=== PATIENT | male | born 1965 | race Two or more races ===

== ENCOUNTER 2024-08-07 13:26 | Outpatient (AMB) | payer MEDICAID, SELFPAY ==
--- NOTE | 2024-08-07 14:16 | A.OFFVIS_ITS ---
Intake Visit Reasons: kidney stone Allergies No Known Allergies Allergy (Verified 08/07/24 14:54) Medication List - Last Reconciled 08/07/24 by ALIZA Miles albuterol sulfate 90 mcg/actuation (Ventolin HFA) 2 puffs inhalation Q4-6H PRN albuterol sulfate mg inhalation Q4-6H PRN cetirizine 10 mg PO DAILY clonazepam 0.5 mg PO BID gabapentin 600 mg PO TID ipratropium-albuterol 0.5 mg-3 mg(2.5 mg base)/3 mL mL inhalation BID multivitamin (One Daily Multivitamin tablet) 1 tab PO DAILY naloxone 4 mg/actuation intranasal DAILY PRN pantoprazole 20 mg PO BID quetiapine 50 mg PO BEDTIME tramadol 50 mg PO QID PRN valsartan 160 mg PO DAILY HPI Comments Details: Osiel is a 58-year-old Swedish-speaking male patient of . He has a past medical history of primary insomnia, osteoarthritis, obesity, hyperlipidemia, depression, GERD, hypertension, chronic back pain, anxiety, and asthma. Presents to the office today as a new patient for nephrolithiasis. In discussion with the patient today he reports having seeked emergency room care at [facility] 3 months ago for left-sided flank pain he had been experiencing at which time he was diagnosed with nephrolithiasis. In review of patient's medical records that he brings with him today records state 3 mm stone however does not indicate on which side and or obstructing verses nonobstructing. In discussion with the patient today he continues to report left-sided flank pain as well as dysuria. He denies any previous history of nephrolithiasis and or surgical intervention for nephrolithiasis. He denies urinary urgency, urinary frequency, incontinence, nocturia, hematuria, foul smelling urine, changes to urinary stream, flank pain, fever, and or chills. We discussed at length potential causes of nephrolithiasis as well as dysuria. We discussed obtaining CT KUB for further assessment evaluation. In office urinalysis results reviewed with the patient today negative leukocytes negative nitrates negative microscopic hematuria. DUANE offered however deferred. He otherwise offers no other issues or concerns at this time. [facility] Medical History Sacral nerve root compression Primary insomnia Persistent severe somatic symptom disorder Osteoarthritis Obesity, Class I, BMI 30-34.9 Mixed hyperlipidemia Major depressive disorder Lumbosacral disc herniation Low back pain GERD (gastroesophageal reflux disease) Failed back syndrome of lumbar spine Essential hypertension Class 1 obesity with body mass index (BMI) of 33.0 to 33.9 in adult Chronic pain of right knee Anxiety Asthma Review of Systems Const Reports no additional complaints Eyes Reports no additional complaints ENT Reports no additional complaints Card Reports as per HPI Resp Reports as per HPI GI Reports as per HPI Reports as per HPI Musc Reports as per HPI Neuro Reports as per HPI Psych Reports as per HPI Endo Reports no additional complaints Jey/Lymph Reports no additional complaints Aller/Immun Reports no additional complaints Physical Exam Const General: cooperative, healthy appearing, comfortable, no acute distress, well developed, alert and awake Orientation/consciousness: patient oriented x3 Limitations: no limitations HEENT Head: Yes normal to inspection, Yes normocephalic and Yes atraumatic Ears: hearing grossly normal bilaterally Eyes General: appearance normal, both eyes and all related structures Neck Neck: Yes normal visual inspection and Yes trachea midline Chest Chest palpation & inspection: normal inspection of the chest Resp Effort & Inspection: normal respiratory effort and able to speak in complete sentences Cardio Rate: regular rate GI Inspection: Yes normal to inspection General: Yes no CVA tenderness Back/Spine/Pelvis Back: no CVA tenderness Skin General skin exam: no rashes or lesions noted Neuro General: patient oriented x3 Extrem General: Yes normal to inspection Psych Appearance: grossly normal and well kempt Mental Status: mental status grossly normal Speech and movement: Normal speech and movement present and Clear speech present Affect: normal affect Attitude: cooperative Thought process: Normal thought process present Thought content: Normal thought content present Insight: Fair insight present (Psych) Judgement: Fair judgement present (Psych) Results AMB Urinalysis, Automated UA Leukoctes 0 Karla/uL Last Edit by JA Rebolledo on 08/07/24 14:47 UA Nitrite Negative Last Edit by AJ Rebolledo on 08/07/24 14:47 UA Urobilinogen 0.2 mg/dL Last Edit by AJ Rebolledo on 08/07/24 14:4 7 UA Protein 0 mg/dL Last Edit by AJ Rebolledo on 08/07/24 14:47 UA pH 6.5 Last Edit by Marleny Garcia, RMA on 08/07/24 14:47 UA Blood 0 Daniel/uL Last Edit by Marleny Garcia, RMA on 08/07/24 14:47 UA Specific [place] 1.015 Last Edit by Marleny Garcia, RMA on 08/07/24 14: 47 UA Ketone Negative Last Edit by Marleny Garcia, RMA on 08/07/24 14:47 UA Bilirubin 0 mg/dL Last Edit by Marleny Garcia, RMA on 08/07/24 14:47 UA Glucose 0 mg/dL Last Edit by Marleny Garcia, A on 08/07/24 14:47 Results Reviewed Results Reviewed: Laboratory Last Values Urine pH (Auto) 6.5 08/07/24 14:47 Specific [place] (Auto) 1.015 08/07/24 14:47 Urine Protein (Auto) 0 mg/dL 08/07/24 14:47 Glucose (UA)(Auto) 0 mg/dL 08/07/24 14:47 Urine Ketones (Auto) Negative 08/07/24 14:47 Urine Blood (Auto) 0 Daniel/uL 08/07/24 14:47 Urine Nitrite (Auto) Negative 08/07/24 14:47 Urine Bilirubin (Auto) 0 mg/dL 08/07/24 14:47 Urine Urobilinogen (Auto) 0.2 mg/dL 08/07/24 14:47 Leukocyte Esterase (Auto) 0 Karla/uL 08/07/24 14:47 Assessment & Plan Assessment & Plan (1) Dysuria: Code(s): R30.0 - Dysuria Category: Medical (2) Flank pain: Code(s): R10.9 - Unspecified abdominal pain Category: Medical (3) Nephrolithiasis: Code(s): N20.0 - Calculus of kidney Category: Medical Plan In office urinalysis results reviewed with the patient today; as noted above; will send for urine culture. Will obtain CT KUB for further assessment evaluation. We discussed at length potential causes of nephrolithiasis as well as near future metabolic workup. We discussed importance of adequate hydration relation to nephrolithiasis as well as overall health and well-being. We discussed potential near future in office cystoscopy for further assessment evaluation. Will obtain PSA for further assessment evaluation. Follow-up in 1-4 weeks with imaging and labs to be completed prior; or sooner with any issues, concerns, and or questions. Orders: Orders AMB Urinalysis Automated Today Z13.9 - Encounter for screening, unspecified CT kidney stone Today N20.0 - Calculus of kidney, R10.9 - Unspecified abdominal pain, R30.0 - Dysuria Prostate Specific Antigen Today N40.0 - Benign prostatic hyperplasia without lower urinary tract symptoms, R30.0 - Dysuria Urine Culture Today R30.0 - Dysuria Patient Instructions: The patient had an opportunity to ask questions regarding the treatment plan. All questions were answered. Physical exam, labs, and imaging were discussed and reviewed in detail. As well as risks, benefits, and discussion of treatment choices. No major barriers to understanding were identified. The patient expressed understanding and agreement with the above treatment plan. The patient was made aware they should contact our office by phone for worsening of their current condition, the appearance of new symptoms, or with any questions or concerns. Compliance is encouraged with any medications and follow up testing that is ordered. It is a privilege to be allowed the opportunity to participate in? your urological care.? Again, if you have any questions or concerns If you have any questions or concerns please do not hesitate to contact me. The office is [phone]. This note is constructed using voice recognition software. While every effort has been made to ensure accuracy estimation manager errors may have been included. Yours sincerely, ALIZA Miles Coding Level of Care Code New Pt Level 3 (20740) Diagnoses Dysuria R30.0 Flank pain R10.9 Nephrolithiasis N20.0
--- OUTSIDE RECORDS SUMMARY | 2024-08-07 15:34 | XMS_ITS | Encounter Summary ---
Author Organization [facility] Address [address] [place] [address] Care Team Providers Care Publications Writer Name Role Phone Cricket Wills Primary Care Provider [phone] Reason for Visit * Reason Comments Care Coordination Patient asked to shelly t with this CHW today. Encounter Details Date Type Department Care Team (Late Contact Info) Description 01/26/[address] [facility] [address] [place] [phone] Sierra Ware, Community Health Worker [address] [place] [address] Social History Tobacco Use Types Packs/Day Years Used Date Smoking Tobacco: Former Smokeless Tobacco: Never Alcohol Use Standard Drinks/Week Comments No 0 (1 standard drink = 0.6 oz pur e alcohol) Sex and Gender Information Value Date Recorded Sex Assigned at Male 07/20/2017 9:10 AM PST Legal Sex Male 8:10 AM PST Gender Identity Male 07/20/2017 9:10 AM PST Sexual Orientation Don't know 07/20/2017 9: 10 AM PST documented as of this encounter Plan of Treatment Upcoming Encounters Date Type Department Care Team (Late Contact Info) Description 08/14/2024 9:40 AM EST Telemedicine Visit [facility] [address] [place] [phone] Brenton Mcfadden, RD [address] [place] [address] 10/25/2024 10:00 AM EDT Office Visit [facility] [address] [place] [phone] Ihsan Gibbs, PharmD [address] [place] [address] 10/30/2024 1:00 PM EDT Office Visit [facility] Dental [address] [place] [phone] Margarito Leger [address] [place] [address] documented as of this encounter Visit Diagnoses Not on filedocumented in this encounter Additional Health Concerns Infection Onset Date Last Indicated Resolved Time COVID-19 Comment:Patient tested negative for Covid-19 05/03/22 05/03/2022 05/03/2022 05/03/2022 7:32 AM P DT documented as of this encounter Care Teams Publications Writer Relationship Specialty Start Date End Date Cricket Wills PA [address] [place] [address] PCP - General Internal Medicine 07/08/17 documented as of this encounter
--- OUTSIDE RECORDS SUMMARY | 2024-08-07 15:34 | XMS_ITS | Encounter Summary ---
Author Organization [facility] Address [address] [place] [address] Care Team Providers Care Cyber Defense Analyst Name Role Phone Cricket Wills Primary Care Provider Encounter Details Date Type Department Care Team (Latest Contact Info) Description 07/24/2024 Travel Social History Tobacco Use Types Packs/Day Years Used Date Smoking Tobacco: Former Passive Smoke Exposure: Never Smokeless Tobacco: Never Alcohol Use Standard Drinks/Week Comments No 0 (1 standard drink = 0.6 oz pur e alcohol) Social Connections Answer Date Recorded Connectedness 1 06/12/2024 Financial Resource Strain Answer Date R ecorded Financial Resource Strain 1 2023 Stress Answer Date Recorded Stress 1 06/12/2024 Physical Activity Answer Date Recorded Physical Activity 0 11/12/2020 Food Insecurity Answer Date Recorded Food 1 06/12/2024 Transportation Needs Answer Date Record ed Transportation 1 06/12/2024 Housing Stability Answer Date Recorded Housing 1 06/12/2024 Safety and Environment Answer Date Hoang rded Safety 1 09/29/2023 Utilities Answer Date Recorded Utilities 1 06/12/2024 Employment Answer Date Recorded Stress 0 11/12/2020 Sex and Gender Information Value Date Recorded Sex Assigned at Male 07/20/2017 9:10 AM PST Legal Sex Male 8:10 AM PST Gender Identity Male 07/20/2017 9:10 AM PST Sexual Orientation Don't know 07/20/2017 9: 10 AM PST COVID-19 Exposure Response Date Recorded In the last 10 days, have yo u been in contact with someone who was confirmed or suspected to have Coronavirus/COVID-19? No / Unsure 07/24/2024 1:09 PM EST documented as of this encounter Plan of Treatment Upcoming Encounters Date Type Department Care Team (Late st Contact Info) Description 08/14/2024 9:40 AM EST Telemedicine Visit [facility] [address] [place] [phone] Bogdan Brenton, RD [address] [place] [address] 10/25/2024 10:00 AM EDT Office Visit [facility] [address] [place] [phone] Ihsan Gibbs, PharmD [address] [place] [address] 10/30/2024 1:00 PM EDT Office Visit [facility] St Dental [address] [place] [phone] Margarito Leger [address] [place] [address] documented as of this encounter Goals Goal Patient Goal Type Associated Problems Recent Progress Patient-Stated? Author Blood Pressure < 140/90 Blood Pressure Essential hypertension 100/70(2024 9:36 AM EST) No Mary Maxwell, PharmD documented as of this encounter Visit Diagnoses Not on filedocumented in this encounter Additional Health Concerns Assessment Noted Time PHQ-9 Depression Total Score: 1 06/12/20 24 4:05 PM PST documented as of this encounter Care Teams Cyber Defense Analyst Relationship Specialty Start Date End Date Cricket Wills PA [address] [place] [address] PCP - General Internal Medicine 07/08/17 documented as of this encounter
--- OUTSIDE RECORDS SUMMARY | 2024-08-07 15:34 | XMS_ITS | Encounter Summary ---
Author Organization [facility] Address [address] [place] [address] Care Team Providers Care Joint Filler Name Role Phone Cricket Wills Primary Care Provider [phone] Encounter Details Date Type Department Care Team (Late st Contact Info) Description 02/07/2022 Dental Interim Note [facility] Main Dental [address] [place] [phone] Mellissa Hernandez DDS [address] [place] [address] Social History Tobacco Use Types Packs/Day Years Used Date Smoking Tobacco: Former Smokeless Tobacco: Never Alcohol Use Standard Drinks/Week Comments No 0 (1 standard drink = 0.6 oz pur e alcohol) Social Connections Answer Date Recorded Social Connections and Isolation 2 11/12/2020 Financial Resource Strain Answer Date R ecorded Financial Resource Strain 2 2020 Stress Answer Date Recorded Stress 2 11/12/2020 Physical Activity Answer Date Recorded Physical Activity 0 11/12/2020 Food Insecurity Answer Date Recorded Food 2 11/12/2020 Transportation Needs Answer Date Record ed Transportation 2 11/12/2020 Housing Stability Answer Date Recorded Housing 2 11/12/2020 Safety and Environment Answer Date Hoang rded Safety 1 11/12/2020 Utilities Answer Date Recorded Utilities 2 11/12/2020 Employment Answer Date Recorded Stress 0 11/12/2020 Sex and Gender Information Value Date Recorded Sex Assigned at Male 07/20/2017 9:10 AM PST Legal Sex Male 8:10 AM PST Gender Identity Male 07/20/2017 9:10 AM PST Sexual Orientation Don't know 07/20/2017 9: 10 AM PST COVID-19 Exposure Response Date Recorded In the last 10 days, have joon parham been in contact with someone who was confirmed or suspected to have Coronavirus/COVID-19? No / Unsure 02/08/2022 1:54 PM EDT documented as of this encounter Plan of Treatment Upcoming Encounters Date Type Department Care Team (Late st Contact Info) Description 08/14/2024 9:40 AM EST Telemedicine Visit [facility] [address] [place] [phone] Brenton Mcfadden, RD [address] [place] [address] 10/25/2024 10:00 AM EDT Office Visit [facility] [address] [place] [phone] Ihsan Gibbs, PharmD [address] [place] [address] 10/30/2024 1:00 PM EDT Office Visit [facility] [address] Dental [address] [place] [phone] Margarito Leger [address] [place] [address] documented as of this encounter Goals Goal [...] 05/03/2022 05/03/2022 05/03/2022 7:32 AM P DT Assessment Noted Time PHQ-9 Depression Total Score: 0 08/16/19 22 1:24 PM PST documented as of this encounter Care Teams Joint Filler Relationship Specialty Start Date End Date Cricket Wills PA [address] [place] [address] PCP - General Internal Medicine 07/08/17 documented as of this encounter
--- OUTSIDE RECORDS SUMMARY | 2024-08-07 15:34 | XMS_ITS | Encounter Summary ---
Author Organization [facility] Address [address] [place] [address] Care Team Providers Care Mortgage Counselor Name Role Phone Cricket Wills Primary Care Provider [phone] Encounter Details Date Type Department Care Team (Late st Contact Info) Description 02/07/2022 Dental Interim Note [facility] Main Dental [address] [place] [phone] Mellissa Hernandez DDS [address] [place] [address] Social History Tobacco Use Types Packs/Day Years [...] Description 08/14/2024 9:40 AM EST Telemedicine Visit [facility] [address] [place] [phone] Brenton Mcfadden, RD [address] [place] [address] 10/25/2024 10:00 AM EDT [facility] [address] [place] [address] Ihsan Gibbs, PharmD [address] [place] [address] 10/30/2024 1:00 PM EDT Office Visit [facility] Dental [address] [place] [phone] Margarito Leger [address] [place] [address] documented as of this encounter Goals Goal [...] documented as of this encounter Care Teams Mortgage Counselor Relationship Specialty Start Date End Date Cricket Wills PA [address] [place] [address] PCP - General Internal Medicine 07/08/17 documented as of this encounter
--- OUTSIDE RECORDS SUMMARY | 2024-08-07 15:34 | XMS_ITS | Clinical Summary ---
Author Organization [facility] Address [address] [place] [address] Care Team Providers Care Resident Services Supervisor Name Role Phone Cricket Wills Primary Care Provider [phone] Source Comments PLEASE NOTE, if this patient is a minor, it may be UNLAWFUL to discuss sensitive information that is contained in these records (such as FAMILY PLANNING, MENTAL HEALTH or SUBSTANCE ABUSE) with the minor patient's parent or other person without the patient's specific authorization.[facility] Allergies No known active allergies Medications sertraline (ZOLOFT) 100 mg tablet Take 100 mg by mouth every morning 03/26/20 20 Active ipratropium-alb uteroL (DUONEB) 0.5 mg-3 mg(2.5 mg base)/3 mL nebulizer solutionIndicat ions:Mild intermittent asthma, unspecified whether complicated Take 3 mL by nebulization 4 (four) times daily 90 mL 07/08/20 20 Active inhalational spacing deviceIndicatio ns:Mild persistent asthma with acute exacerbation Use as instructed 1 Each 1 04/22/20 22 Active nebulizer and compressorIndic ations:Mild persistent asthma with acute exacerbation Use every 4- hours as needed for sob 1 Each 04/22/20 22 Active walkerIndicatio ns:Muscle strain,Lumbosac ral disc herniation,Lumb ar spine pain,Obesity, Class I, BMI 30-34.9,Mild persistent asthma with acute exacerbation,Fa iled back syndrome of lumbar spine,Sacral nerve root compression,Chr onic pain of right knee,Low back pain, unspecified back pain laterality, unspecified chronicity, unspecified whether sciatica present,Chronic bilateral low back pain, unspecified whether sciatica present Please dispense one Rolator walker for patient with mobility issues. 1 Each 03/20/20 23 Active pantoprazole (PROTONIX) 20 mg EC tablet TAKE 1 TABLET BY MOUTH two (2) times a day 60 Tablet 5 07/18/19 24 Active VENTOLIN HFA 90 mcg/actuation inhalerIndicati ons:Cough,Bronc hitis,Moderate persistent asthma with acute exacerbation INHALE 2 PUFF BY MOUTH EVERY 4 TO 6 HOURS NEEDED FOR SHORTNESS OF BREATH OR FOR WHEEZING 18 g 2 08/22/19 24 Active clonazePAM (KLONOPIN) 1 mg tablet TAKE 1/2 TAB BY MOUTH two (2) times a day Authorized by: REYMUNDO ARAGON 10/02/19 24 Active cetirizine (ZYRTEC) 10 mg tabletIndicatio ns:Asthma due to seasonal allergies TAKE 1 TABLET BY MOUTH ONCE DAILY 30 Tablet 11 01/09/20 24 2024 Active naloxone (NARCAN) 4 mg/actuation nasal sprayIndication s:Chronic pain of right knee Place 1 [place] into the nostril(s) as needed for opioid reversal (Overdose) 2 Each 02/12/20 24 Active traMADoL (ULTRAM) 50 mg tabletIndicatio ns:Chronic pain of right knee Take 1 Tablet by mouth 4 (four) times daily as needed for pain 30 Tablet 02/12/20 24 Active gabapentin (NEURONTIN) 600 mg tabletIndicatio ns:Low back pain TAKE 1 TABLET BY MOUTH 3 (THREE) TIMES A DAY 90 Tablet 2 04/10/20 24 Active albuterol (PROVENTIL) 2.5 mg /3 mL (0.083 %) nebulizer solutionIndicat ions:Mild persistent asthma with acute exacerbation INHALE THE CONTENT OF 1 VIAL (3mls) VIA NEBULIZER EVERY 6 HOURS NEEDED FOR WHEEZING 75 mL 1 04/15/20 24 Active valsartan (DIOVAN) 160 mg tabletIndicatio ns:Primary hypertension Take 1 Tablet by mouth once daily 90 Tablet 1 05/06/20 24 Active QUEtiapine (SEROQUEL) 50 mg tabletIndicatio ns:Dysthymia TAKE 1 TABLET BY MOUTH ONCE DAILY AT BEDTIME 30 Tablet 1 05/15/20 24 Active naproxen (NAPROSYN) 500 mg tabletIndicatio ns:Kidney stone Take 1 Tablet by mouth 2 (two) times daily with a meal 30 Tablet 06/12/20 24 Active tamsulosin (FLOMAX) 0.4 mg 24 hr capsuleIndicati ons:Kidney stone Take 1 Capsule by mouth once daily for 30 days 30 Capsule 06/12/20 24 Active ONE DAILY MULTIVITAMIN tabletIndicatio ns:Malnutrition , unspecified type (HCC-CMS) TAKE 1 TABLET BY MOUTH ONCE DAILY 30 Tablet 11 07/15/19 25 Active ONE DAILY MULTIVITAMIN tabletIndicatio ns:Malnutrition , unspecified type (HCC-CMS) TAKE 1 TABLET BY MOUTH ONCE DAILY 30 Tablet 07/25/19 24 2024 Discontinued Active Problems Patient Care Coordination No te Formatting of this note migh t be different from the original. Pre Visit Plan, 04/16/19, for Cricket George PA-C patient in for 3 month med management. Jose Whitt. HM items due: Diabetes and Lipid Screenings; Diet and Exercise for CVD Risk, Zoster, Flu - did patient have (R) knee arthroscopy 02/16/2019? (See below report) 02/12/19, Fecal Occult BLD stool test: Negative. 03/15/19, MR Knee RT WO, [facility], Jaret Ball MD, Findings: Normal appearance of the quadriceps and patellar tendons, anterior and posterior cruciate ligaments, and medial and lateral collateral ligament complexes. No significant joint effusion. Normal articular cartilage. Normal bone marrow signal. Normal appearance of the lateral meniscus. Normal appearance of the medial meniscus. Impression: No MR evidence of internal derangement. 04/05/19, [facility] consult note (Summarized), Richa Whitfield MD: patient is status post a (R) L4-5 decompression in 02/2018 with subsequent reexploration with microdiscectomy at that level on 06/25/2018, both by Dr. Ken at [facility]. Presented to consult office for c/o worsening (R) buttock thigh and calf pain. Seen by pain managment who recommended a TENS unit, which he was not covered under his insurance. Further ROS notable for trouble with balance, anxiety and asthma. Seated straight leg raise is (+) on the (R) at 75 degrees and crossed from the left at 90 degrees. Strength at 5/5 to resistance testing, with mildly antalgic gait. 02/19/19, MRI L-spine showed the L4-5 laminectomy defect with improved postop changes when compared to 06/06/18 study. There is no stenosis at this level, there is mild enhancing granulation tissue w/o evidence of recurrent disc herniation. There is a small (R) L5-S1 disc herniation impinging on the descending S1 root. Discussed findings with Patient, who was symptomatic from the new disc herniation on the (R) at L5-S1. It is small and may resolve on its own. At this point, he is scheduled for (R) knee arthroscopy 02/16/2019;Suggested to proceed with procedure as planned and then f/u to reassess other Sx's after. Problem Noted Date Diagnosed Date Class 1 obesity due to exces s calories with serious comorbidity and body mass index (BMI) of 33.0 to 33.9 in adult 10/16/2023 Failed back syndrome of lumbar spine 06/14/2022 Obesity, Class I, BMI 30-34.9 06/14/2022 Persistent severe somatic sy mptom disorder with predominant pain 06/14/2022 Asthma 06/14/2022 Osteoarthritis 06/14/2022 Lumbosacral disc herniation 04/16/2019 Overview (04/16/2019): 02/19/19, MRI L-spine showed the L4-5 laminectomy defect with improved postop changes when compared to 06/06/18 study. There is no stenosis at this level, there is mild enhancing granulation tissue w/o evidence of recurrent disc herniation. There is a small (R) L5-S1 disc herniation impinging on the descending S1 root. Sacral nerve root compression 04/16/2019 Overview (04/16/2019): 02/19/19, MRI L-spine showed the L4-5 laminectomy defect with improved postop changes when compared to 06/06/18 study. There is no stenosis at this level, there is mild enhancing granulation tissue w/o evidence of recurrent disc herniation. There is a small (R) L5-S1 disc herniation impinging on the descending S1 root. 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 Posterior disc protrusions at L2-L3 and L3-L4 prominent on right with impingement on exiting and extra foraminal right L2 and L3 nerve roots. Moderate central stenosis at these levels. Narrowing of subarticular recessed and moderate to severe central stenosis. Posterior disc protrusion which slightly more prominent impingement on traversing right S1 nerve root. Mixed hyperlipidemia 07/26/2017 Major depressive disorder 07/26/2017 GERD (gastroesophageal reflux disease) 8 Anxiety 07/26/2017 Resolved Problems Problem Noted Date Diagnosed Date Resolved Date Spinal stenosis at L4-L5 level 02/19/2018 04/16/2019 Overview (04/16/2019): 04/16/19, per below report 02/19/19, stenosis resolved from PL and added to patient history by scribe. 02/19/19, MRI L-spine showed the L4-5 laminectomy defect with improved postop changes when compared to 06/06/18 study. There is no stenosis at this level, there is mild enhancing granulation tissue w/o evidence of recurrent disc herniation. There is a small (R) L5-S1 disc herniation impinging on the descending S1 root. 02/19/18, per Cricket Wills PA-C: Seen by [facility] Neurosurgery. Dr. James Dent will attempt to decompress after PCP pre-op clearance. Right L4-L5 METRx (6cm) bilateral decompression. Surgeon Dr. Dent - 02/14/18. Encounters Date Type Department Care Team Description 07/26/2024 10:00 AM EST Office Visit [address] [phone] Ihsan Gibbs, PharmD Essential hypertension (Primary Dx); Class 1 obesity due to excess calories with serious comorbidity and body mass index (BMI) of 33.0 to 33.9 in adult; Medication management 07/26/2024 Travel 07/24/2024 2:20 PM EST Telemedicine Visit [address] [phone] Class 1 obesity due to excess calories with serious comorbidity and body mass index (BMI) of 33.0 to 33.9 in adult (Primary Dx) 07/24/2024 Travel 06/28/2024 10:00 AM EST Telemedicine Visit [address] [phone] Class 1 obesity due to excess calories with serious comorbidity and body mass index (BMI) of 32.0 to 32.9 in adult (Primary Dx) 06/12/2024 4:20 PM EST Office Visit [address] [phone] Cricket Wills PA Rodriguez, Anabel Essential hypertension (Primary Dx); Kidney stone; Class 1 obesity due to excess calories with serious comorbidity and body mass index (BMI) of 33.0 to 33.9 in adult 06/12/2024 Travel 05/23/2024 10:20 AM EST Telemedicine Visit [address] [phone] Primary hypertension (Primary Dx) 05/23/2024 Travel from Last 3 Months Immunizations Name Administration Dates Next Due Flu, Preservative Free 09/13/2022,2020,04/13/2020,04/16,05/03/2018,08/22/2017 Hep B,adult,adjuvanted (HEPLISAV) 09/23/2022,12/2021 Influenza (FLUBLOK),recombinant,injectable,prese rvative Free 05/03/2024 MODERNA COVID-19 VACCINE BIV ALENT, BLUE CAP, 6M+ 09/13/2022 Moderna COVID-19 Vaccine, re d cap blue label, 12+ Primary Series 11/16/2020,10/17/2020 PFIZER COVID VACCINE, PURPLE CAP, 12+ 06/16/2021 PNEUMOCOCCAL CONJUGATE PCV 2 0 (Prevnar) 09/13/2022 PNEUMOCOCCAL POLYSACCHARIDE PPV23 08/16/2021,11/2018 TDAP 08/22/2017 ZOSTER VACCINE, RECOMBINANT (SHINGRIX) ,08/16/2021 Social History Tobacco Use Types Packs/Day Years [...] AM PST Sexual Orientation Don't know 07/20/2017 9 :10 AM PST COVID-19 Exposure Response Date Recorded In the last 10 days, have yo u been in contact with someone who was confirmed or suspected to have Coronavirus/COVID-19? No / Unsure 07/26/2024 9:23 AM EST Last Filed Vital Signs Vital Sign Reading Time Taken Comments Blood Pressure 100/70 07/26/2024 9:36 AM EST Pulse 75 07/26/2024 9:36 AM EST Temperature 37.1 ??C (98.7 ??F) 07/26/2024 9:36 AM ES T Respiratory Rate 16 07/26/2024 9:36 AM EST Oxygen Saturation 99% 07/26/2024 9:36 AM EST Inhaled Oxygen Concentration - - Weight 105.7 kg (233 lb) 07/26/2024 9:36 AM EST Height 177.8 cm (5' 10 ) 07/26/2024 9:36 AM EST Body Mass Index 33.43 07/26/2024 9:36 AM EST Plan of Treatment Upcoming Encounters Date Type Department Care Team (Late st Contact Info) Description 08/14/2024 9:40 AM EST Telemedicine Visit [facility] [address] [place] [phone] Brenton Mcfadden, RD [address] [place] [address] 10/25/2024 10:00 AM EDT Office Visit [facility] [address] [place] [phone] Sai Ihsan, PharmD [address] [place] [address] 10/30/2024 1:00 PM EDT Office Visit [facility] [address] [place] [phone] Margarito Leger [address] [place] [address] Health Maintenance Due Date Last Done Comments Dental FMX/Pano [address] CT Colonography 12/01/2011 Fecal DNA 12/01/2011 Flexible Sigmoidoscopy 12/01/2011 FIT/gFOBT 04/24/2021 04/24/2020, 04/09, 04/24/2020, Additional history exists Annual Preventive Care Visit 08/16/202201/2022, 01/30/2019, 08/22/2017 Lipid Screening 12/01/2023 2022, 11/08, 08/17/2021 [id number] ( season) 2024 09/13/2022, 06/16/2021, 11/16/2020, Additional history exists Depression Monitoring 09/10/2024 06/12/2024 , 01/12/2024, 05/11/2023, Additional history exists Tobacco Screening 10/15/2024 10/16/2023, , 08/16/2021 Diabetes Screening 03/08/2025 03/08/2024, 0 2022, 2022, Additional history exists Dental BW 05/02/2025 04/30/2024, 08/11, 08/22/2022 Dental Examination 05/02/2025 04/30/2024, 0 09/04/2023, 08/22/2022, Additional history exists Dental Perio Charting 05/02/2025 04/30/2024 , 09/04/2023, 02/08/2022 Dental Prophy 05/02/2025 04/30/2024, 08/11, 08/22/2022, Additional history exists Imm-DTaP/Tdap/Td (2 - Td or Tdap) 08/22/2027 018 Colonoscopy 10/30/2030 11/04/2020, 10/30/2020 Colorectal Cancer Screening 10/30/2030 HIV Screening Completed 08/25/2017 Hepatitis C Screening Completed 08/25/2017 Imm-Zoster, Recombinant Completed 06/14/2022, 08/16 Imm-Pneumococcal Completed 09/13/2022, 01/2022, 06/13/2019 Imm-Hepatitis B Completed 09/23/2022, 06/14/2022 Imm-Influenza Discontinued 05/03/2024, 0301/2023, 05/13/2021, Additional history exists Alcohol and Drug Screen Completed 07/26/19, 06/12/2024, 10/16/2023, Additional history exists Goals Goal Patient Goal Type Associated Problems Recent Progress Patient-Stated? Author Blood Pressure < 140/90 Blood Pressure Essential hypertension 100/70(2024 9:36 AM EST) Mary Roy, PharmD Procedures Procedure Name Priority Date/Time Associated Diagnosis Comments IMAGING SCANNED DOCUMENT 07/26/2024 3:00 AM EST IMAGING SCANNED DOCUMENT 06/07/2024 3:00 AM EST BITEWINGS - FOUR RADIOGRAPHIC IMAGES Routine 04/30/2024 1:00 PM EDT Encounter for dental examination and cleaning without abnormal findings PROPHYLAXIS - ADULT Routine 04/30/2024 1 :00 PM EDT Encounter for dental examination and cleaning without abnormal findings PERIODIC ORAL EVALUATION ESTABLISHED PATIENT Routine 04/30/2024 1:00 PM EDT Encounter for dental examination and cleaning without abnormal findings COMPREHENSIVE METABOLIC PANEL Routine 03/08/2024 10:10 AM EDT Mixed hyperlipidemia Essential hypertension Class 1 obesity due to excess calories with serious comorbidity and body mass index (BMI) of 33.0 to 33.9 in adult COMP PERIODONTAL EVALUATION - NEW/EST PATIENT Routine 09/04/2023 1:00 PM EST Caries LIPIDS W RFLX TO DIRECT LDL Routine 2022 10:45 AM EDT Routine adult health maintenance REFERRAL FOR COLONOSCOPY Routine 10/30/2020 12:54 PM EDT Diverticulitis OCCULT BLOOD, STOOL (X1) Routine 04/24/2020 12:00 AM EDT ANTIBODY HIV-1&HIV-2 SINGLE RESULT Routine 08/25/2017 8:35 AM EST Routine adult health maintenance HEPATITIS A,B,C PANEL Routine 08/25/2017 8:35 AM EST Routine adult health maintenance from Last 3 Months or Most Recently Relevant to Health Maintenance Results * IMAGING SCANNED DOCUMENT (07/26/2024 3:00 AM EST) Only the most recent of2 resultswithin the time period is included. 07/26/2024 3:00 AM EST Cricket [facility] SCAN IMAGING Final Result * COMPREHENSIVE METABOLIC PANEL (03/08/2024 10:10 AM EDT) GLUCOSE 97 65 - 99 mg/dL [facility] Comment: ?Fasting reference interval UREA NITROGEN (BUN) 22 7 - 25 mg/dL [facility] CREATININE (blood) 1.11 0.70 - 1.30 mg/dL [facility] EGFR 77 > OR = 60 mL/min/1. 73m2 [facility] BUN/CREATININE RATIO SEE NOTE: 6 [facility] Comment: ?? Not Reported: BUN and Creatinine are within ?? reference range. ? SODIUM 138 135 - 146 mmol/L [facility] POTASSIUM 4.2 3.5 - 5.3 mmol/L [facility] CHLORIDE 101 98 - 110 mmol/L [facility] CARBON DIOXIDE 24 20 - 32 mmol/L [facility] CALCIUM 9.1 8.6 - 10.3 mg/dL [facility] PROTEIN, TOTAL 6.5 6.1 - 8.1 g/dL [facility] ALBUMIN 3.8 3.6 - 5.1 g/dL [employer] [place] [employer] GLOBULIN 2.7 1.9 - 3.7 g/dL (calc) [employer] [place] [employer] ALBUMIN/GLOBULI N RATIO 1.4 1.0 - 2.5 (calc) [facility] BILIRUBIN, TOTAL 0.6 0.2 - 1.2 mg/dL [employer] [facility] ALKALINE PHOSPHATASE 76 35 - 144 U/L [employer] [facility] AST 18 10 - 35 U/L [employer] [place] [employer] ALT 35 9 - 46 U/L [employer] [place] [employer] Blood Blood / Unknown 03/08/2024 1 0:10 AM EDT 03/08/2024 10:10 AM EDT [facility] - BLOOD DRAW Final Result [employer] [address] [address], [employer] [address] [address] * (ABNORMAL) LIPIDS W RFLX TO DIRECT LDL (2022 10:45 AM EDT) CHOLESTEROL, TOTAL 273(H) <200 mg/dL [employer] [facility] HDL CHOLESTEROL 46 > OR = 40 mg/dL [employer] [facility] TRIGLYCERIDES 310(H) <150 mg/dL [employer] [facility] Comment: If a non-fasting specimen was collected, consider repeat triglyceride testing on a fasting specimen if clinically indicated. Arelis et al. J. of Clin. Lipidol. 2015;9:129-169. LDL-CHOLESTEROL 174(H) 99 mg/dL (calc) [facility] Comment: Reference range: <100 Desirable range <100 mg/dL for primary prevention; ?? <70 mg/dL for patients with CHD or diabetic patients with > or = 2 CHD risk factors. LDL-C is now calculated using the Darius calculation, which is a validated novel method providing better accuracy than the Friedewald equation in the estimation of LDL-C. Charbel VIDAL et al. ANI. 2013;310(19): 8995-0253 (http://education.[employer].Altammune/faq/QLR759) CHOL/HDLC RATIO 5.9(H) <5.0 (calc) [facility] NON-HDL CHOLESTEROL 227(H) <130 mg/dL (calc) [facility] Comment: Non-HDL level > or = 220 is very high and may indicate genetic familial hypercholesterolemia (FH). Clinical assessment and measurement of blood lipid levels should be considered for all first-degree relatives of patients with an FH diagnosis. For patients with diabetes plus 1 major ASCVD risk factor, treating to a non-HDL-C goal of <100 mg/dL (LDL-C of <70 mg/dL) is considered a therapeutic option. Blood Blood / Unknown 2022 1 0:45 AM EDT 2022 10:45 AM EDT us [facility] - BLOOD DRAW Final Result [employer] [address] [address], [employer] [address] [address] * REFERRAL FOR COLONOSCOPY (10/30/2020 12:54 PM EDT) us [facility] REFERRAL Edited Result - Final * OCCULT BLOOD, STOOL (X1) (04/24/2020 12:00 AM EDT) STOOL OCCULT, SCREENING (ICT) PLEASE NOTE: SPECIMEN COLLECTION DATES WERE NOT SPECIFIED ON THE SAMPLES SUBMITTED. IT IS RECOMMENDED THAT STOOL SAMPLES BE COLLECTED AT A MINIMUM OF 3 CONSECUTIVE DAYS TO IMPROVE DETECTION OF OCCULT BLOOD. RESULT SPEC 1 NEGATIVE CARD NEHEMIAH DATE: NO DATE SPECIFIED RESULT SPEC 2 NEGATIVE CARD [place]HEMIAH DATE: NO DATE SPECIFIED RESULT SPEC 3 NEGATIVE CARD [place]HE[place]IAH DATE: NO DATE SPECIFIED [employer] [facility] 04/24/2020 04/24/2020 6:5 5 PM EDT Narrative [facility] - 04/27/2020 11:22 AM EDT [employer], [place] [address] Wildlife Protector - Ella Guevara MD PT ID [id number] ORD# [id number] SOURCE: STOOL; [facility] - NO BLOOD DRAW Final Resu lt Performing Organization Address [facility] Co de Phone Number [facility] [address] [place] [address], [place] [phone] * HEPATITIS A,B,C PANEL (08/25/2017 8:35 AM EST) HEPATITIS B SURFACE ANTIBODY NEGATIVE NEGATIVE [facility] HEPATITIS B SURFACE ANTIGEN NEGATIVE NEGATIVE [facility] Comment: Over the counter supplements containing high doses of biotin may interfere with this assay. ??If interference is suspected, patients shoud be retested after refraining from biotin supplements for 72 hours. HEPATITIS C VIRUS DIAGNOSTIC NEGATIVE NEGATIVE [facility] HEPATITIS B CORE ANTIBODY NEGATIVE NEGATIVE [facility] HEPATITIS A ANTIBODY TOTAL NEGATIVE NEGATIVE [facility] Comment: Over the counter supplements containing high doses of biotin may interfere with this assay. ??If interference is suspected, patients shoud be retested after refraining from biotin supplements for 72 hours. Blood specimen (specimen) Blood / Unknown 08/25/2017 8:35 AM EST 08/25/2017 8:46 AM EST Narrative [facility] - 08/25/2017 2:18 PM EST [facility] [employer] [address] [place] [address] PT ID [id number] ORD# [id number] [facility] - BLOOD DRAW Edited Result - Final Performing Organization Address City/[facility]/ZIP Co de Phone Number [address] [address], [place] [phone] * HIV-1 & HIV-2 ANTIBODIES (08/25/2017 8:35 AM EST) HIV 1 AND 2 ANTIBODY SCREEN NEGATIVE NEGATIVE [facility] Comment: This assay is a 4th generation assay allowing for earlier detection of HIV infection by detecting the presence of the HIV-1 p24 antigen as well as the traditional antibodies to HIV type 1 (including group O) and type 2. ??Use of a 4th generation assay is the current CDC recommendation for HIV screening. Blood specimen (specimen) Blood / Unknown 08/25/2017 8:35 AM EST 08/25/2017 8:46 AM EST Narrative [employer] - 08/25/2017 2:47 PM EST [employer] [address] [place] [address] PT ID [id number] ORD# [id number] [facility] - BLOOD DRAW Final Result [facility] [address] [place] [address], from Last 3 Months or Most Recently Relevant to Health Maintenance Insurance [place] MEDICA[place] D[place]AL [address] [employer] Care Teams Resident Services Supervisor Relationship Specialty Start Date End Date Cricket Wills PA [address] [place] [address] PCP - General Internal Medicine 07/08/17
--- OUTSIDE RECORDS SUMMARY | 2024-08-07 15:34 | XMS_ITS | Encounter Summary ---
Author Organization [facility] Address [address] [place] [address] Care Team Providers Care Crate Builder Name Role Phone Cricket Wills Primary Care Provider [phone] Encounter Details Date Type Department Care Team (Latest Contact Info) Description 07/24/2024 2:20 PM EST Telemedicine Visit [facility] [address] [place] [phone] Brenton Mcfadden, RD [address] [place] [address] Class 1 obesity due to excess calories with serious comorbidity and body mass index (BMI) of 33.0 to 33.9 in adult (Primary Dx) Social History Tobacco Use Types Packs/Day Years [...] No / Unsure 07/26/2024 9:23 AM EST documented as of this encounter Progress Notes * Brenton Mcfadden RD - 07/24/2024 1:50 PM EST The following visit was conducted via Audio only. I educated the patient/guardian on the terms of telehealth and the patient verbally consented to this telemedicine visit. The patient was identified using their Name, and [facility] ID. I identified myself as Brenton Mcfadden RD from [facility]. It was conducted in a private space to protect HIPPA sensitive information. Precautions weretaken to provide confidentiality and security and patient was made aware of privacy considerations.The patients location was obtained and is [facility] home The patient/guardian was notified that the services were being provided from [facility]). The patient/guardian was notified how they can see a clinician in-person in the event of an emergency or if otherwise needed. Visit START TIME 1:50 END TIME 1:57 Brass Finisher used during visit? No SUBJECTIVE: Osiel is a 58 year old male here for follow up treatment of obesity. Problems since last visit: Pain in his back but otherwise feeling well. Adherence to treatment plan: good Water intake: good Prescribed treatment plan: Patient is eating smaller portions. Food logs: patient is not logging foods Exercise: times per week: daily movement around the house and outside Type of exercise: walking Weight loss pharmacotherapy: No Current Outpatient Medications Medication Sig Dispense Refill ONE DAILY MULTIVITAMIN tablet TAKE 1 TABLET BY MOUTH ONCE DAILY 30 Tablet 11 naproxen (NAPROSYN) 500 mg tablet Take 1 Tablet by mouth 2 (two) times daily with a meal 30 Tablet 0 tamsulosin (FLOMAX) 0.4 mg 24 hr capsule Take 1 Capsule by mouth once daily for 30 days 30 Capsule 0 QUEtiapine (SEROQUEL) 50 mg tablet TAKE 1 TABLET BY MOUTH ONCE DAILY AT BEDTIME 30 Tablet 1 valsartan (DIOVAN) 160 mg tablet Take 1 Tablet by mouth once daily 90 Tablet 1 albuterol (PROVENTIL) 2.5 mg /3 mL (0.083 %) nebulizer solution INHALE THE CONTENT OF 1 VIAL (3mls)VIA NEBULIZER EVERY 6 HOURS NEEDED FOR WHEEZING 75 mL 1 gabapentin (NEURONTIN) 600 mg tablet TAKE 1 TABLET BY MOUTH 3 (THREE) TIMES A DAY 90 Tablet 2 naloxone (NARCAN) 4 mg/actuation nasal spray Place 1 Cameron into the nostril(s) as needed for opioidreversal (Overdose) 2 Each 99 traMADoL (ULTRAM) 50 mg tablet Take 1 Tablet by mouth 4 (four) times daily as needed for pain 30 Tablet 0 cetirizine (ZYRTEC) 10 mg tablet TAKE 1 TABLET BY MOUTH ONCE DAILY 30 Tablet 11 clonazePAM (KLONOPIN) 1 mg tablet TAKE 1/2 TAB BY MOUTH two (2) times a day Authorized by: REYMUNDO BAUTISTA VENTALBERT HFA 90 mcg/actuation inhaler INHALE 2 PUFF BY MOUTH EVERY 4 TO 6 HOURS NEEDED FOR SHORTNESS OF BREATH OR FOR WHEEZING 18 g 2 pantoprazole (PROTONIX) 20 mg EC tablet TAKE 1 TABLET BY MOUTH two (2) times a day 60 Tablet 5 walker Please dispense one Rolator walker for patient with mobility issues. 1 Each 0 inhalational spacing device Use as instructed 1 Each 1 nebulizer and compressor Use every 4- hours as needed for sob 1 Each 0 ipratropium-albuteroL (DUONEB) 0.5 mg-3 mg(2.5 mg base)/3 mL nebulizer solution Take 3 mL by nebulization 4 (four) times daily 90 mL 0 sertraline (ZOLOFT) 100 mg tablet Take 100 mg by mouth every morning No current facility-administered medications for this visit. OBJECTIVE: Smoking Status Former There is no height or weight on file to calculate BMI. Wt Readings from Last 4 Encounters: 06/12/24 229 lb (103.9 kg) 05/03/24 232 lb 9.6 oz (105.5 kg) 03/08/24 232 lb 9.6 oz (105.5 kg) 02/12/24 228 lb (103.4 kg) Total weight change: no current weight Goal weight: <10% General: alert, no apparent distress ASSESSMENT/PLAN: 24 hour recall: coffee Green banana, name and meat,water,salad Small donut Discussed limiting processed sugary foods and eating piece of fruit instead. Keeping meals consistent encouraged as well as continuing to add more vegetables to meal plan by using my portion plate aspreferred method of meal planning. Patient/guardian understands and agrees with the plan of care. documented in this encounter Plan of Treatment Upcoming Encounters Date Type Department Care Team (Late st Contact Info) Description 08/14/2024 9:40 AM EST Telemedicine Visit [facility] [address] [place] [phone] [place] [address] 10/25/2024 10:00 AM EDT Office Visit [facility] [address] [place] [phone] Ihsan Gibbs, PharmD [facility] [place] [address] 10/30/2024 1:00 PM EDT Office Visit [facility] Dental [address] [place] [phone] Margarito Leger [address] [place] [address] documented as of this encounter Goals Goal Patient Goal Type Associated Problems Recent Progress Patient-Stated? Author Blood Pressure < 140/90 Blood Pressure Essential hypertension 100/70(2024 9:36 AM EST) No Mary Maxwell, PharmD documented as of this encounter Visit Diagnoses Diagnosis Class 1 obesity due to excess calories with serious comorbidity and body mass index (BMI) of 33.0 to 33.9 in adult- Primary documented in this encounter Additional Health Concerns Assessment Noted Time PHQ-9 Depression Total Score: 1 06/12/20 24 4:05 PM PST documented as of this encounter Care Teams Crate Builder Relationship Specialty Start Date End Date Cricket Wills PA [address] [place] [address] PCP - General Internal Medicine 07/08/17 documented as of this encounter
--- OUTSIDE RECORDS SUMMARY | 2024-08-07 15:34 | XMS_ITS | Encounter Summary ---
Author Organization [facility] Address [address] [place] [address] Care Team Providers Care Human Services Care Specialist Name Role Phone Cricket Wills Primary Care Provider Reason for Visit * Reason Comments Hypertension Encounter Details Date Type Department Care Team ([facility] Contact Info) Description 07/26/2024 10:00 AM EST Office Visit [facility] [address] [place] [phone] Ihsan Gibbs, PharmD [address] [place], [place] [phone] Essential hypertension (Primary Dx); Class 1 obesity due to excess calories with serious comorbidity and body mass index (BMI) of 33.0 to 33.9 in adult; Medication management Social History Tobacco Use Types Packs/Day Years [...] AM EST documented as of this encounter Last Filed Vital Signs Vital Sign Reading [...] Mass Index 33.43 07/26/2024 9:36 AM EST documented in this encounter Functional Status * Is the patient deaf or have serious difficulty hearing? Answer Date of Assessment Author No 07/26/2024 9:00 AM Hima Lee CMA * Is the patient blind, or have serious difficulty seeing, even when wearing glasses? Answer Date of Assessment Author No 07/26/2024 9:00 AM Hima Lee CMA * Does the patient have difficulty dressing or bathing? Answer Date of Assessment Author No 07/26/2024 9:00 AM Hima Lee CMA * Because of a physical, mental, or emotional condition, does the patient have difficulty doing errands alone such as visiting a doctor???s office or shopping? Answer Date of Assessment Author No 07/26/2024 9:00 AM Hima Lee CMA documented as of this encounter Mental Status * Because of a physical, mental, or emotional condition, does the patient have serious difficulty concentrating, remembering, or making decisions? Answer Entry Date Author Yes 07/26/2024 9:00 AM Hima Lee CMA documented in this encounter Progress Notes * Ihsan Gibbs PharmD - 07/26/2024 10:00 AM EST Osiel Gamino is a 58 year old, Kosovan-speaking male who presents today for a follow-up visit in Hypertension Clinic with Ihsan Gibbs PharmD. Referred by CLIFF Lara. No wrong address clerk needed for today's visit as patient speaks Palestinian. Accompanied by: None HPI: Patient reports: Patient reports doing well, endorses proper use of medications, and denies any issues today. Patient is SMBP when they feel off , sometimes before medications and sometimes after medications. Patient continues to be mindful of diet denies caffeine and limits salt, limited on activity due weather and right knee issue. States weight always stays between 228-232lbs no matter what they do. Has appt with nephrology 08/07/24 for renal calculus, and has F/U with orthopedics for right knee pain. New concerns: None Specialists managing HTN: None ASCVD Patient has the following risk factors/co-morbidities for hypertension: Dyslipidemia, Obesity, and pain. Hx of stroke/NM/HF/CAD? No Family cardiac hx: Father had heart problems and mother of heart problems. Tobacco Use: Never Smoker Tobacco Intervention:provided smoking cessation counseling Alcohol Use: No alcohol use Pharmacotherapy: Current anti-hypertensive pharmacological regimen: Valsartan 160mg once daily Patient reported medication NON-adherence: No missed doses Did you take your medication today? Yes Previous anti-hypertensives and reason for discontinuation: N/A Additional OTC medications or supplements: None Patient reports the following medication side effects: None. Home BP monitoring: Patient reports checking blood pressure at home Weekly BP readings: 07/20/24 139/69mmHg 80BPM 07/16/24 130/70mmHg 72BPM 07/13/24 120/87mmHg 91BPM 07/11/24 126/69mmHg 90BPM 07/05/24 135/80mmHg 80BPM 07/02/24 129/74mmHG 72BPM Lifestyle: Diet: Patient denies adding salt to meals. Patient eats mostly vegetables, fresh made meals, and drinks a lot of water. Patient following with [facility] manager applied. Caffeine: One coffee daily, denies soda, tea, and energy drinks. Exercise: minimal exercise: walking daily however, limited by leg and back pain. OBJECTIVE Last 3 BP Readings: Date: BP: 07/26/2024 100/70 06/12/2024 136/70 05/03/2024 124/62 Wt Readings from Last 3 Encounters: 07/26/24 233 lb (105.7 kg) 06/12/24 229 lb (103.9 kg) 05/03/24 232 lb 9.6 oz (105.5 kg) Allergies reviewed: No Known Allergies Estimated Creatinine Clearance: 89.3 mL/min (by C-G formula based on SCr of 1.11 mg/dL). Lab Results Component Value Date NA 138 03/08/2024 K 4.2 03/08/2024 BUN 22 03/08/2024 BUNCREAT SEE NOTE: 03/08/2024 CREATININE 1.11 03/08/2024 EGFR 77 03/08/2024 No results found for: METANEPHRINE , ALDOSTERONE , NORMETNEPH , RENIN , ALDOPRA , TSH , CORTISOLAM , [id number] , [id number] Lab Results Component Value Date TRIGLYC 310 (H) 2022 CHOL 273 (H) 2022 HDL 46 2022 LDL 174 (H) 2022 CHOLHDL 5.9 (H) 2022 NONHDL 227 (H) 2022 The 10-year ASCVD risk score (Azul MADRIGAL, et al., 2019) is: 7.5% ASSESSMENT BP target: Per ACC/AHA guidelines, for adults with confirmed hypertension and known CVD or 10-year ASCVD event risk of 10% or higher, a BP target of less than 130/80 mmHg is recommended. Hypertension - controlled No medication therapy problems identified Na, K, Ca, Scr, eGFR: WNL as of 03/08/24 BP monitoring: Weekly PLAN I10 Essential hypertension (primary encounter diagnosis) Hypertension - controlled. Pharmacologic RX: Valsartan 160mg once daily No med changes, continue current medications for now: Valsartan. Counseled patient on importance of lifestyle modifications to improve BP control (Increase physicalactivity, weight loss, and limit salt and caffeine intake) Patient agreed to SMBP weekly and to bring readings to future appointments. E66.811,E66.09,Z68.33 Class 1 obesity due to excess calories with serious comorbidity and body massindex (BMI) of 33.0 to 33.9 in adult Lifestyle measures:BMI follow up plan: The patient was counseled regarding nutrition and physical activity. Counseled patient on importance of diet and lifestyle (weight loss, low-sodium (CR) diet,decrease carbohydrates such as rice, bread, pasta and corn meal, and increase physical activity with at least 150 minutes of moderate physical activity per week). Z79.899 Medication management Medications reviewed and medlist updated. Follow-up appt scheduled on 10/25/24 @10AM. EDUCATION PROVIDED: Counseled patient to continue lifestyle modifications: weight reduction, diet, exercise/physical activity, and caffeine intake. Proper conditions for taking blood pressure. Factors to also consider that may affect BP include, smoking, caffeine, alcohol use, pain, and exercise. Seeking emergency treatment if persistent chest pain, blurry vision, and/or palpitations and BP >180/110 mmHg. Medication(s): (indication, dosage, administration, storage, side effects, missing dose) Starter Mechanic Complications of Uncontrolled Hypertension REFERENCES: Nevin PK, Johana RM, Dania WS, Jose D TORRES Jr, Wood KJ, Susie Bang C, Srinivasan SM, Promise S, Heladio KA, Boom DW, Esdras EJ, Lloyd P, Heladio B, See WILLETT Jr, Tone CC, Romero RS, Analilia SJ, Shaheen RJ, Hans RODRÍGUEZ Sr, Darrell CunninghamD, El CunninghamT Jr. 2017 ACC/AHA/AAPA/ABC/ACPM/AG S/APhA/CLARISSA/ASPC/NMA/PCNA Guideline for the Prevention, Detection, Evaluation, and Management of High Blood Pressure in Adults: Executive Summary: A Report of the [place] [employer]/[place] Heart Association Task Force on Clinical Practice Guidelines. Hypertension. 2018 Dec;71(6):3956-4005. doi: 10.1161/HYP.[id number]. Epub 2016May 22. Erratum in: Hypertension. 2018 Dec;71(6):z916-i596. Erratum in: Hypertension. 2018 Mar;72(3):e33. PMID: [id number]. Ihsan Gibbs PharmD, [facility] documented in this encounter Miscellaneous Notes * Patient Instructions - Ihsan Gibbs PharmD - 07/26/2024 10:02 AM EST Instructions: Normal blood pressure: less than 130/80 mmHg (should not be lower than 100/60 mmHg) 2. Normal Pulse: 60 - 100 beats per minute 3. Seek emergency care if your blood pressure is greater than 180/110 mmHg and you have symptoms such as chest pain, chest tightness, dizziness/lightheadedness, headaches, palpitations or other pertinent symptoms. Robles Gibbs PharmD, [facility] Clinical Pharmacist Press 1 for Palestinian Enter extension [phone] They will not ask you what extension you want to reach, so just enter extension. You may leave me a message if I do not answer. Please state your name, date of and call back number If you are not able to keep your appointment please call 24-48 hours before your appointment to cancel or reschedule. documented in this encounter Plan of Treatment Upcoming Encounters Date Type Department Care Team (Late st Contact Info) Description 08/14/2024 9:40 AM EST Telemedicine Visit [facility] [address] [place] [phone] Brenton Mcfadden, RD [address] [place] [address] 10/25/2024 10:00 AM EDT Office Visit [facility] [address] [place] [phone] Ihsan Gibbs PharmD [address] [place] [address] 10/30/2024 1:00 PM EDT Office Visit [facility] Dental [address] [place] [phone] Margarito Leger [address] [place] [address] documented as of this encounter Goals Goal Patient Goal Type Associated Problems Recent Progress Patient-Stated? Author Blood Pressure < 140/90 Blood Pressure Essential hypertension 100/70(2024 9:36 AM EST) Mary Roy, PharmD documented as of this encounter Visit Diagnoses Diagnosis Essential hypertension- Primary Class 1 obesity due to excess calories with serious comorbidity and body mass index (BMI) of 33.0 to 33.9 in adult Medication management Encounter for long-term (current) use of other medications documented in this encounter Additional Health Concerns Assessment Noted Time PHQ-9 Depression Total Score: 1 06/12/20 24 4:05 PM PST documented as of this encounter Care Teams Human Services Care Specialist Relationship Specialty Start Date End Date Cricket Wills PA [address] [place] [address] PCP - General Internal Medicine 07/08/17 documented as of this encounter
--- OUTSIDE RECORDS SUMMARY | 2024-08-07 15:34 | XMS_ITS | Encounter Summary ---
Author Organization [facility] Address [address] [place] [address] Care Team Providers Care Foreclosure Clerk Name Role Phone Cricket Wills Primary Care Provider [phone] Reason for Referral * Imaging (Routine) - Pending Review Specialty Diagnoses / Procedures Referred By Contac t Referred To Contact Radiology Procedures MR Lumbar Spine wo James Mack PA [address] [place] [address] [address] Referral ID Status Reason Start Date Expiration Date V isits Requested Visits Authorized [id number] Pending Review 07/30/2024 07/30/2025 1 1 Reason for Visit * Reason Comments Hip Pain Acute on chronic hip and low back pain worsening since Monday, no relief with naproxen Encounter Details Date Type Department Care Team (Late st Contact Info) Description 07/30/2024 2:53 PM EST - 07/30/2024 6:23 PM EST Emergency [facility] Emergency [address] [place] [address] Piriformis syndrome of right side (Primary Dx) Discharge Disposition: Home or Self Care Social History Tobacco Use Types Packs/Day Years Used Date Smoking Tobacco: Never Smokeless Tobacco: Never Alcohol Use Standard Drinks/Week Comments Never 0 (1 standard drink = 0.6 oz pur e alcohol) Sex and Gender Information Value Date Recorded Sex Assigned at Male 07/30/2024 3:55 PM EST Gender Identity Male 07/30/2024 3:55 PM EST Sexual Orientation Straight 07/30/2024 3: 55 PM EST Job Start Date Occupation Industry Not on file Not on file Not on file documented as of this encounter Last Filed Vital Signs Vital Sign Reading Time Taken Comments Blood Pressure 146/82 07/30/2024 6:11 PM EST Pulse 77 07/30/2024 6:11 PM EST Temperature 36.9 ??C (98.4 ??F) 07/30/2024 6:11 PM ES T Respiratory Rate 18 07/30/2024 6:11 PM EST Oxygen Saturation 100% 07/30/2024 6:11 PM EST Inhaled Oxygen Concentration - - Weight 106 kg (233 lb) 07/30/2024 1:38 PM EST Height 180 cm (5' 10.87 ) 07/30/2024 1:38 PM EST Body Mass Index 32.62 07/30/2024 1:38 PM EST documented in this encounter Functional Status Functional Status Response Date of Assess ment Are you deaf or do you have serious difficulty h earing? No 07/30/2024 Are you blind or do you have serious difficulty seeing, even when wearing glasses? No 07/30/2024 Do you have serious difficul ty walking or climbing stairs? No 07/30/2024 Do you have serious difficulty dressing or bathi ng? No 07/30/2024 Because of a physical, menta l, or emotional condition, do you have serious difficulty doing errands alone such as visiting the doctor? No 07/30/2024 Cognitive Status Response Date of Assessm ent Because of a physical, menta l, or emotional condition, do you have serious difficulty concentrating, remembering, or making decisions? (5 years old or older) No 07/30/2024 documented as of this encounter Discharge Instructions * Discharge Instructions* DIRK Marcos - 07/30/2024 6:03 PM EST Take Methocarbamol up to 4 times daily as needed for muscle spasms. This medication may make you drowsy, so it is important that you do not drive a car, drink alcohol, or operate any other heavy machinery while on this medication. Do not take with other muscle relaxers like tizanidine. Take prednisone 40 mg once daily for the next 5 days. You received your first dose here today, nextdose should be tomorrow. Plenty of rest. Perform stretches to the lower back and hip. Follow-up with your primary care provider regarding your symptoms and your visit with us today. Continue all previously-prescribed medications. I have put a referral in for outpatient MRI. Return to the emergency department with any new or worsening symptoms. * Attachments The following attachments cannot be sent through Care Everywhere. * Piriformis Syndrome (Danish) * Piriformis Syndrome: Exercises (Danish) documented in this encounter Medications at Time of Discharge Medication Sig Dispensed Refills Start Date End Date acetaminophen (TYLENOL) 500 mg tablet Take 500 mg by mouth as needed. albuterol 2.5 mg /3 mL (0.083 %) nebulizer solution INHALE THE CONTENT OF 1 VIAL (3mls) VIA NEBULIZER EVERY 6 HOURS NEEDED FOR WHEEZING 02/17/2023 benzonatate (TESSALON) 100 mg capsule Take 1 capsule (100 mg total) by mouth. 11/16/2022 betamethasone, augmented, (DIPROLENE-AF) 0.05 % cream Apply topically. 08/16/2021 bisacodyL (Dulcolax, bisacodyl,) 5 mg EC tablet 1 tablet (5 mg total). 10/04/2017 brimonidine (ALPHAGAN) 0.2 % ophthalmic solution INSTILL 1 DROP IN EACH EYE 3 (THREE) TIMES A DAY 08/30/2022 buPROPion SR (WELLBUTRIN SR) 150 mg 12 hr tablet TAKE ONE TABLET BY MOUTH 2 (two) times a day FOR 7 DAYS 04/16/2019 cetirizine (ZyrTEC) 10 mg tablet Take 1 tablet (10 mg total) by mouth daily. 2022 01/08/2025 clonazePAM (KlonoPIN) 0.5 mg tablet TAKE ONE TABLET BY MOUTH 2 (two) times a day 03/26/2020 dextromethorphan-guaiFEN esin (Tussin DM) 10-100 mg/5 mL syrup Take 10 mL by mouth. 11/16/2022 diazePAM (VALIUM) 5 mg tablet 1 tablet (5 mg total). 09/15/2017 gabapentin (NEURONTIN) 600 mg tablet Take 1 tablet (600 mg total) by mouth. 06/18/2018 ibuprofen (ADVIL,MOTRIN) 600 mg tablet Take 1 tablet (600 mg total) by mouth every 8 (eight) hours if needed for mild pain or moderate pain. 30 tablet 06/07/2024 inhalational spacing device (Jeferson Aerosol [place]asco Enhancer) inhaler Use as instructed 04/22/2022 ipratropium-albuteroL (DUONEB) 0.5-2.5 mg/3 mL nebulizer solution Inhale 3 mL into the lungs. 07/08/2020 methocarbamoL (ROBAXIN) 750 mg tablet Take 2 tablets (1,500 mg total) by mouth 4 (four) times a day if needed for muscle spasms for up to 10 days. 40 each 07/30/2024 08/09/2024 MULTIVITAMIN ORAL Take 1 tablet by mouth 1 (one) time each day. 09/02/2022 naloxone (NARCAN) 4 mg/0.1 mL nasal spray Administer 1 each (4 mg total) into affected nostril(s) if needed. naproxen (EC NAPROSYN) 500 mg EC tablet Take by mouth. omeprazole (PriLOSEC) [address] capsule Take 1 capsule (20 mg total) by mouth. 06/28/2021 omeprazole (PriLOSEC) [address] capsule Take one capsule by mouth in the morning before breakfast 08/25/2020 ondansetron ODT (ZOFRAN-ODT) 4 mg disintegrating tablet Take 1 tablet (4 mg total) by mouth. 06/28/2021 pantoprazole (PROTONIX) 20 mg EC tablet Take 1 tablet (20 mg total) by mouth 1 (one) time each day before breakfast. polyethylene glycol (MIRALAX) 17 gram packet Empty entire bottle into 64 oz Gatorade 2 or if diabetic in 64 oz Crystal Light. Starting at 4pm drink 8oz every 20mins drink entire 64oz. 10/04/2017 QUEtiapine (SEROquel) 50 mg tablet TAKE 1 TABLET BY MOUTH ONCE DAILY AT BEDTIME 02/20/2023 sertraline (ZOLOFT) 100 mg tablet Take 1 tablet (100 mg total) by mouth. 09/07/2017 tamsulosin (FLOMAX) 0.4 mg 24 hr capsule Take 1 capsule (0.4 mg total) by mouth daily. 06/12/2024 tiZANidine (ZANAFLEX) 4 mg tablet Take 1 tablet (4 mg total) by mouth. 01/23/2023 valsartan (DIOVAN) 80 mg tablet Take 1 tablet (80 mg total) by mouth 1 (one) time each day. 01/17/20[facility] Please [facility] one Rolator walker for patient with mobility issues. 03/20/2023 zolpidem (AMBIEN) 10 mg tablet TAKE ONE TABLET BY MOUTH AT BEDTIME FOR SLEEP 01/18/2020 predniSONE (DELTASONE) 20 mg tablet Take 2 tablets (40 mg total) by mouth 1 (one) time each day for 5 days. 10 each 07/31/2024 08/05/2024 documented as of this encounter Ordered Prescriptions Prescription Sig Dispensed Refills Start Date End Da te methocarbamoL (ROBAXIN) 750 mg tablet Take 2 tablets (1,500 mg total) by mouth 4 (four) times a day if needed for muscle spasms for up to 10 days. 40 each 07/30/2024 08/09/2024 predniSONE (DELTASONE) 20 mg tablet Take 2 tablets (40 mg total) by mouth 1 (one) time each day for 5 days. 10 each 07/31/2024 08/05/2024 documented in this encounter Discharge Disposition Disposition Code Departure Means Destination Comment s Home or Self Care documented in this encounter Progress Notes * DIRK Marcos - 07/30/2024 6:01 PM EST Care of this patient was assumed at change of shift at approximately 5:00 PM. Prior documentation reviewed. Care of this patient was signed out to me pending urinalysis, this is ultimately negative, no hematuria. On my independent assessment and history taking, condition is most consistent with sciatica versus piriformis syndrome. He has no neurovascular compromise. No red flag signs or symptoms of or predisposing risk factors for cauda equina syndrome or spinal epidural abscess/hematoma. Certainly could benefit from MRI in the outpatient setting, however no indication for to be done emergently here today. His last dose of take NSAID was over 24 hours ago, will dose with Toradol as he is driving home. Discharged with prednisone burst, methocarbamol. Discharge 1. Piriformis syndrome of right side * DIRK Linn - 07/30/2024 1:11 PM EST Emergency Medicine Note Patient Name: Osiel Gamino Initial Evaluation: 07/30/2024 : 1965 Patient's PCP: DIRK Renteria Emergency Physician: DIRK Linn History of Present Illness Chief Complaint: Chief Complaint Patient presents with Hip Pain Acute on chronic hip and low back pain worsening since Monday, no relief with naproxen HPI: 58-year-old male with history of prior back surgeries and history of right knee arthritis presents with acute on chronic low back pain. He says he has had flareups of this pain in the past but this episode has been going on over the past couple of weeks. Pain is increased with walking. He denies any recent fall/trauma. -He says he has a history of kidney stones and has had pain in his back with that before as well. -He denies fevers, chills, nausea, vomiting, urine/fecal incontinence, saddle paresthesias, new extremity weakness ROS: I have performed a ROS with the pertinent positives and negatives documented in the history ofpresent illness. Previous History Past Medical History: Diagnosis Date Anxiety 07/26/2017 DX:Anxiety Asthma DX:Asthma Essential hypertension 07/02/2018 DX:Essential hypertension GERD (gastroesophageal reflux disease) 07/26/2017 DX:GERD (gastroesophageal reflux disease) Major depressive disorder 07/26/2017 DX:Major depressive disorder Mixed hyperlipidemia 07/26/2017 DX:Mixed hyperlipidemia Past Surgical History: Procedure Laterality Date BACK SURGERY 08/02/2019 PROCEDURE: HISTORICAL BACK SURGERY; COMMENT: Right L5-S1 minimally invasive discectomy, Dr. Whitfield BACK SURGERY 2017 PROCEDURE: HISTORICAL BACK SURGERY; COMMENT: Right L4-5 decompression February 2018, reexploration with discectomy 06/25/2018, Dr. Ken [facility] OTHER SURGICAL HISTORY 10/2021 PROCEDURE: HISTORY OTHER; COMMENT: Spinal cord stimulator placed, [facility] pain management TOTAL KNEE ARTHROPLASTY PROCEDURE: TX ARTHRP KNE CONDYLE&PLATU MEDIAL&LAT COMPARTMENTS; COMMENT: Right knee surgery, Dr. Joy Social History Tobacco Use Smoking status: Never Smokeless tobacco: Never Substance Use Topics Alcohol use: Never Drug use: Never No family history on file. has No Known Allergies. No current facility-administered medications on file prior to encounter. Current Outpatient Medications on File Prior to Encounter Medication Sig Dispense Refill acetaminophen (TYLENOL) 500 mg tablet Take 500 mg by mouth as needed. albuterol 2.5 mg /3 mL (0.083 %) nebulizer solution INHALE THE CONTENT OF 1 VIAL (3mls) VIA NEBULIZER EVERY 6 HOURS NEEDED FOR WHEEZING benzonatate (TESSALON) 100 mg capsule Take 1 capsule (100 mg total) by mouth. betamethasone, augmented, (DIPROLENE-AF) 0.05 % cream Apply topically. bisacodyL (Dulcolax, bisacodyl,) 5 mg EC tablet 1 tablet (5 mg total). brimonidine (ALPHAGAN) 0.2 % ophthalmic solution INSTILL 1 DROP IN EACH EYE 3 (THREE) TIMES A DAY (Patient not taking: Reported on 07/26/2024) buPROPion SR (WELLBUTRIN SR) 150 mg 12 hr tablet TAKE ONE TABLET BY MOUTH 2 (two) times a day FOR 7DAYS cetirizine (ZyrTEC) 10 mg tablet Take 1 tablet (10 mg total) by mouth daily. clonazePAM (KlonoPIN) 0.5 mg tablet TAKE ONE TABLET BY MOUTH 2 (two) times a day dextromethorphan-guaiFENesin (Tussin DM) 10-100 mg/5 mL syrup Take 10 mL by mouth. diazePAM (VALIUM) 5 mg tablet 1 tablet (5 mg total). gabapentin (NEURONTIN) 600 mg tablet Take 1 tablet (600 mg total) by mouth. ibuprofen (ADVIL,MOTRIN) 600 mg tablet Take 1 tablet (600 mg total) by mouth every 8 (eight) hours if needed for mild pain or moderate pain. 30 tablet 0 inhalational spacing device (Jeferson Aerosol [place]co Enhancer) inhaler Use as instructed ipratropium-albuteroL (DUONEB) 0.5-2.5 mg/3 mL nebulizer solution Inhale 3 mL into the lungs. MULTIVITAMIN ORAL Take 1 tablet by mouth 1 (one) time each day. naloxone (NARCAN) 4 mg/0.1 mL nasal spray Administer 1 each (4 mg total) into affected nostril(s) if needed. naproxen (EC NAPROSYN) 500 mg EC tablet Take by mouth. omeprazole (PriLOSEC) [address] capsule Take 1 capsule (20 mg total) by mouth. (Patient not taking: Reported on 07/26/2024) omeprazole (PriLOSEC) [address] capsule Take one capsule by mouth in the morning before breakfast ondansetron ODT (ZOFRAN-ODT) 4 mg disintegrating tablet Take 1 tablet (4 mg total) by mouth. (Patient not taking: Reported on 07/26/2024) pantoprazole (PROTONIX) 20 mg EC tablet Take 1 tablet (20 mg total) by mouth 1 (one) time each day before breakfast. polyethylene glycol (MIRALAX) 17 gram packet Empty entire bottle into 64 oz Gatorade 2 or if diabetic in 64 oz Crystal Light. Starting at 4pm drink 8oz every 20mins drink entire 64oz. QUEtiapine (SEROquel) 50 mg tablet TAKE 1 TABLET BY MOUTH ONCE DAILY AT BEDTIME sertraline (ZOLOFT) 100 mg tablet Take 1 tablet (100 mg total) by mouth. tamsulosin (FLOMAX) 0.4 mg 24 hr capsule Take 1 capsule (0.4 mg total) by mouth daily. tiZANidine (ZANAFLEX) 4 mg tablet Take 1 tablet (4 mg total) by mouth. valsartan (DIOVAN) 80 mg tablet Take 1 tablet (80 mg total) by mouth 1 (one) time each day. walker [facility] Please dispense one Rolator walker for patient with mobility issues. zolpidem (AMBIEN) 10 mg tablet TAKE ONE TABLET BY MOUTH AT BEDTIME FOR SLEEP Physical Exam ED Triage Vitals [07/30/24 1338] Temp Heart Rate Resp BP 36.9 ??C (98.4 ??F) 70 16 134/76 SpO2 Temp src Heart Rate Source Patient Position 97 % -- -- -- BP Location FiO2 (%) -- -- General: awake, calm, cooperative, No apparent distress Skin: warm, dry, No diaphoresis Eyes: PERRLA, EOMI Neck: soft/supple, full range of motion, no nuchal rigidity Respiratory: clear to auscultation Cardiovascular: regular rate and rhythm, no peripheral edema Gastrointestinal: soft nontender, normal active bowel sounds, no hepatomegaly Musculoskeletal: no calf tenderness, no pedal edema, appropriate range of motion in upper and lowerextremities. Mild tenderness to right low back. No specific midline spinal tenderness throughout Neurological: alert and oriented X3, appropriate light touch station throughout bilateral lower extremities, strength 5/5 bilateral hands, 5/5 strength upper and lower extremities Psychiatric: stable mood and affect Results Labs Reviewed URINALYSIS WITH REFLEX MICROSCOPIC AND CULTURE - Normal Result Value Specific [place] Urine 1.020 pH, Urine 7.5 Leukocytes, Urine Negative Nitrite, Urine Negative Protein, Urine Negative Glucose, Urine Negative Ketones, Urine Negative Urobilinogen, Urine 0.2 Bilirubin, Urine Negative Blood, Urine Negative URINALYSIS WITH REFLEX MICROSCOPIC AND CULTURE Narrative: The following orders were created for panel order Urinalysis with reflex microscopic and culture. Procedure Abnormality Status --------- ------ Urinalysis with reflex ...[[id number]] Normal Final result Collins urine culture tube[[id number]] Final result Please view results for these tests on the individual orders. Abnormal Labs Reviewed - No abnormal labs to display MR Lumbar Spine wo Contrast (Results Pending) I have discussed the incidental/abnormal imaging and/or lab abnormalities with the patient and haveinstructed them the need for further evaluation and workup with their primary care doctor. The laboratory results, imaging results and other diagnostic exam results were reviewed in the EMR. EKG Interpretation Critical Care Time None ? Medical Decision Making MDM as described in ED course below Medications ketorolac (TORADOL) injection 30 mg (30 mg intramuscular Given 07/30/241812) predniSONE (DELTASONE) tablet 60 mg (60 mg oral Given 07/30/241812) ED Course as of 08/03/242226Jul 30, 2024 1558 Patient seen and evaluated. History and physical exam performed. Vitals reviewed. He is concerned that he has had a kidney stone before and wants to make sure it is not related to this pain. Will proceed with UA for further risk stratification. If benign discussed musculoskeletal etiology and treatment plan with importance of outpatient follow-up for further management. He may benefit from further MRI since he has had several surgeries in the past. No Fevers, signs or symptoms of cord compression. Low suspicion for infectious or emergent etiology at this time. [AT] ED Course User Index [AT] DIRK Linn Clinical Impressions as of 08/03/242226 Piriformis syndrome of right side Procedures Procedures Differential Diagnosis Muscle strain/spasm Degenerative joint disease Fracture Lumbar radiculopathy Diagnosis 1. Piriformis syndrome of right side Disposition Discharge Condition: Stable ED Prescriptions Medication Sig Dispense Start Date End Date Auth. Provider methocarbamoL (ROBAXIN) 750 mg tablet Take 2 tablets (1,500 mg total) by mouth 4 (four) times a dayif needed for muscle spasms for up to 10 days. 40 each 07/30/2024 08/09/2024 DIRK Marcos predniSONE (DELTASONE) 20 mg tablet Take 2 tablets (40 mg total) by mouth 1 (one) time each day for5 days. 10 each 07/31/2024 08/05/2024 DIRK Marcos Physician Attestation DIRK Linn 07/30/24 1605 DIRK Linn 08/03/242226 documented in this encounter Plan of Treatment Upcoming Encounters Date Type Department Care Team (Late st Contact Info) Description 08/08/2024 12:00 PM EST Appointment [facility] MRI [address] [place] [id number] 08/13/2024 11:00 AM EST Evaluation [facility] Out[facility] [address] [phone] Leanna De Santiago PT 09/06/2024 1:00 PM EST Office Visit Orthopedics - [place] [address] [place] [address] Akhil Phillips PA [address] [place] [address] Scheduled Orders Name Type Priority Associated Diagnoses Orde r Schedule MR Lumbar Spine wo Contrast Imaging Routine Expected: 2024, Expires: 07/30/2025 documented as of this encounter Procedures Procedure Name Priority Date/Time Associated Diagnosis Comments URINALYSIS WITH REFLEX MICROSCOPIC AND CULTURE STAT 07/30/2024 5:01 PM EST COLLINS URINE CULTURE TUBE STAT 07/30/2024 5:01 PM EST URINALYSIS WITH REFLEX MICROSCOPIC AND CULTURE STAT 07/30/2024 5:01 PM EST documented in this encounter Results * Collins urine culture tube (07/30/2024 5:01 PM EST) Extra Tube Hold for add-ons. 07/30/2024 7:01 PM [facility] Comment:Auto resulted. Urine Urine specimen obtained by clean catch procedure / Unknown Non-blood Collection / Unknown 07/30/2024 5:01 PM EST 07/30/2024 5:17 PM EST Marilyn CAVAZ[facility] URINE ORDERA DENZELS [facility] [address] [place] [address], [place] [phone] * Urinalysis with reflex microscopic and culture (07/30/2024 5:01 PM EST) [facility] Specific [place] Urine 1.020 1.003 - 1.030 LAB URINALYSIS - AUTOMATED METHOD 07/30/2024 5:28 PM [facility] pH, Urine 7.5 5.0 - 8.0 pH LAB URINALYSIS - AUTOMATED METHOD 07/30/2024 5:28 PM [facility] Leukocytes, Urine Negative Negative LAB URINALYSIS - AUTOMATED METHOD 07/30/2024 5:28 PM [facility] Nitrite, Urine Negative Negative LAB URINALYSIS - AUTOMATED METHOD 07/30/2024 5:28 PM [facility] Protein, Urine Negative <=Trace mg/dL LAB URINALYSIS - AUTOMATED METHOD 07/30/2024 5:28 PM [facility] Glucose, Urine Negative Negative mg/dL LAB URINALYSIS - AUTOMATED METHOD 07/30/2024 5:28 PM [facility] Ketones, Urine Negative Negative mg/dL LAB URINALYSIS - AUTOMATED METHOD 07/30/2024 5:28 PM [facility] Urobilinogen, Urine 0.2 0.2 - 1.0 mg/dL LAB URINALYSIS - AUTOMATED METHOD 07/30/2024 5:28 PM [facility] Bilirubin, Urine Negative Negative LAB URINALYSIS - AUTOMATED METHOD 07/30/2024 5:28 PM [facility] Blood, Urine Negative Negative LAB URINALYSIS - AUTOMATED METHOD 07/30/2024 5:28 PM [facility] Urine Urine specimen obtained by clean catch procedure / Unknown Non-blood Collection / Unknown 07/30/2024 5:01 PM EST 07/30/2024 5:18 PM EST Marilyn CAVAZOS [facility] URINE ORDERA [facility] Organization Address City/State/ZIP Co de Phone Number [facility] [address] [place] [address], documented in this encounter Visit Diagnoses Diagnosis Piriformis syndrome of right side- Primary documented in this encounter Administered Medications Inactive Administered Medications - up to 3 most recent administrations Medication Order MAR Action Action Date Dose Rate Site ketorolac (TORADOL) injection 30 mg 30 mg, intramuscular, Once, On Mon07/30/24 at 1802, For 1 dose Given 07/30/2024 6:13 PM EST 30 mg Left Deltoid predniSONE (DELTASONE) tablet 60 mg 60 mg, oral, Once, On Mon07/30/24 at 1802, For 1 dose Given 07/30/2024 6:13 PM EST 60 mg documented in this encounter Active and Recently Administered Medications Times are shown in EST. Scheduled Medication Order 07/28/2024 07/29/2024 07/30/2024 ketorolac (TORADOL) injection 30 mg (COMPLETED) 30 mg, intramuscular, Once, On Mon07/30/24 at 1802, For 1 dose 1813 (Given - Provid er: Irasema Jamison RN) predniSONE (DELTASONE) tablet 60 mg (COMPLETED) 60 mg, oral, Once, On Mon07/30/24 at 1802, For 1 dose 1813 (Given - Provid er: Irasema Jamison RN) documented in this encounter Care Teams Foreclosure Clerk Relationship Specialty Start Date End Date Cricket Wills PA [address] [place] [address] PCP - General Physician Oil Lease Buyer 08/14/19 documented as of this encounter
--- OUTSIDE RECORDS SUMMARY | 2024-08-07 15:34 | XMS_ITS | Encounter Summary ---
Author Organization [facility] Address [address] [place] [address] Care Team Providers Care Spare Hand Carding Name Role Phone Cricket Wills Primary Care Provider [phone] Reason for Referral * Orthopedic (Routine) - Pending Review Specialty Diagnoses / Procedures Referred By Contac t Referred To Contact Orthopedic Surgery / Orthopaedic Surgery Diagnoses Chronic pain of right knee Procedures L Inj/Asp: R knee Akhil Phillips PA [address] [place] [address] Referral ID Status Reason Start Date Expiration Date V isits Requested Visits Authorized [id number] Pending Review 07/26/2024 07/26/2025 1 1 * Consultation (Routine) - Authorized Specialty Diagnoses / Procedures Referred By Contac t Referred To Contact Physical Therapy Diagnoses Chronic pain of right knee Akhil Phillips PA [address] [place] [address] Referral ID Status Reason Start Date Expiration Date Visits Requested Visits Authorized [id number] Authorized Consult and Treat 07/26/2024 07/26/2025 1 1 Reason for Visit * Reason Comments Pain Consult * Consultation (Routine) - Closed Specialty Diagnoses / Procedures Referred By Contac t Referred To Contact Orthopaedic Surgery Diagnoses Chronic pain of right knee Cricket Wills PA [facility] [place] [address] Akhil Phillips PA [address] [place] [address] Referral ID Status Reason Start Date Expiration Date V isits Requested Visits Authorized [id number] Closed Specialty Services Required 05/03/2024 05/03/2025 1 1 Encounter Details Date Type Department Care Team (Late Contact Info) Description 07/26/2024 12:30 PM EST Consult [facility] [place] [address] [place] [address] Akhil Phillips PA [address] [place] [address] Chronic pain of right knee Social History Tobacco Use Types Packs/Day Years Used Date Smoking Tobacco: Never Smokeless Tobacco: Never Tobacco Cessation:Counseling Given: Not Answered Alcohol Use Standard Drinks/Week Comments Never 0 [...] Sign Reading Time Taken Comments Blood Pressure - - Pulse - - Temperature - - Respiratory Rate 16 07/26/2024 12:28 PM EST Oxygen Saturation - - Inhaled Oxygen Concentration - - Weight 103 kg (228 lb) 07/26/2024 12:28 PM EST Height 177.8 cm (5' 10 ) 07/26/2024 12:28 PM EST Body Mass Index 32.71 07/26/2024 12:28 PM EST documented in this encounter Plan of Treatment Upcoming Encounters Date Type Department Care Team (Late Contact Info) Description 08/08/2024 12:00 PM EST Appointment [facility] MRI [address] [place] [id number] 08/13/2024 11:00 AM EST Evaluation [facility] [address] [address] Leanna De Santiago PT 09/06/2024 1:00 PM EST Office Visit Orthoped[facility] - [place] [address] [place], [place] [phone] Akhil Phillips PA [address] [place] [address] Pending Results Name Type Priority Associated Diagnoses Date /Time L Inj/Asp: R knee Procedures Routine Chronic pain of right knee 07/26/2024 12:30 PM EST Scheduled Referrals Name Type Priority Associated Diagnoses Order Schedule Ambulatory referral to Physical Therapy and Athletic Training Outpatient Referral Routine Chronic pain of right knee 1 Occurrences starting 07/26/2024 until 07/26/2025 documented as of this encounter Procedures Procedure Name Priority Date/Time Associated Diagnosis Comments LARGE JOINT ARTHROCENTESIS Routine 07/26 12:30 PM EST Chronic pain of right knee documented in this encounter Visit Diagnoses Diagnosis Chronic pain of right knee documented in this encounter Administered Medications Inactive Administered Medications - up to 3 most recent administrations Medication Order MAR Action Action Date Dose Rate Site lidocaine (XYLOCAINE) 1 % injection 4 mL 4 mL, injection, Once PRN Procedure, Starting on Mon07/26/24 at 1230, For 1 dose Given 07/26/2024 12:30 PM EST 4 mL methylPREDNISolone acetate (DEPO-Medrol) injection 80 mg 80 mg, intra-articular, Once PRN Procedure, Starting on Mon07/26/24 at 1230, For 1 dose Given 07/26/2024 12:30 PM EST 80 mg documented in this encounter Historical Medications * This list may reflect changes made after this encounter. Medication Sig Dispensed Refills Start Date End Date tamsulosin (FLOMAX) 0.4 mg 24 hr capsule Take 1 capsule (0.4 mg total) by mouth daily. 06/12/2024 pantoprazole (PROTONIX) 20 mg EC tablet Take 1 tablet (20 mg total) by mouth 1 (one) time each day before breakfast. naloxone (NARCAN) 4 mg/0.1 mL nasal spray Administer 1 each (4 mg total) into affected nostril(s) if needed. cetirizine (ZyrTEC) 10 mg tablet Take 1 tablet (10 mg total) by mouth daily. 2022 5 added in this encounter Orders Outpatient Referral Count Last Ordered Date Fir st Ordered Date AMB REFERRAL TO ORTHOPEDIC 1 07/26/2024 documented in this encounter Care Teams Spare Hand Carding Relationship Specialty Start Date End Date Cricket Wills PA [address] [place] [phone] PCP - General Physician Sawmill Equipment Operator 08/14/19 documented as of this encounter
--- OUTSIDE RECORDS SUMMARY | 2024-08-07 15:34 | XMS_ITS | Encounter Summary ---
Author Organization [facility] Address [address] [place] [address] Care Team Providers Care Frame Stripper Name Role Phone Cricket Wills Primary Care Provider [phone] Encounter Details Date Type Department Care Team (Latest Contact Info) Description 07/26/2024 11:47 AM EST - 07/26/2024 11:59 PM EST Hospital Encounter [facility] [address] [place] [address] Chronic pain of right knee Discharge Disposition: Home or Self Care Social [...] on file documented as of this encounter Medications at Time of Discharge [...] tablet 06/07/2024 inhalational spacing device (Jeferson Aerosol Burnett Enhancer) inhaler Use as instructed 04/22/2022 ipratropium-albuteroL (DUONEB) 0.5-2.5 mg/3 mL nebulizer solution Inhale 3 mL into the lungs. 07/08/2020 MULTIVITAMIN ORAL Take 1 tablet by mouth [...] 1 (one) time each day. 01/17/2023 walker misc Please dispense one Rolator walker for patient with mobility issues. 03/20/2023 zolpidem (AMBIEN) 10 mg tablet TAKE ONE TABLET BY MOUTH AT BEDTIME FOR SLEEP 01/18/2020 documented as of this encounter Discharge Disposition Disposition Code Departure Means Destination Home or Self Care documented in this encounter Plan of Treatment Upcoming Encounters Date Type Department Care Team (Late st Contact Info) Description 08/08/2024 12:00 PM EST Appointment [facility] MRI [address] [place] [phone] 08/13/2024 11:00 AM EST Evaluation [facility] Outpatient Rehabilitation [facility] [address] [phone] Leanna De Santiago PT 09/06/2024 1:00 PM EST Office Visit Orthopedics [facility] [address] [place] [address] Akhil Phillips PA [address] [place] [address] documented as of this encounter Procedures Procedure Name Priority Date/Time Associated Diagnosis Comments XR KNEE 4+ VIEWS RIGHT Routine 07/26/2024 12:02 PM EST Chronic pain of right knee documented in this encounter Results * XR Knee 4+ Views Right (07/26/2024 12:02 PM EST) Anatomical Region Laterality Modality Lower Extremities, Knee Right [facility] 07/26/2024 4:25 PM EST Impressions 07/26/2024 4:27 PM EST No acute fracture or dislocation of the right knee. ?? -------- FINAL REPORT -------- Dictated By: Luisa Guerrero Dictated Date: 07/26/2024 16:25 ET Assigned Physician: Luisa Guerrero Reviewed and Electronically Signed By: Luisa Guerrero Signed Date: 07/26/2024 16:27 ET Workstation ID: [id number] Transcribed By: Self Edit Transcribed Date: 07/26/2024 16:25 ET Narrative 07/26/2024 4:27 PM EST HISTORY: Knee pain, chronic, no prior imaging (Age >= 5y) TECHNIQUE: 5 views of the right knee COMPARISON: None FINDINGS: ?? No acute fracture or dislocation is seen. ??There is no joint effusion present. ??The medial and lateral joint spaces appear normal. Soft tissues are unremarkable. Procedure Note Luisa Guerrero MD - 07/26/2024 HISTORY: Knee pain, chronic, no prior imaging (Age >= 5y) TECHNIQUE: 5 views of the right knee COMPARISON: None FINDINGS: No acute fracture or dislocation is seen. There is no joint effusionpresent. The medial and lateral joint spaces appear normal. Soft tissuesare unremarkable. IMPRESSION: No acute fracture or dislocation of the right knee. -------- FINAL REPORT -------- Dictated By: Luisa Guererro Dictated Date: 07/26/2024 16:25 ET Assigned Physician: Luisa Guerrero Reviewed and Electronically Signed By: Luisa Guerrero Signed Date: 07/26/2024 16:27 ET Workstation ID: [id number] Transcribed By: Self Edit Transcribed Date: 07/26/2024 16:25 ET Akhil CAV[facility]OS [facility] X[facility] PROCEDURES documented in this encounter Visit Diagnoses Diagnosis Chronic pain of right knee documented in this encounter Care Teams Frame Stripper Relationship Specialty Start Date End Date Cricket Wills PA [address] [place] [phone] PCP - General Physician Emergency Vehicle Operator 08/14/19 documented as of this encounter
--- OUTSIDE RECORDS SUMMARY | 2024-08-07 15:34 | XMS_ITS | Encounter Summary ---
Author Organization [facility] Address [address] [place] [address] Care Team Providers Care Inside Sales Account Manager Name Role Phone Cricket Wills Primary Care Provider [phone] Encounter Details Date Type Department Care Team (Latest Contact Info) Description 07/26/2024 Travel Social History Tobacco Use Types Packs/Day [...] AM EST documented as of this encounter Functional Status * Is the [...] Hima Lee CMA documented in this encounter Plan of Treatment Upcoming Encounters Date Type Department Care Team (Late st Contact Info) Description 08/14/2024 9:40 AM EST Telemedicine Visit [facility] [address] [place] [phone] Brenton Mcfadden, RD [address] [place] [address] 10/25/2024 10:00 AM EDT Office Visit [facility] [address] [place] [phone] Ihsan Gibbs PharmD [address] [place] [address] 10/30/2024 1:00 PM EDT Office Visit [facility] [address] [place] [phone] Margarito Leger [address] [place] [address] documented as of this encounter Goals Goal [...] documented as of this encounter Care Teams Inside Sales Account Manager Relationship Specialty Start Date End Date Cricket Wills PA [address] [place] [address] PCP - General Internal Medicine 07/08/17 documented as of this encounter
--- OUTSIDE RECORDS SUMMARY | 2024-08-07 15:34 | XMS_ITS | Clinical Summary ---
Author Organization [facility] Address [address] [place] [address] Phone Care Team Providers Care Weigh Boss Name Role Phone Cricket Wills Primary Care Provider [phone] Allergies No known active allergies Medications Medication Sig Dispensed Refills Start Date End Date Status ibuprofen (ADVIL,MOTRIN) 600 mg tablet Take 1 tablet (600 mg total) by mouth every 8 (eight) hours if needed for mild pain or moderate pain. 30 tablet 06/07/2024 Active albuterol 2.5 mg /3 mL (0.083 %) nebulizer solution INHALE THE CONTENT OF 1 VIAL (3mls) VIA NEBULIZER EVERY 6 HOURS NEEDED FOR WHEEZING 02/17/2023 Active benzonatate (TESSALON) 100 mg capsule Take 1 capsule (100 mg total) by mouth. 11/16/2022 Active betamethasone, augmented, (DIPROLENE-AF) 0.05 % cream Apply topically. 08/16/2021 Active brimonidine (ALPHAGAN) 0.2 % ophthalmic solution INSTILL 1 DROP IN EACH EYE 3 (THREE) TIMES A DAY 08/30/2022 Active buPROPion SR (WELLBUTRIN SR) 150 mg 12 hr tablet TAKE ONE TABLET BY MOUTH 2 (two) times a day FOR 7 DAYS 04/16/2019 Active clonazePAM (KlonoPIN) 0.5 mg tablet TAKE ONE TABLET BY MOUTH 2 (two) times a day 03/26/2020 Active dextromethorphan-gua iFENesin (Tussin DM) 10-100 mg/5 mL syrup Take 10 mL by mouth. 11/16/2022 Active gabapentin (NEURONTIN) 600 mg tablet Take 1 tablet (600 mg total) by mouth. 06/18/2018 Active ipratropium-albutero L (DUONEB) 0.5-2.5 mg/3 mL nebulizer solution Inhale 3 mL into the lungs. 07/08/2020 Active MULTIVITAMIN ORAL Take 1 tablet by mouth 1 (one) time each day. 09/02/2022 Active walker misc Please dispense one Rolator walker for patient with mobility issues. 03/20/2023 Active omeprazole (PriLOSEC) [address] capsule Take 1 capsule (20 mg total) by mouth. 06/28/2021 Active omeprazole (PriLOSEC) [address] capsule Take one capsule by mouth in the morning before breakfast 08/25/2020 Active ondansetron ODT (ZOFRAN-ODT) 4 mg disintegrating tablet Take 1 tablet (4 mg total) by mouth. 06/28/2021 Active QUEtiapine (SEROquel) 50 mg tablet TAKE 1 TABLET BY MOUTH ONCE DAILY AT BEDTIME 02/20/2023 Active inhalational spacing device (Jeferson Aerosol Miner Enhancer) inhaler Use as instructed 04/22/2022 Active sertraline (ZOLOFT) 100 mg tablet Take 1 tablet (100 mg total) by mouth. 09/07/2017 Active tiZANidine (ZANAFLEX) 4 mg tablet Take 1 tablet (4 mg total) by mouth. 01/23/2023 Active valsartan (DIOVAN) 80 mg tablet Take 1 tablet (80 mg total) by mouth 1 (one) time each day. 01/17/2023 Active zolpidem (AMBIEN) 10 mg tablet TAKE ONE TABLET BY MOUTH AT BEDTIME FOR SLEEP 01/18/2020 Active bisacodyL (Dulcolax, bisacodyl,) 5 mg EC tablet 1 tablet (5 mg total). 10/04/2017 Active diazePAM (VALIUM) 5 mg tablet 1 tablet (5 mg total). 09/15/2017 Active polyethylene glycol (MIRALAX) 17 gram packet Empty entire bottle into 64 oz Gatorade 2 or if diabetic in 64 oz Crystal Light. Starting at 4pm drink 8oz every 20mins drink entire 64oz. 10/04/2017 Active naproxen (EC NAPROSYN) 500 mg EC tablet Take by mouth. Active acetaminophen (TYLENOL) 500 mg tablet Take 500 mg by mouth as needed. Active cetirizine (ZyrTEC) 10 mg tablet Take 1 tablet (10 mg total) by mouth daily. 2022 01/08/2025 Active naloxone (NARCAN) 4 mg/0.1 mL nasal spray Administer 1 each (4 mg total) into affected nostril(s) if needed. Active pantoprazole (PROTONIX) 20 mg EC tablet Take 1 tablet (20 mg total) by mouth 1 (one) time each day before breakfast. Active tamsulosin (FLOMAX) 0.4 mg 24 hr capsule Take 1 capsule (0.4 mg total) by mouth daily. 06/12/2024 Active methocarbamoL (ROBAXIN) 750 mg tablet Take 2 tablets (1,500 mg total) by mouth 4 (four) times a day if needed for muscle spasms for up to 10 days. 40 each 07/30/2024 08/09/2024 Active predniSONE (DELTASONE) 20 mg tablet Take 2 tablets (40 mg total) by mouth 1 (one) time each day for 5 days. 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 Whitfield, s/p right L4-5 decompression February 2018, reexploration with microdiscectomy 06/25/[address] Ken at [facility]. He was last seen in the office 02/08/2021 for low back pain, that radiates into the right leg, complicated by right knee issues status post surgery 2018. At that time his MRI lumbar spine 01/25/2021 showed postop changes on the right L4-5 and L5-S1, new annular tear right L5-S1, no disc herniation. Patient was referred to pain management. He had a spinal cord stimulator placed October 2021 at [facility] pain management. He comes in today describing pain in the right hip and lateral thigh to the knee, which he rates 01/16. He was not clear on whether he has new pain or this is his chronic pain, he went back and forth on the symptoms a bit. However in the end he states the pain in the right hip is newer x 1 month. No recent falls or trauma. He states he has difficulty driving >40 minutes, walking or standing for any length of time, for example at the post office he has to wait for the line to go down and bring his cane. He states he has been using the cane 1-3 years. If he is standing for a long time the pain tends to be in the low back, sometimes goes to the hip. He also has seen orthopedics in the past for his right knee osteoarthritis, no longer wants injections in the knee. He states the spinal cord stimulator placed last year does seem to help some of his low back pain, has not seen any change in symptoms/coverage, does not seem to be having any issues with the stimulator. He has an appointment next month with GI for diverticulitis, recent ED visits at [facility]. Patient had CAT scan of the abdomen while in the ED for his diverticulitis February 2023, I reviewed the sagittal spine imaging, does not appear to be any significant neuroforaminal narrowing, degenerative disc disease. He has superior anterior vertebral body spurring L4, calcification of the ligament anteriorly at L3-4 disc space level, overall mild degenerative changes noted. He also had a lumbar spine x-ray at [facility] 01/30/2023 that shows straightening of the normal lumbar lordosis, mild osteophytic spurring T11 and 12, L3, 4. No spondylolysis or spondylolisthesis. No acute process noted. Spinal cord stimulator present, I did not see any disruption of the leads/wiring, appears intact. I reviewed the lumbar spine x-rays with patient and Dr. Whitfield today. No significant degenerative changes noted, + straightening of the lumbar lordosis. I gave patient a prescription to start physical therapy, ordered right hip x-ray. I will call [employer] to see if he can have an MRI lumbar spine if he is not improving with time. (Card states his spinal cord stimulator is MRI conditional). All questions answered on today's visit. I asked him to call with any worsening symptoms, concerns or questions. Asthma 06/14/2022 Failed back syndrome of lumbar spine 06/14/2022 Obesity, Class I, BMI 30-34.9 06/14/2022 Osteoarthrosis 06/14/2022 Lumbosacral disc herniation 04/16/2019 Overview (06/17/2024): 02/19/19, MRI L-spine showed the L4-5 laminectomy defect with improved postop changes when compared to 06/06/18 study. There is no stenosis at this level, there is mild enhancing granulation tissue w/o evidence of recurrent disc herniation. There is a small (R) L5-S1 disc herniation impinging on the descending S1 root. Primary insomnia 04/16/2019 Sacral nerve root compression 04/16/2019 Overview (06/17/2024): 02/19/19, MRI L-spine showed the L4-5 laminectomy defect with improved postop changes when compared to 06/06/18 study. There is no stenosis at this level, there is mild enhancing granulation tissue w/o evidence of recurrent disc herniation. There is a small (R) L5-S1 disc herniation impinging on the descending S1 root. 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 Posterior disc protrusions at L2-L3 and L3-L4 prominent on right with impingement on exiting and extra foraminal right L2 and L3 nerve roots. Moderate central stenosis at these levels. Narrowing of subarticular recessed and moderate to severe central stenosis. Posterior disc protrusion which slightly more prominent impingement on traversing right S1 nerve root. Major depressive disorder 07/26/2017 Mixed hyperlipidemia 07/26/2017 Encounters Date Type Department Care Team Description 07/30/2024 2:53 PM EST - 07/30/2024 6:[address] [facility] Emergency [address] [place] [phone] Piriformis syndrome of right side (Primary Dx) Discharge Disposition: Home or Self Care 07/26/2024 12:30 PM EST Consult Orthopedics - [place] [address] [place] [address] Akhil Phillips PA Chronic pain of right knee 07/26/2024 11:47 AM EST - 07/26/2024 11:59 PM EST Hospital Encounter XRAY - [place] [address] [place] [address] Chronic pain of right knee Discharge Disposition: Home or Self Care 06/07/2024 2:57 AM EST - 06/07/2024 6:14 AM [facility] Emergency [address] [place] [phone] Kidney stone on left side (Primary Dx) Discharge Disposition: Home or Self Care from Last 3 Months Immunizations Name Administration Dates Next Due HepB-CpG (Heplisav-B) 18yo and older 09/23/2022, 06/14/2022 Influenza Quadrivalent, 0.5m l, preservative free (Fluarix; FluLaval; Fluzone) ages 6mo and older (Afluria) 3yo and older 09/13/2022,05/13/2021,04/13/2020,04/16,05/03/2018,08/22/2017 Influenza trivalent, recombi nant, 0.5mL, preservative free (Flublok) 18yo and older 05/03/2024 Moderna SARS-CoV-2 COVID-19, mRNA, LNP-S, preservative free 11/16/2020,10/17/2020 Pneumococcal conjugate 20 va lent (Prevnar 20, PCV 20) 2mo and older 09/13/2022 Pneumococcal polysaccharide 23 valent (Pneumovax 23) 2yo and older 08/16/2021,06/13/2019 Pneumococcal, Unspecified 09/13/2022 Tdap Tetanus diptheria acell ular pertussis (Boostrix; Adacel) 7yo and older 08/22/2017 Zoster recombinant (Shingrix ) 19yo and older 06/14/2022,08/16/2021 Surgical History Surgery Date Site/Laterality Comments BACK SURGERY 08/02/2019 PROCEDURE: HISTORICAL BACK SURGERY; COMMENT: Right L5-S1 minimally invasive discectomy, Dr. Whitfield BACK SURGERY 2017 PROCEDURE: HISTORICAL BACK SURGERY; COMMENT: Right L4-5 decompression February 2018, reexploration with discectomy 06/25/2018, Dr. Ken [facility] OTHER SURGICAL HISTORY 10/2021 PROCEDURE: HISTORY OTHER; COMMENT: Spinal cord stimulator placed, [facility] pain management TOTAL KNEE ARTHROPLASTY PROCEDURE: NM ARTHRP KNE CONDYLE&PLATU MEDIAL&LAT COMPARTMENTS; COMMENT: Right knee surgery, Dr. Joy Medical History Medical History Date Comments Asthma DX:Asthma Mixed hyperlipidemia 07/26/2017 DX:Mixed hy perlipidemia Major depressive disorder 07/26/2017 DX:Fernie or depressive disorder GERD (gastroesophageal reflu x disease) 07/26/2017 DX:GERD (gastroesophageal re flux disease) Essential hypertension 07/02/2018 DX:Essent ial hypertension Anxiety 07/26/2017 DX:Anxiety Social History Tobacco Use Types Packs/Day Years [...] file Not on file Not on file Obstetrics History Last Filed Vital Signs Vital Sign Reading [...] Mass Index 32.62 07/30/2024 1:38 PM EST Plan of Treatment Upcoming Encounters Date Type Department Care Team (Late st Contact Info) Description 08/08/2024 12:00 PM EST Appointment [facility] MRI [address] [place] [phone] 08/13/2024 11:00 AM EST Evaluation [facility] [address] [phone] Leanna De Santiago, YUE 09/06/2024 1:00 PM EST Office Visit Orthopedics - [place] [address] [place] [address] Akhil Phillips PA [address] [place] [phone] Health Maintenance Due Date Last Done Comments Colorectal Cancer Screening: Colonoscopy 06/11/2022 Hepatitis C Screening 06/11/2022 Social Influencers of Health Screening 06/11/2022 COVID-19 Vaccine ( season) 2024 09/13/2022, 06/16/2021, 11/16/2020, Additional history exists Hypertension/CHF/CAD Annual BMP Blood Test 06/07/2025 06/07/2024, 03/08/2024, 08/17/2021 Depression Screening 06/12/2025 06/12/2024 DTaP,Tdap,and Td Vaccines (2 - Td or Tdap) 08/22/2027 08/22/2017 Cholesterol Screening (Lipid Panel) 12/01/2027 2022, 2022, 08/17/2021 HIV Screening Completed 08/25/2017 Zoster Vaccines Completed 06/14/2022, 08/16/2021 Pneumococcal Vaccine: Pediatrics (0 to 5 Years) and At-Risk Patients (6 to 64 Years) Completed 09/13/2022, 09/13/2022, 08/16/2021, Additional history exists Hepatitis B Vaccines Completed 09/23/2022, 06/14/20 Influenza Vaccine Completed 05/03/2024, , 05/13/2021, Additional history exists HIB Vaccines Aged Out No longer eligi ble based on patient's age to complete this topic HPV Vaccines Aged Out No longer eligi ble based on patient's age to complete this topic Hepatitis A Vaccines Aged Out No long er eligible based on patient's age to complete this topic IPV Vaccines Aged Out No longer eligi ble based on patient's age to complete this topic MMR Vaccines Aged Out No longer eligi ble based on patient's age to complete this topic Meningococcal ACWY Vaccine Aged Out N o longer eligible based on patient's age to complete this topic RSV Immunization Patients Under 20 months Aged Out No longer eligible based on patient's age to complete this topic Varicella Vaccines Aged Out No longer eligible based on patient's age to complete this topic Procedures Procedure Name Priority Date/Time Associated Diagnosis Comments COLLINS URINE CULTURE TUBE STAT 07/30/19 5:01 PM EST URINALYSIS WITH REFLEX MICROSCOPIC AND CULTURE STAT 07/30/2024 5:01 PM EST URINALYSIS WITH REFLEX MICROSCOPIC AND CULTURE STAT 07/30/2024 5:01 PM EST LARGE JOINT ARTHROCENTESIS Routine 07/26/2024 12:30 PM EST Chronic pain of right knee XR KNEE 4+ VIEWS RIGHT Routine 12:02 PM EST Chronic pain of right knee CT ABDOMEN PELVIS W CONTRAST STAT 06/07/2024 4:52 AM EST URINALYSIS WITH REFLEX MICROSCOPIC STAT 06/07/2024 4:20 AM EST URINALYSIS WITH REFLEX MICROSCOPIC STAT 06/07/2024 4:20 AM EST CBC WITH AUTO DIFFERENTIAL STAT 06/07/2024 1:17 AM EST LIPASE STAT 06/07/2024 1:17 AM EST COMPREHENSIVE METABOLIC PANEL STAT 06/07/2024 1:17 AM EST CBC AND DIFFERENTIAL STAT 06/07/2024 1:17 AM EST LIPID PANEL Routine 2022 from Last 3 Months or Most Recently Relevant to Health Maintenance Results * Urinalysis with reflex microscopic and culture (07/30/2024 5:01 PM EST) Specific [place] Urine 1.020 1.003 - 1.030 LAB URINALYSIS - AUTOMATED METHOD 07/30/2024 5:[address] [facility] pH, Urine 7.5 5.0 - 8.0 pH LAB URINALYSIS - AUTOMATED METHOD 07/30/2024 5:[address] [facility] Leukocytes, Urine Negative Negative LAB URINALYSIS - AUTOMATED METHOD 07/30/2024 5:[address] [facility] Nitrite, Urine Negative Negative LAB URINALYSIS - AUTOMATED METHOD 07/30/2024 5:[address] [facility] Protein, Urine Negative <=Trace mg/dL LAB URINALYSIS - AUTOMATED METHOD 07/30/2024 5:[address] [facility] Glucose, Urine Negative Negative mg/dL LAB URINALYSIS - AUTOMATED METHOD 07/30/2024 5:[address] [facility] Ketones, Urine Negative Negative mg/dL LAB URINALYSIS - AUTOMATED METHOD 07/30/2024 5:[address] [facility] Urobilinogen, Urine 0.2 0.2 - 1.0 mg/dL LAB URINALYSIS - AUTOMATED METHOD 07/30/2024 5:[address] [facility] Bilirubin, Urine Negative Negative LAB URINALYSIS - AUTOMATED METHOD 07/30/2024 5:28 PM EST [facility] Blood, Urine Negative Negative LAB URINALYSIS - AUTOMATED METHOD 07/30/2024 5:28 PM EST [facility] Urine Urine specimen obtained by clean catch procedure / Unknown Non-blood Collection / Unknown 07/30/2024 5:01 PM EST 07/30/2024 5:18 PM EST Marilyn CAVAZOS LAB URINE ORDERA BLES Performing Organization Address [facility]/ZIP Co de Phone Number [facility] [address] [place] [address], [place] [phone] * [place] urine culture tube (07/30/2024 5:01 PM EST) Extra Tube Hold for add-ons. 07/30/2024 7:01 PM EST [facility] Comment:Auto resulted. Urine Urine specimen obtained by clean catch procedure / Unknown Non-blood Collection / Unknown 07/30/2024 5:01 PM EST 07/30/2024 5:17 PM EST Marilyn Marks [place] LAB URINE ORDERA BLES Performing Organization Address City/[facility]/ZIP Co de Phone Number [facility] [address] [place] [address], [place] [phone] * XR Knee 4+ Views Right (07/26/2024 12:02 PM EST) Anatomical Region Laterality Modality Lower Extremities, Knee Right Radiogra phic Imaging 07/26/2024 4:25 PM EST Impressions 07/26/2024 4:27 PM EST No acute fracture or dislocation of the right knee. ?? -------- FINAL REPORT -------- Dictated By: Luisa Guerrero Dictated Date: 07/26/2024 16:25 ET Assigned Physician: Luisa Guerrero Reviewed and Electronically Signed By: Luisa Guerrero Signed Date: 07/26/2024 16:27 ET Workstation ID: [id number] Transcribed By: Self Edit Transcribed Date: 07/26/2024 [...] Signed Date: 07/26/2024 16:27 ET Workstation ID: [id number] Transcribed By: Self Edit Transcribed Date: 07/26/2024 16:25 ET Akhil CAVAZOS IMG XR PROCEDURES * CT Abdomen Pelvis w Contrast (06/07/2024 4:52 AM EST) Anatomical Region Laterality Modality Body Computed Tomogra phy 06/07/2024 5:43 AM EST Impressions 06/07/2024 5:43 AM EST Obstructing proximal left ureteral stone. Nonobstructing left renal stone. Fatty liver infiltration. Small hiatal hernia. Indeterminate sclerotic lesion L4 vertebral body. This document has been electronically signed by: Karla Ashraf MD on 06/07/2024 05:43:44 Narrative 06/07/2024 5:43 AM EST Exam: CT abdomen and pelvis with IV contrast. Comparison: None Findings: No free air. Small hiatal hernia. No solid liver mass. Fatty infiltration. No calcified gallstones. No clinically significant biliary ductal dilation. No splenomegaly or suspicious splenic lesions. No solid or cystic pancreatic mass. No pancreatic ductal dilation. No acute inflammatory changes. Adrenal glands without nodule. No suspicious renal mass. Mild left hydronephrosis due to 3 mm proximal ureteral stone. Nonobstructing 4 mm left lower pole renal stone. No right hydronephrosis. Bladder without acute pathology. No bowel obstruction. No mucosal thickening. Sigmoid diverticulosis without diverticulitis. No evidence for acute appendicitis. No adenopathy. No abdominal aortic aneurysm. No suspicious pelvic masses. No acute soft tissue pathology. Intrathecal catheters enter the thecal sac at the lower thoracic level. No acute fracture. Degenerative changes. Indeterminate sclerotic 17 x 12 mm lesion left posterolateral aspect of the L4 vertebral body. Procedure Note Karla Ashraf MD - 06/07/2024 Exam: CT abdomen and pelvis with IV contrast. Comparison: None Findings: No free air. Small hiatal hernia. No solid liver mass. Fatty infiltration. No calcified gallstones. No clinically significant biliary ductal dilation. No splenomegaly or suspicious splenic lesions. No solid or cystic pancreatic mass. No pancreatic ductal dilation. No acute inflammatory changes. Adrenal glands without nodule. No suspicious renal mass. Mild left hydronephrosis due to 3 mm proximal ureteral stone. Nonobstructing 4 mm left lower pole renal stone. Noright hydronephrosis. Bladder without acute pathology. No bowel obstruction. No mucosal thickening. Sigmoid diverticulosis without diverticulitis. No evidence for acute appendicitis. No adenopathy. No abdominal aortic aneurysm. No suspicious pelvic masses. No acute soft tissue pathology. Intrathecal catheters enter the thecalsac at the lower thoracic level. No acute fracture. Degenerative changes. Indeterminate sclerotic 17 x 12 mm lesion left posterolateral aspect of the L4 vertebral body. IMPRESSION: Obstructing proximal left ureteral stone. Nonobstructing left renal stone. Fatty liver infiltration. Small hiatal hernia. Indeterminate sclerotic lesion L4 vertebral body. This document has been electronically signed by: Karla Ashraf MD on 06/07/2024 05:43:44 Moise CAVAZOS [facility] CT PROCEDURES * (ABNORMAL) Urinalysis with reflex microscopic (06/07/2024 4:20 AM EST) Specific [place] Urine 1.015 1.003 - 1.030 LAB URINALYSIS - AUTOMATED METHOD 06/07/2024 5:[address] [facility] pH, Urine 5.5 5.0 - 8.0 pH LAB URINALYSIS - AUTOMATED METHOD 06/07/2024 5:[address] [facility] Leukocytes, Urine Negative Negative LAB URINALYSIS - AUTOMATED METHOD 06/07/2024 5:[address] [facility] Nitrite, Urine Negative Negative LAB URINALYSIS - AUTOMATED METHOD 06/07/2024 5:[address] [facility] Protein, Urine Negative <=Trace mg/dL LAB URINALYSIS - AUTOMATED METHOD 06/07/2024 5:[address] [facility] Glucose, Urine Negative Negative mg/dL LAB URINALYSIS - AUTOMATED METHOD 06/07/2024 5:[address] [facility] Ketones, Urine Negative Negative mg/dL LAB URINALYSIS - AUTOMATED METHOD 06/07/2024 5:[address] [facility] Urobilinogen, Urine 0.2 0.2 - 1.0 mg/dL LAB URINALYSIS - AUTOMATED METHOD 06/07/2024 5:[address] [facility] Bilirubin, Urine Negative Negative LAB URINALYSIS - AUTOMATED METHOD 06/07/2024 5:[address] [facility] Blood, Urine Small(A) Negative LAB URINALYSIS - AUTOMATED METHOD 06/07/2024 5:[address] [facility] RBC, Urine 2.0 0 - 4 /HPF LAB URINALYSIS - AUTOMATED METHOD 06/07/2024 5:[address] [facility] WBC, Urine 1.4 0 - 4 /HPF LAB URINALYSIS - AUTOMATED METHOD 06/07/2024 5:[address] [facility] Squamous Epithelial, Urine 4 0 - 60 /LPF LAB URINALYSIS - AUTOMATED METHOD 06/07/2024 5:[address] [facility] Bacteria, Urine Negative Negative /HPF LAB URINALYSIS - AUTOMATED METHOD 06/07/2024 5:[address] [facility] Hyaline Casts, Urine 1.7 0 - 3 /LPF LAB URINALYSIS - AUTOMATED METHOD 06/07/2024 5:[address] [facility] Urine Urine specimen obtained by clean catch procedure / Unknown Non-blood Collection / Unknown 06/07/2024 4:20 AM EST 06/07/2024 4:27 AM EST Moise CAVAZOS LAB URINE ORDERABLES [facility] [address] [place] [address], * (ABNORMAL) CBC auto differential (06/07/2024 1:17 AM EST) WBC 7.1 4.8 - 10.8 K/mcL LAB HEMETOLOGY METHOD 06/07/2024 1:[address] [facility] RBC 4.70 4.50 - 5.50 M/mcL LAB HEMETOLOGY METHOD 06/07/2024 1:[address] [facility] Hemoglobin 14.6 13.5 - 17.5 g/dL LAB HEMETOLOGY METHOD 06/07/2024 1:[address] [facility] Hematocrit 43.9 42.0 - 54.0 % LAB HEMETOLOGY METHOD 06/07/2024 1:[address] [facility] MCV 93.0 79.0 - 98.0 FL LAB HEMETOLOGY METHOD 06/07/2024 1:[address] [facility] MCH 30.9 27.0 - 32.0 pcg LAB HEMETOLOGY METHOD 06/07/2024 1:[address] [facility] MCHC 33.3 32.0 - 37.0 g/dL LAB HEMETOLOGY METHOD 06/07/2024 1:[address] [facility] RDW 13.4 11.0 - 15.0 % LAB HEMETOLOGY METHOD 06/07/2024 1:[address] [facility] Platelets 163 130 - 400 K/mcL LAB HEMETOLOGY METHOD 06/07/2024 1:[address] [facility] MPV 11.8(H) 7.0 - 11.0 FL LAB HEMETOLOGY METHOD 06/07/2024 1:[address] [facility] NRBC 0.0 <1.0 % LAB HEMETOLOGY METHOD 06/07/2024 1:[address] [facility] NRBC Absolute 0.00 <0.10 K/mcL LAB HEMETOLOGY METHOD 06/07/2024 1:[address] [facility] Neutrophils Relative 44.7 % LAB HEMETOLOGY METHOD 06/07/2024 1:[address] [facility] Lymphocytes Relative 37.1 % LAB HEMETOLOGY METHOD 06/07/2024 1:[address] [facility] Monocytes Relative 11.2 % LAB HEMETOLOGY METHOD 06/07/2024 1:[address] [facility] Eosinophils Relative 5.7 % LAB HEMETOLOGY METHOD 06/07/2024 1:[address] [facility] Basophils Relative 1.0 % LAB HEMETOLOGY METHOD 06/07/2024 1:[address] [facility] Immature Granulocytes Relative 0.3 % LAB HEMETOLOGY METHOD 06/07/2024 1:[address] [facility] Neutrophils Absolute 3.16 1.50 - 7.00 K/mcL LAB HEMETOLOGY METHOD 06/07/2024 1:55 AM EST [facility] Lymphocytes Absolute 2.62 1.00 - 5.00 K/mcL LAB HEMETOLOGY METHOD 06/07/2024 1:55 AM EST [facility] Monocytes Absolute 0.79 0.20 - 1.00 K/mcL LAB HEMETOLOGY METHOD 06/07/2024 1:55 AM EST [facility] Eosinophils Absolute 0.40 0.00 - 0.50 K/mcL LAB HEMETOLOGY METHOD 06/07/2024 1:55 AM EST [facility] Basophils Absolute 0.07 0.00 - 0.20 K/mcL LAB HEMETOLOGY METHOD 06/07/2024 1:55 AM EST [facility] Immature Granulocytes Absolute 0.02 0.00 - 0.03 K/mcL LAB HEMETOLOGY METHOD 06/07/2024 1:55 AM EST [facility] Blood Venous blood specimen / Unknown Venipuncture / Unknown 06/07/2024 1:17 AM EST 06/07/2024 1:51 AM EST Nury Guevara MD LAB BLOOD ORDERA BLES [facility] [address] [place] [address], [place] [phone] * Lipase (06/07/2024 1:17 AM EST) Lipase 43 13 - 75 unit/L LAB CHEMISTRY METHOD 06/07/2024 2:17 AM EST [facility] Blood Venous blood specimen / Unknown Venipuncture / Unknown 06/07/2024 1:17 AM EST 06/07/2024 1:51 AM EST Nury Guevara MD LAB BLOOD ORDERA BLES [facility] [address] [place] [address], [place] [phone] * (ABNORMAL) Comprehensive metabolic panel (06/07/2024 1:17 AM EST) [facility] Signature Sodium 141 133 - 145 mmol/L LAB CHEMISTRY METHOD 06/07/2024 2:[address] [facility] Potassium 4.0 3.5 - 5.5 mmol/L LAB CHEMISTRY METHOD 06/07/2024 2:[address] [facility] Chloride 106 96 - 110 mmol/L LAB CHEMISTRY METHOD 06/07/2024 2:[address] [facility] CO2 29 21 - 32 mmol/L LAB CHEMISTRY METHOD 06/07/2024 2:[address] [facility] Anion Gap 6 3 - 11 LAB CHEMISTRY METHOD 06/07/2024 2:[address] [facility] Glucose 123(H) 70 - 100 mg/dL LAB CHEMISTRY METHOD 06/07/2024 2:[address] [facility] BUN 24 5 - 25 mg/dL LAB CHEMISTRY METHOD 06/07/2024 2:[address] [facility] Creatinine 1.83(H) 0.70 - 1.30 mg/dL LAB CHEMISTRY METHOD 06/07/2024 2:[address] [facility] eGFR 43(L) >=60 mL/min/1. 73m2 LAB CHEMISTRY METHOD 06/07/2024 2:[address] [facility] Comment:Calculation based on the??Chronic Kidney Disease Epidemiology Collaboration (CKD-EPI) equation refit??without adjustment for race. BUN/Creatinine Ratio 13.1 LAB CHEMISTRY METHOD 06/07/2024 2:[address] [facility] Calcium 9.2 8.5 - 10.5 mg/dL LAB CHEMISTRY METHOD 06/07/2024 2:[address] [facility] AST (SGOT) 30 10 - 42 unit/L LAB CHEMISTRY METHOD 06/07/2024 2:[address] [facility] ALT (SGPT) 46 10 - 60 unit/L LAB CHEMISTRY METHOD 06/07/2024 2:17 AM EST [facility] Alkaline Phosphatase 85 42 - 121 unit/L LAB CHEMISTRY METHOD 06/07/2024 2:[address] [facility] Total Protein 7.0 6.0 - 8.0 g/dL LAB CHEMISTRY METHOD 06/07/2024 2:17 AM EST [facility] Albumin 3.8 3.2 - 5.0 g/dL LAB CHEMISTRY METHOD 06/07/2024 2:[address] [facility] Total Bilirubin 0.6 0.0 - 1.4 mg/dL LAB CHEMISTRY METHOD 06/07/2024 2:[address] [facility] Blood Venous blood specimen / Unknown Venipuncture / Unknown 06/07/2024 1:17 AM EST 06/07/2024 1:51 AM EST Nury Guevara MD LAB BLOOD ORDERA BLES [facility] [address] [place] [address], * Lipid panel (2022) LDL/HDL Ratio 0 Comment:abstracted, no inter pretation Triglycerides 0 mg/dL Comment:abstracted, no inter pretation Cholesterol 0 mg/dL Comment:abstracted, no inter pretation HDL 0 mg/dL Comment:abstracted, no inter pretation LDL Cholesterol 0 mg/dL Comment:abstracted, no inter pretation Blood Venous blood specimen / Unknown Historical Provider LAB BLOOD ORDERAB LES from Last 3 Months or Most Recently Relevant to Health Maintenance Care Teams Weigh Boss Relationship Specialty Start Date End Date Cricket Wills PA [address] [place] [phone] PCP - General Physician Steward/Stewardess Third Class 08/14/19
--- OUTSIDE RECORDS SUMMARY | 2024-08-07 15:36 | XMS_ITS | Encounter Summary ---
Author Organization [facility] Address [address] [place] [address] Care Team Providers Care Auto Fleet Manager Name Role Phone Cricket Wills Primary Care Provider [phone] Encounter Details Date Type Department Care Team (Late st Contact Info) Description 02/07/2022 Dental Interim Note Caring [facility] Main Dental [address] [place] [phone] Mellissa Hernandez DDS [address] [place] [address] Social History Tobacco Use Types Packs/Day Years [...] Description 08/14/2024 9:40 AM EST Telemedicine Visit [facility] [address] [place] [address] Brenton Mcfadden, RD [address] - [address] [place] [address] 10/25/2024 10:00 AM EDT Office Visit [facility] [address] [place] [address] Ihsan Gibbs, PharmD [address] [place] [address] 10/30/2024 1:00 PM EDT Office Visit [facility] St Dental [address] [place] [phone] Margarito Leger [address] [place] [address] documented as of this encounter Goals Goal [...] documented as of this encounter Care Teams Auto Fleet Manager Relationship Specialty Start Date End Date Cricket Wills PA [address] [place] [address] PCP - General Internal Medicine 07/08/17 documented as of this encounter
--- OUTSIDE RECORDS SUMMARY | 2024-08-07 15:36 | XMS_ITS | Encounter Summary ---
Author Organization [facility] Address [address] [place] [address] Care Team Providers Care Scarfer Operator Name Role Phone Cricket Wills Primary Care Provider [phone] Encounter Details Date Type Department Care Team (Late st Contact Info) Description 02/07/2022 Dental Interim Note Caring [facility] Main Dental [address] [place] [phone] Mellissa Hernandez DDS [address] [place] [address] Social History Tobacco Use Types Packs/Day Years [...] Description 08/14/2024 9:40 AM EST Telemedicine Visit [facility] [address] [place] [address] Brenton Mcfadden, RD [address] - [address] [place] [address] 10/25/2024 10:00 AM EDT Office Visit [facility] [address] [place] [address] Ihsan Gibbs, PharmD [address] [place] [address] 10/30/2024 1:00 PM EDT Office Visit [facility] St Dental [address] [place] [phone] Margarito Leger [address] [place] [address] documented as of this encounter Goals Goal [...] documented as of this encounter Care Teams Scarfer Operator Relationship Specialty Start Date End Date Cricket Wills PA [address] [place] [address] PCP - General Internal Medicine 07/08/17 documented as of this encounter
--- OUTSIDE RECORDS SUMMARY | 2024-08-07 15:36 | XMS_ITS | Encounter Summary ---
Author Organization [facility] Address [address] [place] [address] Care Team Providers Care Wildlife Policy Professional Name Role Phone Cricket Wills Primary Care Provider [phone] Encounter Details Date Type Department Care Team (Late st Contact Info) Description 02/07/2022 Dental Interim Note Caring [facility] Main Dental [address] [place] [phone] Mellissa Hernandez DDS [address] [place] [address] Social History Tobacco Use Types Packs/Day Years [...] Description 08/14/2024 9:40 AM EST Telemedicine Visit [facility] [address] [place] [address] Brenton Mcfadden, RD [address] - [address] [place] [address] 10/25/2024 10:00 AM EDT Office Visit [facility] RD [address] [place] [address] Ihsan Gibbs, PharmD [address] [place] [address] 10/30/2024 1:00 PM EDT Office Visit [facility] St Dental [address] [place] [phone] Margarito Leger [address] [place] [address] documented as of this encounter Goals Goal [...] documented as of this encounter Care Teams Wildlife Policy Professional Relationship Specialty Start Date End Date Cricket Wills PA [address] [place] [address] PCP - General Internal Medicine 07/08/17 documented as of this encounter
== END 2024-08-07 14:57 | disposition home or self-care (01) ==
PROVIDERS: PCP Physician Assistant; Visit Provider Nurse Practitioner Family
DX: R30.0 Dysuria (principal); R10.9 Unspecified abdominal pain; N20.0 Calculus of kidney; Z13.9 Encounter for screening, unspecified
CPT/HCPCS: 99203

== ENCOUNTER 2024-08-07 13:26 | Outpatient (REF) | payer MEDICAID, SELFPAY ==
--- OUTSIDE RECORDS SUMMARY | 2024-08-07 17:52 | XMS_ITS | Encounter Summary ---
Author Organization [facility] Address [address] [place] [address] Care Team Providers Care Refrigeration Engineering Teacher Name Role Phone Cricket Wills Primary Care Provider [phone] Encounter Details Date Type Department Care Team [...] Description 08/14/2024 9:40 AM EST Telemedicine Visit [facility] [address] [place] [phone] Brenton Mcfadden, RD [address] - [address] [place] [address] 10/25/2024 10:00 AM EDT Office Visit [facility] [address] [place] [phone] Ihsan Gibbs PharmD [address] [place] [address] 10/30/2024 1:00 PM EDT Office Visit [facility] Dental [address] [place] [phone] Margarito Leger [address] [place] [address] documented as of this encounter Goals Goal [...] documented as of this encounter Care Teams Refrigeration Engineering Teacher Relationship Specialty Start Date End Date Cricket Wills PA [address] [place] [address] PCP - General Internal Medicine 07/08/17 documented as of this encounter
--- OUTSIDE RECORDS SUMMARY | 2024-08-07 17:53 | XMS_ITS | Encounter Summary ---
Author Organization [facility] Address [address] [place] [address] Care Team Providers Care Blackener Name Role Phone Cricket Wills Primary Care Provider [phone] Reason for Visit * Reason Comments Hypertension Encounter Details Date Type Department Care Team ([facility] Contact Info) Description 07/26/2024 10:00 AM EST Office Visit [facility] Main [address] [place] [phone] Ihsan Gibbs, PharmD [address] [place], [place] [phone] Essential hypertension (Primary Dx); Class 1 obesity [...] Osiel Gamino is a 58 year old, Gambian-speaking male who presents today for a follow-up visit in Hypertension Clinic with Ihsan Gibbs PharmD. Referred by CLIFF Lara. No character actor needed for today's visit as patient speaks Estonian. Accompanied by: None HPI: Patient reports: Patient [...] hypertension: Dyslipidemia, Obesity, and pain. Hx of stroke/CA/HF/CAD? No Family cardiac hx: Father had heart [...] a lot of water. Patient following with [facility] casino assistant manager. Caffeine: One coffee daily, denies soda, tea, [...] , ALDOPRA , TSH , CORTISOLAM , [id number] , [id number] Lab Results Component Value Date TRIGLYC 310 [...] dosage, administration, storage, side effects, missing dose) Warehouse Person Complications of Uncontrolled Hypertension REFERENCES: Nevin PK, [...] Adults: Executive Summary: A Report of the [place] College [employer]/[place] [employer] Association Task Force on Clinical Practice Guidelines. Hypertension. 2018 Dec;71(6):5608-4707. doi: 10.1161/HYP.[id number]. Epub 2016May 22. Erratum in: Hypertension. 2018 Dec;71(6):m906-t541. Erratum in: Hypertension. 2018 Mar;72(3):e33. PMID: [id number]. Ihsan Gibbs PharmD, [facility] documented in this encounter Miscellaneous [...] pertinent symptoms. Robles Gibbs PharmD, [facility] Clinical Pharmacist Press 1 for Estonian Enter extension [phone] They will not ask you what extension [...] [facility] [address] [place] [phone] Brenton Mcfadden, RD [address] - [address] [place] [address] 10/25/2024 10:00 AM EDT Office Visit [facility] [address] [place] [phone] Ihsan Gibbs PharmD [address] [place] [address] 10/30/2024 1:00 PM EDT Office Visit [facility] St Dental [address] [place] [phone] Margarito Leger [address] [place] [address] documented as of this encounter Goals Goal [...] documented as of this encounter Care Teams Blackener Relationship Specialty Start Date End Date Cricket Wills PA [address] [place] [address] PCP - General Internal Medicine 07/08/17 documented as of this encounter
--- OUTSIDE RECORDS SUMMARY | 2024-08-07 17:53 | XMS_ITS | Encounter Summary ---
Author Organization [facility] Address [address] [place] [address] Care Team Providers Care Zyglo Inspector Name Role Phone Cricket Wills Primary Care Provider [phone] Encounter Details Date Type Department Care Team (Late st Contact Info) Description 02/07/2022 Dental Interim Note [facility] Main Dental [address] [place] [phone] Mellissa Hernandez DDS [address] [place] [address] Social History Tobacco Use Types Packs/Day Years [...] Description 08/14/2024 9:40 AM EST Telemedicine Visit [facility] [address] [place] [address] Brenton Mcfadden, RD [address] - [address] [place] [address] 10/25/2024 10:00 AM EDT Office Visit [facility] [address] [place] [address] Ihsan Gibbs, PharmD [address] [place] [address] 10/30/2024 1:00 PM EDT Office Visit [facility] St Dental [address] [place] [phone] Margarito Leger [address] [place] [address] documented as of this encounter Goals Goal [...] documented as of this encounter Care Teams Zyglo Inspector Relationship Specialty Start Date End Date Cricket Wills PA [address] [place] [address] PCP - General Internal Medicine 07/08/17 documented as of this encounter
--- OUTSIDE RECORDS SUMMARY | 2024-08-07 17:53 | XMS_ITS | Encounter Summary ---
Author Organization [facility] Address [address] [place] [address] Care Team Providers Care Medical Research Associate Name Role Phone Cricket Wills Primary Care Provider [phone] Encounter Details Date Type Department Care Team [...] Description 08/14/2024 9:40 AM EST Telemedicine Visit [facility] [address] [place] [address] Bogdan Brenton, RD [address] - [address] [place] [address] 10/25/2024 10:00 AM EDT [facility] [address] [place] [phone] Ihsan Gibbs, PharmD [address] [place] [address] 10/30/2024 1:00 PM EDT Office Visit [facility] St Dental [address] [place] [phone] Margarito Leger [address] [place] [address] documented as of this encounter Goals Goal [...] documented as of this encounter Care Teams Medical Research Associate Relationship Specialty Start Date End Date Cricket Wills PA [address] [place] [address] PCP - General Internal Medicine 07/08/17 documented as of this encounter
--- OUTSIDE RECORDS SUMMARY | 2024-08-07 17:53 | XMS_ITS | Clinical Summary ---
Author Organization [facility] Address [address] [place] [address] Care Team Providers Care Waste Specialist Name Role Phone Cricket Wills Primary [...] s:Chronic pain of right knee Place 1 [place] into the nostril(s) as needed for opioid [...] in for 3 month med management. Jose hWitt. HM items due: Diabetes and Lipid Screenings; [...] on 06/25/2018, both by Dr. Ken at [facility]. Presented to consult office for c/o [...] 02/19/18, per Cricket Wills PA-C: Seen by [facility] Neurosurgery. Dr. James Dent will attempt to decompress after PCP pre-op clearance. Right L4-L5 METRx (6cm) bilateral decompression. Surgeon Dr. Dent - 02/14/18. Encounters Date Type Department Care Team Description 07/26/2024 10:00 AM EST Office Visit [address] [address] Ihsan Gibbs, PharmD Essential hypertension (Primary Dx); Class 1 obesity due to excess calories with serious comorbidity and body mass index (BMI) of 33.0 to 33.9 in adult; Medication management 07/26/2024 Travel 07/24/2024 2:20 PM EST Telemedicine Visit [address] [address] Class 1 obesity due to excess calories with serious comorbidity and body mass index (BMI) of 33.0 to 33.9 in adult (Primary Dx) 07/24/2024 Travel 06/28/2024 10:00 AM EST Telemedicine Visit [address] [phone] Class 1 obesity due to excess calories with serious comorbidity and body mass index (BMI) of 32.0 to 32.9 in adult (Primary Dx) 06/12/2024 4:20 PM EST Office Visit [address] [phone] Cricket Wills PA Rodriguez, Anabel Essential hypertension (Primary Dx); Kidney stone; Class 1 obesity due to excess calories with serious comorbidity and body mass index (BMI) of 33.0 to 33.9 in adult 06/12/2024 Travel 05/23/2024 10:20 AM EST Telemedicine Visit [address] [phone] Primary hypertension (Primary Dx) [...] Description 08/14/2024 9:40 AM EST Telemedicine Visit [facility] [address] [place] [phone] Brenton Mcfadden, RD 1040 - 1059 [place] [address] 10/25/2024 10:00 AM EDT Office Visit Replaced By [facility] [address] [place] [phone] Sai Ihsan, PharmD 1049 [place] [address] 10/30/2024 1:00 PM EDT Office Visit [facility] St Dental 10[address] [place] [phone] Margarito Leger 1049 [place] [address] Health Maintenance Due Date Last Done Comments Dental FMX/Pano 1966 CT Colonography 12/01/2011 Fecal DNA 12/01/2011 Flexible Sigmoidoscopy 12/01/2011 FIT/gFOBT 04/24/2021 04/24/2020, 04/09, 04/24/2020, Additional history exists Annual Preventive Care Visit 08/16/202201/2022, 01/30/2019, 08/22/2017 Lipid Screening 12/01/2023 2022, 11/08, 08/17/2021 [id number] ( season) 2024 09/13/2022, 06/16/2021, 11/16/2020, Additional [...] EDT) GLUCOSE 97 65 - 99 mg/dL [facility] Comment: ?Fasting reference interval UREA NITROGEN (BUN) 22 7 - 25 mg/dL [facility] CREATININE (blood) 1.11 0.70 - 1.30 mg/dL [facility] EGFR 77 > OR = 60 mL/min/1. 73m2 [facility] BUN/CREATININE RATIO SEE NOTE: 6 [facility] Comment: ?? Not Reported: BUN and Creatinine are within ?? reference range. ? SODIUM 138 135 - 146 mmol/L [facility] POTASSIUM 4.2 3.5 - 5.3 mmol/L [facility] CHLORIDE 101 98 - 110 mmol/L [facility] CARBON DIOXIDE 24 20 - 32 mmol/L [facility] CALCIUM 9.1 8.6 - 10.3 mg/dL [facility] PROTEIN, TOTAL 6.5 6.1 - 8.1 g/dL [facility] ALBUMIN 3.8 3.6 - 5.1 g/dL [facility] [facility] GLOBULIN 2.7 1.9 - 3.7 g/dL (calc) [facility] [place] [facility] ALBUMIN/GLOBULI N RATIO 1.4 1.0 - 2.5 (calc) [facility] BILIRUBIN, TOTAL 0.6 0.2 - 1.2 mg/dL [facility] ALKALINE PHOSPHATASE 76 35 - 144 U/L [facility] AST 18 10 - 35 U/L [facility] [place] [facility] ALT 35 9 - 46 U/L [facility] [facility] Blood Blood / Unknown 03/08/2024 1 0:10 AM EDT 03/08/2024 10:10 AM EDT [facility] - BLOOD DRAW Final Result [facility] [address] [address], [facility] [address] [address] * (ABNORMAL) LIPIDS W RFLX TO DIRECT LDL (2022 10:45 AM EDT) CHOLESTEROL, TOTAL 273(H) <200 mg/dL [facility] HDL CHOLESTEROL 46 > OR = 40 mg/dL [facility] TRIGLYCERIDES 310(H) <150 mg/dL [facility] Comment: If a non-fasting specimen was collected, consider repeat triglyceride testing on a fasting specimen if clinically indicated. Arelis et al. J. of Clin. Lipidol. 2015;9:129-169. LDL-CHOLESTEROL 174(H) 99 mg/dL (calc) [facility] Comment: Reference range: <100 Desirable range <100 mg/dL for primary prevention; ?? <70 mg/dL for patients with CHD or diabetic patients with > or = 2 CHD risk factors. LDL-C is now calculated using the Darius calculation, which is a validated novel method providing better accuracy than the Friedewald equation in the estimation of LDL-C. Charbel VIDAL et al. ANI. 2013;310(19): 9755-3979 (http://education.Matchbin.Munchery/faq/WYJ461) CHOL/HDLC RATIO 5.9(H) <5.0 (calc) [facility] NON-HDL CHOLESTEROL 227(H) <130 mg/dL (calc) [facility] Comment: Non-HDL level > or = 220 [...] [facility] - BLOOD DRAW Final Result [facility] [address] [address], [facility] [address] [address] * REFERRAL FOR COLONOSCOPY (10/30/2020 12:54 PM [...] NEGATIVE CARD NEHEMIAH DATE: NO DATE SPECIFIED [facility] 04/24/2020 04/24/2020 6:5 5 PM EDT Narrative [facility] - 04/27/2020 11:22 AM EDT [employer] [address] Room Service Supervisor - Ella Guevara MD PT ID [id number] ORD# [id number] SOURCE: STOOL; [facility] - NO BLOOD DRAW Final Resu lt Performing Organization Address [facility] Co de Phone Number [facility] [address] [place] [address], [place] [phone] * HEPATITIS A,B,C PANEL (08/25/2017 8:35 AM EST) HEPATITIS B SURFACE ANTIBODY NEGATIVE NEGATIVE [facility] HEPATITIS B SURFACE ANTIGEN NEGATIVE NEGATIVE [facility] Comment: Over the counter supplements containing high doses of biotin may interfere with this assay. ??If interference is suspected, patients shoud be retested after refraining from biotin supplements for 72 hours. HEPATITIS C VIRUS DIAGNOSTIC NEGATIVE NEGATIVE [facility] HEPATITIS B CORE ANTIBODY NEGATIVE NEGATIVE [facility] HEPATITIS A ANTIBODY TOTAL NEGATIVE NEGATIVE [facility] Comment: Over the counter supplements containing high doses of biotin may interfere with this assay. ??If interference is suspected, patients shoud be retested after refraining from biotin supplements for 72 hours. Blood specimen (specimen) Blood / Unknown 08/25/2017 8:35 AM EST 08/25/2017 8:46 AM EST Narrative [facility] - 08/25/2017 2:18 PM EST [facility] [address] [place] [address] PT ID [id number] ORD# [id number] [facility] - BLOOD DRAW Edited Result - Final Performing Organization Address City/[facility]/ZIP Co de Phone Number [address] [address], [place] [phone] * HIV-1 & HIV-2 ANTIBODIES (08/25/2017 8:35 AM EST) HIV 1 AND 2 ANTIBODY SCREEN NEGATIVE NEGATIVE [facility] Comment: This assay is a 4th generation [...] AM EST 08/25/2017 8:46 AM EST Narrative [facility] - 08/25/2017 2:47 PM EST [facility] [address] [place] [address] PT ID [id number] ORD# [id number] [facility] - BLOOD DRAW Final Result [facility] [address] [place] [address], from Last 3 Months or Most Recently Relevant to Health Maintenance Insurance [place] MEDICAID DENTAL [address] [employer] Care Teams Waste Specialist Relationship Specialty Start Date End Date Cricket Wills PA [address] [place] [address] PCP - General Internal Medicine 07/08/17
--- OUTSIDE RECORDS SUMMARY | 2024-08-07 17:53 | XMS_ITS | Encounter Summary ---
Author Organization [facility] Address [address] [place] [address] Care Team Providers Care Senior Facilities Manager Name Role Phone Cricket Wills Primary Care Provider [phone] Encounter Details Date Type Department Care Team (Late st Contact Info) Description 02/07/2022 Dental Interim Note [facility] Main Dental [address] [place] [phone] Mellissa Hernandez DDS [address] [place] [address] Social History Tobacco Use Types Packs/Day Years [...] Description 08/14/2024 9:40 AM EST Telemedicine Visit [facility] [address] [place] [address] Brenton Mcfadden, RD 1040 - 1050 [place] [address] 10/25/2024 10:00 AM EDT Office Visit [facility] RD [address] [place] [address] Ihsan Gibbs, PharmD [address] [place] [address] 10/30/2024 1:00 PM EDT Office Visit [facility] St Dental [address] [place] [phone] Margarito Leger [address] [place] [address] documented as of this encounter Goals Goal [...] documented as of this encounter Care Teams Senior Facilities Manager Relationship Specialty Start Date End Date Cricket Wills PA [address] [place] [address] PCP - General Internal Medicine 07/08/17 documented as of this encounter
--- OUTSIDE RECORDS SUMMARY | 2024-08-07 17:53 | XMS_ITS | Encounter Summary ---
Author Organization [facility] Address [address] [place] [address] Care Team Providers Care Clay Processing Factory Worker Name Role Phone Cricket Wills Primary Care Provider [phone] Encounter Details Date Type Department Care Team (Late st Contact Info) Description 02/07/2022 Dental Interim Note [facility]aring [facility] Main St Dental [address] [place] [phone] Marleny Cormier [address] [place], [place] [phone] Social History Tobacco Use Types Packs/Day Years [...] Description 08/14/2024 9:40 AM EST Telemedicine Visit [facility] [address] [place] [address] Brenton Mcfadden, RD 1040 - 1050 [place] [address] 10/25/2024 10:00 AM EDT Office Visit [facility] [address] [place] [phone] Ihsan Gibbs, PharmD [address] [place] [address] 10/30/2024 1:00 PM EDT Office Visit [facility] St Dental [address] [place] [phone] Margarito Leger [address] [place] [address] documented as of this encounter Goals Goal [...] documented as of this encounter Care Teams Clay Processing Factory Worker Relationship Specialty Start Date End Date Cricket Wills PA [address] [place] [address] PCP - General Internal Medicine 07/08/17 documented as of this encounter
--- OUTSIDE RECORDS SUMMARY | 2024-08-07 17:53 | XMS_ITS | Encounter Summary ---
Author Organization [facility] Address [address] [place] [address] Care Team Providers Care Sales Program Coordinator Name Role Phone Cricket Wills Primary Care Provider [phone] Reason for Visit * Reason Comments Care Coordination Patient asked to shelly t with this CHW today. Encounter Details Date Type Department Care Team (Late Contact Info) Description 01/26/2018 Interim Notes [facility] [address] [place] [phone] Sierra Ware, Community Health Worker [address] [place] [address] Social History Tobacco Use Types Packs/Day Years [...] Description 08/14/2024 9:40 AM EST Telemedicine Visit [facility] [address] [place] [phone] Brenton Mcfadden, RD [address] [place] [address] 10/25/2024 10:00 AM EDT [facility] Visit [facility] RD [address] [place] [phone] Ihsan Gibbs, PharmD [address] [place] [address] 10/30/2024 1:00 PM EDT Office Visit [facility] Dental [address] [place] [phone] Margarito Leger [address] [place] [address] documented as of this encounter Visit Diagnoses Not on filedocumented in this encounter Additional Health Concerns Infection Onset Date Last Indicated Resolved Time COVID-19 Comment:Patient tested negative for Covid-19 05/03/22 05/03/2022 05/03/2022 05/03/2022 7:32 AM P DT documented as of this encounter Care Teams Sales Program Coordinator Relationship Specialty Start Date End Date Cricket Wills PA [address] [place] [address] PCP - General Internal Medicine 07/08/17 documented as of this encounter
--- OUTSIDE RECORDS SUMMARY | 2024-08-07 17:53 | XMS_ITS | Encounter Summary ---
Author Organization [facility] Address [address] [place] [address] Care Team Providers Care Manager Mountain Name Role Phone Cricket Wills Primary Care Provider [phone] Encounter Details Date Type Department Care Team (Latest Contact Info) Description 07/24/2024 2:20 PM EST Telemedicine Visit [facility] [address] [place] [phone] Brenton Mcfadden, RD 1040 - [address] [place] [address] Class 1 obesity due to excess calories [...] identified myself as Brenton Mcfadden RD from [facility]. It was conducted in a private space to protect HIPPA sensitive information. Precautions weretaken to provide confidentiality and security and patient was made aware of privacy considerations.The patients location was obtained and is [facility] The patient/guardian was notified that the services were being provided from [facility]). The patient/guardian was notified how they can see a clinician in-person in the event of an emergency or if otherwise needed. Visit START TIME 1:50 END TIME 1:57 Manager Internship used during visit? No SUBJECTIVE: Osiel is [...] (NARCAN) 4 mg/actuation nasal spray Place 1 [place] into the nostril(s) as needed for opioidreversal [...] Description 08/14/2024 9:40 AM EST Telemedicine Visit [facility] [address] [place] [phone] - 1050 [place] [address] 10/25/2024 10:00 AM EDT Office [facility] 12[address] [place] [phone] Ihsan Gibbs, PharmD [facility]9 [place] [address] 10/30/2024 1:00 PM EDT Office Visit [facility] Dental [address] [place] [phone] Margarito Leger [address] [place] [address] documented as of this encounter Goals Goal [...] as of this encounter Care Teams Manager Mountain Relationship Specialty Start Date End Date Cricket Wills PA [address] [place] [address] PCP - General Internal Medicine 07/08/17 documented as of this encounter
--- OUTSIDE RECORDS SUMMARY | 2024-08-07 17:53 | XMS_ITS | Encounter Summary ---
Author Organization [facility] Address [address] [place] [address] Care Team Providers Care Neuro Urologist Name Role Phone Cricket Wills Primary Care Provider [phone] Encounter Details Date Type Department Care Team (Latest Contact Info) Description 07/26/2024 11:47 AM EST - 07/26/2024 11:59 PM EST Hospital Encounter [facility] [address] [place] [address] Chronic pain of right knee Discharge Disposition: [...] tablet 06/07/2024 inhalational spacing device (Jeferson Aerosol [place] Enhancer) inhaler Use as instructed 04/22/2022 ipratropium-albuteroL [...] Info) Description 08/08/2024 12:00 PM EST Appointment [facility] MRI [address] [place] [phone] 08/13/2024 11:00 AM EST Evaluation [facility] Outpatient Rehabilitation [facility] [address] [phone] Leanna De Santiago PT 09/06/2024 1:00 PM EST Office Visit [facility] [address] [place] [address] Akhil Phillips PA [address] [place] [address] documented as of this encounter Procedures Procedure Name Priority Date/Time Associated Diagnosis Comments XR KNEE 4+ VIEWS RIGHT Routine 07/26/2024 12:02 PM EST Chronic pain of right knee documented in this encounter Results * XR Knee 4+ Views Right (07/26/2024 12:02 PM EST) Anatomical Region Laterality Modality Lower Extremities, Knee Right [facility] 07/26/2024 4:25 PM EST Impressions 07/26/2024 4:27 PM EST No acute fracture or dislocation of the right knee. ?? -------- FINAL REPORT -------- Dictated By: Luisa Guerrero Dictated Date: 07/26/2024 16:25 ET Assigned Physician: Luisa Guerrero Reviewed and Electronically Signed By: Luisa Guerrero Signed Date: 07/26/2024 16:27 ET Workstation ID: [id number] Transcribed By: Self Edit Transcribed Date: 07/26/2024 [...] Signed Date: 07/26/2024 16:27 ET Workstation ID: [id number] Transcribed By: Self Edit Transcribed Date: 07/26/2024 16:25 ET Akhil [facility] XR PROCEDURES documented in this encounter Visit Diagnoses Diagnosis Chronic pain of right knee documented in this encounter Care Teams Neuro Urologist Relationship Specialty Start Date End Date Cricket Wills PA [address] [place] [address] PCP - General Physician Assistant Tennis Professional 08/14/19 documented as of this encounter
--- OUTSIDE RECORDS SUMMARY | 2024-08-07 17:53 | XMS_ITS | Encounter Summary ---
Author Organization [facility] Address [address] [place] [address] Care Team Providers Care Claims Auditor Name Role Phone Cricket Wills Primary Care Provider [phone] Encounter Details Date Type Department Care Team (Late st Contact Info) Description 02/07/2022 Dental Interim Note [facility]aring [facility] Main Dental [address] [place] [phone] Mellissa Hernandez DDS [address] [place] [address] Social History Tobacco Use Types Packs/Day Years [...] Description 08/14/2024 9:40 AM EST Telemedicine Visit [facility] St [address] [place] [address] Brenton Mcfadden, RD 1040 - 10[address] [place] [address] 10/25/2024 10:00 AM EDT Office Visit [facility] RD [address] [place] [address] Ihsan Gibbs, PharmD [address] [place] [address] 10/30/2024 1:00 PM EDT Office Visit [facility] St Dental [address] [place] [phone] Margarito Leger [address] [place] [address] documented as of this encounter Goals Goal [...] documented as of this encounter Care Teams Claims Auditor Relationship Specialty Start Date End Date Cricket Wills PA [address] [place] [address] PCP - General Internal Medicine 07/08/17 documented as of this encounter
--- OUTSIDE RECORDS SUMMARY | 2024-08-07 17:53 | XMS_ITS | Encounter Summary ---
Author Organization [facility] Address [address] [place] [address] Care Team Providers Care Laborer Road Name Role Phone Cricket Wills Primary Care Provider [phone] Encounter Details Date Type Department Care Team (Late st Contact Info) Description 02/07/2022 Dental Interim Note [facility]aring [facility] Main Dental [address] [place] [phone] Mellissa Hernandez DDS [address] [place] [address] Social History Tobacco Use Types Packs/Day Years [...] 08/14/2024 9:40 AM EST Telemedicine Visit [facility] [address] [place] [address] Brenton Mcfadden, RD 1040 - [address] [place] [address] 10/25/2024 10:00 AM EDT Office Visit [facility] [address] [place] [address] Ihsan Gibbs, PharmD [address] [place] [address] 10/30/2024 1:00 PM EDT Office Visit [facility] [address] Dental [address] [place] [phone] Margarito Leger [address] [place] [address] documented as of this encounter Goals Goal [...] documented as of this encounter Care Teams Laborer Road Relationship Specialty Start Date End Date Cricket Wills PA [address] [place] [address] PCP - General Internal Medicine 07/08/17 documented as of this encounter
--- OUTSIDE RECORDS SUMMARY | 2024-08-07 17:53 | XMS_ITS | Encounter Summary ---
Author Organization [facility] Address [address] [place] [address] Care Team Providers Care Strap Buckler Name Role Phone Cricket Wills Primary Care Provider [phone] Reason for Referral * Orthopedic (Routine) - Pending Review Specialty Diagnoses / Procedures Referred By Contac t Referred To Contact Orthopedic Surgery / Orthopaedic Surgery Diagnoses Chronic pain of right knee Procedures L Inj/Asp: R knee Akhil Phillips PA [address] [place] [address] Referral ID Status Reason Start Date Expiration Date V isits Requested Visits Authorized [id number] Pending Review 07/26/2024 07/26/2025 1 1 * Consultation (Routine) - Authorized Specialty Diagnoses / Procedures Referred By Contac t Referred To Contact Physical Therapy Diagnoses Chronic pain of right knee Akhil Phillips PA [address] [place] [address] Referral ID Status Reason Start Date Expiration Date Visits Requested Visits Authorized [id number] Authorized Consult and Treat 07/26/2024 07/26/2025 1 1 Reason for Visit * Reason Comments Pain Consult * Consultation (Routine) - Closed Specialty Diagnoses / Procedures Referred By Contac t Referred To Contact Orthopaedic Surgery Diagnoses Chronic pain of right knee Cricket Wills PA [facility] [place] [address] Akhil Phillips PA [address] [place] [address] Referral ID Status Reason Start Date Expiration Date V isits Requested Visits Authorized [id number] Closed Specialty Services Required 05/03/2024 05/03/2025 1 1 Encounter Details Date Type Department Care Team (Late Contact Info) Description 07/26/2024 12:30 PM EST Consult [facility] [place] [address] [place] [address] Akhil Phillips PA [address] [place] [address] Chronic pain of right knee Social History [...] Info) Description 08/08/2024 12:00 PM EST Appointment [facility] MRI [address] [place] [phone] 08/13/2024 11:00 AM EST Evaluation [facility] [address] [address] Leanna De Santiago PT 09/06/2024 1:00 PM EST Office Visit [facility] [place] [address] [place], [place] [phone] Akhil Phillips PA [address] [place] [address] Pending Results Name Type Priority Associated Diagnoses [...] 07/26/2024 documented in this encounter Care Teams Strap Buckler Relationship Specialty Start Date End Date Cricket Wills PA [address] [place] [address] PCP - General Physician Credit Analyst 08/14/19 documented as of this encounter
--- OUTSIDE RECORDS SUMMARY | 2024-08-07 17:53 | XMS_ITS | Encounter Summary ---
Author Organization [facility] Address [address] [place] [address] Care Team Providers Care Supervisor Toy Parts Former Name Role Phone Cricket Wills Primary Care Provider [phone] Encounter Details Date Type Department Care Team (Late st Contact Info) Description 02/07/2022 Dental Interim Note [facility]aring [facility] Main Dental [address] [place] [phone] Mellissa Hernandez DDS [address] [place] [address] Social History Tobacco Use Types Packs/Day Years [...] Description 08/14/2024 9:40 AM EST Telemedicine Visit [facility] St [address] [place] [address] Brenton Mcfadden, RD [address] - [address] [place] [address] 10/25/2024 10:00 AM EDT Office Visit [facility] RD [address] [place] [address] Ihsan Gibbs, PharmD [address] [place] [address] 10/30/2024 1:00 PM EDT Office Visit [facility] St Dental [address] [place] [phone] Margarito Leger [address] [place] [address] documented as of this encounter Goals Goal [...] documented as of this encounter Care Teams Supervisor Toy Parts Former Relationship Specialty Start Date End Date Cricket Wills PA [address] [place] [address] PCP - General Internal Medicine 07/08/17 documented as of this encounter
--- OUTSIDE RECORDS SUMMARY | 2024-08-07 17:53 | XMS_ITS | Clinical Summary ---
Author Organization [facility] Address [address] [place] [address] Phone Care Team Providers Care Activities Director Scouting Name Role Phone Cricket Wills Primary Care Provider [phone] Allergies No known active allergies Medications Medication [...] 02/20/2023 Active inhalational spacing device (Jeferson Aerosol [place] Enhancer) inhaler Use as instructed 04/22/2022 Active [...] with microdiscectomy 06/25/[address] Ken at [facility]. He was last seen in the [...] spinal cord stimulator placed October 2021 at [facility] pain management. He comes in today describing [...] GI for diverticulitis, recent ED visits at [facility]. Patient had CAT scan of the abdomen [...] also had a lumbar spine x-ray at [facility] 01/30/2023 that shows straightening of the normal [...] ordered right hip x-ray. I will call [employer] to see if he can have an [...] PM EST - 07/30/2024 6:23 PM EST [facility] Emergency [address] [place] [phone] Piriformis syndrome of right side (Primary Dx) Discharge Disposition: Home or Self Care 07/26/2024 12:30 PM EST Consult Orthopedics - [id number] [place] [address] Akhil Phillips PA Chronic pain of right knee 07/26/2024 11:47 AM EST - 07/26/2024 11:59 PM EST Hospital Encounter XRAY - [id number] [place] [address] Chronic pain of right knee Discharge Disposition: Home or Self Care 06/07/2024 2:57 AM EST - 06/07/2024 6:[address] [facility] Emergency [address] [place] [phone] Kidney stone on left side (Primary Dx) [...] 2018, reexploration with discectomy 06/25/2018, Dr. Ken [facility] OTHER SURGICAL HISTORY 10/2021 PROCEDURE: HISTORY OTHER; COMMENT: Spinal cord stimulator placed, [facility] pain management TOTAL KNEE ARTHROPLASTY PROCEDURE: [place] ARTHRP KNE CONDYLE&PLATU MEDIAL&LAT COMPARTMENTS; COMMENT: Right [...] [facility] MRI [address] [place] [phone] 08/13/2024 11:[address] [facility] [address] [phone] Leanna De Santiago, YUE 09/06/2024 1:00 PM EST Office Visit Orthopedics - [place] [address] [place] [address] Akhil Phillips PA [address] [place] [address] Health Maintenance Due Date Last Done Comments [...] and culture (07/30/2024 5:01 PM EST) Specific [place] Urine 1.020 1.003 - 1.030 LAB URINALYSIS - AUTOMATED METHOD 07/30/2024 5:28 PM [facility] pH, Urine 7.5 5.0 - 8.0 pH LAB URINALYSIS - AUTOMATED METHOD 07/30/2024 5:28 PM [facility] Leukocytes, Urine Negative Negative LAB URINALYSIS - AUTOMATED METHOD 07/30/2024 5:28 PM [facility] Nitrite, Urine Negative Negative LAB URINALYSIS - AUTOMATED METHOD 07/30/2024 5:28 PM [facility] Protein, Urine Negative <=Trace mg/dL LAB URINALYSIS - AUTOMATED METHOD 07/30/2024 5:28 PM [facility] Glucose, Urine Negative Negative mg/dL LAB URINALYSIS - AUTOMATED METHOD 07/30/2024 5:28 PM [facility] Ketones, Urine Negative Negative mg/dL LAB URINALYSIS - AUTOMATED METHOD 07/30/2024 5:28 PM [facility] Urobilinogen, Urine 0.2 0.2 - 1.0 mg/dL LAB URINALYSIS - AUTOMATED METHOD 07/30/2024 5:28 PM [facility] Bilirubin, Urine Negative Negative LAB URINALYSIS - AUTOMATED METHOD 07/30/2024 5:28 PM EST [facility] Blood, Urine Negative Negative LAB URINALYSIS - AUTOMATED METHOD 07/30/2024 5:28 PM EST [facility] Urine Urine specimen obtained by clean catch procedure / Unknown Non-blood Collection / Unknown 07/30/2024 5:01 PM EST 07/30/2024 5:18 PM EST Marilyn CAVAZOS LAB URINE ORDERA BLES Performing Organization Address [facility]/ZIP Co de Phone Number [facility] [address] [place] [address], [place] [phone] * Collins urine culture tube (07/30/2024 5:01 PM EST) Extra Tube Hold for add-ons. 07/30/2024 7:01 PM EST [facility] Comment:Auto resulted. Urine Urine specimen obtained by clean catch procedure / Unknown Non-blood Collection / Unknown 07/30/2024 5:01 PM EST 07/30/2024 5:17 PM EST Marilyn Marks [place] LAB URINE ORDERA BLES Performing Organization Address City/[facility]/ZIP Co de Phone Number [facility] [address] [place] [address], [place] [phone] * XR Knee 4+ Views Right (07/26/2024 [...] Signed Date: 07/26/2024 16:27 ET Workstation ID: [id number] Transcribed By: Self Edit Transcribed Date: 07/26/2024 [...] Signed Date: 07/26/2024 16:27 ET Workstation ID: [id number] Transcribed By: Self Edit Transcribed Date: 07/26/2024 [...] Ashraf MD on 06/07/2024 05:43:44 Moise CAVAZOS [facility] CT PROCEDURES * (ABNORMAL) Urinalysis with reflex microscopic (06/07/2024 4:20 AM EST) Specific [place] Urine 1.015 1.003 - 1.030 LAB URINALYSIS - AUTOMATED METHOD 06/07/2024 5:01 AM [facility] pH, Urine 5.5 5.0 - 8.0 pH LAB URINALYSIS - AUTOMATED METHOD 06/07/2024 5:01 AM [facility] Leukocytes, Urine Negative Negative LAB URINALYSIS - AUTOMATED METHOD 06/07/2024 5:01 AM [facility] Nitrite, Urine Negative Negative LAB URINALYSIS - AUTOMATED METHOD 06/07/2024 5:01 AM [facility] Protein, Urine Negative <=Trace mg/dL LAB URINALYSIS - AUTOMATED METHOD 06/07/2024 5:01 AM [facility] Glucose, Urine Negative Negative mg/dL LAB URINALYSIS - AUTOMATED METHOD 06/07/2024 5:01 AM [facility] Ketones, Urine Negative Negative mg/dL LAB URINALYSIS - AUTOMATED METHOD 06/07/2024 5:01 AM [facility] Urobilinogen, Urine 0.2 0.2 - 1.0 mg/dL LAB URINALYSIS - AUTOMATED METHOD 06/07/2024 5:01 AM [facility] Bilirubin, Urine Negative Negative LAB URINALYSIS - AUTOMATED METHOD 06/07/2024 5:01 AM [facility] Blood, Urine Small(A) Negative LAB URINALYSIS - AUTOMATED METHOD 06/07/2024 5:01 AM [facility] RBC, Urine 2.0 0 - 4 /HPF LAB URINALYSIS - AUTOMATED METHOD 06/07/2024 5:01 AM [facility] WBC, Urine 1.4 0 - 4 /HPF LAB URINALYSIS - AUTOMATED METHOD 06/07/2024 5:01 AM [facility] Squamous Epithelial, Urine 4 0 - 60 /LPF LAB URINALYSIS - AUTOMATED METHOD 06/07/2024 5:01 AM [facility] Bacteria, Urine Negative Negative /HPF LAB URINALYSIS - AUTOMATED METHOD 06/07/2024 5:01 AM [facility] Hyaline Casts, Urine 1.7 0 - 3 /LPF LAB URINALYSIS - AUTOMATED METHOD 06/07/2024 5:01 AM [facility] Urine Urine specimen obtained by clean catch procedure / Unknown Non-blood Collection / Unknown 06/07/2024 4:20 AM EST 06/07/2024 4:27 AM EST Moise CAVAZOS LAB URINE ORDERABLES [facility] [address] [place] [address], * (ABNORMAL) CBC auto differential (06/07/2024 1:17 AM EST) WBC 7.1 4.8 - 10.8 K/mcL LAB HEMETOLOGY METHOD 06/07/2024 1:55 AM [facility] RBC 4.70 4.50 - 5.50 M/mcL LAB HEMETOLOGY METHOD 06/07/2024 1:55 AM [facility] Hemoglobin 14.6 13.5 - 17.5 g/dL LAB HEMETOLOGY METHOD 06/07/2024 1:55 AM [facility] Hematocrit 43.9 42.0 - 54.0 % LAB HEMETOLOGY METHOD 06/07/2024 1:55 AM [facility] MCV 93.0 79.0 - 98.0 FL LAB HEMETOLOGY METHOD 06/07/2024 1:55 AM [facility] MCH 30.9 27.0 - 32.0 pcg LAB HEMETOLOGY METHOD 06/07/2024 1:55 AM [facility] MCHC 33.3 32.0 - 37.0 g/dL LAB HEMETOLOGY METHOD 06/07/2024 1:55 AM [facility] RDW 13.4 11.0 - 15.0 % LAB HEMETOLOGY METHOD 06/07/2024 1:55 AM [facility] Platelets 163 130 - 400 K/mcL LAB HEMETOLOGY METHOD 06/07/2024 1:55 AM [facility] MPV 11.8(H) 7.0 - 11.0 FL LAB HEMETOLOGY METHOD 06/07/2024 1:55 AM [facility] NRBC 0.0 <1.0 % LAB HEMETOLOGY METHOD 06/07/2024 1:55 AM [facility] NRBC Absolute 0.00 <0.10 K/mcL LAB HEMETOLOGY METHOD 06/07/2024 1:55 AM [facility] Neutrophils Relative 44.7 % LAB HEMETOLOGY METHOD 06/07/2024 1:55 AM [facility] Lymphocytes Relative 37.1 % LAB HEMETOLOGY METHOD 06/07/2024 1:55 AM [facility] Monocytes Relative 11.2 % LAB HEMETOLOGY METHOD 06/07/2024 1:55 AM [facility] Eosinophils Relative 5.7 % LAB HEMETOLOGY METHOD 06/07/2024 1:55 AM [facility] Basophils Relative 1.0 % LAB HEMETOLOGY METHOD 06/07/2024 1:55 AM [facility] Immature Granulocytes Relative 0.3 % LAB HEMETOLOGY METHOD 06/07/2024 1:55 AM [facility] Neutrophils Absolute 3.16 1.50 - 7.00 K/mcL LAB HEMETOLOGY METHOD 06/07/2024 1:55 AM EST [facility] Lymphocytes Absolute 2.62 1.00 - 5.00 K/mcL LAB HEMETOLOGY METHOD 06/07/2024 1:55 AM EST [facility] Monocytes Absolute 0.79 0.20 - 1.00 K/mcL LAB HEMETOLOGY METHOD 06/07/2024 1:55 AM EST [facility] Eosinophils Absolute 0.40 0.00 - 0.50 K/mcL LAB HEMETOLOGY METHOD 06/07/2024 1:55 AM EST [facility] Basophils Absolute 0.07 0.00 - 0.20 K/mcL LAB HEMETOLOGY METHOD 06/07/2024 1:55 AM EST [facility] Immature Granulocytes Absolute 0.02 0.00 - 0.03 K/mcL LAB HEMETOLOGY METHOD 06/07/2024 1:55 AM EST [facility] Blood Venous blood specimen / Unknown Venipuncture / Unknown 06/07/2024 1:17 AM EST 06/07/2024 1:51 AM EST Nury Guevara MD LAB BLOOD ORDERA BLES [facility] [address] [place] [address], [place] [phone] * Lipase (06/07/2024 1:17 AM EST) Lipase 43 13 - 75 unit/L LAB CHEMISTRY METHOD 06/07/2024 2:17 AM EST [facility] Blood Venous blood specimen / Unknown Venipuncture / Unknown 06/07/2024 1:17 AM EST 06/07/2024 1:51 AM EST Nury Guevara MD LAB BLOOD ORDERA BLES [facility] [address] [place] [address], [place] [phone] * (ABNORMAL) Comprehensive metabolic panel (06/07/2024 1:17 AM EST) [facility] Signature Sodium 141 133 - 145 mmol/L LAB CHEMISTRY METHOD 06/07/2024 2:17 AM [facility] Potassium 4.0 3.5 - 5.5 mmol/L LAB CHEMISTRY METHOD 06/07/2024 2:17 AM [facility] Chloride 106 96 - 110 mmol/L LAB CHEMISTRY METHOD 06/07/2024 2:17 AM [facility] CO2 29 21 - 32 mmol/L LAB CHEMISTRY METHOD 06/07/2024 2:17 AM [facility] Anion Gap 6 3 - 11 LAB CHEMISTRY METHOD 06/07/2024 2:17 AM [facility] Glucose 123(H) 70 - 100 mg/dL LAB CHEMISTRY METHOD 06/07/2024 2:17 AM [facility] BUN 24 5 - 25 mg/dL LAB CHEMISTRY METHOD 06/07/2024 2:17 AM [facility] Creatinine 1.83(H) 0.70 - 1.30 mg/dL LAB CHEMISTRY METHOD 06/07/2024 2:17 AM [facility] eGFR 43(L) >=60 mL/min/1. 73m2 LAB CHEMISTRY METHOD 06/07/2024 2:17 AM [facility] Comment:Calculation based on the??Chronic Kidney Disease Epidemiology Collaboration (CKD-EPI) equation refit??without adjustment for race. BUN/Creatinine Ratio 13.1 LAB CHEMISTRY METHOD 06/07/2024 2:17 AM [facility] Calcium 9.2 8.5 - 10.5 mg/dL LAB CHEMISTRY METHOD 06/07/2024 2:17 AM [facility] AST (SGOT) 30 10 - 42 unit/L LAB CHEMISTRY METHOD 06/07/2024 2:17 AM [facility] ALT (SGPT) 46 10 - 60 unit/L LAB CHEMISTRY METHOD 06/07/2024 2:17 AM EST [facility] Alkaline Phosphatase 85 42 - 121 unit/L LAB CHEMISTRY METHOD 06/07/2024 2:17 AM [facility] Total Protein 7.0 6.0 - 8.0 g/dL LAB CHEMISTRY METHOD 06/07/2024 2:17 AM EST [facility] Albumin 3.8 3.2 - 5.0 g/dL LAB CHEMISTRY METHOD 06/07/2024 2:17 AM [facility] Total Bilirubin 0.6 0.0 - 1.4 mg/dL LAB CHEMISTRY METHOD 06/07/2024 2:17 AM [facility] Blood Venous blood specimen / Unknown Venipuncture / Unknown 06/07/2024 1:17 AM EST 06/07/2024 1:51 AM EST Nury Guevara MD LAB BLOOD ORDERA BLES [facility] [address] [place] [address], * Lipid panel (2022) LDL/HDL Ratio 0 [...] Recently Relevant to Health Maintenance Care Teams Activities Director Scouting Relationship Specialty Start Date End Date Cricket Wills PA [address] [place] [phone] PCP - General Physician Music Education Adjunct Professor 08/14/19
--- OUTSIDE RECORDS SUMMARY | 2024-08-07 17:53 | XMS_ITS | Encounter Summary ---
Author Organization [facility] Address [address] [place] [address] Care Team Providers Care Distilling Department Supervisor Name Role Phone Cricket Wills Primary Care Provider [phone] Reason for Referral * Imaging (Routine) - Pending Review Specialty Diagnoses / Procedures Referred By Contac t Referred To Contact Radiology Procedures MR Lumbar Spine wo James Mack PA [address] [place] [address] [address] Referral ID Status Reason Start Date Expiration Date V isits Requested Visits Authorized [id number] Pending Review 07/30/2024 07/30/2025 1 1 Reason for Visit * Reason Comments Hip Pain Acute on chronic hip and low back pain worsening since Monday, no relief with naproxen Encounter Details Date Type Department Care Team (Late st Contact Info) Description 07/30/2024 2:53 PM EST - 07/30/2024 6:23 PM EST Emergency [facility] Emergency [address] [place] [address] Piriformis syndrome of right side [...] sent through Care Everywhere. * Piriformis Syndrome (Welsh) * Piriformis Syndrome: Exercises (Welsh) documented in this encounter Medications at Time [...] tablet 06/07/2024 inhalational spacing device (Jeferson Aerosol [place] Enhancer) inhaler Use as instructed 04/22/2022 ipratropium-albuteroL [...] 1 (one) time each day. 01/17/2023 [facility] one Rolator walker for patient [...] 2018, reexploration with discectomy 06/25/2018, Dr. Ken [facility] OTHER SURGICAL HISTORY 10/2021 PROCEDURE: HISTORY OTHER; COMMENT: Spinal cord stimulator placed, [facility] pain management TOTAL KNEE ARTHROPLASTY PROCEDURE: [place] ARTHRP KNE CONDYLE&PLATU MEDIAL&LAT COMPARTMENTS; COMMENT: Right [...] tablet 0 inhalational spacing device (Jeferson Aerosol [place] Enhancer) inhaler Use as instructed ipratropium-albuteroL (DUONEB) [...] mouth 1 (one) time each day. [facility] Please dispense one Rolator walker for patient [...] AND CULTURE - Normal Result Value Specific [place] Urine 1.020 pH, Urine 7.5 Leukocytes, Urine Negative Nitrite, Urine Negative Protein, Urine Negative Glucose, Urine Negative Ketones, Urine Negative Urobilinogen, Urine 0.2 Bilirubin, Urine Negative Blood, Urine Negative URINALYSIS WITH REFLEX MICROSCOPIC AND CULTURE Narrative: The following orders were created for panel order Urinalysis with reflex microscopic and culture. Procedure Abnormality Status --------- ------ Urinalysis with reflex ...[[id number]] Normal Final result Collins urine culture tube[[id number]] Final result Please view results for these [...] Info) Description 08/08/2024 12:00 PM EST Appointment [facility] MRI [address] [place] [phone] 08/13/2024 11:00 AM EST Evaluation [facility] [address] [phone] Leanna De Santiago PT 09/06/2024 1:00 PM EST Office Visit Orthopedics - [place] [address] [place] [address] Akhil Phillips PA [address] [place] [address] Scheduled Orders Name Type Priority Associated Diagnoses [...] Tube Hold for add-ons. 07/30/2024 7:01 PM [facility] Comment:Auto resulted. Urine Urine specimen obtained by clean catch procedure / Unknown Non-blood Collection / Unknown 07/30/2024 5:01 PM EST 07/30/2024 5:17 PM EST Marilyn CAVAZOS LAB URINE ORDERA DENZELS [facility] [address] [place] [address], [place] [phone] * Urinalysis with reflex microscopic and culture (07/30/2024 5:01 PM EST) [facility] Specific [place] Urine 1.020 1.003 - 1.030 LAB URINALYSIS - AUTOMATED METHOD 07/30/2024 5:28 PM [facility] pH, Urine 7.5 5.0 - 8.0 pH LAB URINALYSIS - AUTOMATED METHOD 07/30/2024 5:28 PM [facility] Leukocytes, Urine Negative Negative LAB URINALYSIS - AUTOMATED METHOD 07/30/2024 5:28 PM [facility] Nitrite, Urine Negative Negative LAB URINALYSIS - AUTOMATED METHOD 07/30/2024 5:28 PM [facility] Protein, Urine Negative <=Trace mg/dL LAB URINALYSIS - AUTOMATED METHOD 07/30/2024 5:28 PM [facility] Glucose, Urine Negative Negative mg/dL LAB URINALYSIS - AUTOMATED METHOD 07/30/2024 5:28 PM [facility] Ketones, Urine Negative Negative mg/dL LAB URINALYSIS - AUTOMATED METHOD 07/30/2024 5:28 PM [facility] Urobilinogen, Urine 0.2 0.2 - 1.0 mg/dL LAB URINALYSIS - AUTOMATED METHOD 07/30/2024 5:28 PM [facility] Bilirubin, Urine Negative Negative LAB URINALYSIS - AUTOMATED METHOD 07/30/2024 5:28 PM [facility] Blood, Urine Negative Negative LAB URINALYSIS - AUTOMATED METHOD 07/30/2024 5:28 PM [facility] Urine Urine specimen obtained by clean catch procedure / Unknown Non-blood Collection / Unknown 07/30/2024 5:01 PM EST 07/30/2024 5:18 PM EST Marilyn CAVAZOS LAB URINE ORDERA [facility] Organization Address City/State/ZIP Co de Phone Number [facility] [address] [place] [address], documented in this encounter Visit Diagnoses Diagnosis [...] RN) documented in this encounter Care Teams Distilling Department Supervisor Relationship Specialty Start Date End Date Cricket Wills PA [address] [place] [address] PCP - General Physician Log Yard Derrick Operator 08/14/19 documented as of this encounter
== END 2024-08-07 13:27 | disposition home or self-care (01) ==
LOC: HO.LNP 13:26
PROVIDERS: Visit Provider Nurse Practitioner Family
DX: R30.0 Dysuria (principal)
CPT/HCPCS: 87086

== ENCOUNTER 2024-08-07 13:26 | Outpatient (REF) | payer MEDICAID, SELFPAY ==
--- OUTSIDE RECORDS SUMMARY | 2024-08-07 17:02 | XMS_ITS | Encounter Summary ---
Author Organization [facility] Address [address] [place] [address] Care Team Providers Care Salesforce Specialist Name Role Phone Cricket Wills Primary Care Provider [phone] Encounter Details Date Type Department Care Team [...] Description 08/14/2024 9:40 AM EST Telemedicine Visit [facility] [address] [place] [phone] Brenton Mcfadden, RD [address] - [address] [place] [address] 10/25/2024 10:00 AM EDT Office Visit [facility] [address] [place] [phone] Ihsan Gibbs PharmD [address] [place] [address] 10/30/2024 1:00 PM EDT Office Visit [facility] St Dental [address] [place] [phone] Margarito Leger [address] [place] [address] documented as of this encounter Goals Goal [...] documented as of this encounter Care Teams Salesforce Specialist Relationship Specialty Start Date End Date Cricket Wills PA [address] [place] [address] PCP - General Internal Medicine 07/08/17 documented as of this encounter
--- OUTSIDE RECORDS SUMMARY | 2024-08-07 17:03 | XMS_ITS | Encounter Summary ---
Author Organization [facility] Address [address] [place] [address] Care Team Providers Care Meter Tester Name Role Phone Cricket Wills Primary Care Provider Encounter Details Date Type Department Care Team (Latest Contact Info) Description 07/26/2024 11:47 AM EST - 07/26/2024 11:59 PM EST Hospital Encounter [facility] Rivera [address] [place] [address] Chronic pain of right knee Discharge Disposition: [...] tablet 06/07/2024 inhalational spacing device ([employer] Aerosol [place] Enhancer) inhaler Use as instructed 04/22/2022 ipratropium-albuteroL [...] Description 08/08/2024 12:00 PM EST Appointment [facility] MRI [address] [place] [phone] 08/13/2024 11:00 AM EST Evaluation [facility] [address] [phone] Leanna De Santiago PT 09/06/2024 1:00 PM EST Office Visit [facility] [address] [place] [address] Akhil Phillips PA [address] [place] [address] documented as of this encounter Procedures Procedure Name Priority Date/Time Associated Diagnosis Comments XR KNEE 4+ VIEWS RIGHT Routine 07/26/2024 12:02 PM EST Chronic pain of right knee documented in this encounter Results * XR Knee 4+ Views Right (07/26/2024 12:02 PM EST) Anatomical Region Laterality Modality Lower Extremities, Knee Right [facility] 07/26/2024 4:25 PM EST Impressions 07/26/2024 4:27 PM EST No acute fracture or dislocation of the right knee. ?? -------- FINAL REPORT -------- Dictated By: Luisa Guerrero Dictated Date: 07/26/2024 16:25 ET Assigned Physician: Luisa Guerrero Reviewed and Electronically Signed By: Luisa Guerrero Signed Date: 07/26/2024 16:27 ET Workstation ID: [id number] Transcribed By: Self Edit Transcribed Date: 07/26/2024 [...] Signed Date: 07/26/2024 16:27 ET Workstation ID: [id number] Transcribed By: Self Edit Transcribed Date: 07/26/2024 16:25 ET Akhil CAVAZOS [facility] XR PROCEDURES documented in this encounter Visit Diagnoses Diagnosis Chronic pain of right knee documented in this encounter Care Teams Meter Tester Relationship Specialty Start Date End Date Cricket Wills PA [address] [place] [address] PCP - General Physician Recreational Programs Director 08/14/19 documented as of this encounter
--- OUTSIDE RECORDS SUMMARY | 2024-08-07 17:03 | XMS_ITS | Encounter Summary ---
Author Organization [facility] Address [address] [place] [address] Care Team Providers Care Valet Parker Name Role Phone Cricket Wills Primary Care Provider [phone] Reason for Visit * Reason Comments Care Coordination Patient asked to shelly t with this CHW today. Encounter Details Date Type Department Care Team (Late Contact Info) Description 01/26/2018 Interim Notes [facility] [address] [place] [phone] Sierra Ware, Community Health Worker [address] [place] [address] Social History Tobacco Use Types Packs/Day Years [...] 9:40 AM EST Telemedicine Visit [facility] [address] [place] [phone] Brenton Mcfadden, RD [address] [place] [address] 10/25/2024 10:00 AM EDT Office Visit [facility] [address] [place] [phone] Ihsan Gibbs, PharmD [address] [place] [address] 10/30/2024 1:00 PM EDT Office Visit [facility] Dental [address] [place] [phone] Margarito Leger [address] [place] [address] documented as of this encounter Visit Diagnoses Not on filedocumented in this encounter Additional Health Concerns Infection Onset Date Last Indicated Resolved Time COVID-19 Comment:Patient tested negative for Covid-19 05/03/22 05/03/2022 05/03/2022 05/03/2022 7:32 AM P DT documented as of this encounter Care Teams Valet Parker Relationship Specialty Start Date End Date Cricket Wills PA [address] [place] [address] PCP - General Internal Medicine 07/08/17 documented as of this encounter
--- OUTSIDE RECORDS SUMMARY | 2024-08-07 17:03 | XMS_ITS | Encounter Summary ---
Author Organization [facility] Address [address] [place] [address] Care Team Providers Care Sunglass Clip Attacher Name Role Phone Cricket Wills Primary Care Provider [phone] Encounter Details Date Type Department Care Team (Late st Contact Info) Description 02/07/2022 Dental Interim Note Caring [facility] Main Dental [address] [place] [phone] Mellissa Hernandez DDS [address] [place] [address] Social History Tobacco Use Types Packs/Day Years [...] Description 08/14/2024 9:40 AM EST Telemedicine Visit [facility] St [address] [place] [address] Brenton Mcfadden, RD [address] - [address] [place] [address] 10/25/2024 10:00 AM EDT Office Visit [facility] [address] [place] [address] Ihsan Gibbs, PharmD [address] [place] [address] 10/30/2024 1:00 PM EDT Office Visit [facility] St Dental [address] [place] [phone] Margarito Leegr [address] [place] [address] documented as of this encounter Goals Goal [...] documented as of this encounter Care Teams Sunglass Clip Attacher Relationship Specialty Start Date End Date Cricket Wills PA [address] [place] [address] PCP - General Internal Medicine 07/08/17 documented as of this encounter
--- OUTSIDE RECORDS SUMMARY | 2024-08-07 17:03 | XMS_ITS | Encounter Summary ---
Author Organization [facility] Address [address] [place] [address] Care Team Providers Care Shrimp Picker Name Role Phone Cricket Wills Primary Care Provider [phone] Reason for Referral * Orthopedic (Routine) - Pending Review Specialty Diagnoses / Procedures Referred By Contac t Referred To Contact Orthopedic Surgery / Orthopaedic Surgery Diagnoses Chronic pain of right knee Procedures L Inj/Asp: R knee Akhil Phillips PA [address] [place] [address] Referral ID Status Reason Start Date Expiration Date V isits Requested Visits Authorized [id number] Pending Review 07/26/2024 07/26/2025 1 1 * Consultation (Routine) - Authorized Specialty Diagnoses / Procedures Referred By Contac t Referred To Contact Physical Therapy Diagnoses Chronic pain of right knee Akhil Phillips PA [address] [place] [address] Referral ID Status Reason Start Date Expiration Date Visits Requested Visits Authorized [id number] Authorized Consult and Treat 07/26/2024 07/26/2025 1 1 Reason for Visit * Reason Comments Pain Consult * Consultation (Routine) - Closed Specialty Diagnoses / Procedures Referred By Contac t Referred To Contact Orthopaedic Surgery Diagnoses Chronic pain of right knee Cricket Wills PA [facility] [place] [address] Akhil Phillips PA [address] [place] [address] Referral ID Status Reason Start Date Expiration Date V isits Requested Visits Authorized [id number] Closed Specialty Services Required 05/03/2024 05/03/2025 1 1 Encounter Details Date Type Department Care Team (Late Contact Info) Description 07/26/2024 12:30 PM EST Consult [facility] [place] [address] [place] [address] Akhil Phillips PA [address] [place] [address] Chronic pain of right knee Social History [...] Info) Description 08/08/2024 12:00 PM EST Appointment [facility] MRI [address] [place] [phone] 08/13/2024 11:00 AM EST Evaluation [facility] [address] [address] Leanna De Santiago PT 09/06/2024 1:00 PM EST Office Visit [facility] [place] [address] [place], [place] [phone] Akhil Phillips PA [address] [place] [address] Pending Results Name Type Priority Associated Diagnoses [...] 07/26/2024 documented in this encounter Care Teams Shrimp Picker Relationship Specialty Start Date End Date Cricket Wills PA [address] [place] [address] PCP - General Physician Interstate Bus Dispatcher 08/14/19 documented as of this encounter
--- OUTSIDE RECORDS SUMMARY | 2024-08-07 17:03 | XMS_ITS | Encounter Summary ---
Author Organization [facility] Address [address] [place] [address] Care Team Providers Care Cargo Mate Name Role Phone Cricket Wills Primary Care Provider [phone] Encounter Details Date Type Department Care Team (Late st Contact Info) Description 02/07/2022 Dental Interim Note Caring [facility] Main Dental [address] [place] [phone] Mellissa Hernandez DDS [address] [place] [address] Social History Tobacco Use Types Packs/Day Years [...] Description 08/14/2024 9:40 AM EST Telemedicine Visit [facility] [address] [place] [address] Brenton Mcfadden, RD [address] - [address] [place] [address] 10/25/2024 10:00 AM EDT Office Visit [facility] [address] [place] [address] Ihsan Gibbs, PharmD [address] [place] [address] 10/30/2024 1:00 PM EDT Office Visit [facility] St Dental [address] [place] [phone] Margarito Leger [address] [place] [address] documented as of this encounter Goals Goal [...] documented as of this encounter Care Teams Cargo Mate Relationship Specialty Start Date End Date Cricket Wills PA [address] [place] [address] PCP - General Internal Medicine 07/08/17 documented as of this encounter
--- OUTSIDE RECORDS SUMMARY | 2024-08-07 17:03 | XMS_ITS | Encounter Summary ---
Author Organization [facility] Address [address] [place] [address] Care Team Providers Care Hopper Feeder Name Role Phone Cricket Wills Primary Care Provider [phone] Reason for Visit * Reason Comments Hypertension Encounter Details Date Type Department Care Team ([facility] Contact Info) Description 07/26/2024 10:00 AM EST Office Visit [facility] Main [address] [place] [phone] Ihsan Gibbs, PharmD [address] [place], [place] [phone] Essential hypertension (Primary Dx); Class 1 obesity [...] of Assessment Author No 07/26/2024 9:00 AM Hiam Lee CMA * Is the patient blind, or have serious difficulty seeing, even when wearing glasses? Answer Date of Assessment Author No 07/26/2024 9:00 AM Hima Lee CMA * Does the patient have difficulty dressing or bathing? Answer Date of Assessment Author No 07/26/2024 9:00 AM Hiam Lee CMA * Because of a physical, [...] Osiel Gamino is a 58 year old, [place]ivian-speaking male who presents today for a follow-up visit in Hypertension Clinic with Ihsan Gibbs PharmD. Referred by CLIFF Lara. No spanish interpreter/translator needed for today's visit as patient speaks Moldovan. Accompanied by: None HPI: Patient reports: Patient [...] hypertension: Dyslipidemia, Obesity, and pain. Hx of stroke/CO/HF/CAD? No Family cardiac hx: Father had heart [...] a lot of water. Patient following with [facility] equine breeder. Caffeine: One coffee daily, denies soda, tea, [...] , ALDOPRA , TSH , CORTISOLAM , [id number] , [id number] Lab Results Component Value Date TRIGLYC 310 [...] dosage, administration, storage, side effects, missing dose) Admissions Specialist Complications of Uncontrolled Hypertension REFERENCES: Nevin PK, Johana RM, Dania WS, Jose D TORRES Jr, Wood KJ, Susie Bang C, Srinivasan SM, Promise S, Heladio KA, Boom DW, Esdras EJ, Lloyd P, Heladio B, See WILLETT Jr, Tone CC, Romero RS, Analilia SJ, Shaheen RJ, Hans RODRÍGUEZ Sr, Darrell CunninghamD, lE CunninghamT Jr. 2017 ACC/AHA/AAPA/ABC/ACPM/AG S/APhA/CLARISSA/ASPC/NMA/PCNA Guideline for the Prevention, Detection, Evaluation, and Management of High Blood Pressure in Adults: Executive Summary: A Report of the [place] College [employer]/[place] Heart Association Task Force on Clinical Practice Guidelines. Hypertension. 2018 Dec;71(6):2466-8816. doi: 10.1161/HYP.5596045658920040. Epub 2016May 22. Erratum in: Hypertension. 2018 Dec;71(6):j038-s183. Erratum in: Hypertension. 2018 Mar;72(3):e33. PMID: [id number]. Ihsan Gibbs PharmD, [facility] documented in this encounter Miscellaneous Notes [...] or other pertinent symptoms. Robles Gibbs PharmD, [facility] Clinical Pharmacist Press 1 for Moldovan Enter extension [phone] They will not ask you what extension [...] Description 08/14/2024 9:40 AM EST Telemedicine Visit [facility] [address] [place] [phone] Brenton Mcfadden, RD [address] - [address] [place] [address] 10/25/2024 10:00 AM EDT Office Visit [facility] [address] [place] [phone] Ihsan Gibbs PharmD [address] [place] [address] 10/30/2024 1:00 PM EDT Office Visit [facility] St Dental [address] [place] [phone] Margarito Leger [address] [place] [address] documented as of this encounter Goals Goal [...] documented as of this encounter Care Teams Hopper Feeder Relationship Specialty Start Date End Date Cricket Wills PA [address] [place] [address] PCP - General Internal Medicine 07/08/17 documented as of this encounter
--- OUTSIDE RECORDS SUMMARY | 2024-08-07 17:03 | XMS_ITS | Encounter Summary ---
Author Organization [facility] Address [address] [place] [address] Care Team Providers Care Garden Consultant Name Role Phone Cricket Wills Primary Care Provider [phone] Encounter Details Date Type Department Care Team [...] AM EST Telemedicine Visit [facility] [address] [place] [address] Bogdan Brenton, RD [address] - [address] [place] [address] 10/25/2024 10:00 AM EDT Office Visit [facility] [address] [place] [phone] Ihsan Gibbs, PharmD [address] [place] [address] 10/30/2024 1:00 PM EDT Office Visit [facility] Dental [address] [place] [phone] Margarito Leger [address] [place] [address] documented as of this encounter Goals Goal [...] documented as of this encounter Care Teams Garden Consultant Relationship Specialty Start Date End Date Cricket Wills PA [address] [place] [address] PCP - General Internal Medicine 07/08/17 documented as of this encounter
--- OUTSIDE RECORDS SUMMARY | 2024-08-07 17:03 | XMS_ITS | Encounter Summary ---
Author Organization [facility] Address [address] [place] [address] Care Team Providers Care Manager Transport Name Role Phone Cricket Wills Primary Care Provider [phone] Encounter Details Date Type Department Care Team (Late st Contact Info) Description 02/07/2022 Dental Interim Note Caring [facility] [address] Dental [address] [place] [phone] Marleny Cormier [address] [place], [place] [id number] Social History Tobacco Use Types Packs/Day Years [...] 08/14/2024 9:40 AM EST Telemedicine Visit [facility] [address] [place] [address] Brenton Mcfadden, RD [address] [place] [address] 10/25/2024 10:00 AM EDT Office Visit Counts Include [address] [facility] [address] [place] [phone] Ihsan Gibbs, PharmD [address] [place] [address] 10/30/2024 1:00 PM EDT Office Visit [facility] St Dental [address] [place] [phone] Margarito Leger [address] [place] [address] documented as of this encounter Goals Goal [...] documented as of this encounter Care Teams Manager Transport Relationship Specialty Start Date End Date Cricket Wills PA [address] [place] [address] PCP - General Internal Medicine 07/08/17 documented as of this encounter
--- OUTSIDE RECORDS SUMMARY | 2024-08-07 17:03 | XMS_ITS | Encounter Summary ---
Author Organization [facility] Address [address] [place] [address] Care Team Providers Care Superintendent Of Schools Name Role Phone Cricket Wills Primary Care Provider Reason for Referral * Imaging (Routine) - Pending Review Specialty Diagnoses / Procedures Referred By Contac t Referred To Contact Radiology Procedures MR Lumbar Spine wo James Mack PA [address] [place] [address] [address] Referral ID Status Reason Start Date Expiration Date V isits Requested Visits Authorized [id number] Pending Review 07/30/2024 07/30/2025 1 1 Reason for Visit * Reason Comments Hip Pain Acute on chronic hip and low back pain worsening since Monday, no relief with naproxen Encounter Details Date Type Department Care Team (Late st Contact Info) Description 07/30/2024 2:53 PM EST - 07/30/2024 6:23 PM EST Emergency [facility] Emergency [address] [place] [address] Piriformis syndrome of right side [...] sent through Care Everywhere. * Piriformis Syndrome (Sinhala) * Piriformis Syndrome: Exercises (Sinhala) documented in this encounter Medications at Time [...] tablet 06/07/2024 inhalational spacing device (Jeferson Aerosol [place] Enhancer) inhaler Use as instructed 04/22/2022 ipratropium-albuteroL [...] 1 (one) time each day. 01/17/2023 [facility] Please [facility] one Rolator walker [...] 2018, reexploration with discectomy 06/25/2018, Dr. Ken [facility] OTHER SURGICAL HISTORY 10/2021 PROCEDURE: HISTORY OTHER; COMMENT: Spinal cord stimulator placed, [facility] pain management TOTAL KNEE ARTHROPLASTY PROCEDURE: [place] ARTHRP KNE CONDYLE&PLATU MEDIAL&LAT COMPARTMENTS; COMMENT: Right [...] tablet 0 inhalational spacing device (Jeferson Aerosol [place] Enhancer) inhaler Use as instructed ipratropium-albuteroL (DUONEB) [...] mouth 1 (one) time each day. walker [facility] Please dispense one Rolator walker for patient [...] AND CULTURE - Normal Result Value Specific [place] Urine 1.020 pH, Urine 7.5 Leukocytes, Urine Negative Nitrite, Urine Negative Protein, Urine Negative Glucose, Urine Negative Ketones, Urine Negative Urobilinogen, Urine 0.2 Bilirubin, Urine Negative Blood, Urine Negative URINALYSIS WITH REFLEX MICROSCOPIC AND CULTURE Narrative: The following orders were created for panel order Urinalysis with reflex microscopic and culture. Procedure Abnormality Status --------- ------ Urinalysis with reflex ...[[id number]] Normal Final result Collins urine culture tube[[id number]] Final result Please view results for these [...] Description 08/08/2024 12:00 PM EST Appointment [facility] MRI [address] [place] [phone] 08/13/2024 11:00 AM EST Evaluation [facility] Outpatient Rehabilitation [facility] [address] [phone] Leanna De Santiago PT 09/06/2024 1:00 PM EST Office Visit Orthoped[facility] - [place] [address] [place] [address] Akhil Phillips PA [address] [place] [address] Scheduled Orders Name Type Priority Associated Diagnoses [...] Tube Hold for add-ons. 07/30/2024 7:01 PM [facility] Comment:Auto resulted. Urine Urine specimen obtained by clean catch procedure / Unknown Non-blood Collection / Unknown 07/30/2024 5:01 PM EST 07/30/2024 5:17 PM EST Marilyn CAVAZOS LAB URINE ORDERA DENZELS [facility] [address] [place] [address], [place] [phone] * Urinalysis with reflex microscopic and culture (07/30/2024 5:01 PM EST) [facility] Specific [place] Urine 1.020 1.003 - 1.030 LAB URINALYSIS - AUTOMATED METHOD 07/30/2024 5:28 PM [facility] pH, Urine 7.5 5.0 - 8.0 pH LAB URINALYSIS - AUTOMATED METHOD 07/30/2024 5:28 PM [facility] Leukocytes, Urine Negative Negative LAB URINALYSIS - AUTOMATED METHOD 07/30/2024 5:28 PM [facility] Nitrite, Urine Negative Negative LAB URINALYSIS - AUTOMATED METHOD 07/30/2024 5:28 PM [facility] Protein, Urine Negative <=Trace mg/dL LAB URINALYSIS - AUTOMATED METHOD 07/30/2024 5:28 PM [facility] Glucose, Urine Negative Negative mg/dL LAB URINALYSIS - AUTOMATED METHOD 07/30/2024 5:28 PM [facility] Ketones, Urine Negative Negative mg/dL LAB URINALYSIS - AUTOMATED METHOD 07/30/2024 5:28 PM [facility] Urobilinogen, Urine 0.2 0.2 - 1.0 mg/dL LAB URINALYSIS - AUTOMATED METHOD 07/30/2024 5:28 PM [facility] Bilirubin, Urine Negative Negative LAB URINALYSIS - AUTOMATED METHOD 07/30/2024 5:28 PM [facility] Blood, Urine Negative Negative LAB URINALYSIS - AUTOMATED METHOD 07/30/2024 5:28 PM [facility] Urine Urine specimen obtained by clean catch procedure / Unknown Non-blood Collection / Unknown 07/30/2024 5:01 PM EST 07/30/2024 5:18 PM EST Marilyn CAVAZOS LAB URINE ORDERA [facility] Organization Address City/State/ZIP Co de Phone Number [facility] [address] [place] [address], documented in this encounter Visit Diagnoses Diagnosis [...] RN) documented in this encounter Care Teams Superintendent Of Schools Relationship Specialty Start Date End Date Cricket Wills PA [address] [place] [address] PCP - General Physician Final Inspector Motorcyles 08/14/19 documented as of this encounter
--- OUTSIDE RECORDS SUMMARY | 2024-08-07 17:03 | XMS_ITS | Encounter Summary ---
Author Organization [facility] Address [address] [place] [address] Care Team Providers Care Electrician Journeyman Wireman Name Role Phone Cricket Wills Primary Care Provider [phone] Encounter Details Date Type Department Care Team (Latest Contact Info) Description 07/24/2024 2:20 PM EST Telemedicine Visit [facility] [address] [place] [phone] Brenton Mcfadden, RD [address] [place] [address] Class 1 obesity due to excess calories [...] identified myself as Brenton Mcfadden RD from [facility]. It was conducted in a private space to protect HIPPA sensitive information. Precautions weretaken to provide confidentiality and security and patient was made aware of privacy considerations.The patients location was obtained and is [facility] home The patient/guardian was notified that the services were being provided from [facility]). The patient/guardian was notified how they can see a clinician in-person in the event of an emergency or if otherwise needed. Visit START TIME 1:50 END TIME 1:57 Dental Biller used during visit? No SUBJECTIVE: Osiel is [...] (NARCAN) 4 mg/actuation nasal spray Place 1 [place] into the nostril(s) as needed for opioidreversal [...] 08/14/2024 9:40 AM EST Telemedicine Visit [facility] [address] [place] [phone] [place] [address] 10/25/2024 10:00 AM EDT Office Visit [facility] [address] [place] [phone] Ihsan Gibbs, PharmD [facility] [place] [address] 10/30/2024 1:00 PM EDT Office Visit [facility] Dental [address] [place] [phone] Margarito Leger [address] [place] [address] documented as of this encounter Goals Goal [...] documented as of this encounter Care Teams Electrician Journeyman Wireman Relationship Specialty Start Date End Date Cricket Wills PA [address] [place] [address] PCP - General Internal Medicine 07/08/17 documented as of this encounter
--- OUTSIDE RECORDS SUMMARY | 2024-08-07 17:03 | XMS_ITS | Clinical Summary ---
Author Organization [facility] Address [address] [place] [address] Phone Care Team Providers Care Dealer Card Room Name Role Phone Cricket Wills Primary Care Provider [phone] Allergies No known active allergies Medications Medication [...] 02/20/2023 Active inhalational spacing device (Jeferson Aerosol [place] Enhancer) inhaler Use as instructed 04/22/2022 Active [...] with microdiscectomy 06/25/[address] Ken at [facility]. He was last seen in the [...] spinal cord stimulator placed October 2021 at [facility] pain management. He comes in today describing [...] GI for diverticulitis, recent ED visits at [facility]. Patient had CAT scan of the abdomen [...] also had a lumbar spine x-ray at [facility] 01/30/2023 that shows straightening of the normal [...] ordered right hip x-ray. I will call [email or web address] to see if he can have an [...] PM EST - 07/30/2024 6:23 PM EST [facility] Emergency [address] [place] [phone] Piriformis syndrome of right side (Primary Dx) Discharge Disposition: Home or Self Care 07/26/2024 12:30 PM EST Consult Orthopedics - [place] [id number] [place] [phone] Akhil Phillips PA Chronic pain of right knee 07/26/2024 11:47 AM EST - 07/26/2024 11:59 PM EST Hospital Encounter XRAY - [place] [id number] [place] [address] Chronic pain of right knee Discharge Disposition: Home or Self Care 06/07/2024 2:57 AM EST - 06/07/2024 6:14 AM [facility] Emergency [address] [place] [phone] Kidney stone on left side (Primary Dx) [...] 2018, reexploration with discectomy 06/25/2018, Dr. Ken [facility] OTHER SURGICAL HISTORY 10/2021 PROCEDURE: HISTORY OTHER; COMMENT: Spinal cord stimulator placed, [facility] pain management TOTAL KNEE ARTHROPLASTY PROCEDURE: [place] ARTHRP KNE CONDYLE&PLATU MEDIAL&LAT COMPARTMENTS; COMMENT: Right [...] Info) Description 08/08/2024 12:00 PM EST Appointment [facility] MRI [address] [place] [phone] 08/13/2024 11:00 AM EST Evaluation [facility] [address] [phone] Leanna De Santiago, YUE 09/06/2024 1:00 PM EST Office Visit Orthopedics - [place] [address] [place] [address] Akhil Phillips PA [address] [place] [address] Health Maintenance Due Date Last Done Comments [...] and culture (07/30/2024 5:01 PM EST) Specific [place] Urine 1.020 1.003 - 1.030 LAB URINALYSIS - AUTOMATED METHOD 07/30/2024 5:28 PM [facility] pH, Urine 7.5 5.0 - 8.0 pH LAB URINALYSIS - AUTOMATED METHOD 07/30/2024 5:28 PM [facility] Leukocytes, Urine Negative Negative LAB URINALYSIS - AUTOMATED METHOD 07/30/2024 5:28 PM [facility] Nitrite, Urine Negative Negative LAB URINALYSIS - AUTOMATED METHOD 07/30/2024 5:28 PM [facility] Protein, Urine Negative <=Trace mg/dL LAB URINALYSIS - AUTOMATED METHOD 07/30/2024 5:28 PM [facility] Glucose, Urine Negative Negative mg/dL LAB URINALYSIS - AUTOMATED METHOD 07/30/2024 5:28 PM [facility] Ketones, Urine Negative Negative mg/dL LAB URINALYSIS - AUTOMATED METHOD 07/30/2024 5:28 PM [facility] Urobilinogen, Urine 0.2 0.2 - 1.0 mg/dL LAB URINALYSIS - AUTOMATED METHOD 07/30/2024 5:28 PM [facility] Bilirubin, Urine Negative Negative LAB URINALYSIS - AUTOMATED METHOD 07/30/2024 5:28 PM EST [facility] Blood, Urine Negative Negative LAB URINALYSIS - AUTOMATED METHOD 07/30/2024 5:28 PM EST [facility] Urine Urine specimen obtained by clean catch procedure / Unknown Non-blood Collection / Unknown 07/30/2024 5:01 PM EST 07/30/2024 5:18 PM EST Marilyn CAVAZOS LAB URINE ORDERA BLES Performing Organization Address [facility]/ZIP Co de Phone Number [facility] [address] [place] [address], [place] [phone] * Collins urine culture tube (07/30/2024 5:01 PM EST) Extra Tube Hold for add-ons. 07/30/2024 7:01 PM EST [facility] Comment:Auto resulted. Urine Urine specimen obtained by clean catch procedure / Unknown Non-blood Collection / Unknown 07/30/2024 5:01 PM EST 07/30/2024 5:17 PM EST Marilyn Marks [facility] LAB URINE ORDERA BLES Performing Organization Address City/[facility]/ZIP Co de Phone Number [facility] [address] [place] [address], [place] [phone] * XR Knee 4+ Views Right (07/26/2024 [...] Signed Date: 07/26/2024 16:27 ET Workstation ID: [id number] Transcribed By: Self Edit Transcribed Date: 07/26/2024 [...] Signed Date: 07/26/2024 16:27 ET Workstation ID: [id number] Transcribed By: Self Edit Transcribed Date: 07/26/2024 [...] Ashraf MD on 06/07/2024 05:43:44 Moise CAVAZOS [facility] CT PROCEDURES * (ABNORMAL) Urinalysis with reflex microscopic (06/07/2024 4:20 AM EST) Specific [place] Urine 1.015 1.003 - 1.030 LAB URINALYSIS - AUTOMATED METHOD 06/07/2024 5:01 AM [facility] pH, Urine 5.5 5.0 - 8.0 pH LAB URINALYSIS - AUTOMATED METHOD 06/07/2024 5:01 AM [facility] Leukocytes, Urine Negative Negative LAB URINALYSIS - AUTOMATED METHOD 06/07/2024 5:01 AM [facility] Nitrite, Urine Negative Negative LAB URINALYSIS - AUTOMATED METHOD 06/07/2024 5:01 AM [facility] Protein, Urine Negative <=Trace mg/dL LAB URINALYSIS - AUTOMATED METHOD 06/07/2024 5:01 AM [facility] Glucose, Urine Negative Negative mg/dL LAB URINALYSIS - AUTOMATED METHOD 06/07/2024 5:01 AM [facility] Ketones, Urine Negative Negative mg/dL LAB URINALYSIS - AUTOMATED METHOD 06/07/2024 5:01 AM [facility] Urobilinogen, Urine 0.2 0.2 - 1.0 mg/dL LAB URINALYSIS - AUTOMATED METHOD 06/07/2024 5:01 AM [facility] Bilirubin, Urine Negative Negative LAB URINALYSIS - AUTOMATED METHOD 06/07/2024 5:01 AM [facility] Blood, Urine Small(A) Negative LAB URINALYSIS - AUTOMATED METHOD 06/07/2024 5:01 AM [facility] RBC, Urine 2.0 0 - 4 /HPF LAB URINALYSIS - AUTOMATED METHOD 06/07/2024 5:01 AM [facility] WBC, Urine 1.4 0 - 4 /HPF LAB URINALYSIS - AUTOMATED METHOD 06/07/2024 5:01 AM [facility] Squamous Epithelial, Urine 4 0 - 60 /LPF LAB URINALYSIS - AUTOMATED METHOD 06/07/2024 5:01 AM [facility] Bacteria, Urine Negative Negative /HPF LAB URINALYSIS - AUTOMATED METHOD 06/07/2024 5:01 AM [facility] Hyaline Casts, Urine 1.7 0 - 3 /LPF LAB URINALYSIS - AUTOMATED METHOD 06/07/2024 5:01 AM [facility] Urine Urine specimen obtained by clean catch procedure / Unknown Non-blood Collection / Unknown 06/07/2024 4:20 AM EST 06/07/2024 4:27 AM EST Mosie CAVAZOS LAB URINE ORDERABLES [facility] [address] [place] [address], * (ABNORMAL) CBC auto differential (06/07/2024 1:17 AM EST) WBC 7.1 4.8 - 10.8 K/mcL LAB HEMETOLOGY METHOD 06/07/2024 1:55 AM [facility] RBC 4.70 4.50 - 5.50 M/mcL LAB HEMETOLOGY METHOD 06/07/2024 1:55 AM [facility] Hemoglobin 14.6 13.5 - 17.5 g/dL LAB HEMETOLOGY METHOD 06/07/2024 1:55 AM [facility] Hematocrit 43.9 42.0 - 54.0 % LAB HEMETOLOGY METHOD 06/07/2024 1:55 AM [facility] MCV 93.0 79.0 - 98.0 FL LAB HEMETOLOGY METHOD 06/07/2024 1:55 AM [facility] MCH 30.9 27.0 - 32.0 pcg LAB HEMETOLOGY METHOD 06/07/2024 1:55 AM [facility] MCHC 33.3 32.0 - 37.0 g/dL LAB HEMETOLOGY METHOD 06/07/2024 1:55 AM [facility] RDW 13.4 11.0 - 15.0 % LAB HEMETOLOGY METHOD 06/07/2024 1:55 AM [facility] Platelets 163 130 - 400 K/mcL LAB HEMETOLOGY METHOD 06/07/2024 1:55 AM [facility] MPV 11.8(H) 7.0 - 11.0 FL LAB HEMETOLOGY METHOD 06/07/2024 1:55 AM [facility] NRBC 0.0 <1.0 % LAB HEMETOLOGY METHOD 06/07/2024 1:55 AM [facility] NRBC Absolute 0.00 <0.10 K/mcL LAB HEMETOLOGY METHOD 06/07/2024 1:55 AM [facility] Neutrophils Relative 44.7 % LAB HEMETOLOGY METHOD 06/07/2024 1:55 AM [facility] Lymphocytes Relative 37.1 % LAB HEMETOLOGY METHOD 06/07/2024 1:55 AM [facility] Monocytes Relative 11.2 % LAB HEMETOLOGY METHOD 06/07/2024 1:55 AM [facility] Eosinophils Relative 5.7 % LAB HEMETOLOGY METHOD 06/07/2024 1:55 AM [facility] Basophils Relative 1.0 % LAB HEMETOLOGY METHOD 06/07/2024 1:55 AM [facility] Immature Granulocytes Relative 0.3 % LAB HEMETOLOGY METHOD 06/07/2024 1:55 AM [facility] Neutrophils Absolute 3.16 1.50 - 7.00 K/mcL LAB HEMETOLOGY METHOD 06/07/2024 1:55 AM EST [facility] Lymphocytes Absolute 2.62 1.00 - 5.00 K/mcL LAB HEMETOLOGY METHOD 06/07/2024 1:55 AM EST [facility] Monocytes Absolute 0.79 0.20 - 1.00 K/mcL LAB HEMETOLOGY METHOD 06/07/2024 1:55 AM EST [facility] Eosinophils Absolute 0.40 0.00 - 0.50 K/mcL LAB HEMETOLOGY METHOD 06/07/2024 1:55 AM EST [facility] Basophils Absolute 0.07 0.00 - 0.20 K/mcL LAB HEMETOLOGY METHOD 06/07/2024 1:55 AM EST [facility] Immature Granulocytes Absolute 0.02 0.00 - 0.03 K/mcL LAB HEMETOLOGY METHOD 06/07/2024 1:55 AM EST [facility] Blood Venous blood specimen / Unknown Venipuncture / Unknown 06/07/2024 1:17 AM EST 06/07/2024 1:51 AM EST Nury Guevara MD LAB BLOOD ORDERA BLES [facility] [address] [place] [address], [place] [phone] * Lipase (06/07/2024 1:17 AM EST) Lipase 43 13 - 75 unit/L LAB CHEMISTRY METHOD 06/07/2024 2:17 AM EST [facility] Blood Venous blood specimen / Unknown Venipuncture / Unknown 06/07/2024 1:17 AM EST 06/07/2024 1:51 AM EST Nury Guevara MD LAB BLOOD ORDERA BLES [facility] [address] [place] [address], [place] [phone] * (ABNORMAL) Comprehensive metabolic panel (06/07/2024 1:17 AM EST) [facility] Signature Sodium 141 133 - 145 mmol/L LAB CHEMISTRY METHOD 06/07/2024 2:17 AM [facility] Potassium 4.0 3.5 - 5.5 mmol/L LAB CHEMISTRY METHOD 06/07/2024 2:17 AM [facility] Chloride 106 96 - 110 mmol/L LAB CHEMISTRY METHOD 06/07/2024 2:17 AM [facility] CO2 29 21 - 32 mmol/L LAB CHEMISTRY METHOD 06/07/2024 2:17 AM [facility] Anion Gap 6 3 - 11 LAB CHEMISTRY METHOD 06/07/2024 2:17 AM [facility] Glucose 123(H) 70 - 100 mg/dL LAB CHEMISTRY METHOD 06/07/2024 2:17 AM [facility] BUN 24 5 - 25 mg/dL LAB CHEMISTRY METHOD 06/07/2024 2:17 AM [facility] Creatinine 1.83(H) 0.70 - 1.30 mg/dL LAB CHEMISTRY METHOD 06/07/2024 2:17 AM [facility] eGFR 43(L) >=60 mL/min/1. 73m2 LAB CHEMISTRY METHOD 06/07/2024 2:17 AM [facility] Comment:Calculation based on the??Chronic Kidney Disease Epidemiology Collaboration (CKD-EPI) equation refit??without adjustment for race. BUN/Creatinine Ratio 13.1 LAB CHEMISTRY METHOD 06/07/2024 2:17 AM [facility] Calcium 9.2 8.5 - 10.5 mg/dL LAB CHEMISTRY METHOD 06/07/2024 2:17 AM [facility] AST (SGOT) 30 10 - 42 unit/L LAB CHEMISTRY METHOD 06/07/2024 2:17 AM [facility] ALT (SGPT) 46 10 - 60 unit/L LAB CHEMISTRY METHOD 06/07/2024 2:17 AM EST [facility] Alkaline Phosphatase 85 42 - 121 unit/L LAB CHEMISTRY METHOD 06/07/2024 2:17 AM [facility] Total Protein 7.0 6.0 - 8.0 g/dL LAB CHEMISTRY METHOD 06/07/2024 2:17 AM EST [facility] Albumin 3.8 3.2 - 5.0 g/dL LAB CHEMISTRY METHOD 06/07/2024 2:17 AM [facility] Total Bilirubin 0.6 0.0 - 1.4 mg/dL LAB CHEMISTRY METHOD 06/07/2024 2:17 AM [facility] Blood Venous blood specimen / Unknown Venipuncture / Unknown 06/07/2024 1:17 AM EST 06/07/2024 1:51 AM EST Nury Guevara MD LAB BLOOD ORDERA BLES [facility] [address] [place] [address], * Lipid panel (2022) LDL/HDL Ratio 0 [...] Recently Relevant to Health Maintenance Care Teams Dealer Card Room Relationship Specialty Start Date End Date Cricket Wills PA [address] [place] [phone] PCP - General Physician Automation Machine Builder 08/14/19
--- OUTSIDE RECORDS SUMMARY | 2024-08-07 17:03 | XMS_ITS | Clinical Summary ---
Author Organization [facility] Address [address] [place] [address] Care Team Providers Care Casino Gaming Inspector Name Role Phone Cricket Wills Primary Care Provider Source Comments PLEASE NOTE, if this patient [...] s:Chronic pain of right knee Place 1 [place] into the nostril(s) as needed for opioid [...] on 06/25/2018, both by Dr. Ken at [facility]. Presented to consult office for c/o [...] 02/19/18, per Cricket Wills PA-C: Seen by [facility] Neurosurgery. Dr. James Dent will attempt to decompress after PCP pre-op clearance. Right L4-L5 METRx (6cm) bilateral decompression. Surgeon Dr. Dent - 02/14/18. Encounters Date Type Department Care Team Description 07/26/2024 10:00 AM EST Office Visit [address] [address] Ihsan Gibbs, PharmD Essential hypertension (Primary Dx); Class 1 obesity due to excess calories with serious comorbidity and body mass index (BMI) of 33.0 to 33.9 in adult; Medication management 07/26/2024 Travel 07/24/2024 2:20 PM EST Telemedicine Visit [address] [address] Class 1 obesity due to excess calories with serious comorbidity and body mass index (BMI) of 33.0 to 33.9 in adult (Primary Dx) 07/24/2024 Travel 06/28/2024 10:00 AM EST Telemedicine Visit [address] [phone] Class 1 obesity due to excess calories with serious comorbidity and body mass index (BMI) of 32.0 to 32.9 in adult (Primary Dx) 06/12/2024 4:20 PM EST Office Visit [address] [phone] Cricket Wills PA Rodriguez, Anabel Essential hypertension (Primary Dx); Kidney stone; Class 1 obesity due to excess calories with serious comorbidity and body mass index (BMI) of 33.0 to 33.9 in adult 06/12/2024 Travel 05/23/2024 10:20 AM EST Telemedicine Visit [address] [phone] Primary hypertension (Primary Dx) [...] 9:40 AM EST Telemedicine Visit [facility] [address] [place] [phone] Brenton Mcfadden, RD [address]40 - [address] [place] [address] 10/25/2024 10:00 AM EDT Office Visit [facility] [address] [place] [phone] Sai Ihsan, PharmD [address] [place] [address] 10/30/2024 1:00 PM EDT Office Visit [facility] [address] Dental [address] [place] [phone] Margarito Leger [address] [place] [address] Health Maintenance Due Date Last Done Comments Dental FMX/Pano 1966 CT Colonography 12/01/2011 Fecal DNA 12/01/2011 Flexible Sigmoidoscopy 12/01/2011 FIT/gFOBT 04/24/2021 04/24/2020, 04/09, 04/24/2020, Additional history exists Annual Preventive Care Visit 08/16/202201/2022, 01/30/2019, 08/22/2017 Lipid Screening 12/01/2023 2022, 11/08, 08/17/2021 [id number] ( season) 2024 09/13/2022, 06/16/2021, 11/16/2020, Additional [...] EDT) GLUCOSE 97 65 - 99 mg/dL [facility] Comment: ?Fasting reference interval UREA NITROGEN (BUN) 22 7 - 25 mg/dL [facility] CREATININE (blood) 1.11 0.70 - 1.30 mg/dL [facility] EGFR 77 > OR = 60 mL/min/1. 73m2 [facility] BUN/CREATININE RATIO SEE NOTE: 6 [facility] Comment: ?? Not Reported: BUN and Creatinine are within ?? reference range. ? SODIUM 138 135 - 146 mmol/L [facility] POTASSIUM 4.2 3.5 - 5.3 mmol/L [facility] CHLORIDE 101 98 - 110 mmol/L [facility] CARBON DIOXIDE 24 20 - 32 mmol/L [facility] CALCIUM 9.1 8.6 - 10.3 mg/dL [facility] PROTEIN, TOTAL 6.5 6.1 - 8.1 g/dL [employer] [facility] ALBUMIN 3.8 3.6 - 5.1 g/dL [facility] [employer] [facility] GLOBULIN 2.7 1.9 - 3.7 g/dL (calc) [employer] [facility] ALBUMIN/GLOBULI N RATIO 1.4 1.0 - 2.5 (calc) [facility] BILIRUBIN, TOTAL 0.6 0.2 - 1.2 mg/dL [employer] [facility] ALKALINE PHOSPHATASE 76 35 - 144 U/L [employer] [facility] AST 18 10 - 35 U/L [employer] [facility] ALT 35 9 - 46 U/L [employer] [facility] Blood Blood / Unknown 03/08/2024 1 0:10 AM EDT 03/08/2024 10:10 AM EDT [facility] - BLOOD DRAW Final Result [employer] [address] [address], [employer] [address] [address] * (ABNORMAL) LIPIDS W RFLX TO DIRECT LDL (2022 10:45 AM EDT) CHOLESTEROL, TOTAL 273(H) <200 mg/dL [employer] [facility] HDL CHOLESTEROL 46 > OR = 40 mg/dL [facility] [facility] TRIGLYCERIDES 310(H) <150 mg/dL [employer] [facility] Comment: If a non-fasting specimen was collected, consider repeat triglyceride testing on a fasting specimen if clinically indicated. Arelis et al. J. of Clin. Lipidol. 2015;9:129-169. LDL-CHOLESTEROL 174(H) 99 mg/dL (calc) [employer] [facility] Comment: Reference range: <100 Desirable range <100 mg/dL for primary prevention; ?? <70 mg/dL for patients with CHD or diabetic patients with > or = 2 CHD risk factors. LDL-C is now calculated using the Darius calculation, which is a validated novel method providing better accuracy than the Friedewald equation in the estimation of LDL-C. Charbel VIDAL et al. ANI. 2013;310(19): 0598-6971 (http://education.Cloze.[employer]/faq/NYO845) CHOL/HDLC RATIO 5.9(H) <5.0 (calc) [employer] [facility] NON-HDL CHOLESTEROL 227(H) <130 mg/dL (calc) [facility] Comment: Non-HDL level > or = 220 [...] [facility] - BLOOD DRAW Final Result [employer] [address] [address], [employer] [address] [address] * REFERRAL FOR COLONOSCOPY (10/30/2020 12:54 PM [...] NEGATIVE CARD NEHEMIAH DATE: NO DATE SPECIFIED [employer] [facility] 04/24/2020 04/24/2020 6:5 5 PM EDT Narrative [facility] - 04/27/2020 11:22 AM EDT [employer], [place] [id number] Horse Racetrack Manager - Ella Guevara MD PT ID [id number] ORD# [id number] SOURCE: STOOL; [facility] - NO BLOOD DRAW Final Resu lt Performing Organization Address [facility] Co de Phone Number [facility] [address] [place] [address], [place] [phone] * HEPATITIS A,B,C PANEL (08/25/2017 8:35 AM EST) HEPATITIS B SURFACE ANTIBODY NEGATIVE NEGATIVE [facility] HEPATITIS B SURFACE ANTIGEN NEGATIVE NEGATIVE [facility] Comment: Over the counter supplements containing high doses of biotin may interfere with this assay. ??If interference is suspected, patients shoud be retested after refraining from biotin supplements for 72 hours. HEPATITIS C VIRUS DIAGNOSTIC NEGATIVE NEGATIVE [facility] HEPATITIS B CORE ANTIBODY NEGATIVE NEGATIVE [facility] HEPATITIS A ANTIBODY TOTAL NEGATIVE NEGATIVE [facility] Comment: Over the counter supplements containing high doses of biotin may interfere with this assay. ??If interference is suspected, patients shoud be retested after refraining from biotin supplements for 72 hours. Blood specimen (specimen) Blood / Unknown 08/25/2017 8:35 AM EST 08/25/2017 8:46 AM EST Narrative [facility] - 08/25/2017 2:18 PM EST [facility] [employer] [address] [place] [address] PT ID [id number] ORD# [id number] [facility] - BLOOD DRAW Edited Result - Final Performing Organization Address City/[facility]/ZIP Co de Phone Number [address] [address], [place] [phone] * HIV-1 & HIV-2 ANTIBODIES (08/25/2017 8:35 AM EST) HIV 1 AND 2 ANTIBODY SCREEN NEGATIVE NEGATIVE [facility] Comment: This assay is a 4th generation [...] AM EST 08/25/2017 8:46 AM EST Narrative [employer]-[facility] - 08/25/2017 2:47 PM EST [employer] [address] [place] [address] PT ID [id number] ORD# [id number] [facility] - BLOOD DRAW Final Result [facility] [address] [place] [address], from Last 3 Months or Most Recently Relevant to Health Maintenance Insurance [place] MEDICA[place] DENTAL [address] [employer] Care Teams Casino Gaming Inspector Relationship Specialty Start Date End Date Cricket Wills PA [address] [place] [address] PCP - General Internal Medicine 07/08/17
--- OUTSIDE RECORDS SUMMARY | 2024-08-07 17:03 | XMS_ITS | Encounter Summary ---
Author Organization [facility] Address [address] [place] [address] Care Team Providers Care Fuel System Maintenance Worker Name Role Phone Cricket Wills Primary Care Provider [phone] Encounter Details Date Type Department Care Team (Late st Contact Info) Description 02/07/2022 Dental Interim Note Caring [facility] Main Dental [address] [place] [phone] Mellissa Hernandez DDS [address] [place] [address] Social History Tobacco Use Types Packs/Day Years [...] Description 08/14/2024 9:40 AM EST Telemedicine Visit [facility] [address] [place] [address] Brenton Mcfadden, RD [address] [place] [address] 10/25/2024 10:00 AM EDT Office Visit [facility] [address] [place] [address] Ihsan Gibbs, PharmD [address] [place] [address] 10/30/2024 1:00 PM EDT Office Visit [facility] St Dental [address] [place] [phone] Margarito Leger [address] [place] [address] documented as of this encounter Goals Goal [...] documented as of this encounter Care Teams Fuel System Maintenance Worker Relationship Specialty Start Date End Date Cricket Wills PA [address] [place] [address] PCP - General Internal Medicine 07/08/17 documented as of this encounter
--- OUTSIDE RECORDS SUMMARY | 2024-08-07 17:04 | XMS_ITS | Encounter Summary ---
Author Organization [facility] Address [address] [place] [address] Care Team Providers Care Metal Dresser Name Role Phone Cricket Wills Primary Care Provider [phone] Encounter Details Date Type Department Care Team (Late st Contact Info) Description 02/07/2022 Dental Interim Note Caring [facility] Main Dental [address] [place] [phone] Mellissa Hernandez DDS [address] [place] [address] Social History Tobacco Use Types Packs/Day Years [...] Recorded In the last 10 days, have jono parham been in contact with someone who was confirmed or suspected to have Coronavirus/COVID-19? No / Unsure 02/08/2022 1:54 PM EDT documented as of this encounter Plan of Treatment Upcoming Encounters Date Type Department Care Team (Late st Contact Info) Description 08/14/2024 9:40 AM EST Telemedicine Visit [facility] [address] [place] [address] Brenton Mcfadden, RD [address] - [address] [place] [address] 10/25/2024 10:00 AM EDT Office Visit [facility] [address] [place] [address] Ihsan Gibbs, PharmD [address] [place] [address] 10/30/2024 1:00 PM EDT Office Visit [facility] St Dental [address] [place] [phone] Margariot Leger [address] [place] [address] documented as of this encounter Goals Goal [...] documented as of this encounter Care Teams Metal Dresser Relationship Specialty Start Date End Date Cricket Wills PA [address] [place] [address] PCP - General Internal Medicine 07/08/17 documented as of this encounter
--- OUTSIDE RECORDS SUMMARY | 2024-08-07 17:04 | XMS_ITS | Encounter Summary ---
Author Organization [facility] Address [address] [place] [address] Care Team Providers Care Operater Name Role Phone Cricket Wills Primary Care Provider [phone] Encounter Details Date Type Department Care Team (Late st Contact Info) Description 02/07/2022 Dental Interim Note Caring [facility] Main Dental [address] [place] [phone] Mellissa Hernandez DDS [address] [place] [address] Social History Tobacco Use Types Packs/Day Years [...] Description 08/14/2024 9:40 AM EST Telemedicine Visit [facility] [address] [place] [address] Brenton Mcfadden, RD [address] - [address] [place] [address] 10/25/2024 10:00 AM EDT Office Visit [facility] [address] [place] [address] Ihsan Gibbs, PharmD [address] [place] [address] 10/30/2024 1:00 PM EDT Office Visit [facility] [address] Dental [address] [place] [phone] Margarito Leger [address] [place] [address] documented as of this encounter Goals Goal [...] documented as of this encounter Care Teams Operater Relationship Specialty Start Date End Date Cricket Wills PA [address] [place] [address] PCP - General Internal Medicine 07/08/17 documented as of this encounter
== END 2024-08-07 13:27 | disposition home or self-care (01) ==
LOC: HO.LAB 13:26
PROVIDERS: PCP Physician Assistant; Visit Provider Nurse Practitioner Family
DX: N20.0 Calculus of kidney (principal); R30.0 Dysuria; R10.9 Unspecified abdominal pain
CPT/HCPCS: 81003; 99212

== ENCOUNTER 2024-08-19 13:49 | Outpatient (REF) | payer MEDICAID, SELFPAY | END 2024-08-19 13:50 | disposition home or self-care (01) | LOC: HO.HMGCX 13:49 | PROVIDERS: PCP Physician Assistant; Visit Provider Nurse Practitioner Family | DX: N20.0 Calculus of kidney (principal) | CPT/HCPCS: 76775 ==

== ENCOUNTER → 2024-08-19 14:13 | Outpatient (BNV) | payer MEDICAID, SELFPAY | PROVIDERS: PCP Physician Assistant; Visit Provider Radiology Diagnostic Radiology | DX: N20.0 Calculus of kidney (principal) | CPT/HCPCS: 76775 ==

== ENCOUNTER 2024-09-27 07:07 | Outpatient (REF) | payer MEDICAID, SELFPAY ==
[2024-09-27 08:48] LABS: Prostate Specific Antigen 1.52 ng/mL (<0.05-4.0)
== END 2024-09-27 07:08 | disposition home or self-care (01) ==
LOC: HO.CT 07:07
PROVIDERS: PCP Physician Assistant; Visit Provider Nurse Practitioner Family
DX: Z12.5 Encounter for screening for malignant neoplasm of prostate (principal); R30.0 Dysuria; N40.0 Benign prostatic hyperplasia without lower urinary tract symptoms
CPT/HCPCS: 36415; 84153

== ENCOUNTER 2024-10-16 06:42 | Outpatient (REF) | payer MEDICAID, SELFPAY ==
--- NOTE | ~2024-10-16 | CT_ITS ---
EXAMINATION: CT ABDOMEN PELVIS WITHOUT IV CONTRAST HISTORY: N20.0 - Calculus of kidney COMPARISON: Correlation is made with a renal ultrasound dated 08/19/2024. TECHNIQUE: CT scan of the abdomen and pelvis was performed without contrast using standard departmental protocol. Coronal and sagittal reformatted images were generated and reviewed. Oral contrast material was not administered per department protocol. This CT exam was performed with one or more of the following dose reduction techniques: automated exposure control, adjustment of the mA and/or kV according to patient size, use of iterative reconstruction technique. DLP: 612 mGy-cm FINDINGS: LOWER CHEST: The visualized lung bases are clear. There is no pleural effusion. CARDIOVASCULATURE: The heart is normal in size. There is no pericardial effusion. LIVER: The liver is normal in size and contour. The liver has an unremarkable unenhanced appearance. GALLBLADDER / BILE DUCTS: The gallbladder is unremarkable. There is no intra or extrahepatic biliary ductal dilatation. SPLEEN: The spleen is normal in size and has an unremarkable unenhanced appearance. PANCREAS: The pancreas has an unremarkable unenhanced appearance. ADRENAL GLANDS: Unremarkable. KIDNEYS/RETROPERITONEUM: There is a punctate nonobstructing calculus at the upper pole of the right kidney. There is a 3 mm nonobstructing calculus in the interpolar region of the left kidney. There is no hydronephrosis or hydroureter. No ureteral calculi are seen. LYMPH NODES: No retroperitoneal lymphadenopathy is identified in the abdomen or pelvis. VASCULATURE: The abdominal aorta is normal in caliber. MESENTERY/PERITONEUM: No free fluid. No masses. There is no free intraperitoneal gas. STOMACH: There is a small hiatal hernia. The remainder of the stomach is collapsed. SMALL BOWEL: The small bowel is normal in caliber. COLON: There is diverticulosis of the sigmoid colon, without evidence of diverticulitis. APPENDIX: Normal. URINARY BLADDER/PELVIC ORGANS: The urinary bladder is unremarkable. There are calcifications of the prostate. BONES / SOFT TISSUES: There is a sclerotic focus in the left half of L4 which may represent a bone island. A spinal electrode is seen in place. CT/CT kidney stone IMPRESSION: 1. Bilateral nephrolithiasis as described, without evidence of ureteral obstruction. 2. Small hiatal hernia. Sigmoid diverticulosis without evidence of diverticulitis. Electronically signed by: James Hudson MD 10/16/2024 07:52 AM EDT
--- OUTSIDE RECORDS SUMMARY | 2024-10-16 06:44 | XMS_ITS | Clinical Summary ---
Author Organization [facility] Address [address] [place] [address] Care Team Providers Care Insurance Account Specialist Name Role Phone Cricket Wills Primary Care Provider [phone] Source Comments PLEASE NOTE, if this patient [...] Take 100 mg by mouth every morning 0 Active ipratropium-albu teroL (DUONEB) 0.5 mg-3 mg(2.5 mg base)/3 mL nebulizer solutionIndicati ons:Mild intermittent asthma, unspecified whether complicated (HHS-HCC) Take 3 mL by nebulization 4 (four) times daily 90 mL 0 Active inhalational spacing deviceIndication s:Mild persistent asthma with acute exacerbation (HHS-HCC) Use as instructed 1 Each 1 2 Active nebulizer and compressorIndica tions:Mild persistent asthma with acute exacerbation (HHS-HCC) Use every 4- hours as needed for sob 1 Each 2 Active walkerIndication s:Muscle strain,Lumbosacr al disc herniation,Lumba r spine pain,Obesity, Class I, BMI 30-34.9,Mild persistent asthma with acute exacerbation (HHS-HCC),Failed back syndrome of lumbar spine,Sacral nerve root compression,Head Of Art darrin pain of right knee,Low back pain, unspecified back pain laterality, unspecified chronicity, unspecified whether sciatica present,Chronic bilateral low back pain, unspecified whether sciatica present Please dispense one Rolator walker for patient with mobility issues. 1 Each 3 Active pantoprazole (PROTONIX) 20 mg EC tablet TAKE 1 TABLET BY MOUTH two (2) times a day 60 Tablet 5 4 Active VENTOLIN HFA 90 mcg/actuation inhalerIndicatio ns:Cough,Bronchi tis,Moderate persistent asthma with acute exacerbation ([facility]) INHALE 2 PUFF BY MOUTH EVERY 4 TO 6 HOURS NEEDED FOR SHORTNESS OF BREATH OR FOR WHEEZING 18 g 2 4 Active clonazePAM (KLONOPIN) 1 mg tablet TAKE 1/2 TAB BY MOUTH two (2) times a day Authorized by: REYMUNDO BAUTISTA 4 Active cetirizine (ZYRTEC) 10 mg tabletIndication s:Asthma due to seasonal allergies ([facility]) TAKE 1 TABLET BY MOUTH ONCE DAILY 30 Tablet 11 4 025 Active naloxone (NARCAN) 4 mg/actuation nasal sprayIndications :Chronic pain of right knee Place 1 Blachly into the nostril(s) as needed for opioid reversal (Overdose) 2 Each 4 Active traMADoL (ULTRAM) 50 mg tabletIndication s:Chronic pain of right knee Take 1 Tablet by mouth 4 (four) times daily as needed for pain 30 Tablet 4 Active albuterol (PROVENTIL) 2.5 mg /3 mL (0.083 %) nebulizer solutionIndicati ons:Mild persistent asthma with acute exacerbation ([facility]-HCC) INHALE THE CONTENT OF 1 VIAL (3mls) VIA NEBULIZER EVERY 6 HOURS NEEDED FOR WHEEZING 75 mL 1 4 Active valsartan (DIOVAN) 160 mg tabletIndication s:Primary hypertension Take 1 Tablet by mouth once daily 90 Tablet 1 4 Active tamsulosin (FLOMAX) 0.4 mg 24 hr capsuleIndicatio ns:Kidney stone Take 1 Capsule by mouth once daily for 30 days 30 Capsule 4 Active ONE DAILY MULTIVITAMIN tabletIndication s:Malnutrition, unspecified type ([facility]) TAKE 1 TABLET BY MOUTH ONCE DAILY 30 Tablet 11 5 Active naproxen (NAPROSYN) 500 mg tabletIndication s:Kidney stone TAKE 1 TABLET BY MOUTH two (2) times a day WITH A MEAL 30 Tablet 5 Active gabapentin (NEURONTIN) 600 mg tabletIndication s:Low back pain TAKE 1 TABLET BY MOUTH 3 (THREE) TIMES A DAY 90 Tablet 2 5 Active QUEtiapine (SEROQUEL) 50 mg tabletIndication s:Dysthymia TAKE 1 TABLET BY MOUTH ONCE DAILY AT BEDTIME 30 Tablet 1 5 Active Active Problems Patient Care Coordination No te [...] on 06/25/2018, both by Dr. Ken at [facility]. Presented to consult office for c/o [...] mptom disorder with predominant pain 06/14/2022 Asthma (HHS-HCC) 06/14/2022 Osteoarthritis 06/14/2022 Lumbosacral disc herniation 04/16/2019 [...] 02/19/18, per Cricket Wills PA-C: Seen by [facility] Neurosurgery. Dr. James Dent will attempt to decompress after PCP pre-op clearance. Right L4-L5 METRx (6cm) bilateral decompression. Surgeon Dr. Dent - 02/14/18. Encounters Date Type Department Care Team Description 10/03/2024 Interim Notes [address] [phone] Rosie Louis RN 10/02/2024 Interim Notes [address] [phone] Hina Funes Community Health Worker 10/02/2024 Interim Notes [address] [phone] Callie Garcia 09/27/2024 10:00 AM EDT Telemedicine Visit [address] [phone] Class 1 obesity due to excess calories with serious comorbidity and body mass index (BMI) of 33.0 to 33.9 in adult (Primary Dx) 09/26/2024 9:40 AM EDT Telemedicine Visit [address] [phone] Low Mcfaddena, RD Class 1 obesity due to excess calories with serious comorbidity and body mass index (BMI) of 33.0 to 33.9 in adult (Primary Dx) 08/30/2024 10:00 AM EST Telemedicine Visit [address] [phone] [place]Lowa, RD Class 1 obesity due to excess calories with serious comorbidity and body mass index (BMI) of 33.0 to 33.9 in adult (Primary Dx) 08/16/2024 10:00 AM EST Office Visit [address] [phone] Low Mcfaddena, RD Class 1 obesity due to excess calories with serious comorbidity and body mass index (BMI) of 33.0 to 33.9 in adult (Primary Dx) 08/14/2024 9:40 AM EST Telemedicine Visit [address] [phone] Brenton Mcfadden, RD Hypercholesterolemia (Primary Dx); Class 1 obesity due to excess calories with serious comorbidity and body mass index (BMI) of 33.0 to 33.9 in adult 07/26/2024 10:00 AM EST Office Visit [address] [phone] Ihsan Gibbs, PharmD Essential hypertension (Primary Dx); Class 1 obesity due to excess calories with serious comorbidity and body mass index (BMI) of 33.0 to 33.9 in adult; Medication management 07/26/2024 Travel 07/24/2024 2:20 PM EST Telemedicine Visit [address] [phone] Low Mcfaddena, RD Class 1 obesity due to excess calories with serious comorbidity and body mass index (BMI) of 33.0 to 33.9 in adult (Primary Dx) 07/24/2024 Travel from Last 3 Months Immunizations Immunization Administration Dates Next Due Flu, Preservative Free [...] Don't know 07/20/2017 9: 10 AM PST Last Filed Vital Signs Vital Sign Reading [...] Care Team (Late st Contact Info) Description 10/25/2024 10:00 AM EDT Office Visit [facility] [address] [place] [phone] Ihsan Gibbs, PharmD [address] [place] [address] Cathy Ware [address] [place] [address] 10/30/2024 1:00 PM EDT Office Visit [facility] Dental [address] [place] [phone] Margarito Leger [address] [place] [address] 11/07/2024 9:40 AM EDT Telemedicine Visit [facility] [address] [place] [phone] Brenton Mcfadden, RD [address] [place] [address] Health Maintenance Due Date Last Done Comments Anxiety Screening 1966 Dental FMX/Pano 1966 CT Colonography 12/01/2011 Fecal DNA 12/01/2011 Flexible Sigmoidoscopy 12/01/2011 FIT/gFOBT 04/24/2021 04/24/2020, 04/09, 04/24/2020, Additional history exists Annual Preventive Care Visit 08/16/202201/2022, 01/30/2019, 08/22/2017 Lipid Screening 12/01/2023 2022, 11/08, 08/17/2021 [id number] ( season) 2024 09/13/2022, 06/16/2021, 11/16/2020, Additional history exists Depression Monitoring 09/10/2024 06/12/2024 , 01/12/2024, 05/11/2023, Additional history exists Dental BW 05/02/2025 04/30/2024, 08/11, 08/22/2022 Dental Examination 05/02/2025 04/30/2024, 0 09/04/2023, 08/22/2022, Additional history exists Dental Perio Charting 05/02/2025 04/30/2024 , 09/04/2023, 02/08/2022 Dental Prophy 05/02/2025 04/30/2024, 08/11, 08/22/2022, Additional history exists Diabetes Screening 06/06/2025 06/06/2024, 0 03/08/2024, 2022, Additional history exists Tobacco Screening 07/26/2025 07/26/2024, , 06/28/2022, Additional history exists Imm-DTaP/Tdap/Td (2 - Td or Tdap) 08/22/2027 018 Colonoscopy 10/30/2030 11/04/2020, 10/30/2020 Colorectal Cancer Screening 10/30/2030 HIV Screening Completed 08/25/2017 Hepatitis C Screening Completed 08/25/2017 Imm-Zoster, Recombinant Completed 06/14/2022, 08/16 Imm-Pneumococcal Completed 09/13/2022, 01/2022, 06/13/2019 Imm-Hepatitis B Completed 09/23/2022, 06/14/2022 Imm-Influenza Discontinued 05/03/2024, 03/0 01/2023, 05/13/2021, Additional history exists Alcohol and Drug Screen Completed 07/26/19, 06/12/2024, 10/16/2023, Additional history exists Goals Goal Patient Goal Type Associated Problems Recent Progress Patient-Stated? Author Blood Pressure < 140/90 Blood Pressure Essential hypertension 100/70(2024 9:36 AM EST) No Mary Maxwell, BryanD Procedures Procedure Name Priority Date/Time Associated Diagnosis Comments IMAGING SCANNED DOCUMENT 09/30/2024 3:00 AM EDT LAB SCANNED DOCUMENT 09/27/2024 3:00 AM EDT REFERRAL SCANNED DOCUMENT 09/18/2024 3:00 AM EDT REFERRAL SCANNED DOCUMENT 09/17/2024 3:00 AM EDT IMAGING SCANNED DOCUMENT 09/12/2024 3:00 AM EST HEALTH HISTORY SCANNED DOCUMENT 09/10/2024 3:00 AM EST REFERRAL TO ORTHOPEDICS Routine 09/05/2024 3:00 AM EST Chronic pain of right knee IMAGING SCANNED DOCUMENT 08/19/2024 3:00 AM EST IMAGING SCANNED DOCUMENT 08/19/2024 3:00 AM EST IMAGING SCANNED DOCUMENT 08/08/2024 3:00 AM EST REFERRAL TO UROLOGY Urgent 08/07/2024 3 :00 AM EST Kidney stone IMAGING SCANNED DOCUMENT 07/26/2024 3:00 AM EST BITEWINGS - FOUR RADIOGRAPHIC [...] Health Maintenance Results * IMAGING SCANNED DOCUMENT (09/30/2024 3:00 AM EDT) Only the most recent of6 resultswithin the time period is included. 09/30/2024 3:00 AM EDT us Cricket Johann PA SCAN IMAGING Final Result * LAB SCANNED DOCUMENT (09/27/2024 3:00 AM EDT) 09/27/2024 3:00 AM EDT Cricket Johann PA SCAN LAB Final Result * REFERRAL SCANNED DOCUMENT (09/18/2024 3:00 AM EDT) Only the most recent of2 resultswithin the time period is included. 09/18/2024 3:00 AM EDT us Cricket Johann PA SCAN REFERRAL Final Result * HEALTH HISTORY SCANNED DOCUMENT (09/10/2024 3:00 AM EST) 09/10/2024 3:00 AM EST Chma Provider Default SCAN OTHER ORDERS Final Re sult * REFERRAL TO ORTHOPEDICS (09/05/2024 3:00 AM EST) 09/05/2024 3:00 AM EST us Cricket Johann PA REFERRAL Final Result * REFERRAL TO UROLOGY (08/07/2024 3:00 AM EST) 08/07/2024 3:00 AM EST us Cricket CAVAZOS REFERRAL Final Result * COMPREHENSIVE METABOLIC PANEL (03/08/2024 10:10 AM EDT) GLUCOSE 97 65 - 99 mg/dL [employer] [facility] Comment: ?Fasting reference interval UREA NITROGEN (BUN) 22 7 - 25 mg/dL [employer] [facility] CREATININE (blood) 1.11 0.70 - 1.30 mg/dL [employer] EGFR 77 > OR = 60 mL/min/1. 73m2 [facility] [facility] BUN/CREATININE RATIO SEE NOTE: [employer] [facility] Comment: ?? Not Reported: BUN and Creatinine are within ?? reference range. ? SODIUM 138 135 - 146 mmol/L [employer] [facility] POTASSIUM 4.2 3.5 - 5.3 mmol/L [employer] [facility] CHLORIDE 101 98 - 110 mmol/L [employer] [facility] CARBON DIOXIDE 24 20 - 32 mmol/L [facility] CALCIUM 9.1 8.6 - 10.3 mg/dL [employer] [facility] PROTEIN, TOTAL 6.5 6.1 - 8.1 g/dL [employer] [facility] ALBUMIN 3.8 3.6 - 5.1 g/dL [facility] GLOBULIN 2.7 1.9 - 3.7 g/dL (calc) [employer] [facility] ALBUMIN/GLOBULI N RATIO 1.4 1.0 - 2.5 (calc) [employer] [facility] BILIRUBIN, TOTAL 0.6 0.2 - 1.2 mg/dL [employer] [facility] ALKALINE PHOSPHATASE 76 35 - 144 U/L [employer] [facility] AST 18 10 - 35 U/L [employer] [facility] ALT 35 9 - 46 U/L [employer] [facility] Blood Blood / Unknown 03/08/2024 1 0:10 AM EDT 03/08/2024 10:10 AM EDT us Cricket CAVAZOS LAB - BLOOD DRAW Final Result [employer] [facility] [address] [address], [employer] [facility] [address] [place] [address] * (ABNORMAL) LIPIDS W RFLX TO DIRECT LDL (2022 10:45 AM EDT) CHOLESTEROL, TOTAL 273(H) <200 mg/dL [employer] [facility] HDL CHOLESTEROL 46 > OR = 40 mg/dL [employer] [facility] TRIGLYCERIDES 310(H) <150 mg/dL [employer] [facility] Comment: If a non-fasting specimen was collected, consider repeat triglyceride testing on a fasting specimen if clinically indicated. Arelis et al. J. of Clin. Lipidol. 2015;9:129-169. LDL-CHOLESTEROL 174(H) 99 mg/dL (calc) [employer] [facility] Comment: Reference range: <100 Desirable range <100 mg/dL for primary prevention; ?? <70 mg/dL for patients with CHD or diabetic patients with > or = 2 CHD risk factors. LDL-C is now calculated using the Charbel-Akhil calculation, which is a validated novel method providing better accuracy than the Friedewald equation in the estimation of LDL-C. Chabrel SS et al. ANI. 2013;310(19): 3451-2939 (http://education.Cibando/faq/YAL118) CHOL/HDLC RATIO 5.9(H) <5.0 (calc) [employer] [facility] NON-HDL CHOLESTEROL 227(H) <130 mg/dL (calc) [employer] [facility] Comment: Non-HDL level > or = 220 [...] 0:45 AM EDT 2022 10:45 AM EDT Cricket [facility] - BLOOD DRAW Final Result [facility] [address] [address], [facility] [address] [place] [address] * REFERRAL FOR COLONOSCOPY (10/30/2020 12:54 PM [...] NEGATIVE CARD NEHEMIAH DATE: NO DATE SPECIFIED [facility] 04/24/2020 04/24/2020 6:5 5 PM EDT Narrative [facility] - 04/27/2020 11:22 AM EDT [employer], a member of [address] [address] Photographer Motion Picture - Ella Guevara MD PT ID [id number] ORD# [id number] SOURCE: STOOL; us Cricket [facility] LAB - NO BLOOD DRAW Final Resu lt [address] [address], * HEPATITIS A,B,C PANEL (08/25/2017 8:35 AM EST) HEPATITIS B SURFACE ANTIBODY NEGATIVE NEGATIVE [facility] HEPATITIS B SURFACE ANTIGEN NEGATIVE NEGATIVE [facility] Comment: Over the counter supplements containing high doses of biotin may interfere with this assay. ??If interference is suspected, patients shoud be retested after refraining from biotin supplements for 72 hours. HEPATITIS C VIRUS DIAGNOSTIC NEGATIVE NEGATIVE [facility] HEPATITIS B CORE ANTIBODY NEGATIVE NEGATIVE [facility] HEPATITIS A ANTIBODY TOTAL NEGATIVE NEGATIVE [facility] Comment: Over the counter supplements containing high doses of biotin may interfere with this assay. ??If interference is suspected, patients shoud be retested after refraining from biotin supplements for 72 hours. Blood specimen (specimen) Blood / Unknown 08/25/2017 8:35 AM EST 08/25/2017 8:46 AM EST Narrative [facility] - 08/25/2017 2:18 PM EST [employer] [address] [place] [address] PT ID [id number] ORD# [id number] Cricket [facility] - BLOOD DRAW Edited Result - Final Performing Organization Address [facility]/ZIP Co de Phone Number [address] [address], [place] [phone] * HIV-1 & HIV-2 ANTIBODIES (08/25/2017 8:35 AM EST) [facility] Signature HIV 1 AND 2 ANTIBODY SCREEN NEGATIVE NEGATIVE [facility] Comment: This assay is a [...] EST 08/25/2017 8:46 AM EST Narrative [facility] - 08/25/2017 2:47 PM EST [employer] [address] [place] [address] PT ID [id number] ORD# [id number] us Cricket [facility] - BLOOD DRAW Final Result Performing Organization Address [facility]/ZIP Co de Phone Number [address] [address], [place] [phone] from Last 3 Months or Most Recently Relevant to Health Maintenance [place] [address] [employer] Care Teams Insurance Account Specialist Relationship Specialty Start Date End Date Cricket Wills PA [address] [place] [address] PCP - General Internal Medicine 07/08/17
--- OUTSIDE RECORDS SUMMARY | 2024-10-16 06:44 | XMS_ITS | Encounter Summary ---
Author Organization [facility] Address [address] [place] [address] Care Team Providers Care Platform Builder Name Role Phone Cricket Wills Primary Care Provider [phone] Encounter Details Date Type Department Care Team (Late st Contact Info) Description 02/07/2022 Dental Interim Note Caring [facility] Main Dental [address] [place] [phone] Mellissa Hernandez DDS [address] [place] [address] Social History Tobacco Use Types Packs/Day Years [...] Description 10/25/2024 10:00 AM EDT Office Visit [facility] [address] [place] [address] Ihsan Gibbs, BryanD [address] [place] [address] Cathy Ware [address] [place] [address] 10/30/2024 1:00 PM EDT Office Visit [facility] Dental [address] [place] [phone] Margarito Leger [address] [place] [address] 11/07/2024 9:40 AM EDT Telemedicine Visit [facility] [address] [place] [phone] Brenton Mcfadden, RD [address] - [address] [place] [address] documented as of this encounter Goals Goal [...] Time PHQ-9 Depression Total Score: 0 08/16/19 1:24 PM PST documented as of this encounter Care Teams Platform Builder Relationship Specialty Start Date End Date Cricket Wills PA [address] [place] [address] PCP - General Internal Medicine 07/08/17 documented as of this encounter
--- OUTSIDE RECORDS SUMMARY | 2024-10-16 06:44 | XMS_ITS | Encounter Summary ---
Author Organization [facility] Address [address] [place] [address] Care Team Providers Care Intensive Care Nurse Name Role Phone Cricket Wills Primary Care Provider [phone] Encounter Details Date Type Department Care Team (Late st Contact Info) Description 02/07/2022 Dental Interim Note Caring [facility] Main Dental [address] [place] [phone] Mellissa Hernandez DDS [address] [place] [address] Social History Tobacco Use Types Packs/Day Years [...] Description 10/25/2024 10:00 AM EDT Office Visit [facility] [address] [place] [address] Ihsan Gibbs, BryanD [address] [place] [address] Cathy Ware [address] [place] [address] 10/30/2024 1:00 PM EDT Office Visit [facility] Dental [address] [place] [phone] Margarito Leger [address] [place] [address] 11/07/2024 9:40 AM EDT Telemedicine Visit [facility] [address] [place] [phone] Brenton Mcfadden, RD [address] [place] [address] documented as of this encounter Goals Goal [...] documented as of this encounter Care Teams Intensive Care Nurse Relationship Specialty Start Date End Date Cricket Wills PA [address] [place] [address] PCP - General Internal Medicine 07/08/17 documented as of this encounter
--- OUTSIDE RECORDS SUMMARY | 2024-10-16 06:44 | XMS_ITS | Encounter Summary ---
Author Organization [facility] Address [address] [place] [address] Care Team Providers Care Azure Developer Name Role Phone Cricket Wills Primary Care Provider [phone] Encounter Details Date Type Department Care Team (Late st Contact Info) Description 02/07/2022 Dental Interim Note Caring [facility] Main [address] Dental [address] [place] [phone] Marleny Cormier [address] [place], [place] [phone] Social History Tobacco Use Types Packs/Day Years [...] Description 10/25/2024 10:00 AM EDT Office Visit [facility] [address] [place] [address] Ihsan Gibbs, BryanD [address] [place] [address] Cathy Ware [address] [place] [address] 10/30/2024 1:00 PM EDT Office Visit [facility] St Dental [address] [place] [phone] Margarito Leger [address] [place] [address] 11/07/2024 9:40 AM EDT Telemedicine Visit [facility] [address] [place] [phone] Brenton Mcfadden, RD [address] - [address] [place] [address] documented as of this encounter Goals Goal [...] documented as of this encounter Care Teams Azure Developer Relationship Specialty Start Date End Date Cricket Wills PA [address] [place] [address] PCP - General Internal Medicine 07/08/17 documented as of this encounter
--- OUTSIDE RECORDS SUMMARY | 2024-10-16 06:44 | XMS_ITS | Encounter Summary ---
Author Organization [facility] Address [address] [place] [address] Care Team Providers Care [employer] Liaison Officer Name Role Phone Cricket Wills Primary Care Provider [phone] Encounter Details Date Type Department Care Team (Late st Contact Info) Description 02/07/2022 Dental Interim Note Caring [facility] Main Dental [address] [place] [phone] Mellissa Hernandez DDS [address] [place] [address] Social History Tobacco Use Types Packs/Day Years [...] Description 10/25/2024 10:00 AM EDT Office Visit [facility] [address] [place] [address] Ihsan Gibbs, BryanD [address] [place] [address] Cathy Ware [address] [place] [address] 10/30/2024 1:00 PM EDT Office Visit [facility] Dental [address] [place] [phone] Margarito Leger [address] [place] [address] 11/07/2024 9:40 AM EDT Telemedicine Visit [facility] [address] [place] [phone] Brenton Mcfadden, RD [address] - [address] [place] [address] documented as of this encounter Goals Goal [...] documented as of this encounter Care Teams [employer] Liaison Officer Relationship Specialty Start Date End Date Cricket Wills PA [address] [place] [address] PCP - General Internal Medicine 07/08/17 documented as of this encounter
--- OUTSIDE RECORDS SUMMARY | 2024-10-16 06:44 | XMS_ITS | Encounter Summary ---
Author Organization [facility] Address [address] [place] [address] Care Team Providers Care Communications Department Chair Name Role Phone Cricket Wills Primary Care Provider [phone] Encounter Details Date Type Department Care Team (Late st Contact Info) Description 02/07/2022 Dental Interim Note Caring [facility] Main Dental [address] [place] [phone] Mellissa Hernandez DDS [address] [place] [address] Social History Tobacco Use Types Packs/Day Years [...] 10:00 AM EDT Office Visit [facility] [address] [place] [address] Ihsan Gibbs, BryanD [address] [place] [address] Cathy Ware [address] [place] [address] 10/30/2024 1:00 PM EDT Office Visit [facility] Dental [address] [place] [phone] Margarito Leger [address] [place] [address] 11/07/2024 9:40 AM EDT Telemedicine Visit [facility] [address] [place] [phone] Brenton Mcfadden, RD [address] [place] [address] documented as of this encounter Goals Goal [...] documented as of this encounter Care Teams Communications Department Chair Relationship Specialty Start Date End Date Cricket Wills PA [address] [place] [address] PCP - General Internal Medicine 07/08/17 documented as of this encounter
--- OUTSIDE RECORDS SUMMARY | 2024-10-16 06:44 | XMS_ITS | Clinical Summary ---
Author Organization [facility] Address [address] [place] [phone] Phone Care Team Providers Care Dry Cell Tester Name Role Phone Cricket Wills Primary Care Provider Allergies No known active allergies Medications clonazePAM (KlonoPIN) 0.5 mg tablet TAKE ONE TABLET BY MOUTH 2 (two) times a day 03/26/20 20 Active gabapentin (NEURONTIN) 600 mg tablet Take 1 tablet (600 mg total) by mouth. 06/18/20 18 Active ipratropium-albut Jimmy (DUONEB) 0.5-2.5 mg/3 mL nebulizer solution Inhale 3 mL into the lungs. 07/08/20 20 Active MULTIVITAMIN ORAL Take 1 tablet by mouth 1 (one) time each day. 09/02/19 23 Active walker misc Please dispense one Rolator walker for patient with mobility issues. 03/20/20 23 Active omeprazole (PriLOSEC) [address] capsule Take 1 capsule (20 mg total) by mouth. 06/28/20 21 Active QUEtiapine (SEROquel) 50 mg tablet TAKE 1 TABLET BY MOUTH ONCE DAILY AT BEDTIME 02/21/20 23 Active sertraline (ZOLOFT) 100 mg tablet Take 1 tablet (100 mg total) by mouth. 09/08/19 18 Active tiZANidine (ZANAFLEX) 4 mg tablet Take 1 tablet (4 mg total) by mouth. 01/24/20 23 Active valsartan (DIOVAN) 80 mg tablet Take 1 tablet (80 mg total) by mouth 1 (one) time each day. 01/18/20 Active zolpidem (AMBIEN) 10 mg tablet TAKE ONE TABLET BY MOUTH AT BEDTIME FOR SLEEP 01/18/20 Active cetirizine (ZyrTEC) 10 mg tablet Take 1 tablet (10 mg total) by mouth daily. 12/01/192024 Active tamsulosin (FLOMAX) 0.4 mg 24 hr capsule Take 1 capsule (0.4 mg total) by mouth daily. 06/12/20 24 Active methocarbamoL (ROBAXIN) 750 mg tablet Take 2 tablets (1,500 mg total) by mouth 4 (four) times a day if needed for muscle spasms for up to 10 days. 40 each 07/30/19 25 Active ibuprofen (ADVIL,MOTRIN) 600 mg tablet Take 1 tablet (600 mg total) by mouth every 8 (eight) hours if needed for mild pain or moderate pain. 30 tablet 06/07/202024 Discontinued albuterol 2.5 mg /3 mL (0.083 %) nebulizer solution INHALE THE CONTENT OF 1 VIAL (3mls) VIA NEBULIZER EVERY 6 HOURS NEEDED FOR WHEEZING 02/18/202024 Discontinued benzonatate (TESSALON) 100 mg capsule Take 1 capsule (100 mg total) by mouth. 11/17/192024 Discontinued betamethasone, augmented, (DIPROLENE-AF) 0.05 % cream Apply topically. 08/16/192024 Discontinued brimonidine (ALPHAGAN) 0.2 % ophthalmic solution INSTILL 1 DROP IN EACH EYE 3 (THREE) TIMES A DAY 08/30/192024 Discontinued buPROPion SR (WELLBUTRIN SR) 150 mg 12 hr tablet TAKE ONE TABLET BY MOUTH 2 (two) times a day FOR 7 DAYS 04/16/20 19 2024 Discontinued dextromethorphan- guaiFENesin (Tussin DM) 10-100 mg/5 mL syrup Take 10 mL by mouth. 11/17/19 23 2024 Discontinued omeprazole (PriLOSEC) [address] capsule Take one capsule by mouth in the morning before breakfast 08/25/19 21 2024 Discontinued ondansetron ODT (ZOFRAN-ODT) 4 mg disintegrating tablet Take 1 tablet (4 mg total) by mouth. 06/28/20 21 2024 Discontinued inhalational spacing device (Jeferson Aerosol Johnson Enhancer) inhaler Use as instructed 04/22/20 22 2024 Discontinued bisacodyL (Dulcolax, bisacodyl,) 5 mg EC tablet 1 tablet (5 mg total). 10/05/19 18 2024 Discontinued diazePAM (VALIUM) 5 mg tablet 1 tablet (5 mg total). 09/16/19 18 2024 Discontinued polyethylene glycol (MIRALAX) 17 gram packet Empty entire bottle into 64 oz Gatorade 2 or if diabetic in 64 oz Crystal Light. Starting at 4pm drink 8oz every 20mins drink entire 64oz. 10/05/19 18 2024 Discontinued naproxen (EC NAPROSYN) 500 mg EC tablet Take by mouth. 2024 Discontinued acetaminophen (TYLENOL) 500 mg tablet Take 500 mg by mouth as needed. 2024 Discontinued naloxone (NARCAN) 4 mg/0.1 mL nasal spray Administer 1 each (4 mg total) into affected nostril(s) if needed. 2024 Discontinued pantoprazole (PROTONIX) 20 mg EC tablet Take 1 tablet (20 mg total) by mouth 1 (one) time each day before breakfast. 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 Whitfield, s/p right L4-5 decompression February 2018, reexploration with microdiscectomy 06/25/[address] Ken at [facility]. He was last seen in the office [...] spinal cord stimulator placed October [address] [facility] pain management. He comes in today describing pain in the right hip and lateral thigh to the knee, which he rates 7/10. He was not clear on whether he [...] GI for diverticulitis, recent ED visits at [facility]. Patient had CAT scan of the [...] also had a lumbar spine x-ray at [facility] 01/30/2023 that shows straightening of the normal [...] ordered right hip x-ray. I will call [employer] to see if he can have an MRI lumbar spine if he is not improving with time. (Card states his spinal cord stimulator is MRI conditional). All questions answered on today's visit. I asked him to call with any worsening symptoms, concerns or questions. Assessment & Plan (09/17/2024 10:11 AM EDT): I reviewed the new MRI information in detail with Mr. Gamino and though there are areas of right sided narrowing despite his previous surgeries, there is no visible left-sided nerve root compression. He is scribing a primarily S1 distribution. He has overall central stenosis at L2-3 but nothing on the left at any lower level. Given his tenderness, the positive compression test and his inability to sleep on the left side, I suspect this is left sacroiliitis. He believes the left-sided symptoms flared up to the change in gait from his right knee pain so this may all fit together. We discussed treatment options and he is willing to proceed with a left SI joint injection and [facility]. We will make that referral. Asthma 06/14/2022 Failed back syndrome of lumbar [...] Encounters Date Type Department Care Team Description 09/30/2024 6:56 AM EDT - 09/30/2024 11:59 PM EDT Hospital Encounter [facility] Interventional Radiology [address] [place] [phone] Lumbar spondylosis Discharge Disposition: Home or Self Care 09/18/2024 2:30 PM EDT Office Visit Orthopedics [address] [phone] Akhil Phillips PA Chronic pain of right knee (Primary Dx) 09/17/2024 9:30 AM EDT Office Visit Neurosurgery [place] [address] [phone] Richa Whitfield MD Lumbar spondylosis (Primary Dx) 09/16/2024 10:00 AM EDT Treatment [facility] [address] [phone] Cliff Wang PTA Chronic pain of right knee (Primary Dx) 09/12/2024 11:11 AM EST - 09/12/2024 11:59 PM EST Hospital Encounter [facility] MRI [address] [place] [phone] Chronic pain of right knee Discharge Disposition: Home or Self Care 09/12/2024 Telephone Orthopedics - [facility] [address] [place] [phone] Akhil Phillips PA 09/09/2024 10:00 AM EST Treatment [address] [phone] Leanna De Santiago, PT Chronic pain of right knee (Primary Dx) 09/05/2024 9:45 AM EST Office Visit Orthopedics - [address] [phone] Akhil Phillips PA Chronic pain of right knee (Primary Dx) 09/04/2024 10:00 AM EST Treatment [address] [phone] Cliff Wang, BRADDISHER Chronic pain of right knee (Primary Dx) 08/28/2024 10:30 AM EST Treatment [facility] [address] [phone] Leanna De Santiago, PT Chronic pain of right knee (Primary Dx) 08/26/2024 10:00 AM EST Treatment [facility] [address] [phone] Leanna De Santiago, PT Chronic pain of right knee (Primary Dx) 08/20/2024 10:00 AM EST Treatment [address] [phone] Ihsan Mckenzie, BRADDISHER Chronic pain of right knee (Primary Dx) 08/13/2024 11:00 AM EST Evaluation [address] [phone] Leanna De Santiago, PT Chronic pain of right knee 08/08/2024 11:16 AM EST - 08/08/2024 11:59 PM EST Hospital [facility] MRI [address] [place] [phone] Discharge Disposition: Home or Self Care 07/30/2024 2:53 PM EST - 07/30/2024 6:23 PM EST Emergency [facility] Emergency [address] [place] [address] Piriformis syndrome of right side (Primary Dx) Discharge Disposition: Home or Self Care 07/26/2024 12:30 PM EST Consult Orthopedics - [facility] [address], [place] [phone] Akhil Phillips PA Chronic pain of right knee 07/26/2024 11:47 AM EST - 07/26/2024 11:59 PM EST Hospital Encounter XRAY - [facility] [address], [place] [phone] Chronic pain of right knee Discharge Disposition: Home or Self Care from [...] 2018, reexploration with discectomy 06/25/2018, Dr. Ken [facility] OTHER SURGICAL HISTORY 10/2021 PROCEDURE: HISTORY OTHER; COMMENT: Spinal cord stimulator placed, [facility] pain management TOTAL KNEE ARTHROPLASTY PROCEDURE: NM [...] Assigned at Male 07/30/2024 3:55 PM EST Legal Sex Male 5:43 PM EST Gender Identity Male 07/30/2024 3:55 PM EST Sexual Orientation Straight 07/30/2024 3: 55 PM EST Obstetrics History Last Filed Vital Signs Vital Sign Reading Time Taken Comments Blood Pressure 121/69 09/30/2024 9:09 AM EDT Pulse 82 09/30/2024 9:09 AM EDT Temperature 36.1 ??C (97 ??F) 09/30/2024 7:11 AM EDT Respiratory Rate 16 09/30/2024 9:09 AM EDT Oxygen Saturation 97% 09/30/2024 9:09 AM EDT Inhaled Oxygen Concentration - - Weight 106 kg (233 lb) 09/18/2024 1:43 PM EDT Height 180.3 cm (5' 11 ) 09/18/2024 1:43 PM EDT Body Mass Index 32.5 09/18/2024 1:43 PM EDT Plan of Treatment Health Maintenance Due Date Last Done Comments [...] Zoster Vaccines Completed 06/14/2022, 08/16/2021 Pneumococcal Vaccine: 50+ Years Completed 09/13/2022, 09/13/2022, 08/16/2021, Additional history exists Pneumococcal Vaccine: Pediatrics (0 to 5 Years) and At-Risk Patients (6 to 64 Years) Completed 09/13/2022, 09/13/2022, 08/16/2021, Additional history exists Hepatitis B Vaccines Completed 09/23/2022, 06/14/20 22 Influenza Vaccine Completed 05/03/2024, , 05/13/2021, Additional [...] patient's age to complete this topic Meningococcal B Vaccine Aged Out No l onger eligible based on patient's age to complete this topic RSV Immunization Patients Under 20 months Aged Out No longer eligible based on patient's age to complete this topic Varicella Vaccines Aged Out No longer eligible based on patient's age to complete this topic Goals Goal Patient Goal Type Associated Problems Recent Progress Patient-Stated? Author STG (4 visits) General No Leanna De Santiago, PT Note: Pt will demonstrate compliance with HEP Pt will report decreased R knee pain to < 5/10 at worst Pt will increase hip IR PROM to 30 deg Pt will increase R hamstring length to < -35 deg Pt will ambulate without evidence of hip ABD on R and with increased R knee flexion during swing phase LTG (8 visits) General No Leanna De Santiago, PT Note: Pt will demonstrate independence with HEP Pt will report decreased R knee pain level to < 2/10 at worst Pt will increase hip MMT to 3/5 Pt will increase R knee MMT to 4+/5 Pt will demonstrate gait biomechanics WNL Procedures Procedure Name Priority Date/Time Associated Diagnosis Comments IR INJ ANES/STEROID NERVE SACROILIAC JOINT LEFT Routine 09/30/2024 9:10 AM EDT Lumbar spondylosis MR KNEE WO CONTRAST RIGHT Routine 09/12/2024 12:40 PM EST Chronic pain of right knee MR LUMBAR SPINE WO CONTRAST STAT 08/08/2024 12:33 PM EST COLLINS URINE CULTURE TUBE STAT 07/30/2024 5:01 PM EST URINALYSIS WITH REFLEX MICROSCOPIC AND CULTURE STAT 07/30/2024 5:01 PM EST URINALYSIS WITH REFLEX MICROSCOPIC AND CULTURE STAT 07/30/2024 5:01 PM EST NM ARTHROCENTESIS/ASPIRAT ION/INJECTION MAJOR JOINT/BURSA W/O U/S GUIDANCE Routine 07/26/2024 12:30 PM EST Chronic pain of right knee XR KNEE 4+ VIEWS RIGHT Routine 12:02 PM EST Chronic pain of right knee COMPREHENSIVE METABOLIC PANEL STAT 06/07/2024 1:17 AM EST LIPID PANEL Routine 2022 from Last 3 Months or Most Recently Relevant to Health Maintenance Results * IR Inj Anes/Steroid Nerve Sacroiliac Joint Left (09/30/2024 9:10 AM EDT) Anatomical Region Laterality Modality Left Interventional R adiology 10/01/2024 4:54 PM EDT Impressions 10/01/2024 4:54 PM EDT Left-sided CT-guided SI joint injection. -------- FINAL REPORT -------- Dictated By: Crystal Michele Dictated Date: 10/01/2024 16:54 ET Assigned Physician: Crystal Michele Reviewed and Electronically Signed By: Crystal Michele Signed Date: 10/01/2024 16:54 ET Workstation ID: [id number] Transcribed By: Self Edit Transcribed Date: 10/01/2024 16:54 ET Narrative 10/01/2024 4:54 PM EDT INDICATION: Sacroiliitis with left leg pain PROCEDURE: Left CT-guided SI joint injection under conscious sedation prior relevant studies: none MEDICATIONS: Local anesthesia: 5 cc of 1% buffered lidocaine administered subcutaneously. Sedation: Moderate intravenous sedation was initiated and maintained for 30 minutes while the patient was independently monitored by the radiology nurse under the supervision of the interventional radiologist. A total of 2 mg of Versed and 100 mcg of fentanyl administered during the procedure. Other: 80 mg of Depot Medrol mixed with 2 mL of bupivacaine Scanner: VividCortex speed 4 slice VCT Dose reduction technique: ASIR (Adaptive statistical iterative reconstruction) and/or AEC (automated exposure control) Dose: total exam DLP 175 mGY per cm ? TECHNIQUE: Informed consent obtained. Patient placed prone on the CAT scan table and multiple axial images obtained of the pelvis for localization. After localization the site was draped and prepped sterilely. Timeout performed followed by administration of local anesthetic. Under CT fluoroscopic guidance a 22-gauge needle was advanced into the posterior aspect of the inferior SI joint. FINDINGS: Initial axial images obtained for localization. CT fluoroscopic images confirm needle positioning within the posterior aspect of the localized joint. Procedure Note Crystal Michele MD - 10/01/2024 INDICATION: Sacroiliitis with left leg pain PROCEDURE: Left CT-guided SI joint injection under conscious sedation prior relevant studies: none MEDICATIONS: Local anesthesia: 5 cc of 1% buffered lidocaine administeredsubcutaneously. Sedation: Moderate intravenous sedation was initiated and maintained for30 minutes while the patient was independently monitored by the radiologynurse under the supervision of the interventional radiologist. A total of2 mg of Versed and 100 mcg of fentanyl administered during theprocedure. Other: 80 mg of Depot Medrol mixed with 2 mL of bupivacaine Scanner: VividCortex speed 4 slice VCT Dose reduction technique: ASIR (Adaptive statistical iterativereconstruction) and/or AEC (automated exposure control) Dose: total exam DLP 175 mGY per cm TECHNIQUE: Informed consent obtained. Patient placed prone on the CAT scantable and multiple axial images obtained of the pelvis for localization.After localization the site was draped and prepped sterilely. Timeoutperformed followed by administration of local anesthetic. Under CTfluoroscopic guidance a 22-gauge needle was advanced into the posterioraspect of the inferior SI joint. FINDINGS: Initial axial images obtained for localization. CT fluoroscopicimages confirm needle positioning within the posterior aspect of thelocalized joint. IMPRESSION: Left-sided CT-guided SI joint injection. -------- FINAL REPORT -------- Dictated By: Crystal Michele Dictated Date: 10/01/2024 16:54 ET Assigned Physician: Crystal Michele Reviewed and Electronically Signed By: Crystal Michele Signed Date: 10/01/2024 16:54 ET Workstation ID: [id number] Transcribed By: Self Edit Transcribed Date: 10/01/2024 16:54 ET us Richa Whitfield MD IMG IR PROCEDURES Final Result * MR Knee wo Contrast Right (09/12/2024 12:40 PM EST) Anatomical Region Laterality Modality Lower Extremities, Knee Right Magnetic Resonance 09/12/2024 12:5 8 PM EST Impressions 09/12/2024 1:08 PM EST No meniscal or ligamentous injury. Quadriceps and patellar tendinosis without tear. Minimal medial compartment predominant cartilage loss. -------- FINAL REPORT -------- Dictated By: PEDRO BECKWITH Dictated Date: 09/12/2024 12:58 ET Assigned Physician: PEDRO BECKWITH Reviewed and Electronically Signed By: PEDRO BECKWITH Signed Date: 09/12/2024 13:08 ET Workstation ID: [id number] Transcribed By: Self Edit Transcribed Date: 09/12/2024 12:58 ET Narrative 09/12/2024 1:08 PM EST PROCEDURE: Right knee MRI INDICATION: Pain TECHNIQUE: Multiplanar, multisequence MRI of the right knee Without contrast. COMPARISON: ??No priors available. FINDINGS: Medial meniscus is intact. ??Mild partial-thickness cartilage loss along the central portion of the medial femoral condyle.. Lateral meniscus is intact. ??No focal cartilage defects in the lateral compartment. Patellofemoral alignment is normal. ??No focal cartilage defects in the patellofemoral compartment. ??Patellar retinacular structures are intact. No fracture or suspicious marrow replacing lesion. Anterior cruciate ligament and posterior cruciate ligament are intact. Collateral ligaments are intact. Extensor mechanism is intact noting quadriceps and patellar tendinosis. Biceps femoris, iliotibial band, and popliteal tendon are intact. Medial tendons are intact. No significant joint effusion or Smith's cyst. Muscles are normal. ??No mass or fluid collection. Procedure Note Pedro Beckwith MD - 09/12/2024 PROCEDURE: Right knee MRI INDICATION: Pain TECHNIQUE: Multiplanar, multisequence MRI of the right knee Withoutcontrast. COMPARISON: No priors available. FINDINGS: Medial meniscus is intact. Mild partial-thickness cartilage loss alongthe central portion of the medial femoral condyle.. Lateral meniscus is intact. No focal cartilage defects in the lateralcompartment. Patellofemoral alignment is normal. No focal cartilage defects in thepatellofemoral compartment. Patellar retinacular structures are intact. No fracture or suspicious marrow replacing lesion. Anterior cruciate ligament and posterior cruciate ligament are intact. Collateral ligaments are intact. Extensor mechanism is intact noting quadriceps and patellar tendinosis. Biceps femoris, iliotibial band, and popliteal tendon are intact. Medial tendons are intact. No significant joint effusion or Smith's cyst. Muscles are normal. No mass or fluid collection. IMPRESSION: No meniscal or ligamentous injury. Quadriceps and patellar tendinosis without tear. Minimal medial compartment predominant cartilage loss. -------- FINAL REPORT -------- Dictated By: PEDRO BECKWITH Dictated Date: 09/12/2024 12:58 ET Assigned Physician: PEDRO BECKWITH Reviewed and Electronically Signed By: PEDRO BECKWITH Signed Date: 09/12/2024 13:08 ET Workstation ID: [id number] Transcribed By: Self Edit Transcribed Date: 09/12/2024 12:58 ET Akhil [facility] IM MRI PROCEDURES Final Result * MR Lumbar Spine wo Contrast (08/08/2024 12:33 PM EST) Anatomical Region Laterality Modality L-spine, Spine Magnetic Resonan ce 08/08/2024 1:21 PM EST Impressions 08/08/2024 1:34 PM EST 1. ??No acute fracture. ??Degenerative changes as above with spinal stenosis most significant at L2-3. -------- FINAL REPORT -------- Dictated By: Bonnie Louise Dictated Date: 08/08/2024 13:21 ET Assigned Physician: Bonnie Louise Reviewed and Electronically Signed By: Bonnie Louise Signed Date: 08/08/2024 13:34 ET Workstation ID: [id number] Transcribed By: Self Edit Transcribed Date: 08/08/2024 13:21 ET Narrative 08/08/2024 1:34 PM EST MRI LUMBAR SPINE W/O CONTRAST INDICATION: right low back/buttocks pain, acute/chronic COMPARISON: None. TECHNIQUE: Sagittal T1, T2, and STIR images through the entire lumbar spine, and axial dual-echo T2-weighted images at multiple levels were obtained. FINDINGS: Lumbar vertebral bodies are aligned without subluxation. Normal marrow signal is seen. Vertebral body height is preserved. No fracture is seen. No masses are noted. The conus medullary terminates at the L1-2 level and is of normal signal and morphology. T12-L1: ??there is no evidence of disc protrusion. The thecal sac is patent. The neural foramina are patent. There is no evidence of nerve root impingement. L1-2: there is no evidence of disc protrusion. The thecal sac is patent. The neural foramina are patent. There is no evidence of nerve root impingement. L2-3: There is a circumferential disc bulge and moderate facet arthropathy which results in moderate to severe spinal stenosis at this level. ??There is narrowing of the subarticular recess. ??No significant neural foraminal narrowing L3-4: Circumferential disc bulge and mild to moderate arthropathy results in mild to moderate spinal stenosis. ??There is no significant neural foraminal narrowing. L4-5: Circumferential disc bulge and facet arthropathy results in mild spinal stenosis. ??There is right greater than left facet arthropathy at this level. ??There is mild right greater than left bilateral neural foraminal narrowing. ??There is narrowing of the subarticular zone on the right which may contact the traversing nerve root. L5-S1: Mild circumferential disc bulge. ??There is right greater than left facet arthropathy which narrows the subarticular recess on the right and may contact the traversing root. Procedure Note Bonnie Louise MD - 08/08/2024 MRI LUMBAR SPINE W/O CONTRAST INDICATION: right low back/buttocks pain, acute/chronic COMPARISON: None. TECHNIQUE: Sagittal T1, T2, and STIR images through the entire lumbar spine, andaxial dual- echo T2-weighted images at multiple levels were obtained. FINDINGS: Lumbar vertebral bodies are aligned without subluxation. Normal marrowsignal is seen. Vertebral body height is preserved. No fracture is seen.No masses are noted. The conus medullary terminates at the L1-2 level andis of normal signal and morphology. T12-L1: there is no evidence of disc protrusion. The thecal sac ispatent. The neural foramina are patent. There is no evidence of nerve rootimpingement. L1-2: there is no evidence of disc protrusion. The thecal sac is patent.The neural foramina are patent. There is no evidence of nerve rootimpingement. L2-3: There is a circumferential disc bulge and moderate facet arthropathywhich results in moderate to severe spinal stenosis at this level. Thereis narrowing of the subarticular recess. No significant neural foraminalnarrowing L3-4: Circumferential disc bulge and mild to moderate arthropathy resultsin mild to moderate spinal stenosis. There is no significant neuralforaminal narrowing. L4-5: Circumferential disc bulge and facet arthropathy results in mildspinal stenosis. There is right greater than left facet arthropathy atthis level. There is mild right greater than left bilateral neuralforaminal narrowing. There is narrowing of the subarticular zone on theright which may contact the traversing nerve root. L5-S1: Mild circumferential disc bulge. There is right greater than leftfacet arthropathy which narrows the subarticular recess on the right andmay contact the traversing root. IMPRESSION: 1. No acute fracture. Degenerative changes as above with spinal stenosismost significant at L2-3. -------- FINAL REPORT -------- Dictated By: Bonnie Louise Dictated Date: 08/08/2024 13:21 ET Assigned Physician: Bonnie Louise Reviewed and Electronically Signed By: Bonnie Louise Signed Date: 08/08/2024 13:34 ET Workstation ID: [id number] Transcribed By: Self Edit Transcribed Date: 08/08/2024 13:21 ET James [facility] MRI PROCEDURES Final Result * Urinalysis with reflex microscopic and culture (07/30/2024 5:01 PM EST) Specific [place] Urine 1.020 1.003 - 1.030 LAB URINALYSIS - AUTOMATED METHOD 07/30/2024 5:28 PM [facility] pH, Urine 7.5 5.0 - 8.0 pH LAB URINALYSIS - AUTOMATED METHOD 07/30/2024 5:28 PM [facility] Leukocytes, Urine Negative Negative LAB URINALYSIS - AUTOMATED METHOD 07/30/2024 5:28 PM [facility] Nitrite, Urine Negative Negative LAB URINALYSIS - AUTOMATED METHOD 07/30/2024 5:28 PM [facility] Protein, Urine Negative <=Trace mg/dL LAB URINALYSIS - AUTOMATED METHOD 07/30/2024 5:28 PM [facility] Glucose, Urine Negative Negative mg/dL LAB URINALYSIS - AUTOMATED METHOD 07/30/2024 5:28 PM [facility] Ketones, Urine Negative Negative mg/dL LAB URINALYSIS - AUTOMATED METHOD 07/30/2024 5:28 PM [facility] Urobilinogen, Urine 0.2 0.2 - 1.0 mg/dL LAB URINALYSIS - AUTOMATED METHOD 07/30/2024 5:28 PM [facility] Bilirubin, Urine Negative Negative LAB URINALYSIS - AUTOMATED METHOD 07/30/2024 5:28 PM [facility] Blood, Urine Negative Negative LAB URINALYSIS - AUTOMATED METHOD 07/30/2024 5:28 PM [facility] Urine Urine specimen obtained by clean catch procedure / Unknown Non-blood Collection / Unknown 07/30/2024 5:01 PM EST 07/30/2024 5:18 PM EST Marilyn CAVAZOS LAB URINE ORDERABLES Fin al Result Performing Organization Address [facility]/ZIP Co de Phone Number [facility] [address] [place] [address], [place] [phone] * Collins urine culture tube (07/30/2024 5:01 PM EST) Extra Tube Hold for add-ons. 07/30/2024 7:01 PM EST [facility] Comment:Auto resulted. Urine Urine specimen obtained by clean catch procedure / Unknown Non-blood Collection / Unknown 07/30/2024 5:01 PM EST 07/30/2024 5:17 PM EST Marilyn CAVAZOS LAB URINE ORDERABLES Fin al Result [facility] [address] [place] [address], [place] [phone] * NM ARTHROCENTESIS/ASPIRATION/INJECTION MAJOR JOINT/BURSA W/O U/S GUIDANCE (07/26/2024 12:30 PM EST) Narrative Aung Samuel MD - 07/26/2024 12:30 PM EST DIRK Mac ? 07/26/2024 12:52 PM L Inj/Asp: R knee Indications: pain Details: 22 G needle, anterolateral approach Medications: 4 mL lidocaine 1 %; 80 mg methylPREDNISolone acetate 80 mg/mL Informed Consent: ??Site: ??Knee ??Laterality: ??Right ??Relevant images/test results available and reviewed: yes ?Health status cleared: ??Yes ??Procedure/treatment, purpose, treatment alternatives, risks/potential complications and benefits explained: yes ?Risk/complications/benefits details: ??Risks include but are not limited to: The treatment may not accomplish the desired results. ??Additionally bleeding, infection, damage to tendon, nerve, cartilage, muscle; thinning or lightening of the skin in the area of injection; flushing or redness of the face, elevated blood pressure or blood sugar, allergic reaction, rash, increased pain Benefits include relief of inflammation and pain ??Patient questions answered: yes ?Patient agrees, verbalizes understanding, and wants to proceed: yes ?Consent given by: ??Patient ??Informed consent discussion completed by Physician/HAYDEE with patient: ?? Verbal ??Pre-procedure timeout performed: yes ?? Akhil CAVAZOS IN CLINIC/BEDSIDE ORDERABLES Fin al Result * XR Knee 4+ Views Right (07/26/2024 [...] Signed Date: 07/26/2024 16:27 ET Workstation ID: [id number] Transcribed By: Self Edit Transcribed Date: 07/26/2024 [...] Signed Date: 07/26/2024 16:27 ET Workstation ID: [id number] Transcribed By: Self Edit Transcribed Date: 07/26/2024 16:25 ET Akhil CAVAZOS IMG XR PROCEDURES Final Result * (ABNORMAL) Comprehensive metabolic panel (06/07/2024 1:17 AM EST) Sodium 141 133 - 145 mmol/L LAB CHEMISTRY METHOD 06/07/2024 2:17 AM EST [facility] Potassium 4.0 3.5 - 5.5 mmol/L LAB CHEMISTRY METHOD 06/07/2024 2:17 AM EST [facility] Chloride 106 96 - 110 mmol/L LAB CHEMISTRY METHOD 06/07/2024 2:17 AM [facility] CO2 29 21 - 32 mmol/L LAB CHEMISTRY METHOD 06/07/2024 2:17 AM [facility] Anion Gap 6 3 - 11 LAB CHEMISTRY METHOD 06/07/2024 2:17 AM [facility] Glucose 123(H) 70 - 100 mg/dL LAB CHEMISTRY METHOD 06/07/2024 2:17 AM [facility] BUN 24 5 - 25 mg/dL LAB CHEMISTRY METHOD 06/07/2024 2:17 AM [facility] Creatinine 1.83(H) 0.70 - 1.30 mg/dL LAB CHEMISTRY METHOD 06/07/2024 2:17 AM [facility] eGFR 43(L) >=60 mL/min/1. 73m2 LAB CHEMISTRY METHOD 06/07/2024 2:17 AM [facility] Comment:Calculation based on the??Chronic Kidney Disease Epidemiology Collaboration (CKD-EPI) equation refit??without adjustment for race. BUN/Creatinine Ratio 13.1 LAB CHEMISTRY METHOD 06/07/2024 2:17 AM [facility] Calcium 9.2 8.5 - 10.5 mg/dL LAB CHEMISTRY METHOD 06/07/2024 2:17 AM [facility] AST (SGOT) 30 10 - 42 unit/L LAB CHEMISTRY METHOD 06/07/2024 2:17 AM [facility] ALT (SGPT) 46 10 - 60 unit/L LAB CHEMISTRY METHOD 06/07/2024 2:17 AM [facility] Alkaline Phosphatase 85 42 - 121 unit/L LAB CHEMISTRY METHOD 06/07/2024 2:17 AM [facility] Total Protein 7.0 6.0 - 8.0 g/dL LAB CHEMISTRY METHOD 06/07/2024 2:17 AM [facility] Albumin 3.8 3.2 - 5.0 g/dL LAB CHEMISTRY METHOD 06/07/2024 2:17 AM EST [facility] Total Bilirubin 0.6 0.0 - 1.4 mg/dL LAB CHEMISTRY METHOD 06/07/2024 2:17 AM EST [facility] Blood Venous blood specimen / Unknown Venipuncture / Unknown 06/07/2024 1:17 AM EST 06/07/2024 1:51 AM EST Nury Guevara MD LAB BLOOD ORDERABLES Fin al Result [facility] [address] [place] [address], * Lipid panel (2022) LDL/HDL Ratio 0 Comment:abstracted, no inter pretation Triglycerides 0 mg/dL Comment:abstracted, no inter pretation Cholesterol 0 mg/dL Comment:abstracted, no inter pretation HDL 0 mg/dL Comment:abstracted, no inter pretation LDL Cholesterol 0 mg/dL Comment:abstracted, no inter pretation Blood Venous blood specimen / Unknown Historical Provider LAB BLOOD ORDERABLES Anel l Result from Last 3 Months or Most Recently Relevant to Health Maintenance Insurance MEDICAID - [place] Care Teams Dry Cell Tester Relationship Specialty Start Date End Date Cricket Wills PA [address] [place] [address] PCP - General Physician Crystal Calibrator 08/14/19
--- OUTSIDE RECORDS SUMMARY | 2024-10-16 06:44 | XMS_ITS | Encounter Summary ---
Author Organization [facility] Address [address] [place] [address] Care Team Providers Care Steam Turbine Operator Name Role Phone Cricket Wills Primary Care Provider [phone] Reason for Visit * Reason Comments Care Coordination Patient asked to shelly t with this CHW today. Encounter Details Date Type Department Care Team (Late st Contact Info) Description 01/26/2018 Interim Notes [facility] [address] [place] [phone] Sierra Ware, Community Health Worker [address] [place] [address] Social History Tobacco Use Types Packs/Day Years [...] Description 10/25/2024 10:00 AM EDT Office Visit [facility] [address] [place] [phone] Ihsan Gibbs, PharmD [address] [place] [address] Cathy Ware [address] [place] [address] 10/30/2024 1:00 PM EDT Office Visit [facility] [address] [place] [address] Margarito Leger [address] [place] [address] 11/07/2024 9:40 AM EDT Telemedicine Visit [facility] [address] [place] [address] Brenton Mcfadden, RD [address] [place] [address] documented as of this encounter Visit Diagnoses Not on filedocumented in this encounter Additional Health Concerns Infection Onset Date Last Indicated Resolved Time COVID-19 Comment:Patient tested negative for Covid-19 05/03/22 05/03/2022 05/03/2022 05/03/2022 7:32 AM P DT documented as of this encounter Care Teams Steam Turbine Operator Relationship Specialty Start Date End Date Cricket Wills PA [address] [place] [address] PCP - General Internal Medicine 07/08/17 documented as of this encounter
--- OUTSIDE RECORDS SUMMARY | 2024-10-16 06:44 | XMS_ITS | Encounter Summary ---
Author Organization [facility] Address [address] [place] [address] Care Team Providers Care Warp Preparer Name Role Phone Cricket Wills Primary Care Provider [phone] Encounter Details Date Type Department Care Team (Late st Contact Info) Description 02/07/2022 Dental Interim Note [facility] Dental [address] [place] [phone] Mellissa Hernandez DDS [address] [place] [address] Social History Tobacco Use Types Packs/Day Years [...] 10/25/2024 10:00 AM EDT Office Visit [facility] [address] [place] [address] Ihsan Gibbs, BryanD [address] [place] [address] Cathy Ware [address] [place] [address] 10/30/2024 1:00 PM EDT Office Visit [facility] [address] [place] [phone] Margarito Leger [address] [place] [address] 11/07/2024 9:40 AM EDT Telemedicine Visit [facility] [address] [place] [phone] Brenton Mcfadden, RD [address] [place] [address] documented as of this encounter Goals Goal [...] documented as of this encounter Care Teams Warp Preparer Relationship Specialty Start Date End Date Cricket Wills PA [address] [place] [address] PCP - General Internal Medicine 07/08/17 documented as of this encounter
== END 2024-10-16 06:43 | disposition home or self-care (01) ==
LOC: HO.CT 06:42
PROVIDERS: PCP Physician Assistant; Visit Provider Nurse Practitioner Family
DX: N20.0 Calculus of kidney (principal); R10.9 Unspecified abdominal pain; R30.0 Dysuria
CPT/HCPCS: 74176

== ENCOUNTER → 2024-10-16 06:45 | Outpatient (BNV) | payer MEDICAID, SELFPAY | PROVIDERS: PCP Physician Assistant; Visit Provider Radiology Diagnostic Radiology | DX: N20.0 Calculus of kidney (principal); K44.9 Diaphragmatic hernia without obstruction or gangrene; K57.30 Diverticulosis of large intestine without perforation or abscess without bleeding | CPT/HCPCS: 74176 ==

== ENCOUNTER 2024-10-21 08:16 | Outpatient (AMB) | payer MEDICAID, SELFPAY ==
--- OUTSIDE RECORDS SUMMARY | 2024-10-21 08:35 | XMS_ITS | Clinical Summary ---
Author Organization [facility] Address [address] [place] [phone] Phone Care Team Providers Care Sewing Inspector Name Role Phone Cricket Wills Primary Care Provider [phone] Allergies No known active allergies Medications clonazePAM [...] 2024 Discontinued inhalational spacing device (Jeferson Aerosol Robertson Enhancer) inhaler Use as instructed 04/22/20 22 [...] with microdiscectomy 06/25/[address] Ken at [facility]. He was last seen in the [...] GI for diverticulitis, recent ED visits at [facility]. Patient had CAT scan of the [...] ordered right hip x-ray. I will call [employer] to see if he can have an [...] - 09/30/2024 11:59 PM EDT Hospital Encounter [facility] Interventional Radiology [address] [place] [phone] Lumbar spondylosis Discharge Disposition: Home or Self Care 09/18/2024 2:30 PM EDT Office Visit Orthopedics [address] [phone] Akhil Phillips PA Chronic pain of right knee (Primary Dx) 09/17/2024 9:30 AM EDT Office Visit Neurosurgery [facility] [address] [phone] Richa Whitfield MD Lumbar spondylosis (Primary Dx) 09/16/2024 10:00 AM EDT Treatment [facility] [address] [phone] Cliff Wang PTA Chronic pain of right knee (Primary Dx) 09/12/2024 11:11 AM EST - 09/12/2024 11:59 PM EST Hospital Encounter [facility] MRI [address] [place] [phone] Chronic pain of right knee Discharge Disposition: Home or Self Care 09/12/2024 Telephone Orthopedics - [place] [address] [place] [address] Akhil Phillips PA 09/09/2024 10:00 AM EST Treatment [address] [phone] Leanna De Santiago, PT Chronic pain of right knee (Primary Dx) 09/05/2024 9:45 AM EST Office Visit Orthopedics - [address] [phone] Akhil Phillips PA Chronic pain of right knee (Primary Dx) 09/04/2024 10:00 AM EST Treatment [address] [phone] Cliff Wang, CURBSTONE SETTER Chronic pain of right knee (Primary Dx) 08/28/2024 10:30 AM EST Treatment [facility] [address] [phone] Leanna De Santiago, PT Chronic pain of right knee (Primary Dx) 08/26/2024 10:00 AM EST Treatment [facility] [address] [phone] Leanna De Santiago, PT Chronic pain of right knee (Primary Dx) 08/20/2024 10:00 AM EST Treatment [address] [phone] Ihsan Mckenzie, CURBSTONE SETTER Chronic pain of right knee (Primary Dx) 08/13/2024 11:00 AM EST Evaluation [address] [phone] Leanna De Santiago, PT Chronic pain of right knee 08/08/2024 11:16 AM EST - 08/08/2024 11:59 PM EST Hospital [facility] MRI [address] [place] [phone] Discharge Disposition: Home or Self Care 07/30/2024 2:53 PM EST - 07/30/2024 6:23 PM EST Emergency [facility] Emergency [address] [place] [address] Piriformis syndrome of right side (Primary Dx) Discharge Disposition: Home or Self Care 07/26/2024 12:30 PM EST Consult Orthopedics - [place] [address] [place], [place] [phone] Akhil Phillips PA Chronic pain of right knee 07/26/2024 11:47 AM EST - 07/26/2024 11:59 PM EST Hospital Encounter XRAY - [place] [address] [place], [place] [phone] Chronic pain of right knee Discharge Disposition: [...] HISTORY OTHER; COMMENT: Spinal cord stimulator placed, [facility] pain management TOTAL KNEE ARTHROPLASTY PROCEDURE: ID ARTHRP KNE CONDYLE&PLATU MEDIAL&LAT COMPARTMENTS; COMMENT: Right [...] AND CULTURE STAT 07/30/2024 5:01 PM EST ID ARTHROCENTESIS/ASPIRAT ION/INJECTION MAJOR JOINT/BURSA W/O U/S GUIDANCE [...] Signed Date: 10/01/2024 16:54 ET Workstation ID: [id number] Transcribed By: Self Edit Transcribed Date: 10/01/2024 [...] mixed with 2 mL of bupivacaine Scanner: [employer] speed 4 slice VCT Dose reduction technique: [...] mixed with 2 mL of bupivacaine Scanner: [employer] speed 4 slice VCT Dose reduction technique: [...] Signed Date: 10/01/2024 16:54 ET Workstation ID: [id number] Transcribed By: Self Edit Transcribed Date: 10/01/2024 [...] Signed Date: 09/12/2024 13:08 ET Workstation ID: [id number] Transcribed By: Self Edit Transcribed Date: 09/12/2024 [...] Signed Date: 09/12/2024 13:08 ET Workstation ID: [id number] Transcribed By: Self Edit Transcribed Date: 09/12/2024 [...] Signed Date: 08/08/2024 13:34 ET Workstation ID: [id number] Transcribed By: Self Edit Transcribed Date: 08/08/2024 [...] Signed Date: 08/08/2024 13:34 ET Workstation ID: [id number] Transcribed By: Self Edit Transcribed Date: 08/08/2024 13:[address] [facility] MRI PROCEDURES Final Result * Urinalysis with reflex microscopic and culture (07/30/2024 5:01 PM EST) Specific [place] Urine 1.020 1.003 - 1.030 LAB URINALYSIS - AUTOMATED METHOD 07/30/2024 5:28 PM [facility] pH, Urine 7.5 5.0 - 8.0 pH LAB URINALYSIS - AUTOMATED METHOD 07/30/2024 5:28 PM [facility] Leukocytes, Urine Negative Negative LAB URINALYSIS - AUTOMATED METHOD 07/30/2024 5:28 PM [facility] Nitrite, Urine Negative Negative LAB URINALYSIS - AUTOMATED METHOD 07/30/2024 5:28 PM [facility] Protein, Urine Negative <=Trace mg/dL LAB URINALYSIS - AUTOMATED METHOD 07/30/2024 5:28 PM [facility] Glucose, Urine Negative Negative mg/dL LAB URINALYSIS - AUTOMATED METHOD 07/30/2024 5:28 PM [facility] Ketones, Urine Negative Negative mg/dL LAB URINALYSIS - AUTOMATED METHOD 07/30/2024 5:28 PM [facility] Urobilinogen, Urine 0.2 0.2 - 1.0 mg/dL LAB URINALYSIS - AUTOMATED METHOD 07/30/2024 5:28 PM [facility] Bilirubin, Urine Negative Negative LAB URINALYSIS - AUTOMATED METHOD 07/30/2024 5:28 PM [facility] Blood, Urine Negative Negative LAB URINALYSIS - AUTOMATED METHOD 07/30/2024 5:28 PM [facility] Urine Urine specimen obtained by clean catch procedure / Unknown Non-blood Collection / Unknown 07/30/2024 5:01 PM EST 07/30/2024 5:18 PM EST Marilyn CAVAZOS LAB URINE ORDERABLES Fin al Result Performing Organization Address [facility]/ZIP Co de Phone Number [facility] [address] [place] [address], [place] [phone] * Collins urine culture tube (07/30/2024 5:01 PM EST) Extra Tube Hold for add-ons. 07/30/2024 7:01 PM EST [facility] Comment:Auto resulted. Urine Urine specimen obtained by clean catch procedure / Unknown Non-blood Collection / Unknown 07/30/2024 5:01 PM EST 07/30/2024 5:17 PM EST Marilyn CAVAZOS LAB URINE ORDERABLES Fin al Result [facility] [address] [place] [address], [place] [phone] * ID ARTHROCENTESIS/ASPIRATION/INJECTION MAJOR JOINT/BURSA W/O U/S GUIDANCE (07/26/2024 [...] Signed Date: 07/26/2024 16:27 ET Workstation ID: [id number] Transcribed By: Self Edit Transcribed Date: 07/26/2024 [...] Signed Date: 07/26/2024 16:27 ET Workstation ID: [id number] Transcribed By: Self Edit Transcribed Date: 07/26/2024 16:25 ET Akhil CAVAZOS IMG XR PROCEDURES Final Result * (ABNORMAL) Comprehensive metabolic panel (06/07/2024 1:17 AM EST) Sodium 141 133 - 145 mmol/L LAB CHEMISTRY METHOD 06/07/2024 2:17 AM EST [facility] Potassium 4.0 3.5 - 5.5 mmol/L LAB CHEMISTRY METHOD 06/07/2024 2:17 AM EST [facility] Chloride 106 96 - 110 mmol/L LAB CHEMISTRY METHOD 06/07/2024 2:17 AM [facility] CO2 29 21 - 32 mmol/L LAB CHEMISTRY METHOD 06/07/2024 2:17 AM [facility] Anion Gap 6 3 - 11 LAB CHEMISTRY METHOD 06/07/2024 2:17 AM [facility] Glucose 123(H) 70 - 100 mg/dL LAB CHEMISTRY METHOD 06/07/2024 2:17 AM [facility] BUN 24 5 - 25 mg/dL LAB CHEMISTRY METHOD 06/07/2024 2:17 AM [facility] Creatinine 1.83(H) 0.70 - 1.30 mg/dL LAB CHEMISTRY METHOD 06/07/2024 2:17 AM [facility] eGFR 43(L) >=60 mL/min/1. 73m2 LAB CHEMISTRY METHOD 06/07/2024 2:17 AM [facility] Comment:Calculation based on the??Chronic Kidney Disease Epidemiology Collaboration (CKD-EPI) equation refit??without adjustment for race. BUN/Creatinine Ratio 13.1 LAB CHEMISTRY METHOD 06/07/2024 2:17 AM [facility] Calcium 9.2 8.5 - 10.5 mg/dL LAB CHEMISTRY METHOD 06/07/2024 2:17 AM [facility] AST (SGOT) 30 10 - 42 unit/L LAB CHEMISTRY METHOD 06/07/2024 2:17 AM [facility] ALT (SGPT) 46 10 - 60 unit/L LAB CHEMISTRY METHOD 06/07/2024 2:17 AM [facility] Alkaline Phosphatase 85 42 - 121 unit/L LAB CHEMISTRY METHOD 06/07/2024 2:17 AM [facility] Total Protein 7.0 6.0 - 8.0 g/dL LAB CHEMISTRY METHOD 06/07/2024 2:17 AM [facility] Albumin 3.8 3.2 - 5.0 g/dL LAB CHEMISTRY METHOD 06/07/2024 2:17 AM EST [facility] Total Bilirubin 0.6 0.0 - 1.4 mg/dL LAB CHEMISTRY METHOD 06/07/2024 2:17 AM EST [facility] Blood Venous blood specimen / Unknown Venipuncture / Unknown 06/07/2024 1:17 AM EST 06/07/2024 1:51 AM EST Nury Guevara MD LAB BLOOD ORDERABLES Fin al Result [facility] [address] [place] [address], * Lipid panel (2022) LDL/HDL Ratio 0 [...] Maintenance Insurance MEDICAID - [place] Care Teams Sewing Inspector Relationship Specialty Start Date End Date Cricket Wills PA [address] [place] [phone] PCP - General Physician Manager Of Broadcast Content 08/14/19
--- OUTSIDE RECORDS SUMMARY | 2024-10-21 08:35 | XMS_ITS | Encounter Summary ---
Author Organization [facility] Address [address] [place] [address] Care Team Providers Care Fur Vault Attendant Name Role Phone Cricket Wills Primary Care Provider [phone] Reason for Visit * Reason Comments Care Coordination Patient asked to shelly t with this CHW today. Encounter Details Date Type Department Care Team (Late Contact Info) Description 01/26/2018 Interim Notes [facility] [place] [address] [place] [phone] Sierra Ware, Community Health Worker [address] [place] [address] Social History Tobacco Use Types Packs/Day Years [...] Description 10/25/2024 10:00 AM EDT Office Visit [facility] [address] [place] [phone] Ihsan Gibbs, PharmD [address] [place] [address] Arnav Morales [address] [place], [place] [phone] 10/30/2024 1:00 PM EDT Office Visit [facility] [address] [place] [phone] Margarito Leger [address] [place] [address] 11/07/2024 9:40 AM EDT Telemedicine Visit [facility] [address] [place] [phone] Brenton Mcfadden, RD [address] [place] [address] documented as of this encounter Visit Diagnoses Not on filedocumented in this encounter Additional Health Concerns Infection Onset Date Last Indicated Resolved Time COVID-19 Comment:Patient tested negative for Covid-19 05/03/22 05/03/2022 05/03/2022 05/03/2022 7:32 AM P DT documented as of this encounter Care Teams Fur Vault Attendant Relationship Specialty Start Date End Date Cricket Wills PA [address] [place] [address] PCP - General Internal Medicine 07/08/17 documented as of this encounter
--- OUTSIDE RECORDS SUMMARY | 2024-10-21 08:36 | XMS_ITS | Encounter Summary ---
Author Organization [facility] Address [address] [place] [address] Care Team Providers Care Installer Soft Top Name Role Phone Cricket Wills Primary Care Provider [phone] Encounter Details Date Type Department Care Team (Late st Contact Info) Description 02/07/2022 Dental Interim Note [facility]aring [facility] Main [address] Dental [address] [place] [phone] Marleny Cormier 10[address] [place], [place] [phone] Social History Tobacco Use Types Packs/Day Years [...] Description 10/25/2024 10:00 AM EDT Office Visit [facility] [address] [place] [address] Ihsan Gibbs, BryanD 1049 [place] [address] rAnav Morales 1049 [place] [address] 10/30/2024 1:00 PM EDT Office Visit [facility] [address] Dental [address] [place] [phone] Margarito Leger 1049 [place] [address] 11/07/2024 9:40 AM EDT Telemedicine Visit [facility] [address] [place] [phone] Brenton Mcfadden, RD 1040 - 1050 [place] [address] documented as of this encounter Goals Goal [...] documented as of this encounter Care Teams Installer Soft Top Relationship Specialty Start Date End Date Cricket Wills PA [address] [place] [address] PCP - General Internal Medicine 07/08/17 documented as of this encounter
--- OUTSIDE RECORDS SUMMARY | 2024-10-21 08:36 | XMS_ITS | Clinical Summary ---
Author Organization [facility] Address [address] [place] [address] Care Team Providers Care Color Control Operator Name Role Phone Cricket Wills Primary Care Provider [phone] Source Comments PLEASE NOTE, if this patient [...] back syndrome of lumbar spine,Sacral nerve root compression,Software Quality Assurance Specialist darrin pain of right knee,Low back pain, [...] ns:Cough,Bronchi tis,Moderate persistent asthma with acute exacerbation ([facility]) INHALE 2 PUFF BY MOUTH EVERY 4 TO 6 HOURS NEEDED FOR SHORTNESS OF BREATH OR FOR WHEEZING 18 g 2 4 Active clonazePAM (KLONOPIN) 1 mg tablet TAKE 1/2 TAB BY MOUTH two (2) times a day Authorized by: REYMUNDO BAUTISTA 4 Active cetirizine (ZYRTEC) 10 mg tabletIndication s:Asthma due to seasonal allergies ([facility]) TAKE 1 TABLET BY MOUTH ONCE DAILY 30 Tablet 11 4 025 Active naloxone (NARCAN) 4 mg/actuation nasal sprayIndications :Chronic pain of right knee Place 1 [place] into the nostril(s) as needed for opioid reversal (Overdose) 2 Each 4 Active traMADoL (ULTRAM) 50 mg tabletIndication s:Chronic pain of right knee Take 1 Tablet by mouth 4 (four) times daily as needed for pain 30 Tablet 4 Active albuterol (PROVENTIL) 2.5 mg /3 mL (0.083 %) nebulizer solutionIndicati ons:Mild persistent asthma with acute exacerbation ([facility]) INHALE THE CONTENT OF 1 VIAL (3mls) [...] MULTIVITAMIN tabletIndication s:Malnutrition, unspecified type ([facility]) TAKE 1 TABLET BY MOUTH [...] on 06/25/2018, both by Dr. Ken at [facility]. Presented to consult office for c/o [...] 02/19/18, per Cricket Wills PA-C: Seen by [facility] Neurosurgery. Dr. James Dent will attempt to decompress after PCP pre-op clearance. Right L4-L5 METRx (6cm) bilateral decompression. Surgeon Dr. Dent - 02/14/18. Encounters Date Type Department Care Team Description 10/03/2024 Interim Notes [address] [phone] Rosie Louis RN 10/02/2024 Interim Notes [address] [phone] Hina Funes Community Health Worker 10/02/2024 Interim Notes [address] [phone] Callie Garcia 09/27/2024 10:00 AM EDT Telemedicine Visit [address] [phone] Class 1 obesity due to excess calories with serious comorbidity and body mass index (BMI) of 33.0 to 33.9 in adult (Primary Dx) 09/26/2024 9:40 AM EDT Telemedicine Visit [address] [phone] Low Mcfaddena, RD Class 1 obesity due to excess calories with serious comorbidity and body mass index (BMI) of 33.0 to 33.9 in adult (Primary Dx) 08/30/2024 10:00 AM EST Telemedicine Visit [address] [phone] A[place]seLowa, RD Class 1 obesity due to excess calories with serious comorbidity and body mass index (BMI) of 33.0 to 33.9 in adult (Primary Dx) 08/16/2024 10:00 AM EST Office Visit [address] [phone] Low Mcfaddena, RD Class 1 obesity due to excess calories with serious comorbidity and body mass index (BMI) of 33.0 to 33.9 in adult (Primary Dx) 08/14/2024 9:40 AM EST Telemedicine Visit [address] [phone] Brenton Mcfadden, RD Hypercholesterolemia (Primary Dx); Class 1 obesity due to excess calories with serious comorbidity and body mass index (BMI) of 33.0 to 33.9 in adult 07/26/2024 10:00 AM EST Office Visit [address] [phone] Ihsan Gibbs, PharmD Essential hypertension (Primary Dx); Class 1 obesity due to excess calories with serious comorbidity and body mass index (BMI) of 33.0 to 33.9 in adult; Medication management 07/26/2024 Travel 07/24/2024 2:20 PM EST Telemedicine Visit [address] [phone] Low Mcfaddena, RD Class 1 obesity due [...] 10/25/2024 10:00 AM EDT Office Visit [facility] [address] [place] [phone] Ihsan Gibbs, Tayler [address] [place] [address] Arnav Morales [address] [place] [address] 10/30/2024 1:00 PM EDT Office Visit [facility] Dental [address] [place] [phone] Margarito Leger 1049 [place] [address] 11/07/2024 9:40 AM EDT Telemedicine Visit [facility] [address] [place] [phone] Brenton Mcfadden, RD 1040 [address] [place] [address] Health Maintenance Due Date Last Done Comments Anxiety Screening 1966 Dental FMX/Pano 1966 CT Colonography 12/01/2011 Fecal DNA 12/01/2011 Flexible Sigmoidoscopy 12/01/2011 FIT/gFOBT 04/24/2021 04/24/2020, 04/09, 04/24/2020, Additional history exists Annual Preventive Care Visit 08/16/202201/2022, 01/30/2019, 08/22/2017 Lipid Screening 12/01/2023 2022, 11/08, 08/17/2021 [id number] ( season) 2024 09/13/2022, 06/16/2021, 11/16/2020, Additional [...] Date/Time Associated Diagnosis Comments IMAGING SCANNED DOCUMENT 10/16/2024 3:00 AM EDT IMAGING SCANNED DOCUMENT 10/16/2024 3:00 AM EDT IMAGING SCANNED DOCUMENT 09/30/2024 3:00 AM EDT [...] Health Maintenance Results * IMAGING SCANNED DOCUMENT (10/16/2024 3:00 AM EDT) Only the most recent of8 resultswithin the time period is included. 10/16/2024 3:00 AM EDT Cricket Dixonvais PA SCAN IMAGING Final Result * LAB SCANNED DOCUMENT (09/27/2024 3:00 AM EDT) 09/27/2024 3:00 AM EDT Cricket Johann PA SCAN LAB Final Result * REFERRAL SCANNED DOCUMENT (09/18/2024 3:00 AM EDT) Only the most recent of2 resultswithin the time period is included. 09/18/2024 3:00 AM EDT Cricket Johann PA SCAN REFERRAL Final Result * HEALTH HISTORY SCANNED DOCUMENT (09/10/2024 3:00 AM EST) 09/10/2024 3:00 AM EST [facility] Provider Default SCAN OTHER ORDERS Final Re sult * REFERRAL TO ORTHOPEDICS (09/05/2024 3:00 AM EST) 09/05/2024 3:00 AM EST Cricket Johann PA REFERRAL Final Result * REFERRAL TO UROLOGY (08/07/2024 3:00 AM EST) 08/07/2024 3:00 AM EST Result Jewell [facility] REFERRAL Final Result * COMPREHENSIVE METABOLIC PANEL (03/08/2024 10:10 AM EDT) GLUCOSE 97 65 - 99 mg/dL [employer] [facility] Comment: ?Fasting reference interval UREA NITROGEN (BUN) 22 7 - 25 mg/dL [employer] [facility] CREATININE (blood) 1.11 0.70 - 1.30 mg/dL [employer] [facility] EGFR 77 > OR = 60 mL/min/1. 73m2 [employer] BUN/CREATININE RATIO SEE NOTE: [employer] [facility] Comment: ?? Not Reported: BUN and Creatinine are within ?? reference range. ? SODIUM 138 135 - 146 mmol/L [employer] [facility] POTASSIUM 4.2 3.5 - 5.3 mmol/L [employer] [facility] CHLORIDE 101 98 - 110 mmol/L [employer] [facility] CARBON DIOXIDE 24 20 - 32 mmol/L [employer] [facility] CALCIUM 9.1 8.6 - 10.3 mg/dL [employer] [facility] PROTEIN, TOTAL 6.5 6.1 - 8.1 g/dL [employer] [facility] ALBUMIN 3.8 3.6 - 5.1 g/dL [employer] [facility] GLOBULIN 2.7 1.9 - 3.7 g/dL (calc) [employer] [facility] ALBUMIN/GLOBULI N RATIO 1.4 1.0 - 2.5 (calc) [employer] [facility] BILIRUBIN, TOTAL 0.6 0.2 - 1.2 mg/dL [employer] [facility] ALKALINE PHOSPHATASE 76 35 - 144 U/L [employer] [facility] AST 18 10 - 35 U/L [employer] [facility] ALT 35 9 - 46 U/L [employer] [facility] Blood Blood / Unknown 03/08/2024 1 0:10 AM EDT 03/08/2024 10:10 AM EDT Result Jewell [facility] - BLOOD DRAW Final Result [employer] [facility] [address] [address], [employer] [facility] [address] [place] [address] * (ABNORMAL) LIPIDS W RFLX TO DIRECT LDL (2022 10:45 AM EDT) CHOLESTEROL, TOTAL 273(H) <200 mg/dL [employer] [facility] HDL CHOLESTEROL 46 > OR = 40 mg/dL [employer] [facility] TRIGLYCERIDES 310(H) <150 mg/dL [employer] [facility] Comment: If a non-fasting specimen was collected, consider repeat triglyceride testing on a fasting specimen if clinically indicated. Arelis et al. J. of Clin. Lipidol. 2015;9:129-169. LDL-CHOLESTEROL 174(H) 99 mg/dL (calc) [employer] [facility] Comment: Reference range: <100 Desirable range <100 mg/dL for primary prevention; ?? <70 mg/dL for patients with CHD or diabetic patients with > or = 2 CHD risk factors. LDL-C is now calculated using the Charbel-Landaverde calculation, which is a validated novel method providing better accuracy than the Friedewald equation in the estimation of LDL-C. Charbel SS et al. ANI. 2013;310(19): 8376-6694 (http://education.Owlr/faq/WXG225) CHOL/HDLC RATIO 5.9(H) <5.0 (calc) [employer] [facility] NON-HDL CHOLESTEROL 227(H) <130 mg/dL (calc) [employer] Comment: Non-HDL level > or = 220 [...] BLOOD DRAW Final Result Performing Organization Address City/[facility]/ZIP Co de Phone Number [facility] [address] [address], [facility] [address] [place] [address] * REFERRAL FOR COLONOSCOPY (10/30/2020 12:54 PM [...] NEGATIVE CARD NEHEMIAH DATE: NO DATE SPECIFIED [facility] 04/24/2020 04/24/2020 6:5 5 PM EDT Narrative [facility] - 04/27/2020 11:22 AM EDT [employer] [place] [address] Extraction Machine Operator - Ella Guevara MD PT ID [id number] ORD# [id number] SOURCE: STOOL; [facility] - NO BLOOD DRAW Final Resu lt Performing Organization Address City/[facility]/ZIP Co de Phone Number [address] [address], * HEPATITIS A,B,C PANEL (08/25/2017 8:35 AM EST) Pathologist [facility] HEPATITIS B SURFACE ANTIBODY NEGATIVE NEGATIVE [facility] HEPATITIS B SURFACE ANTIGEN NEGATIVE NEGATIVE [facility] Comment: Over the counter supplements containing high doses of biotin may interfere with this assay. ??If interference is suspected, patients shoud be retested after refraining from biotin supplements for 72 hours. HEPATITIS C VIRUS DIAGNOSTIC NEGATIVE NEGATIVE [facility] HEPATITIS B CORE ANTIBODY NEGATIVE NEGATIVE [facility] HEPATITIS A ANTIBODY TOTAL NEGATIVE NEGATIVE [facility] Comment: Over the counter supplements containing high doses of biotin may interfere with this assay. ??If interference is suspected, patients shoud be retested after refraining from biotin supplements for 72 hours. Blood specimen (specimen) Blood / Unknown 08/25/2017 8:35 AM EST 08/25/2017 8:46 AM EST [facility] - 08/25/2017 2:18 PM EST [employer] [address] [place] [address] PT ID [id number] ORD# [id number] us [facility] - BLOOD DRAW Edited Result - Final Performing Organization Address [facility] de Phone Number [address] [address], * HIV-1 & HIV-2 ANTIBODIES (08/25/2017 8:35 AM EST) [facility] HIV 1 AND 2 ANTIBODY SCREEN NEGATIVE NEGATIVE [facility] Comment: This assay is a 4th [...] 8:35 AM EST 08/25/2017 8:46 AM EST [employer] [facility] - 08/25/2017 2:47 PM EST [employer] [address] [place] [address] PT ID [id number] ORD# [id number] us [facility] - BLOOD DRAW Final Result Performing Organization Address [facility] de Phone Number [address] [address], from Last 3 Months or Most Recently Relevant to Health Maintenance Insurance [place] DENTAL [address] [facility] Medicaid Address: [facility] [id number] [place] [address] Care Teams Color Control Operator Relationship Specialty Start Date End Date Cricket Wills PA [address] [place] [address] PCP - General Internal Medicine 07/08/17
--- OUTSIDE RECORDS SUMMARY | 2024-10-21 08:36 | XMS_ITS | Encounter Summary ---
Author Organization [facility] Address [address] [place] [address] Care Team Providers Care Religious Education Teacher Name Role Phone Cricket Wills Primary Care Provider [phone] Encounter Details Date Type Department Care Team (Late st Contact Info) Description 02/07/2022 Dental Interim Note Caring [facility] Main Dental [address] [place] [phone] Mellissa Hernandez DDS [address] [place] [address] Social History Tobacco Use Types Packs/Day Years [...] In the last 10 days, have joon u been in contact with someone who was confirmed or suspected to have Coronavirus/COVID-19? No / Unsure 02/08/2022 1:54 PM EDT documented as of this encounter Plan of Treatment Upcoming Encounters Date Type Department Care Team (Late st Contact Info) Description 10/25/2024 10:00 AM EDT Office Visit [facility] [address] [place] [address] Ihsan Gibbs, PharmD [address] [place] [address] Arnav Morales [address] [place] [address] 10/30/2024 1:00 PM EDT Office Visit [facility] Dental [address] [place] [phone] Margarito Leger [address] [place] [address] 11/07/2024 9:40 AM EDT Telemedicine Visit [facility] [address] [place] [phone] Brenton Mcfadden, RD 10[address] - 1050 [place] [address] documented as of this encounter Goals Goal [...] documented as of this encounter Care Teams Religious Education Teacher Relationship Specialty Start Date End Date Cricket Wills PA [address] [place] [address] PCP - General Internal Medicine 07/08/17 documented as of this encounter
--- OUTSIDE RECORDS SUMMARY | 2024-10-21 08:36 | XMS_ITS | Encounter Summary ---
Author Organization [facility] Address [address] [place] [address] Care Team Providers Care Senior Trial Attorney Name Role Phone Cricket Wills Primary Care Provider [phone] Encounter Details Date Type Department Care Team (Late st Contact Info) Description 02/07/2022 Dental Interim Note Caring [facility] Main Dental [address] [place] [phone] Mellissa Hernandez DDS [address] [place] [address] Social History Tobacco Use Types Packs/Day Years [...] 10/25/2024 10:00 AM EDT Office Visit [facility] [place] [address] Ihsan Gibbs, PharmD [address] [place] [address] Arnav Morales [address] [place] [address] 10/30/2024 1:00 PM EDT Office Visit [facility] Dental [address] [place] [phone] Margarito Leger [address] [place] [address] 11/07/2024 9:40 AM EDT Telemedicine Visit [facility] [address] [place] [phone] Brenton Mcfadden, RD 1040 - 1050 [place] [address] documented as of this encounter Goals Goal [...] as of this encounter Care Teams Senior Trial Attorney Relationship Specialty Start Date End Date Cricket Wills PA [address] [place] [address] PCP - General Internal Medicine 07/08/17 documented as of this encounter
--- OUTSIDE RECORDS SUMMARY | 2024-10-21 08:37 | XMS_ITS | Encounter Summary ---
Author Organization [facility] Address [address] [place] [address] Care Team Providers Care Veneer Gluer Name Role Phone Cricket Wills Primary Care Provider [phone] Encounter Details Date Type Department Care Team (Late st Contact Info) Description 02/07/2022 Dental Interim Note [facility]aring [facility] Main Dental [address] [place] [phone] Mellissa Hernandez DDS [address] [place] [address] Social History Tobacco Use Types Packs/Day Years [...] 10:00 AM EDT Office Visit [facility] [address] [place] [address] Ihsan Gibbs, PharmD [address] [place] [address] Arnav Morales [address] [place] [address] 10/30/2024 1:00 PM EDT Office Visit [facility] Dental [address] [place] [phone] Margarito Leger 10[address] [place] [address] 11/07/2024 9:40 AM EDT Telemedicine Visit [facility] [address] [place] [phone] Brenton Mcfadden, RD 1040 - 1050 [place] [address] documented as of this encounter Goals Goal [...] documented as of this encounter Care Teams Veneer Gluer Relationship Specialty Start Date End Date Cricket Wills PA [address] [place] [address] PCP - General Internal Medicine 07/08/17 documented as of this encounter
--- OUTSIDE RECORDS SUMMARY | 2024-10-21 08:37 | XMS_ITS | Encounter Summary ---
Author Organization [facility] Address [address] [place] [address] Care Team Providers Care Mix House Tender Name Role Phone Cricket Wills Primary Care Provider Encounter Details Date Type Department Care Team (Late st Contact Info) Description 02/07/2022 Dental Interim Note Caring [facility] Main Dental [address] [place] [phone] Mellissa Hernandez DDS [address] [place] [address] Social History Tobacco Use Types Packs/Day Years [...] Description 10/25/2024 10:00 AM EDT [facility] [address] [place] [address] Ihsan Gibbs, PharmD [address] [place] [address] Arnav Morales [address] [place] [address] 10/30/2024 1:00 PM EDT Office Visit [facility] Dental [address] [place] [phone] Margarito Leger [address] [place] [address] 11/07/2024 9:40 AM EDT Telemedicine Visit [facility] [address] [place] [phone] Brenton Mcfadden, RD 1040 - 1050 [place] [address] documented as of this encounter Goals Goal [...] documented as of this encounter Care Teams Mix House Tender Relationship Specialty Start Date End Date Cricket Wills PA [address] [place] [address] PCP - General Internal Medicine 07/08/17 documented as of this encounter
--- NOTE | 2024-10-21 08:56 | A.OFFVIS_ITS ---
Intake Visit Reasons: 1m/ultrasound, ct scan, and psa f/u(set) Intake Note: Patient presents today for follow up on: nephrolithiasis, ultrasound, ct scan, and psa lab results PSA: 1.52 CT Scan: 10/16/24; Ultrasound: 08/21/24 Urology Medications: none Blood Thinner: none Director Of Strategic Communications Required: Yes Director Of Strategic Communications Services: Director Of Strategic Communications Present Director Of Strategic Communications Name: Last set [id number] Accompanied by: Self / Same As Patient Allergies No Known Allergies Allergy (Verified 10/21/24 09:35) Medication List - Last Reconciled 10/21/24 by ALIZA Miles albuterol sulfate 90 mcg/actuation (Ventolin HFA) 2 puffs inhalation Q4-6H PRN albuterol sulfate mg inhalation Q4-6H PRN cetirizine 10 mg PO DAILY clonazepam 0.5 mg PO BID gabapentin 600 mg PO TID ipratropium-albuterol 0.5 mg-3 mg(2.5 mg base)/3 mL mL inhalation BID multivitamin (One Daily Multivitamin tablet) 1 tab PO DAILY naloxone 4 mg/actuation intranasal DAILY PRN pantoprazole 20 mg PO BID quetiapine 50 mg PO BEDTIME tramadol 50 mg PO QID PRN valsartan 160 mg PO DAILY HPI Comments Details: Osiel is a 58-year-old Danish-speaking male patient of . He has a past medical history of primary insomnia, osteoarthritis, obesity, hyperlipidemia, depression, GERD, hypertension, chronic back pain, anxiety, and asthma. He presents to the office today for follow-up of his nephrolithiasis. Recent CT KUB results were reviewed with the patient today 11/01 there is punctate nonobstructing calculus at the upper pole of the right kidney. There is a 3 mm nonobstructing calculus in the interpolar region of the left kidney there is no hydronephrosis or hydroureter noted. No ureteral calculi are seen. PSA 10/01 1.5. In discussion with the patient today he does report intermittent episodes of left-sided flank pain. We discussed treatment options and risks and benefits of these treatment options. When asked he does endorse to be drinking plenty of water daily. We discussed continuation of surveillance monitoring as well as metabolic workup. He otherwise denies any bothersome urinary issues. He denies urinary urgency, urinary frequency, incontinence, nocturia, hematuria, foul smelling urine, changes to urinary stream, flank pain, fever, and or chills. In office urinalysis results reviewed with the patient today. Plan For nephrolithiasis management, conservative treatment is recommended due to the size of the kidney stones. As no large obstructive stones or concerning findings were observed, the patient is advised to increase fluid intake to facilitate the passage of stones. I prescribed vitamin B6 to help decrease stone formation risk. Follow-up imaging and 24-hour urine collection have been scheduled to monitor progress and ensure adequate hydration. Surveillance will continue with further assessments in six months. Patient was informed and verbally consented to the use of an ambient scribe for clinic note documentation during this visit. Discussion Notes I discussed the current management approach for nephrolithiasis with the patient, highlighting the rationale for avoiding surgical intervention for decreased stone burden as well as current size of nephrolithiasis. The benefits of increased fluid intake and vitamin B6 supplementation in mitigating stone formation were explained. I emphasized that monitoring and lifestyle modifications will play a critical role in preventing future stone events. The patient expressed understanding of the plan and agreed with the outlined management strategy. We reviewed the instructions for collecting a 24-hour urine sample to provide us with additional evaluation metrics on hydration status. No additional questions were posed by the patient, who expressed satisfaction with the management approach and agreed upon the follow-up plan. [facility] Medical History Sacral nerve root compression Primary insomnia Persistent severe somatic symptom disorder Osteoarthritis Obesity, Class I, BMI 30-34.9 Mixed hyperlipidemia Major depressive disorder Lumbosacral disc herniation Low back pain GERD (gastroesophageal reflux disease) Failed back syndrome of lumbar spine Essential hypertension Class 1 obesity with body mass index (BMI) of 33.0 to 33.9 in adult Chronic pain of right knee Anxiety Asthma Review of Systems Const Reports no additional complaints Eyes Reports no additional complaints ENT Reports no additional complaints Card Reports as per [facility] Resp Reports as per [facility] GI Reports as per [facility] Reports as per [facility] Musc Reports as per [facility] Neuro Reports as per [facility] Psych Reports as per [facility] Endo Reports no additional complaints Jey/Lymph Reports no additional complaints Aller/Immun Reports no additional complaints Physical Exam Const General: cooperative, healthy appearing, comfortable, no acute distress, well developed, alert and awake Orientation/consciousness: patient oriented x3 Limitations: language barrier HEENT Head: Yes normal to inspection, Yes normocephalic and Yes atraumatic Ears: hearing grossly normal bilaterally Eyes General: appearance normal, both eyes and all related structures Neck Neck: Yes normal visual inspection and Yes trachea midline Chest Chest palpation & inspection: normal inspection of the chest Resp Effort & Inspection: normal respiratory effort and able to speak in complete sentences Cardio Rate: regular rate GI Inspection: Yes normal to inspection General: Yes no CVA tenderness Back/Spine/Pelvis Back: no CVA tenderness Skin General skin exam: no rashes or lesions noted Neuro General: patient oriented x3 Extrem General: Yes normal to inspection Psych Appearance: grossly normal and well kempt Mental Status: mental status grossly normal Speech and movement: Normal speech and movement present and Clear speech present Affect: normal affect Attitude: cooperative Thought process: Normal thought process present Thought content: Normal thought content present Insight: Fair insight present (Psych) Judgement: Fair judgement present (Psych) Results AMB Urinalysis, Automated UA Leukoctes 0 Karla/uL Last Edit by CharlieImagine K12 Denise on 10/21/24 09:23 UA Nitrite Last Edit by [employer] Denise on 10/21/24 09:23 UA Urobilinogen 0.2 mg/dL Last Edit by [employer] Denise on 10/21/24 09:23 UA Protein 0 mg/dL Last Edit by Quantitative Medicineroxanna on 10/21/24 09:23 UA pH 6.0 Last Edit by [employer] Medicineroxanna on 10/21/24 09:23 UA Blood 0 Daniel/uL Last Edit by [employer] Denise on 10/21/24 09:23 UA Specific [place] 1.010 Last Edit by e-Zassivladislav Walker on 10/21/24 09:23 UA Ketone Last Edit by [employer] Medicineroxanna on 10/21/24 09:23 UA Bilirubin 0 mg/dL Last Edit by Denisse Walker on 10/21/24 09:23 UA Glucose 0 mg/dL Last Edit by Denisse Walker on 10/21/24 09:23 Results Reviewed Results Reviewed: Date of Service: 10/16/24 Procedure(s): CT kidney stone FINDINGS: LOWER CHEST: The visualized lung bases are clear. There is no pleural effusion. CARDIOVASCULATURE: The heart is normal in size. There is no pericardial effusion. LIVER: The liver is normal in size and contour. The liver has an unremarkable unenhanced appearance. GALLBLADDER / BILE DUCTS: The gallbladder is unremarkable. There is no intra or extrahepatic biliary ductal dilatation. SPLEEN: The spleen is normal in size and has an unremarkable unenhanced appearance. PANCREAS: The pancreas has an unremarkable unenhanced appearance. ADRENAL GLANDS: Unremarkable. KIDNEYS/RETROPERITONEUM: There is a punctate nonobstructing calculus at the upper pole of the right kidney. There is a 3 mm nonobstructing calculus in the interpolar region of the left kidney. There is no hydronephrosis or hydroureter. No ureteral calculi are seen. LYMPH NODES: No retroperitoneal lymphadenopathy is identified in the abdomen or pelvis. VASCULATURE: The abdominal aorta is normal in caliber. MESENTERY/PERITONEUM: No free fluid. No masses. There is no free intraperitoneal gas. STOMACH: There is a small hiatal hernia. The remainder of the stomach is collapsed. SMALL BOWEL: The small bowel is normal in caliber. COLON: There is diverticulosis of the sigmoid colon, without evidence of diverticulitis. APPENDIX: Normal. URINARY BLADDER/PELVIC ORGANS: The urinary bladder is unremarkable. There are calcifications of the prostate. BONES / SOFT TISSUES: There is a sclerotic focus in the left half of L4 which may represent a bone island. A spinal electrode is seen in place. IMPRESSION: 1. Bilateral nephrolithiasis as described, without evidence of ureteral obstruction. 2. Small hiatal hernia. Sigmoid diverticulosis without evidence of diverticulitis. Assessment & Plan Assessment & Plan (1) Flank pain: Code(s): R10.9 - Unspecified abdominal pain Category: Medical (2) Nephrolithiasis: Code(s): N20.0 - Calculus of kidney Category: Medical Plan In office urinalysis results reviewed with the patient today; as noted above. Recent CT KUB results reviewed with the patient today; as noted above. We discussed potential causes of nephrolithiasis as well as further treatment options and risks and benefits of these treatment options. Will continue with surveillance monitoring. Will obtain [facility] for further assessment evaluation. Patient currently denies any bothersome urinary issues. He reports be happy with current voiding parameters. We discussed adding 1 oz of lemon juice to water daily. Start vitamin B6 as discussed and prescribed. Discussed, educated, and stressed the importance of adequate hydration daily in relation to nephrolithiasis as well as overall health and well-being. Will obtain renal ultrasound in 6 months. Follow-up in 6 months with Lithol[facility] and imaging to be completed prior; or sooner with any issues, concerns, and or questions. Orders: Orders AMB Urinalysis Automated Today Z13.9 - Encounter for screening, unspecified US renal BI 6 Months N20.0 - Calculus of kidney Medications: New pyridoxine (vitamin B6) 100 mg PO DAILY 90 days 90 tabs 1RF Patient Instructions: The patient had an opportunity to ask questions regarding the treatment plan. All questions were answered. Physical exam, labs, and imaging were discussed and reviewed in detail. As well as risks, benefits, and discussion of treatment choices. No major barriers to understanding were identified. The patient expressed understanding and agreement with the above treatment plan. The patient was made aware they should contact our office by phone for worsening of their current condition, the appearance of new symptoms, or with any questions or concerns. Compliance is encouraged with any medications and follow up testing that is ordered. It is a privilege to be allowed the opportunity to participate in? your urological care.? Again, if you have any questions or concerns If you have any questions or concerns please do not hesitate to contact me. The office is [phone]. This note is constructed using voice recognition software. While every effort has been made to ensure accuracy ladle puller errors may have been included. Yours sincerely, ALIZA Miles Coding Level of Care Code Est Pt Level 4 (47205) Diagnoses Flank pain R10.9 Nephrolithiasis N20.0
== END 2024-10-21 09:34 | disposition home or self-care (01) ==
LOC: HO.HUSH 08:16
PROVIDERS: PCP Physician Assistant; Visit Provider Nurse Practitioner Family
DX: R10.9 Unspecified abdominal pain (principal); N20.0 Calculus of kidney; Z13.9 Encounter for screening, unspecified
CPT/HCPCS: 99214

== ENCOUNTER → 2024-10-21 08:16 | Outpatient (BNVA) | payer MEDICAID, SELFPAY | PROVIDERS: PCP Physician Assistant; Visit Provider Nurse Practitioner Family | DX: R10.9 Unspecified abdominal pain (principal); N20.0 Calculus of kidney | CPT/HCPCS: 81003; 99212 ==

== ENCOUNTER 2025-04-09 11:06 | Outpatient (REF) | payer MEDICAID, SELFPAY ==
--- NOTE | ~2025-04-09 | US_ITS ---
CLINICAL HISTORY: N20.0 - Calculus of kidney US Renal Comparison: US - US RENAL BI - 08/19/24 14:22 EST Findings: Right kidney normal size and echotexture, 11.4 cm length. Left kidney normal size and echotexture, 10.8 cm length. Redemonstrated nonobstructive midpole 5 mm renal calculus. There is a midpole simple appearing renal cysts measuring 1.3 x 1.4 x 1 cm. No collecting system dilatation of either kidney. Normal color Doppler. IMPRESSION: Stable nonobstructive 5 mm left midpole renal calculus. This document has been electronically signed by: Ronald Shetty MD on 04/09/2025 18:53:24
--- OUTSIDE RECORDS SUMMARY | 2025-04-09 12:42 | XMS_ITS | Encounter Summary ---
Author Organization [facility] Address [address] [place] [address] Care Team Providers Care Clipper Machine Name Role Phone Cricket Wills Primary Care Provider [phone] Encounter Details Date Type Department Care Team (Late st Contact Info) Description 02/07/2022 Dental Interim Note [facility] [address] [place] [phone] Mellissa Hernandez, ALEXIS [address] [place] [address] Social History Tobacco Use Types Packs/Day Years [...] Care Team (Late st Contact Info) Description 04/18/2025 10:00 AM EDT Office Visit [facility] [address] [place] [address] Ihsan Gibbs, PharmD [address] [place] [address] 07/04/2025 2:20 PM EST Office Visit [facility] [address] [place] [phone] Margarito Leger [address] [place] [address] documented as of this encounter Goals Goal Patient Goal Type Associated Problems Recent Progress Patient-Stated? Author Blood Pressure < 140/90 Blood Pressure Essential hypertension 122/62(2024 9:44 AM EDT) No Mary Maxwell, PharmD documented as of this encounter Visit Diagnoses Not on filedocumented in this encounter Additional Health Concerns Infection Onset Date Last Indicated Resolved Time COVID-19 Comment:Patient tested negative for Covid-19 05/03/22 05/03/2022 05/03/2022 05/03/2022 7:32 AM P DT Assessment Noted Time PHQ-9 Depression Total Score: 0 08/16/19 22 1:24 PM PST documented as of this encounter Care Teams Clipper Machine Relationship Specialty Start Date End Date Cricket Wills PA [address] [place] [address] PCP - General Internal Medicine 07/08/17 documented as of this encounter
--- OUTSIDE RECORDS SUMMARY | 2025-04-09 12:42 | XMS_ITS | Encounter Summary ---
Author Organization [facility] Address [address] [place] [address] Care Team Providers Care Outdoor Guide Name Role Phone Cricket Wills Primary Care Provider [phone] Encounter Details Date Type Department Care Team (Late st Contact Info) Description 02/07/2022 Dental Interim Note [facility] [address] [place] [phone] Mellissa Hernandez, ALEXIS [address] [place] [address] Social History Tobacco Use Types Packs/Day Years [...] Description 04/18/2025 10:00 AM EDT Office Visit [facility] [address] [place] [address] Ihsan Gibbs, PharmD [address] [place] [address] 07/04/2025 2:20 PM EST Office Visit [facility] [address] [place] [phone] Margarito Leger [address] [place] [address] documented as of this encounter Goals Goal [...] documented as of this encounter Care Teams Outdoor Guide Relationship Specialty Start Date End Date Cricket Wills PA [address] [place] [address] PCP - General Internal Medicine 07/08/17 documented as of this encounter
--- OUTSIDE RECORDS SUMMARY | 2025-04-09 12:42 | XMS_ITS | Encounter Summary ---
Author Organization [facility] Address [address] [place] [address] Care Team Providers Care Jewel Grinder Name Role Phone Cricket Wills Primary Care Provider [phone] Encounter Details Date Type Department Care Team (Late st Contact Info) Description 02/07/2022 Dental Interim Note [facility] [address] [place] [phone] Mellissa Hernandez, ALEXIS [address] [place] [address] Social History Tobacco Use Types Packs/Day Years [...] Description 04/18/2025 10:00 AM EDT Office Visit [facility] [address] [place] [address] Ihsan Gibbs, PharmD [address] [place] [address] 07/04/2025 2:20 PM EST Office Visit [facility] [address] [place] [phone] Margarito Leger [address] [place] [address] documented as of this encounter Goals Goal [...] documented as of this encounter Care Teams Jewel Grinder Relationship Specialty Start Date End Date Cricket Wills PA [address] [place] [address] PCP - General Internal Medicine 07/08/17 documented as of this encounter
--- OUTSIDE RECORDS SUMMARY | 2025-04-09 12:42 | XMS_ITS | Clinical Summary ---
Author Organization [facility] Address [address] [place] [address] Phone Care Team Providers Care Scheduling Representative Name Role Phone Cricket Wills Primary Care Provider [phone] Allergies No known active allergies Medications clonazePAM (KlonoPIN) 0.5 mg tablet TAKE ONE TABLET BY MOUTH 2 (two) times a day 03/26/2020 Active gabapentin (NEURONTIN) 600 mg tablet Take 1 tablet (600 mg total) by mouth. 06/18/2018 Active ipratropium-alb uteroL (DUONEB) 0.5-2.5 mg/3 mL nebulizer solution Inhale 3 mL into the lungs. 07/08/2020 Active MULTIVITAMIN ORAL Take 1 tablet by mouth 1 (one) time each day. 09/02/2022 Active walker misc Please dispense one Rolator walker for patient with mobility issues. 03/20/2023 Active omeprazole (PriLOSEC) [address] capsule Take 1 capsule (20 mg total) by mouth. 06/28/2021 Active QUEtiapine (SEROquel) 50 mg tablet TAKE 1 TABLET BY MOUTH ONCE DAILY AT BEDTIME 02/20/2023 Active sertraline (ZOLOFT) 100 mg tablet Take [...] MOUTH AT BEDTIME FOR SLEEP 01/18/2020 Active cetirizine (ZyrTEC) 10 mg tablet Take 1 tablet (10 mg total) by mouth daily. 2022 Active tamsulosin (FLOMAX) 0.4 mg 24 hr capsule Take 1 capsule (0.4 mg total) by mouth daily. 06/12/2024 Active methocarbamoL (ROBAXIN) 750 mg tablet Take 2 tablets (1,500 mg total) by mouth 4 (four) times a day if needed for muscle spasms for up to 10 days. 40 each 07/30/2024 Active Active Problems Problem Noted Date Diagnosed Date Known medical problems 06/17/2024 Overview (06/17/2024): Persistent severe somatic symptom disorder with predominant pain Diverticulitis 04/18/2023 Lumbar spondylosis 04/18/2023 Overview (06/17/2024): Last Assessment & Plan: Patient has history of right L5-S1 minimally invasive discectomy 08/02/[address] Whitfield, s/p right L4-5 decompression February 2018, reexploration with microdiscectomy 06/25/[address] Ken at [facility]. He was last seen in the office [...] spinal cord stimulator placed October 2021 at [facility] [place] pain management. He comes in today describing [...] GI for diverticulitis, recent ED visits at [facility]. Patient had CAT scan of the abdomen [...] also had a lumbar spine x-ray at [facility] [place] 01/30/2023 that shows straightening of the normal [...] ordered right hip x-ray. I will call [employer] Pets to see if he can have an [...] Major depressive disorder 07/26/2017 Mixed hyperlipidemia 07/26/2017 Immunizations Immunization Administration Dates Next Due HepB-CpG (Heplisav-B) 18yo and older 09/23/2022, 06/14/2022 Influenza Quadrivalent, 0.5m l, preservative free (Fluarix; FluLaval; Fluzone) ages 6mo and older (Afluria) 3yo and older 09/13/2022,05/13/2021,04/13/2020,04/16,05/03/2018,08/22/2017 Influenza trivalent, recombi nant, 0.5mL, preservative free (Flublok) 9yo and older 05/03/2024 Moderna SARS-CoV-2 COVID-19, mRNA, [...] 2018, reexploration with discectomy 06/25/2018, Dr. Ken [facility] OTHER SURGICAL HISTORY 10/2021 PROCEDURE: HISTORY OTHER; COMMENT: Spinal cord stimulator placed, [facility] pain management TOTAL KNEE ARTHROPLASTY PROCEDURE: NM [...] 82 09/30/2024 9:09 AM EDT Temperature 36.1 C (97 F) 09/30/2024 7:11 AM EDT Respiratory Rate 16 [...] Last Done Comments Colorectal Cancer Screening: Colonoscopy 1965 Hepatitis C Screening 06/11/2022 Social Influencers of Health Screening 06/11/2022 Depression Screening 07/10/2024 COVID-19 Vaccine ( season) 2025 09/13/2022, 06/16/2021, 11/16/2020, Additional history exists Influenza Vaccine (#1) 2025 , 09/13/2022, 05/13/2021, Additional history exists Hypertension/CHF/CAD Annual BMP Blood Test 06/07/2025 06/07/2024, 03/08/2024, 08/17/2021 DTaP,Tdap,and Td Vaccines (2 - Td or Tdap) 08/22/2027 08/22/2017 Cholesterol Screening (Lipid Panel) 12/01/2027 2022, 2022, 08/17/2021 RSV Immunization Adult Patients (1 - 1-dose 75+ series) 2041 HIV Screening Completed 08/25/2017 Zoster Vaccines Completed 06/14/2022, 08/16/2021 Pneumococcal Vaccine: 50+ Years Completed 09/13/2022, 09/13/2022, 08/16/2021, Additional history exists Hepatitis B Vaccines Completed 09/23/2022, 06/14/20 22 HIB Vaccines Aged Out No longer eligi [...] Procedure Name Priority Date/Time Associated Diagnosis Comments COMPREHENSIVE METABOLIC PANEL STAT 06/07/2024 1:17 AM EST LIPID PANEL Routine 2022 from Last 3 Months or Most Recently Relevant to Health Maintenance Results * (ABNORMAL) Comprehensive metabolic panel (06/07/2024 1:17 AM EST) Sodium 141 133 - 145 mmol/L LAB CHEMISTRY METHOD 06/07/2024 2:17 AM [facility] Potassium 4.0 3.5 - 5.5 mmol/L LAB CHEMISTRY METHOD 06/07/2024 2:17 AM [facility] Chloride 106 96 - [...] [facility] Comment:Calculation based on the Chronic Kidney Disease Epidemiology Collaboration (CKD-EPI) equation refit without adjustment for race. BUN/Creatinine Ratio 13.1 LAB CHEMISTRY METHOD 06/07/2024 2:17 AM [facility] Calcium 9.2 8.5 - 10.5 mg/dL LAB CHEMISTRY METHOD 06/07/2024 2:17 AM EST [facility] AST (SGOT) 30 10 - [...] AM [facility] Total Bilirubin 0.6 0.0 - 1.4 mg/dL LAB CHEMISTRY METHOD 06/07/2024 2:17 AM [facility] Blood Venous blood specimen / Unknown Venipuncture / Unknown 06/07/2024 1:17 AM EST 06/07/2024 1:51 AM EST Nury Guevara MD LAB BLOOD ORDERABLES Fin al Result [facility] [address] [place] [address], * Lipid panel (2022) LDL/HDL Ratio 0 Comment:abstracted, no inter pretation Triglycerides 0 mg/dL Comment:abstracted, no inter pretation Cholesterol 0 mg/dL Comment:abstracted, no inter pretation HDL 0 mg/dL Comment:abstracted, no inter pretation LDL Cholesterol 0 mg/dL Comment:abstracted, no inter pretation Blood Venous blood specimen / Unknown Peace Provider LAB BLOOD ORDERABLES Anel l Result from Last 3 Months or Most Recently Relevant to Health Maintenance Insurance MEDICAID - [place] Care Teams Scheduling Representative Relationship Specialty Start Date End Date Cricket Wills PA [address] [place] [phone] PCP - General Physician Ceramic Tiler 08/14/19
--- OUTSIDE RECORDS SUMMARY | 2025-04-09 12:42 | XMS_ITS | Encounter Summary ---
Author Organization [facility] Address [address] [place] [address] Care Team Providers Care Technical Proposal Writer Name Role Phone Cricket Wills Primary Care Provider Encounter Details Date Type Department Care Team (Late st Contact Info) Description 02/07/2022 Dental Interim Note [facility] [address] [place] [phone] Mellissa Hernandez, ALEXIS [address] [place] [address] Social History Tobacco Use Types Packs/Day Years [...] Description 04/18/2025 10:00 AM EDT Office Visit [facility] [address] [place] [address] Ihsan Gibbs, PharmD [address] [place] [address] 07/04/2025 2:20 PM EST Office Visit [facility] [address] [place] [phone] Margarito Leger [address] [place] [address] documented as of this encounter Goals Goal [...] documented as of this encounter Care Teams Technical Proposal Writer Relationship Specialty Start Date End Date Cricket Wills PA [address] [place] [address] PCP - General Internal Medicine 07/08/17 documented as of this encounter
--- OUTSIDE RECORDS SUMMARY | 2025-04-09 12:42 | XMS_ITS | Encounter Summary ---
Author Organization [facility] Address [address] [place] [address] Care Team Providers Care Cert Pharmacy Tech Name Role Phone Cricket Wills Primary Care Provider [phone] Encounter Details Date Type Department Care Team (Late st Contact Info) Description 02/07/2022 Dental Interim Note [facility] [address] [place] [phone] Mellissa Hernandez, ALEXIS [address] [place] [address] Social History Tobacco Use Types Packs/Day Years [...] Description 04/18/2025 10:00 AM EDT Office Visit [facility] [address] [place] [address] Ihsan Gibbs, PharmD [address] [place] [address] 07/04/2025 2:20 PM EST Office Visit [facility] [address] [place] [phone] Margarito Leger [address] [place] [address] documented as of this encounter Goals Goal [...] documented as of this encounter Care Teams Cert Pharmacy Tech Relationship Specialty Start Date End Date Cricket Wills PA [address] [place] [address] PCP - General Internal Medicine 07/08/17 documented as of this encounter
--- OUTSIDE RECORDS SUMMARY | 2025-04-09 12:42 | XMS_ITS | Encounter Summary ---
Author Organization [facility] Address [address] [place] [address] Care Team Providers Care Observer Electrical Prospecting Name Role Phone Cricket Wills Primary Care Provider [phone] Encounter Details Date Type Department Care Team (Late st Contact Info) Description 02/07/2022 Dental Interim Note Caring [facility] [address] Dental [address] [place] [phone] Marleny Cormier [address] [place] [address] Social History Tobacco Use Types Packs/Day Years [...] EDT Office Visit [facility] [address] [place] [address] Ihsan Gibbs, PharmD [address] [place] [address] 07/04/2025 2:20 PM EST Office Visit [facility] [address] [place] [phone] Margarito Leger [address] [place] [address] documented as of this encounter Goals Goal [...] documented as of this encounter Care Teams Observer Electrical Prospecting Relationship Specialty Start Date End Date Cricket Wills PA [address] [place] [address] PCP - General Internal Medicine 07/08/17 documented as of this encounter
--- OUTSIDE RECORDS SUMMARY | 2025-04-09 12:42 | XMS_ITS | Clinical Summary ---
Author Organization [facility] Address [address] [facility] 7[address] [place] [address] Care Team Providers Care Lubricator Granulator Name Role Phone Unavailable Primary Care Provider Unavailabl e Encounters Date Type Department Care Team Description 01/28/2025 Population Health Risk Score [facility] (C3) Department [address] [facility] [address] [place] [phone] Provider, Population Health Generic from Last 3 Months Social History Tobacco Use Types Packs/Day Years Used Date Smoking Tobacco: Never Assessed Sex and Gender Information Value Date Recorded Sex Assigned at Not on file Legal Sex Male 9:25 PM EDT Gender Identity Not on file Sexual Orientation Not on file Plan of Treatment Health Maintenance Due Date Last Done Comments CT Colonography 1966 Colonoscopy 1966 Colorectal Cancer Screening 1966 Depression Screening 1966 FIT DNA/Cologuard 1966 FIT 1966 FOBT 1966 Lipid Panel 1966 SDOH Screening 1966 Sigmoidoscopy 1966 Disability Screening 1966 Alcohol/Substance Use Screening 1978 Tobacco Screening 1978 Hepatitis C Screening 1984 COVID-19 Vaccine ( season) 2025 09/13/2022, 06/16/2021, 11/16/2020, Additional history exists Influenza Vaccine (#1) 2025 , 09/13/2022, 05/13/2021, Additional history exists DTaP/Tdap/Td Vaccines (2 - Td or Tdap) 08/22/2027 08/22/2017 RSV Patients and Patients Aged 60 years or older (1 - 1-dose 75+ series) 2041 HIV Screening Completed 08/25/2017 Zoster Vaccines Completed 06/14/2022, 08/16/2021 Pneumococcal Vaccine: 50+ Years Completed 09/13/2022, 08/16/2021, 06/13/2019 Hepatitis B Vaccines Completed 09/23/2022, 06/14/20 22 [...] patient's age to complete this topic Meningococcal Vaccine Aged Out No lucien aure eligible based on patient's age to complete this topic RSV under 20 months Aged Out No longe r eligible based on patient's age to complete this topic Rotavirus Vaccines Aged Out No longer eligible based on patient's age to complete this topic
--- OUTSIDE RECORDS SUMMARY | 2025-04-09 12:42 | XMS_ITS | Encounter Summary ---
Author Organization [facility] Address [address] [place] [address] Care Team Providers Care Servicing Rep Name Role Phone Cricket Wills Primary Care Provider [phone] Reason for Visit * Reason Comments Care Coordination Patient asked to shelly t with this CHW today. Encounter Details Date Type Department Care Team (Late st Contact Info) Description 01/26/2018 Interim Notes [address] [phone] Sierra Ware, Community Health Worker [address] [place] [address] Social History Tobacco Use Types Packs/Day Years [...] Description 04/18/2025 10:00 AM EDT Office Visit [facility] [address] [place] [address] Ihsan Gibbs, PharmD [address] [place] [address] 07/04/2025 2:20 PM EST Office Visit [facility] [address] Dental [address] [place] [address] Margarito Leger [address] [place] [address] documented as of this encounter Visit Diagnoses Not on filedocumented in this encounter Additional Health Concerns Infection Onset Date Last Indicated Resolved Time COVID-19 Comment:Patient tested negative for Covid-19 05/03/22 05/03/2022 05/03/2022 05/03/2022 7:32 AM P DT documented as of this encounter Care Teams Servicing Rep Relationship Specialty Start Date End Date Cricket Wills PA [address] [place] [address] PCP - General Internal Medicine 07/08/17 documented as of this encounter
--- OUTSIDE RECORDS SUMMARY | 2025-04-09 12:42 | XMS_ITS | Clinical Summary ---
Author Organization [facility] Address [address] [place] [address] Care Team Providers Care Center Human Resources Manager Name Role Phone Cricket Wills Primary Care Provider [phone] Source Comments PLEASE NOTE, if this patient [...] day 60 Tablet 5 07/18/19 24 Active clonazePAM (KLONOPIN) 1 mg tablet TAKE 1/2 TAB BY MOUTH two (2) times a day Authorized by: REYMUNDO ARAGON 10/02/19 24 Active naloxone (NARCAN) 4 mg/actuation nasal sprayIndication s:Chronic pain of right knee Place 1 [place] into the nostril(s) as needed for opioid reversal (Overdose) 2 Each 02/12/20 24 Active traMADoL (ULTRAM) 50 mg tabletIndicatio ns:Chronic pain of right knee Take 1 Tablet by mouth 4 (four) times daily as needed for pain 30 Tablet 02/12/20 24 Active tamsulosin (FLOMAX) 0.4 mg 24 hr capsuleIndicati ons:Kidney stone Take 1 Capsule by mouth once daily for 30 days 30 Capsule 06/12/20 24 Active ONE DAILY MULTIVITAMIN tabletIndicatio ns:Malnutrition , unspecified type TAKE 1 TABLET BY MOUTH ONCE DAILY 30 Tablet 11 07/15/19 25 Active naproxen (NAPROSYN) 500 mg tabletIndicatio ns:Kidney stone TAKE 1 TABLET BY MOUTH two (2) times a day WITH A MEAL 30 Tablet 08/13/19 25 Active albuterol (PROVENTIL) 2.5 mg /3 mL (0.083 %) nebulizer solutionIndicat ions:Mild persistent asthma with acute exacerbation INHALE THE CONTENT OF 1 VIAL (3mls) VIA NEBULIZER EVERY 6 HOURS NEEDED FOR WHEEZING 75 mL 1 12/06/19 25 Active valsartan (DIOVAN) 160 mg tabletIndicatio ns:Primary hypertension Take 1 Tablet by mouth once daily. 90 Tablet 1 12/11/19 25 Active VENTOLIN HFA 90 mcg/actuation inhalerIndicati ons:Cough,Bronc hitis,Moderate persistent asthma with acute exacerbation Inhale 2 Puffs into the lungs every 6 (six) hours as needed for shortness of breath or wheezing. 18 g 2 12/11/19 25 Active ALLERGY RELIEF, CETIRIZINE, 10 mg tabletIndicatio ns:Asthma due to seasonal allergies TAKE 1 TABLET BY MOUTH ONCE DAILY 30 Tablet 11 02/04/20 25 Active gabapentin (NEURONTIN) 600 mg tabletIndicatio ns:Low back pain TAKE 1 TABLET BY MOUTH 3 (THREE) TIMES A DAY 90 Tablet 2 03/18/20 25 Active QUEtiapine (SEROQUEL) 50 mg tabletIndicatio ns:Dysthymia TAKE 1 TABLET BY MOUTH ONCE DAILY AT BEDTIME 30 Tablet 1 03/18/20 25 Active gabapentin (NEURONTIN) 600 mg tabletIndicatio ns:Low back pain TAKE 1 TABLET BY MOUTH 3 (THREE) TIMES A DAY 90 Tablet 2 12/11/19 25 2024 Discontinued QUEtiapine (SEROQUEL) 50 mg tabletIndicatio ns:Dysthymia TAKE 1 TABLET BY MOUTH ONCE DAILY AT BEDTIME 30 Tablet 1 01/14/20 25 2024 Discontinued Active Problems Patient Care Coordination [...] on 06/25/2018, both by Dr. Ken at [facility]. Presented to consult office for c/o worsening [...] Sx's after. Problem Noted Date Diagnosed Date Combined forms of age-related cataract of both e yes 12/10/2024 Class 1 obesity due to exces s calories with serious comorbidity and body mass index (BMI) of 33.0 to 33.9 in adult 10/16/2023 Diverticulitis 04/18/2023 Lumbar spondylosis 04/18/2023 Overview (12/10/2024): Last Assessment & Plan: Patient has history of right L5-S1 minimally invasive discectomy 08/02/[address] Whitfield, s/p right L4-5 decompression February 2018, reexploration with microdiscectomy 06/25/[address] Ken at [facility]. He was last seen in the office [...] spinal cord stimulator placed October 2021 at [facility] pain management. He comes in today describing [...] GI for diverticulitis, recent ED visits at [facility]. Patient had CAT scan of the abdomen [...] also had a lumbar spine x-ray at [facility] 01/30/2023 that shows straightening of the normal [...] ordered right hip x-ray. I will call [employer] to see if he can have an MRI lumbar spine if he is not improving with time. (Card states his spinal cord stimulator is MRI conditional). All questions answered on today's visit. I asked him to call with any worsening symptoms, concerns or questions. Failed back syndrome of lumbar spine 06/14/2022 [...] of right knee 03/13/2019 Essential hypertension 07/02/2018 Pruritus ani 09/18/2017 Low back pain 07/26/2017 Overview (07/27/2017): Multilevel [...] 02/19/18, per Cricket Wills PA-C: Seen by [facility] Neurosurgery. Dr. James Dent will attempt to decompress after PCP pre-op clearance. Right L4-L5 METRx (6cm) bilateral decompression. Surgeon Dr. Dent - 02/14/18. Encounters Date Type Department Care Team Description 03/28/2025 10:00 AM EDT Telemedicine Visit [address] [phone] Brenton Mcfadden, RD 02/21/2025 10:00 AM EDT Telemedicine Visit [address] [address] Brenton Mcfadden, RD 02/10/2025 10:00 AM EDT Office Visit [facility] [address] [place] [address] Ihsan Gibbs, PharmD 02/07/2025 10:00 AM EDT Office Visit [address] [address] Brenton Mcfadden, RD 01/24/2025 10:00 AM EDT Telemedicine Visit [address] [address] Brenton Mcfadden, RD from Last 3 Months Immunizations Immunization Administration Dates Next Due Flu, Preservative Free 09/13/2022,2020,04/13/2020,04/16,05/03/2018,08/22/2017 Hep B,adult,adjuvanted (HEPLISAV) 09/23/2022,12/2021 Influenza (FLUBLOK),recombinant,injectable,prese rvative Free 05/03/2024 MODERNA COVID-19 VACCINE BIV ALENT, BLUE CAP, 6M+ 09/13/2022 Moderna COVID-19 Vaccine, re d cap blue label, 12+ Primary Series 11/16/2020,10/17/2020 PFIZER COVID VACCINE, PURPLE CAP, 12+ 06/16/2021 PNEUMOCOCCAL CONJUGATE PCV 2 0 (Prevnar 20) 09/13/2022 PNEUMOCOCCAL POLYSACCHARIDE PPV23 (Pneumovax 23) 08/16/2021,06/13/2019 TDAP 08/22/2017 ZOSTER VACCINE, RECOMBINANT (SHINGRIX) 2,08/16/2021 Social History Tobacco Use Types Packs/Day Years Used Date Smoking Tobacco: Former Passive Smoke Exposure: Never Smokeless Tobacco: Never Alcohol Use Standard Drinks/Week Comments No 0 (1 standard drink = 0.6 oz pur e alcohol) Social Connections Answer Date Recorded How often do you feel lonely or isolated from th ose around you? 1 06/12/2024 Financial Resource Strain Answer Date R ecorded Hard to pay for: Food 1 06/12/2024 Stress Answer Date Recorded Do you feel these kinds of stress these days? 1 06/12/2024 Physical Activity Answer Date Recorded Physical Activity 0 11/12/2020 Food Insecurity Answer Date Recorded Hard to pay for: Food 1 06/12/2024 Transportation Needs Answer Date Record ed Hard to pay for: Transportation 1 06/12/2024 Housing Stability Answer Date Recorded Hard to pay for: Rent/Mortgage payment 1 06/12/2024 Safety and Environment Answer Date Hoang rded Safety 1 09/29/2023 Utilities Answer Date Recorded Hard to pay for: Utilities 1 06/12 Employment Answer Date Recorded Stress 0 11/12/2020 Sex and Gender Information Value Date Recorded Sex Assigned at Male 07/20/2017 9:10 AM PST Legal Sex Male 8:10 AM PST Gender Identity Male 07/20/2017 9:10 AM PST Sexual Orientation Don't know 07/20/2017 9: 10 AM PST Last Filed Vital Signs Vital Sign Reading Time Taken Comments Blood Pressure 122/62 02/10/2025 9:44 AM EDT Pulse 72 02/10/2025 9:44 AM EDT Temperature 36.8 C (98.3 F) 02/10/2025 9:44 AM EDT Respiratory Rate 17 02/10/2025 9:44 AM EDT Oxygen Saturation 98% 02/10/2025 9:44 AM EDT Inhaled Oxygen Concentration - - Weight 107 kg (236 lb) 02/10/2025 9:44 AM EDT Height 177.8 cm (5' 10 ) 12/10/2024 9:16 AM EDT Body Mass Index 33.86 12/10/2024 9:16 AM EDT Plan of Treatment Upcoming Encounters Date Type Department Care Team (Late st Contact Info) Description 04/18/2025 10:00 AM EDT Office Visit [facility] [address] [place] [phone] Ihsan Gibbs, PharmD [address] [place] [address] 07/04/2025 2:20 PM EST Office Visit [facility] [address] Dental [address] [place] [address] Margarito Leger [address] [place] [address] Health Maintenance Due Date Last Done Comments CT Colonography 12/01/2011 Fecal DNA 12/01/2011 Flexible Sigmoidoscopy 12/01/2011 FIT/gFOBT 04/24/2021 04/24/2020, 04/09, 04/24/2020, Additional history exists [id number] ( season) 2025 09/13/2022, 06/16/2021, 11/16/2020, Additional history exists Depression Monitoring 03/12/2025 12/10/2024 , 06/12/2024, 01/12/2024, Additional history exists Annual Wellness (Adult): Indicated (All Coverage) 12/10/2025 12/10/2024, 08/16/2021, 01/30/2019, Additional history exists Anxiety Screening 12/10/2025 12/10/2024 Diabetes Screening 12/10/2025 12/10/2024, 1 08/06/2023, 03/08/2024, Additional history exists Lipid Screening 12/10/2025 12/10/2024, 11/08, 2022, Additional history exists Tobacco Screening 12/10/2025 12/10/2024, , 06/28/2022, Additional history exists Dental BW 01/03/2026 01/01/2025, 04/10, 09/04/2023, Additional history exists Dental Examination 01/03/2026 01/01/2025, 1 , 09/04/2023, Additional history exists Dental Perio Charting 01/03/2026 01/01/2025 , 09/04/2023, 02/08/2022 Dental Prophy 01/03/2026 01/01/2025, 04/10, 09/04/2023, Additional history exists Imm-DTaP/Tdap/Td (2 - Td or Tdap) 08/22/2027 018 Dental FMX/Pano 01/03/2030 01/01/2025 Colonoscopy 10/30/2030 11/04/2020, 10/30/2020 Colorectal Cancer Screening 10/30/2030 HIV Screening Completed 08/25/2017 Hepatitis C Screening Completed 08/25/2017 Imm-Zoster, Recombinant Completed 06/14/2022, 08/16 Imm-Pneumococcal 50+ Completed 09/13/2022, 08/16/2021, 06/13/2019 Imm-Hepatitis B Completed 09/23/2022, 06/14/2022 Imm-Influenza Discontinued 05/03/2024, 01/2023, 05/13/2021, Additional history exists Alcohol and Drug Screen Completed 07/26/19, 06/12/2024, 10/16/2023, Additional history exists Goals Goal Patient Goal Type Associated Problems Recent Progress Patient-Stated? Author Blood Pressure < 140/90 Blood Pressure Essential hypertension 122/62(2024 9:44 AM EDT) No Mary Maxwell, PharmD Procedures Procedure Name Priority Date/Time Associated Diagnosis Comments COMP PERIODONTAL EVALUATION - NEW/EST PATIENT Routine 01/01/2025 1:00 PM EDT Caries of enamel (incipient) INTRAORAL - COMP SERIES OF RADIOGRAPHIC IMAGES Routine 01/01/2025 1:00 PM EDT Caries of enamel (incipient) PROPHYLAXIS - ADULT Routine 01/01/2025 1 :00 PM EDT Caries of enamel (incipient) PERIODIC ORAL EVALUATION ESTABLISHED PATIENT Routine 01/01/2025 1:00 PM EDT Caries of enamel (incipient) COMPREHENSIVE METABOLIC PANEL Routine 12/10/2024 9:44 AM EDT Mixed hyperlipidemia Low back pain, unspecified back pain laterality, unspecified chronicity, unspecified whether sciatica present Lumbosacral disc herniation Sacral nerve root compression Failed back syndrome of lumbar spine Primary hypertension Cough Bronchitis Moderate persistent asthma with acute exacerbation (HHS-HCC) Routine adult health maintenance LIPID PANEL Routine 12/10/2024 9:44 AM EDT Mixed hyperlipidemia REFERRAL FOR COLONOSCOPY Routine 10/30/2020 12:54 PM EDT Diverticulitis OCCULT BLOOD, STOOL (X1) Routine 04/24/2020 12:00 AM EDT ANTIBODY HIV-1&HIV-2 SINGLE RESULT Routine 08/25/2017 8:35 AM EST Routine adult health maintenance HEPATITIS A,B,C PANEL Routine 08/25/2017 8:35 AM EST Routine adult health maintenance from Last 3 Months or Most Recently Relevant to Health Maintenance Results * (ABNORMAL) LIPID PANEL Routine (12/10/2024 9:44 AM EDT) CHOLESTEROL, TOTAL 267(H) <200 mg/dL [facility] HDL CHOLESTEROL 46 > OR = 40 mg/dL [facility] TRIGLYCERIDES 231(H) <150 mg/dL [facility] Comment: If a non-fasting specimen was collected, consider repeat triglyceride testing on a fasting specimen if clinically indicated. Arelis et al. J. of Clin. Lipidol. 2015;9:129-169. LDL-CHOLESTEROL 178(H) 99 mg/dL (calc) [facility] Comment: Reference range: <100 Desirable range <100 mg/dL for primary prevention; <70 mg/dL for patients with CHD or diabetic patients with > or = 2 CHD risk factors. LDL-C is now calculated using the Darius calculation, which is a validated novel method providing better accuracy than the Friedewald equation in the estimation of LDL-C. Charbel VIDAL et al. ANI. 2013;310(19): 8846-3890 (http://education.[employer]/faq/FDX251) CHOL/HDLC RATIO 5.8(H) <5.0 (calc) [facility] NON-HDL CHOLESTEROL 221(H) <130 mg/dL (calc) [facility] Comment: Non-HDL level > or = 220 [...] a therapeutic option. Blood Blood / Unknown 12/10/2024 9 :44 AM EDT 12/10/2024 9:44 AM EDT [facility] - BLOOD DRAW Final Result [facility] [address] [address], [employer] [address] [address] * (ABNORMAL) COMPREHENSIVE METABOLIC PANEL Routine (12/10/2024 9:44 AM EDT) [facility] GLUCOSE 90 65 - 99 mg/dL [facility] Comment: Fasting reference interval UREA NITROGEN (BUN) 18 7 - 25 mg/dL [facility] CREATININE (blood) 1.03 0.70 - 1.30 mg/dL [facility] EGFR 84 > OR = 60 mL/min/1. 73m2 [facility] BUN/CREATININE RATIO SEE NOTE: [facility] Comment: Not Reported: BUN and Creatinine are within reference range. SODIUM 139 135 - 146 mmol/L [facility] POTASSIUM 4.2 3.5 - 5.3 mmol/L [facility] CHLORIDE 102 98 - 110 mmol/L [facility] CARBON DIOXIDE 29 20 - 32 mmol/L [facility] CALCIUM 8.9 8.6 - 10.3 mg/dL [facility] PROTEIN, TOTAL 6.3 6.1 - 8.1 g/dL [facility] ALBUMIN 3.7 3.6 - 5.1 g/dL [facility] GLOBULIN 2.6 1.9 - 3.7 g/dL (calc) [facility] ALBUMIN/GLOBULI N RATIO 1.4 1.0 - 2.5 (calc) [facility] BILIRUBIN, TOTAL 0.6 0.2 - 1.2 mg/dL [facility] ALKALINE PHOSPHATASE 65 35 - 144 U/L [facility] AST 23 10 - 35 U/L [facility] ALT 47(H) 9 - 46 U/L [facility] Blood Blood / Unknown 12/10/2024 9 :44 AM EDT 12/10/2024 9:44 AM EDT us [facility] - BLOOD DRAW Final Result [facility] [address] [address], [facility] [address] [address] * REFERRAL FOR COLONOSCOPY (10/30/2020 12:54 PM [...] NEGATIVE CARD NEHEMIAH DATE: NO DATE SPECIFIED [facility] 04/24/2020 04/24/2020 6:5 5 PM EDT Narrative [facility] - 04/27/2020 11:22 AM EDT [employer], a member of [address] [address] Telehealth Coordinator - Ella Guevara MD PT ID [id number] ORD# [id number] SOURCE: STOOL; us [facility] BODY FLUIDS AND STOOLS AMB ULATORY Final Result Performing Organization Address [facility]/ZIP Co de Phone Number [facility] [address] [place] [address], * HEPATITIS A,B,C PANEL (08/25/2017 8:35 AM EST) HEPATITIS B SURFACE ANTIBODY NEGATIVE NEGATIVE [facility] HEPATITIS B SURFACE ANTIGEN NEGATIVE NEGATIVE [facility] Comment: Over the counter supplements containing high doses of biotin may interfere with this assay. If interference is suspected, patients shoud be retested after refraining from biotin supplements for 72 hours. HEPATITIS C VIRUS DIAGNOSTIC NEGATIVE NEGATIVE [facility] HEPATITIS B CORE ANTIBODY NEGATIVE NEGATIVE [facility] HEPATITIS A ANTIBODY TOTAL NEGATIVE NEGATIVE [facility] Comment: Over the counter supplements containing high doses of biotin may interfere with this assay. If interference is suspected, patients shoud be retested after refraining from biotin supplements for 72 hours. Blood specimen (specimen) Blood / Unknown 08/25/2017 8:35 AM EST 08/25/2017 8:46 AM EST Narrative [facility] - 08/25/2017 2:18 PM EST [facility] [employer] [address] [place] [address] PT ID [id number] ORD# [id number] [facility] - BLOOD DRAW Edited Result - Final Performing Organization Address [facility]/ZIP Co de Phone Number [address] [address], * HIV-1 & HIV-2 ANTIBODIES (08/25/2017 8:35 AM EST) HIV 1 AND 2 ANTIBODY SCREEN NEGATIVE NEGATIVE [facility] Comment: This assay is a 4th generation assay allowing for earlier detection of HIV infection by detecting the presence of the HIV-1 p24 antigen as well as the traditional antibodies to HIV type 1 (including group O) and type 2. Use of a 4th generation assay is the current CDC recommendation for HIV screening. Blood specimen (specimen) Blood / Unknown 08/25/2017 8:35 AM EST 08/25/2017 8:46 AM EST Narrative [facility] - 08/25/2017 2:47 PM EST [facility] [address] [place] [address] PT ID [id number] ORD# [id number] [facility] - BLOOD DRAW Final Result [facility] [address] [place] [address], from Last 3 Months or Most Recently Relevant to Health Maintenance Insurance [place] D[place] [address] [employer] Care Teams Center Human Resources Manager Relationship Specialty Start Date End Date Cricket Wills PA [address] [place] [address] PCP - General Internal Medicine 07/08/17
== END 2025-04-09 11:07 | disposition home or self-care (01) ==
LOC: HO.HMGCX 11:06
PROVIDERS: PCP Physician Assistant; Visit Provider Nurse Practitioner Family
DX: N20.0 Calculus of kidney (principal)
CPT/HCPCS: 76775

== ENCOUNTER → 2025-04-09 11:24 | Outpatient (BNV) | payer MEDICAID, SELFPAY | PROVIDERS: PCP Physician Assistant; Visit Provider Radiology Diagnostic Radiology | DX: N20.0 Calculus of kidney (principal) | CPT/HCPCS: 76775 ==

== ENCOUNTER 2025-04-23 10:02 | Outpatient (AMB) | payer MEDICAID, SELFPAY ==
--- OUTSIDE RECORDS SUMMARY | 2025-04-18 10:00 | XMS_ITS | Encounter Summary ---
Author Organization [facility] Address [address] [place] [address] Care Team Providers Care Preschool Head Teacher Name Role Phone Cricket Wills Primary Care Provider [phone] Reason for Visit * Reason Comments Hypertension Follow Up Encounter Details Date Type Department Care Team ([facility] st Contact Info) Description 04/18/2025 10:00 AM EDT Office Visit [facility] [address] [place] [phone] Ihsan Gibbs, PharmD [address] [place] [address] Social History Tobacco Use Types Packs/Day Years Used Date Smoking Tobacco: Former Passive Smoke Exposure: Never Smokeless Tobacco: Never Tobacco Cessation:Counseling Given: Not Answered Alcohol Use Standard Drinks/Week Comments No 0 [...] AM PST documented as of this encounter Last Filed Vital Signs Vital Sign Reading Time Taken Comments Blood Pressure 122/58 04/18/2025 9:14 AM EDT Pulse 71 04/18/2025 9:14 AM EDT Temperature 37.1 C (98.8 F) 04/18/2025 9:14 AM EDT Respiratory Rate 18 04/18/2025 9:14 AM EDT Oxygen Saturation 99% 04/18/2025 9:14 AM EDT Inhaled Oxygen Concentration - - Weight 103.6 kg (228 lb 6.4 oz) 04/18/2025 9:14 AM EDT Height 177.8 cm (5' 10 ) 04/18/2025 9:14 AM EDT Body Mass Index 32.77 04/18/2025 9:14 AM EDT documented in this encounter Functional Status * Is the patient deaf or have serious difficulty hearing? Answer Date of Assessment Author No 12/10/2024 9:16 AM PDT Destinee Julio MA * Is the patient blind, or have serious difficulty seeing, even when wearing glasses? Answer Date of Assessment Author No 12/10/2024 9:16 AM PDT Destinee Julio MA * Does the patient have serious difficulty walking or climbing stairs? Answer Date of Assessment Author No 12/10/2024 9:16 AM PDT Destinee Julio MA * Does the patient have difficulty dressing or bathing? Answer Date of Assessment Author No 12/10/2024 9:16 AM PDT Destinee Julio MA * Because of a physical, mental, or emotional condition, does the patient have difficulty doing errands alone such as visiting a doctor???s office or shopping? Answer Date of Assessment Author No 12/10/2024 9:16 AM PDT Destinee Julio MA documented as of this encounter Mental Status * Because of a physical, mental, or emotional condition, does the patient have serious difficulty concentrating, remembering, or making decisions? Answer Entry Date Author No 12/10/2024 9:16 AM Destinee Ni MA documented in this encounter Progress Notes * Ihsan Gibbs PharmD - 04/18/2025 10:00 AM EDT Osiel Gamino is a 59 year old, Slovenian-speaking male who presents today for a follow-up visit in Hypertension Clinic with Ihsan Gibbs PharmD. Referred by CLIFF Lara. No full time staff interpreter needed for today's visit as patient speaks Arabic. Accompanied by: None HPI: Patient reports: Patient reports doing well, endorses proper use of medications, and denies any issues today. Patient tries to walk daily but limited by leg pain, does limit salt and caffeine intake. Patient reports being comfortable with SMBP process and SMBP an hour after medications. Patient has ongoing back pain which can increase BP at times, reports is following with specialist for pain and has pulsator. New concerns: None Specialists managing HTN: Reports following with nephrology for renal calculi. ASCVD Patient has the following risk factors/co-morbidities for hypertension: Dyslipidemia, Obesity, and pain. Hx of stroke/HI/HF/CAD? No Family cardiac hx: Father had heart [...] Patient reports the following medication side effects: polyuria. Home BP monitoring: Patient reports checking blood pressure at home Weekly BP readings: 04/17/25 139/74mmHg 04/14/25 119/73mmHg 04/06/25 113/74mmHg 03/02/25 123/76mmHg 02/19/25 136/74mmHg Lifestyle: Diet: Patient denies adding salt to meals. Patient eats mostly vegetables, fresh made meals, and drinks a lot of water. Patient following with [facility] pet stylist. Caffeine: One coffee daily, denies soda, tea, and energy drinks. Exercise: minimal exercise: walking daily however, limited by leg and back pain. OBJECTIVE BP 122/58 at 04/18/2025 9:14 AM BP 122/62 at 02/10/2025 9:44 AM BP 132/74 at 01/01/2025 1:08 PM Wt Readings from Last 3 Encounters: 04/18/25 228 lb 6.4 oz (103.6 kg) 02/10/25 236 lb (107 kg) 12/10/24 238 lb (108 kg) Allergies reviewed: No Known Allergies Estimated Creatinine Clearance: 94.1 mL/min (by C-G formula based on SCr of 1.03 mg/dL). Lab Results Component Value Date NA 139 12/10/2024 K 4.2 12/10/2024 BUN 18 12/10/2024 BUNCREAT SEE NOTE: 12/10/2024 CREATININE 1.03 12/10/2024 EGFR 84 12/10/2024 No results found for: METANEPHRINE , ALDOSTERONE , NORMETNEPH , RENIN , ALDOPRA , TSH , CORTISOLAM , [id number] , [id number] Lab Results Component Value Date TRIGLYC 231 (H) 12/10/2024 CHOL 267 (H) 12/10/2024 HDL 46 12/10/2024 LDL 178 (H) 12/10/2024 CHOLHDL 5.8 (H) 12/10/2024 NONHDL 221 (H) 12/10/2024 The 10-year ASCVD risk score (Azul DK, et al., 2019) is: 11.1% ASSESSMENT BP target: Per ACC/AHA guidelines, for adults with confirmed hypertension and known CVD or 10-year ASCVD event risk of 10% or higher, a BP target of less than 130/80 mmHg is recommended. Hypertension - controlled No medication therapy problems identified Na, K, Ca, Scr, eGFR: WNL as of 12/10/24 BP monitoring: Weekly PLAN I10 Essential hypertension (primary encounter diagnosis) Hypertension - controlled. Pharmacologic RX: Valsartan 160mg once daily No med changes, continue current medications for now: Valsartan. Counseled patient on importance of lifestyle modifications to improve BP control (Weight loss, increase physical activity as tolerated, and limit salt and caffeine intake) Patient agreed to SMBP weekly and to bring readings to future appointments. E66.811,E66.09,Z68.32 Class 1 obesity due to excess calories with serious comorbidity and body massindex (BMI) of 32.0 to 32.9 in adult Lifestyle measures:BMI follow up plan: The patient was counseled regarding nutrition and physical activity. Z79.899 Medication management Medications reviewed and medlist updated. Follow-up appt scheduled on July. EDUCATION PROVIDED: Counseled patient to continue lifestyle modifications: weight reduction, diet, exercise/physical activity, and caffeine intake. Proper conditions for taking blood pressure. Factors to also consider that may affect BP include, smoking, caffeine, alcohol use, pain, and exercise. Seeking emergency treatment if persistent chest pain, blurry vision, and/or palpitations and BP >180/110 mmHg. Medication(s): (indication, dosage, administration, storage, side effects, missing dose) Correction Complications of Uncontrolled Hypertension REFERENCES: Nevin PK, [...] Adults: Executive Summary: A Report of the [place] [employer]/[place] [employer] Task Force on Clinical Practice Guidelines. Hypertension. 2018 Dec;71(6):1007-8616. doi: 10.1161/HYP.[id number]. Epub 2016May 22. Erratum in: Hypertension. 2018 Dec;71(6):d246-c586. Erratum in: Hypertension. 2018 Mar;72(3):e33. PMID: [id number]. Ihsan Gibbs PharmD, [facility] documented in this encounter Miscellaneous Notes * Patient Instructions - Ihsan Gibbs PharmD - 04/18/2025 9:35 AM EDT Instructions: Normal blood pressure: less than 130/80 [...] [facility] Clinical [facility]ist Press 1 for Arabic Enter extension [phone] They will not ask you what extension [...] Care Team (Late st Contact Info) Description 07/04/2025 2:20 PM EST Office Visit [address] [phone] Margarito Leger [address] [place] [id number] documented as of this encounter Goals Goal Patient Goal Type Associated Problems Recent Progress Patient-Stated? Author Blood Pressure < 140/90 Blood Pressure Essential hypertension 122/58(2024 9:14 AM EDT) No Mary Maxwell, BryanD documented as of this encounter Visit Diagnoses Diagnosis Essential hypertension- Primary Class 1 obesity due to excess calories with serious comorbidity and body mass index (BMI) of 32.0 to 32.9 in adult Medication management Encounter for long-term (current) use of other medications documented in this encounter Additional Health Concerns Assessment Noted Time PHQ-9 Depression Total Score: 0 12/11/19 25 9:16 AM PDT documented as of this encounter Care Teams Preschool Head Teacher Relationship Specialty Start Date End Date Cricket Wills PA [address] [place] [address] PCP - General Internal Medicine 07/08/17 documented as of this encounter
--- NOTE | 2025-04-23 10:04 | A.OFFVIS_ITS ---
Intake Visit Reasons: 6m/US/Litholink Intake Note: patient presents today for: 6mo/US/litholink urology medications: vitB6 blood thinners: none US done: 04/09/25 litholink done: 11/20/24 Php Mysql Developer Required: Yes Php Mysql Developer Name: Eric [id number] Accompanied by: Self / Same As Patient Allergies No Known Allergies Allergy (Verified 04/23/25 10:46) Medication List - Last Reconciled 04/23/25 by CLIFF Miles-RASHAUN albuterol sulfate 90 mcg/actuation (Ventolin HFA) 2 puffs inhalation Q4-6H PRN albuterol sulfate mg inhalation Q4-6H PRN cetirizine 10 mg PO DAILY clonazepam 0.5 mg PO BID gabapentin 600 mg PO TID ipratropium-albuterol 0.5 mg-3 mg(2.5 mg base)/3 mL mL inhalation BID multivitamin (One Daily Multivitamin tablet) 1 tab PO DAILY naloxone 4 mg/actuation intranasal DAILY PRN pantoprazole 20 mg PO BID pyridoxine (vitamin B6) 100 mg PO DAILY 90 days quetiapine 50 mg PO BEDTIME tramadol 50 mg PO QID PRN valsartan 160 mg PO DAILY HPI Comments Details: Osiel is a 59-year-old Welsh-speaking male patient of . He has a past medical history of primary insomnia, osteoarthritis, obesity, hyperlipidemia, depression, GERD, hypertension, chronic back pain, anxiety, and asthma. He presents to the office today for follow-up of his nephrolithiasis. Recent renal imaging results reviewed with the patient today 05/03 echotexture. Redemonstration of nonobstructing 5 mm left renal calculus. There is a simple appearing left renal cysts measuring 1.3 cm. No collecting system dilatation of either kidney. Recent 24 hour Litholink results reviewed reviewed 12/01 low urine volume, borderline hyperoxaluria, low urine pH, and hyperuricosuria. We discussed increasing hydration as well as decreasing sodium intake. This was discussed at length. PSA 10/01 1.5. In discussion with the patient today he does report intermittent episodes of left-sided flank pain. We did discuss further treatment options and risks and benefits of these treatment options. When asked he does endorse to be drinking plenty of water daily. He also reports compliance with vitamin B6 as prescribed. He otherwise denies any bothersome urinary issues. He denies urinary urgency, urinary frequency, incontinence, nocturia, hematuria, foul smelling urine, changes to urinary stream, flank pain, fever, and or chills. [facility] Medical History Sacral nerve root compression Primary insomnia Persistent severe somatic symptom disorder Osteoarthritis Obesity, Class I, BMI 30-34.9 Mixed hyperlipidemia Major depressive disorder Lumbosacral disc herniation Low back pain GERD (gastroesophageal reflux disease) Failed back syndrome of lumbar spine Essential hypertension Class 1 obesity with body mass index (BMI) of 33.0 to 33.9 in adult Chronic pain of right knee Anxiety Asthma Review of Systems Const Reports no additional complaints Eyes Reports no additional complaints ENT Reports no additional complaints Card Reports as per HPI Resp Reports as per HPI GI Reports as per HPI Reports as per HPI Musc Reports as per HPI Neuro Reports as per HPI Psych Reports as per HPI Endo Reports no additional complaints Jey/Lymph Reports no additional complaints Aller/Immun Reports no additional complaints Physical Exam Const General: cooperative, healthy appearing, comfortable, no acute distress, well developed, alert and awake Orientation/consciousness: patient oriented x3 Limitations: language barrier HEENT Head: Yes normal to inspection, Yes normocephalic and Yes atraumatic Ears: hearing grossly normal bilaterally Eyes General: appearance normal, both eyes and all related structures Neck Neck: Yes normal visual inspection and Yes trachea midline Chest Chest palpation & inspection: normal inspection of the chest Resp Effort & Inspection: normal respiratory effort and able to speak in complete sentences Cardio Rate: regular rate GI Inspection: Yes normal to inspection General: Yes no CVA tenderness Back/Spine/Pelvis Back: no CVA tenderness Skin General skin exam: no rashes or lesions noted Neuro General: patient oriented x3 Extrem General: Yes normal to inspection Psych Appearance: grossly normal and well kempt Mental Status: mental status grossly normal Speech and movement: Normal speech and movement present and Clear speech present Affect: normal affect Attitude: cooperative Thought process: Normal thought process present Thought content: Normal thought content present Insight: Fair insight present (Psych) Judgement: Fair judgement present (Psych) Results AMB Urinalysis, Automated UA Leukoctes 0 Karla/uL Last Edit by REGGIE Fields on 04/23/25 10:14 UA Nitrite Last Edit by Marnie Castorena [facility] on 04/23/25 10:14 UA Urobilinogen 0.2 mg/dL Last Edit by Marnie Castorena [facility] on 04/23/25 10:1 4 UA Protein 0 mg/dL Last Edit by Marnie Castorena [facility] on 04/23/25 10:14 UA pH 6.0 Last Edit by Marnie Castorena [facility] on 04/23/25 10:14 UA Blood 0 Daniel/uL Last Edit by Marnie aCstorena [facility] on 04/23/25 10:14 UA Specific [place] 1.020 Last Edit by Marnie Castorena [facility] on 04/23/25 10: 14 UA Ketone Last Edit by Marnie Castorena [facility] on 04/23/25 10:14 UA Bilirubin 0 mg/dL Last Edit by Marnie Castorena [facility] on 04/23/25 10:14 UA Glucose 0 mg/dL Last Edit by Marnie Castorena [facility] on 04/23/25 10:14 Results Reviewed Results Reviewed: Laboratory Last Values Urine pH (Auto) 6.0 04/23/25 10:13 Specific [place] (Auto) 1.020 04/23/25 10:13 Urine Protein (Auto) 0 mg/dL 04/23/25 10:13 Glucose (UA)(Auto) 0 mg/dL 04/23/25 10:13 Urine Blood (Auto) 0 Daniel/uL 04/23/25 10:13 Urine Bilirubin (Auto) 0 mg/dL 04/23/25 10:13 Urine Urobilinogen (Auto) 0.2 mg/dL 04/23/25 10:13 Leukocyte Esterase (Auto) 0 Karla/uL 04/23/25 10:13 Date of Service: 04/09/25 Procedure(s): US renal BI Findings: Right kidney normal size and echotexture, 11.4 cm length. Left kidney normal size and echotexture, 10.8 cm length. Redemonstrated nonobstructive midpole 5 mm renal calculus. There is a midpole simple appearing renal cysts measuring 1.3 x 1.4 x 1 cm. No collecting system dilatation of either kidney. Normal color Doppler. IMPRESSION: Stable nonobstructive 5 mm left midpole renal calculus. Assessment & Plan Assessment & Plan (1) Nephrolithiasis: Code(s): N20.0 - Calculus of kidney Category: Medical (2) Flank pain: Code(s): R10.9 - Unspecified abdominal pain Category: Medical Plan Recent renal ultrasound results reviewed with the patient today; as noted above. Recent 24 hour urine/Litholink results were reviewed; as noted above We discussed potential causes of nephrolithiasis as well as further treatment options and risks and benefits of these treatment options. Will continue with surveillance monitoring. Will obtain repeat Litholink in 3 months for further assessment evaluation Patient currently denies any bothersome urinary issues. He reports be happy with current voiding parameters. We discussed adding 1 oz of lemon juice to water daily. Continue vitamin B6 as discussed and prescribed; refill provided Discussed, educated, and stressed the importance of adequate hydration daily in relation to nephrolithiasis as well as overall health and well-being. Will obtain KUB in 4-6 months. Follow-up in 4-6 months with Litholink and imaging to be completed prior; or sooner with any issues, concerns, and or questions. Orders: Orders URORISK Today N20.0 - Calculus of kidney AMB Urinalysis Automated Today Z13.9 - Encounter for screening, unspecified XR KUB 4 Months N20.0 - Calculus of kidney Medications: Refilled pyridoxine (vitamin B6) 100 mg PO DAILY 90 tabs 1RF 90 days Patient Instructions: The patient had an opportunity to ask questions regarding the treatment plan. All questions were answered. Physical exam, labs, and imaging were discussed and reviewed in detail. As well as risks, benefits, and discussion of treatment choices. No major barriers to understanding were identified. The patient expressed understanding and agreement with the above treatment plan. The patient was made aware they should contact our office by phone for worsening of their current condition, the appearance of new symptoms, or with any questions or concerns. Compliance is encouraged with any medications and follow up testing that is ordered. It is a privilege to be allowed the opportunity to participate in? your urological care.? Again, if you have any questions or concerns If you have any questions or concerns please do not hesitate to contact me. The office is [phone]. This note is constructed using voice recognition software. While every effort has been made to ensure accuracy oven operator errors may have been included. Yours sincerely, CLIFF Miles-BC Coding Level of Care Code Est Pt Level 4 (16166) Diagnoses Nephrolithiasis N20.0 Flank pain R10.9 Time Spent (min) 40
--- OUTSIDE RECORDS SUMMARY | 2025-04-23 11:46 | XMS_ITS | Clinical Summary ---
Author Organization [facility] Address [address] [place] [address] Care Team Providers Care Pediatrics Hospitalist Name Role Phone Unavailable Primary Care Provider Unavailabl e Encounters Date Type Department Care Team Description 01/28/2025 Population Health Risk Score [facility] (C3) Department [address] [facility] [address] [place] [id number] Provider, Population Health Generic from Last 3 [...]
--- OUTSIDE RECORDS SUMMARY | 2025-04-23 11:47 | XMS_ITS | Encounter Summary ---
Author Organization [facility] Address [address] [place] [address] Care Team Providers Care Eligibility Counselor Name Role Phone Cricket Wills Primary Care Provider Encounter Details Date Type Department Care Team (Late st Contact Info) Description 02/07/2022 Dental Interim Note [facility] [address] [place] [phone] Mellissa Hernandez, ALEXIS [address] [place] [address] Social History Tobacco Use Types Packs/Day Years [...] Description 07/04/2025 2:20 PM EST Office Visit [facility] [address] [place] [address] Margarito Leger [address] [place] [address] documented as of this encounter Goals Goal Patient Goal Type Associated Problems Recent Progress Patient-Stated? Author Blood Pressure < 140/90 Blood Pressure Essential hypertension 122/58(2024 9:14 AM EDT) No Mary Maxwell, PharmD documented as of this encounter Visit Diagnoses Not on filedocumented in this encounter Additional Health Concerns Infection Onset Date Last Indicated Resolved Time COVID-19 Comment:Patient tested negative for Covid-19 05/03/22 05/03/2022 05/03/2022 05/03/2022 7:32 AM P DT Assessment Noted Time PHQ-9 Depression Total Score: 0 08/16/19 22 1:24 PM PST documented as of this encounter Care Teams Eligibility Counselor Relationship Specialty Start Date End Date Cricket Wills PA [address] [place] [address] PCP - General Internal Medicine 07/08/17 documented as of this encounter
--- OUTSIDE RECORDS SUMMARY | 2025-04-23 11:47 | XMS_ITS | Encounter Summary ---
Author Organization [facility] Address [address] [place] [address] Care Team Providers Care Edge Cutting Machine Operator Name Role Phone Cricket Wills Primary Care Provider [phone] Encounter Details Date Type Department Care Team (Late st Contact Info) Description 02/07/2022 Dental Interim Note [facility] [address] [facility] [address] [place] [phone] Marleny Cormier [address] [place] [address] Social History Tobacco Use Types Packs/Day Years [...] Description 07/04/2025 2:20 PM EST Office Visit [facility] [address] [place] [address] ArsenMargarito [address] [place] [address] documented as of this encounter Goals Goal [...] documented as of this encounter Care Teams Edge Cutting Machine Operator Relationship Specialty Start Date End Date Cricket Wills PA [address] [place] [address] PCP - General Internal Medicine 07/08/17 documented as of this encounter
--- OUTSIDE RECORDS SUMMARY | 2025-04-23 11:47 | XMS_ITS | Encounter Summary ---
Author Organization [facility] Address [address] [place] [address] Care Team Providers Care Shellfish Sorter Name Role Phone Cricket Wills Primary Care Provider [phone] Encounter Details Date Type Department Care Team (Late st Contact Info) Description 02/07/2022 Dental Interim Note [facility] [address] [place] [phone] Mellissa Hernandez, ALEXIS [address] [place] [address] Social History Tobacco Use Types Packs/Day Years [...] Description 07/04/2025 2:20 PM EST Office Visit [facility] [address] [place] [address] Margarito Leger [address] [place] [address] documented as of this encounter Goals Goal [...] documented as of this encounter Care Teams Shellfish Sorter Relationship Specialty Start Date End Date Cricket Wills PA [address] [place] [address] PCP - General Internal Medicine 07/08/17 documented as of this encounter
--- OUTSIDE RECORDS SUMMARY | 2025-04-23 11:47 | XMS_ITS | Encounter Summary ---
Author Organization [facility] Address [address] [place] [address] Care Team Providers Care Tire Spotter Name Role Phone Cricket Wills Primary Care Provider [phone] Encounter Details Date Type Department Care Team (Late st Contact Info) Description 02/07/2022 Dental Interim Note [facility] [address] [place] [phone] Mellissa Hernandez, ALEXIS [address] [place] [address] Social History Tobacco Use Types Packs/Day Years [...] EST Office Visit [facility] [address] [place] [address] Margarito Leger [address] [place] [address] documented as of this encounter Goals Goal [...] documented as of this encounter Care Teams Tire Spotter Relationship Specialty Start Date End Date Cricket Wills PA [address] [place] [address] PCP - General Internal Medicine 07/08/17 documented as of this encounter
--- OUTSIDE RECORDS SUMMARY | 2025-04-23 11:47 | XMS_ITS | Encounter Summary ---
Author Organization [facility] Address [address] [place] [address] Care Team Providers Care Mechatronics Technician Name Role Phone Cricket Wills Primary Care Provider [phone] Reason for Visit * Reason Comments Care Coordination Patient asked to shelly t with this CHW today. Encounter Details Date Type Department Care Team (Late st Contact Info) Description 01/26/2018 Interim Notes [address] [phone] Sierra Ware, Community Health Worker [facility] [place] [address] Social History Tobacco Use Types Packs/Day Years [...] Description 07/04/2025 2:20 PM EST Office Visit [facility] [address] [place] [address] Margarito Leger [address] [place] [address] documented as of this encounter Visit Diagnoses Not on filedocumented in this encounter Additional Health Concerns Infection Onset Date Last Indicated Resolved Time COVID-19 Comment:Patient tested negative for Covid-19 05/03/2205/03/2022 05/03/2022 05/03/2022 7:32 AM P DT documented as of this encounter Care Teams Mechatronics Technician Relationship Specialty Start Date End Date Cricket Wills PA [address] [place] [address] PCP - General Internal Medicine 07/08/17 documented as of this encounter
--- OUTSIDE RECORDS SUMMARY | 2025-04-23 11:47 | XMS_ITS | Encounter Summary ---
Author Organization [facility] Address [address] [place] [address] Care Team Providers Care Director Blood Bank Name Role Phone Cricket Wills Primary Care Provider [phone] Encounter Details Date Type Department Care Team (Late st Contact Info) Description 02/07/2022 Dental Interim Note [facility] [address] [place] [phone] Mellissa Hernandez, ALEXIS [address] [place] [address] Social History Tobacco Use Types Packs/Day Years [...] Description 07/04/2025 2:20 PM EST Office Visit [facility] [address] [place] [address] Margarito Leger [address] [place] [address] documented as of this encounter Goals Goal Patient Goal Type Associated Problems Recent Progress Patient-Stated? Author Blood Pressure < 140/90 Blood Pressure Essential hypertension 122/58(2024 9:14 AM EDT) No Mayr Maxwell, PharmD documented as of this encounter Visit Diagnoses Not on filedocumented in this encounter Additional Health Concerns Infection Onset Date Last Indicated Resolved Time COVID-19 Comment:Patient tested negative for Covid-19 05/03/22 05/03/2022 05/03/2022 05/03/2022 7:32 AM P DT Assessment Noted Time PHQ-9 Depression Total Score: 0 08/16/19 22 1:24 PM PST documented as of this encounter Care Teams Director Blood Bank Relationship Specialty Start Date End Date Cricket Wills PA [address] [place] [address] PCP - General Internal Medicine 07/08/17 documented as of this encounter
--- OUTSIDE RECORDS SUMMARY | 2025-04-23 11:47 | XMS_ITS | Clinical Summary ---
Author Organization [facility] Address [address] [place] [address] Care Team Providers Care Merchandise Director Name Role Phone Cricket Wills Primary Care Provider [phone] Source Comments PLEASE NOTE, if this patient [...] solutionIndicati ons:Mild intermittent asthma, unspecified whether complicated Take 3 mL by nebulization 4 (four) times daily 90 mL 0 Active inhalational spacing deviceIndication s:Mild persistent asthma with acute exacerbation Use as instructed 1 Each 1 2 Active nebulizer and compressorIndica tions:Mild persistent asthma with acute exacerbation Use every 4- hours as needed for sob 1 Each 2 Active walkerIndication s:Muscle strain,Lumbosacr al disc herniation,Lumba r spine pain,Obesity, Class I, BMI 30-34.9,Mild persistent asthma with acute exacerbation,Ramiro led back syndrome of lumbar spine,Sacral nerve root compression,[employer] Field Data Collector darrin pain of right knee,Low back pain, unspecified back pain laterality, unspecified chronicity, unspecified whether sciatica present,Chronic bilateral low back pain, unspecified whether sciatica present Please dispense one Rolator walker for patient with mobility issues. 1 Each 3 Active pantoprazole (PROTONIX) 20 mg EC tablet TAKE 1 TABLET BY MOUTH two (2) times a day 60 Tablet 5 4 Active clonazePAM (KLONOPIN) 1 mg tablet TAKE 1/2 TAB BY MOUTH two (2) times a day Authorized by: REYMUNDO BAUTISTA 4 Active naloxone (NARCAN) 4 mg/actuation nasal sprayIndications :Chronic pain of right knee Place 1 [place] into the nostril(s) as needed for opioid reversal (Overdose) 2 Each 4 Active traMADoL (ULTRAM) 50 mg tabletIndication s:Chronic pain of right knee Take 1 Tablet by mouth 4 (four) times daily as needed for pain 30 Tablet 4 Active tamsulosin (FLOMAX) 0.4 mg 24 hr capsuleIndicatio ns:Kidney stone Take 1 Capsule by mouth once daily for 30 days 30 Capsule 4 Active ONE DAILY MULTIVITAMIN tabletIndication s:Malnutrition, unspecified type TAKE 1 TABLET BY MOUTH ONCE DAILY 30 Tablet 11 5 Active naproxen (NAPROSYN) 500 mg tabletIndication s:Kidney stone TAKE 1 TABLET BY MOUTH two (2) times a day WITH A MEAL 30 Tablet 5 Active albuterol (PROVENTIL) 2.5 mg /3 mL (0.083 %) nebulizer solutionIndicati ons:Mild persistent asthma with acute exacerbation INHALE THE CONTENT OF 1 VIAL (3mls) VIA NEBULIZER EVERY 6 HOURS NEEDED FOR WHEEZING 75 mL 1 5 Active valsartan (DIOVAN) 160 mg tabletIndication s:Primary hypertension Take 1 Tablet by mouth once daily. 90 Tablet 1 5 Active VENTOLIN HFA 90 mcg/actuation inhalerIndicatio ns:Cough,Bronchi tis,Moderate persistent asthma with acute exacerbation Inhale 2 Puffs into the lungs every 6 (six) hours as needed for shortness of breath or wheezing. 18 g 2 5 Active ALLERGY RELIEF, CETIRIZINE, 10 mg tabletIndication s:Asthma due to seasonal allergies TAKE 1 TABLET BY MOUTH ONCE DAILY 30 Tablet 11 5 Active gabapentin (NEURONTIN) 600 mg tabletIndication [...] on 06/25/2018, both by Dr. Ken at [facility]. Presented to consult office for c/o [...] (BMI) of 32.0 to 32.9 in adult 10/16/2023 Diverticulitis 04/18/2023 Lumbar spondylosis 04/18/2023 Overview (12/10/2024): Last Assessment & Plan: Patient has history of right L5-S1 minimally invasive discectomy 08/02/[address] Whitfield, s/p right L4-5 decompression February 2018, reexploration with microdiscectomy 06/25/[address] Ken at [facility]. He was last seen in the [...] spinal cord stimulator placed October 2021 at [facility] [place]. He comes in today describing [...] GI for diverticulitis, recent ED visits at [facility]. Patient had CAT scan of the abdomen [...] also had a lumbar spine x-ray at [facility] 01/30/2023 that shows straightening of the normal [...] ordered right hip x-ray. I will call [employer] to see if he can have an [...] 02/19/18, per Cricket Wills PA-C: Seen by [facility] Neurosurgery. Dr. James Dent will attempt to decompress after PCP pre-op clearance. Right L4-L5 METRx (6cm) bilateral decompression. Surgeon Dr. Dent - 02/14/18. Encounters Date Type Department Care Team Description 04/18/2025 10:00 AM EDT Office Visit [facility] [address] [place] [address] Ihsan Gibbs, PharmD 03/28/2025 10:00 AM EDT Telemedicine Visit [address] [address] Brenton Mcfadden, RD 02/21/2025 10:00 AM EDT Telemedicine Visit [address] [phone] Brenton Mcfadden, RD 02/10/2025 10:00 AM EDT Office Visit [facility] [address] [place] [address] Ihsan Gibbs, PharmD 02/07/2025 10:00 AM EDT Office Visit [address] [address] Brenton Mcfadden, RD 01/24/2025 10:00 AM EDT Telemedicine Visit [address] [address] Brenton Mcfadden, RD from Last 3 Months [...] Mass Index 32.77 04/18/2025 9:14 AM EDT Plan of Treatment Upcoming Encounters Date Type Department Care Team (Late Contact Info) Description 07/04/2025 2:20 PM EST [facility] Visit [facility] [address] [place] [address] Margarito Leger [address] [place] [address] Health Maintenance Due Date Last Done Comments CT Colonography 12/01/2011 Fecal DNA 12/01/2011 Flexible Sigmoidoscopy 12/01/2011 FIT/gFOBT 04/24/2021 04/24/2020, 04/09, 04/24/2020, Additional history exists [id number] ( season) 2025 09/13/2022, 06/16/2021, 11/16/2020, Additional [...] 9:14 AM EDT) No Mary Maxwell, PharmD Procedures Procedure Name Priority Date/Time Associated Diagnosis Comments IMAGING SCANNED DOCUMENT 04/09/2025 3:00 AM EDT COMP PERIODONTAL EVALUATION - NEW/EST PATIENT Routine [...] Bronchitis Moderate persistent asthma with acute exacerbation ([facility]) Routine adult health maintenance LIPID PANEL Routine [...] Health Maintenance Results * IMAGING SCANNED DOCUMENT (04/09/2025 3:00 AM EDT) 04/09/2025 3:00 AM EDT Cricket [facility]AG[facility] Final Result * (ABNORMAL) LIPID PANEL Routine (12/10/2024 9:44 AM EDT) CHOLESTEROL, TOTAL 267(H) <200 mg/dL [facility] HDL CHOLESTEROL 46 > OR = 40 mg/dL [facility] TRIGLYCERIDES 231(H) <150 mg/dL [facility] Comment: If a non-fasting specimen was collected, consider repeat triglyceride testing on a fasting specimen if clinically indicated. Arelis et al. J. of Clin. Lipidol. 2015;9:129-169. LDL-CHOLESTEROL 178(H) 99 mg/dL (calc) [facility] Comment: Reference range: <100 Desirable range <100 mg/dL for primary prevention; <70 mg/dL for patients with CHD or diabetic patients with > or = 2 CHD risk factors. LDL-C is now calculated using the Charbel-Akhil calculation, which is a validated novel method providing better accuracy than the Friedewald equation in the estimation of LDL-C. Charbel VIDAL et al. ANI. 2013;310(19): 0886-8567 (http://education.[employer]/faq/CFB877) CHOL/HDLC RATIO 5.8(H) <5.0 (calc) [facility] NON-HDL CHOLESTEROL 221(H) <130 mg/dL (calc) [facility] Comment: Non-HDL level > or = 220 [...] [facility] - BLOOD DRAW Final Result [facility] [address] [address], [facility] [address] [address] * (ABNORMAL) COMPREHENSIVE METABOLIC PANEL Routine (12/10/2024 9:44 AM EDT) Pathologist [facility] GLUCOSE 90 65 - 99 mg/dL [facility] Comment: Fasting reference interval UREA NITROGEN (BUN) 18 7 - 25 mg/dL [facility] CREATININE (blood) 1.03 0.70 - 1.30 mg/dL [facility] EGFR 84 > OR = 60 mL/min/1. 73m2 [facility] BUN/CREATININE RATIO SEE NOTE: [facility] Comment: Not Reported: BUN and Creatinine are within reference range. SODIUM 139 135 - 146 mmol/L [facility] POTASSIUM 4.2 3.5 - 5.3 mmol/L [facility] CHLORIDE 102 98 - 110 mmol/L [facility] CARBON DIOXIDE 29 20 - 32 mmol/L [facility] CALCIUM 8.9 8.6 - 10.3 mg/dL [facility] PROTEIN, TOTAL 6.3 6.1 - 8.1 g/dL [facility] ALBUMIN 3.7 3.6 - 5.1 g/dL [facility] GLOBULIN 2.6 1.9 - 3.7 g/dL (calc) [facility] ALBUMIN/GLOBULI N RATIO 1.4 1.0 - 2.5 (calc) [facility] BILIRUBIN, TOTAL 0.6 0.2 - 1.2 mg/dL [facility] ALKALINE PHOSPHATASE 65 35 - 144 U/L [facility] AST 23 10 - 35 U/L [facility] ALT 47(H) 9 - 46 U/L [facility] [employer] [facility] Blood Blood / Unknown 12/10/2024 9 :44 AM EDT 12/10/2024 9:44 AM EDT us Cricket [facility] - BLOOD DRAW Final Result [facility] [address] [address], [employer] [address] [address] * REFERRAL FOR COLONOSCOPY (10/30/2020 12:54 PM [...] NEGATIVE CARD NEHEMIAH DATE: NO DATE SPECIFIED [facility] 04/24/2020 04/24/2020 6:5 5 PM EDT Narrative [facility] - 04/27/2020 11:22 AM EDT [employer], a member of [address] [address] Newspaper Managing Editor - Ella Guevara MD PT ID [id number] ORD# [id number] SOURCE: STOOL; us Cricket [facility] BODY FLUIDS AND STOOLS AMB ULATORY Final Result Performing Organization Address City/[facility]/ZIP Co de Phone Number [address] [address], * HEPATITIS A,B,C PANEL (08/25/2017 8:35 AM EST) HEPATITIS B SURFACE ANTIBODY NEGATIVE NEGATIVE [facility] HEPATITIS B SURFACE ANTIGEN NEGATIVE NEGATIVE [facility] Comment: Over the counter supplements containing high doses of biotin may interfere with this assay. If interference is suspected, patients shoud be retested after refraining from biotin supplements for 72 hours. HEPATITIS C VIRUS DIAGNOSTIC NEGATIVE NEGATIVE [facility] HEPATITIS B CORE ANTIBODY NEGATIVE NEGATIVE [facility] HEPATITIS A ANTIBODY TOTAL NEGATIVE NEGATIVE [facility] Comment: Over the counter supplements containing high doses of biotin may interfere with this assay. If interference is suspected, patients shoud be retested after refraining from biotin supplements for 72 hours. Blood specimen (specimen) Blood / Unknown 08/25/2017 8:35 AM EST 08/25/2017 8:46 AM EST [facility] - 08/25/2017 2:18 PM EST [employer] [address] [place] [id number] PT ID [id number] ORD# [id number] Cricket [facility] - BLOOD DRAW Edited Result - Final [address] [address], * HIV-1 & HIV-2 ANTIBODIES (08/25/2017 8:35 AM EST) HIV 1 AND 2 ANTIBODY SCREEN NEGATIVE NEGATIVE [facility] Comment: This assay is a [...] AM EST 08/25/2017 8:46 AM EST Narrative [facility] - 08/25/2017 2:47 PM EST [facility] [address] [place] [address] PT ID [id number] ORD# [id number] Cricket [facility] - BLOOD DRAW Final Result [facility] [address] [place] [address], from Last 3 Months or Most Recently Relevant to Health Maintenance Insurance [place] MEDICAID DENTAL [address] [employer] Care Teams Merchandise Director Relationship Specialty Start Date End Date Cricket Wills PA [address] [place] [address] PCP - General Internal Medicine 07/08/17
--- OUTSIDE RECORDS SUMMARY | 2025-04-23 11:47 | XMS_ITS | Clinical Summary ---
Author Organization [facility] Address [address] [place] [address] Phone Care Team Providers Care Ball Fringe Machine Operator Name Role Phone Cricket Wills Primary Care Provider [phone] Allergies No known active allergies Medications clonazePAM [...] with microdiscectomy 06/25/[address] Ken at [facility]. He was last seen in [...] spinal cord stimulator placed October 2021 at [facility] pain management. He comes in today describing [...] GI for diverticulitis, recent ED visits at [facility]. Patient had CAT scan of [...] also had a lumbar spine x-ray at [facility] 01/30/2023 that shows straightening of the normal [...] ordered right hip x-ray. I will call [employer] to see if he can have an [...] February 2018, reexploration with discectomy 06/25/2018, Dr. eKn [facility] OTHER SURGICAL HISTORY 10/2021 PROCEDURE: HISTORY OTHER; COMMENT: Spinal cord stimulator placed, [facility] pain management TOTAL KNEE ARTHROPLASTY PROCEDURE: SC ARTHRP KNE CONDYLE&PLATU MEDIAL&LAT COMPARTMENTS; COMMENT: Right [...] Done Comments Colorectal Cancer Screening: Colonoscopy 1966 RSV Immunization Adult Patients (1 - Risk 50-74 years 1-dose series) 2016 Hepatitis C Screening 06/11/2022 Social Influencers of [...] mmol/L LAB CHEMISTRY METHOD 06/07/2024 2:17 AM [facility] Potassium 4.0 3.5 - 5.5 mmol/L LAB CHEMISTRY METHOD 06/07/2024 2:17 AM [facility] Chloride 106 96 - 110 mmol/L LAB CHEMISTRY METHOD 06/07/2024 2:17 AM [facility] CO2 29 21 - 32 mmol/L LAB CHEMISTRY METHOD 06/07/2024 2:17 AM [facility] Anion Gap 6 3 - 11 LAB CHEMISTRY METHOD 06/07/2024 2:17 AM [facility] Glucose 123(H) 70 - 100 mg/dL LAB CHEMISTRY METHOD 06/07/2024 2:17 AM [facility] BUN 24 5 - 25 mg/dL LAB CHEMISTRY METHOD 06/07/2024 2:17 AM [facility] Creatinine 1.83(H) 0.70 - 1.30 mg/dL LAB CHEMISTRY METHOD 06/07/2024 2:17 AM [facility] eGFR 43(L) >=60 mL/min/1. 73m2 LAB CHEMISTRY METHOD 06/07/2024 2:17 AM [facility] Comment:Calculation based on the Chronic Kidney Disease Epidemiology Collaboration (CKD-EPI) equation refit without adjustment for race. BUN/Creatinine Ratio 13.1 LAB CHEMISTRY METHOD 06/07/2024 2:17 AM [facility] Calcium 9.2 8.5 - 10.5 mg/dL LAB CHEMISTRY METHOD 06/07/2024 2:17 AM [facility] AST (SGOT) 30 10 - 42 unit/L LAB CHEMISTRY METHOD 06/07/2024 2:17 AM [facility] ALT (SGPT) 46 10 - 60 unit/L LAB CHEMISTRY METHOD 06/07/2024 2:17 AM [facility] Alkaline Phosphatase 85 42 - 121 unit/L LAB CHEMISTRY METHOD 06/07/2024 2:17 AM [facility] Total Protein 7.0 6.0 - 8.0 g/dL LAB CHEMISTRY METHOD 06/07/2024 2:17 AM [facility] Albumin 3.8 3.2 - 5.0 g/dL LAB CHEMISTRY METHOD 06/07/2024 2:17 AM [facility] Total Bilirubin 0.6 0.0 - 1.4 mg/dL LAB CHEMISTRY METHOD 06/07/2024 2:17 AM [facility] Blood Venous blood specimen / Unknown Venipuncture / Unknown 06/07/2024 1:17 AM EST 06/07/2024 1:51 AM EST Nury Guevara MD LAB BLOOD ORDERABLES Fin al Result [facility] [address] [place] [address], * Lipid panel (2022) LDL/HDL Ratio 0 [...] Maintenance Insurance MEDICAID - [place] Care Teams Ball Fringe Machine Operator Relationship Specialty Start Date End Date Cricket Wills PA [address] [place] [phone] PCP - General Physician Teacher Of Family [employer] Consumer Science 08/14/19
--- OUTSIDE RECORDS SUMMARY | 2025-04-23 11:47 | XMS_ITS | Encounter Summary ---
Author Organization [facility] Address [address] [place] [address] Care Team Providers Care Curbing Stonecutter Name Role Phone Cricket Wills Primary Care Provider Encounter Details Date Type Department Care Team (Late st Contact Info) Description 02/07/2022 Dental Interim Note [facility] [address] [place] [phone] Mellissa Hernandez, ALEXIS [address] [place] [address] Social History Tobacco Use Types Packs/Day Years [...] Description 07/04/2025 2:20 PM EST Office Visit [facility] [address] [place] [address] Margarito Leger [address] [place] [address] documented as of this encounter Goals Goal [...] documented as of this encounter Care Teams Curbing Stonecutter Relationship Specialty Start Date End Date Cricket Wills PA [address] [place] [address] PCP - General Internal Medicine 07/08/17 documented as of this encounter
== END 2025-04-23 10:47 | disposition home or self-care (01) ==
LOC: HO.HUSH 10:02
PROVIDERS: PCP Physician Assistant; Visit Provider Nurse Practitioner Family
DX: N20.0 Calculus of kidney (principal); R10.9 Unspecified abdominal pain; Z13.9 Encounter for screening, unspecified
CPT/HCPCS: 99214

== ENCOUNTER → 2025-04-23 10:02 | Outpatient (BNVA) | payer MEDICAID, SELFPAY | PROVIDERS: PCP Physician Assistant; Visit Provider Nurse Practitioner Family | DX: N20.0 Calculus of kidney (principal); R10.9 Unspecified abdominal pain | CPT/HCPCS: 81003; 99212 ==